=== PATIENT | male | born 1940 | race Caucasian/White ===

== ENCOUNTER 2017-02-27 14:19 | Day surgery (SDC) | payer MEDICARE, OTHER, SELFPAY ==
[2017-02-27 15:40] VITALS: BP 140/80; PULSE 69; RESP 16; O2SAT 100; BMI 26.2
--- NOTE | 2017-02-27 16:09 | HMH.PMPROC ---
- Procedure Date: 02/27/17 Time: 16:09 Anesthesiologist:: Jony Kinney MD Complications:: None Pre-procedure Diagnosis:: Degenerative disc disease of lumbar spine with lumbar radiculopathy symptoms and postlaminectomy syndrome Post-procedure Diagnosis:: Same Indications for Procedure:: This patient is a pleasant 76-year-old white male who we are treating for low back pain with lumbar radiculopathy symptoms and postlaminectomy syndrome. He is doing well with his intrathecal pain pump. We will make some changes to his intrathecal infusion today. We will increase his bupivacaine to 10 mg/mL in addition to his Dilaudid 10 mg/mL. He does have a normal gait. Motor strength of lower extremities is 5/5. There is no gross sensory deficit. Procedure Details:: Informed consent was obtained and the risks and benefits of the procedure was explained to the patient. The patient was taken to the procedure room. The pump was interrogated. The area over the pump was prepped using ChloraPrep. The pump was accessed with a 22-gauge needle. Approximately 6 mL's of the intrathecal solution was withdrawn and discarded. The pump was then refilled with 20 mL's of intrathecal Dilaudid 10 mg per ml plus bupivacaine 10 mg/mL. The pump was interrogated and the infusion was increased to 1.5 mg per day. The patient tolerated the procedure well with no complication. Plan and Disposition:: We will follow-up with him in 3 months at his next pump refill. If he has any problems or questions he is to call us in the pain clinic.
[2017-02-27 16:10] VITALS: BP 134/79; PULSE 68; RESP 20; O2SAT 97
[2017-02-27 16:12] VITALS: BP 119/85; RESP 20; O2SAT 97
[2017-02-27 16:28] VITALS: BP 142/73; PULSE 66; RESP 16; O2SAT 99
== END 2017-02-27 16:29 | disposition home or self-care (01) ==
LOC: SC.PAINP 14:22
PROVIDERS: Family Provider Family Medicine; PCP Family Medicine; Visit Provider Nurse Anesthetist, Certified Registered
DX: M51.16 Intervertebral disc disorders with radiculopathy, lumbar region (principal); M96.1 Postlaminectomy syndrome, not elsewhere classified
CPT/HCPCS: 62370

== ENCOUNTER → 2017-03-29 10:21 | Outpatient (CLI) | payer MEDICARE, OTHER, SELFPAY ==
--- NOTE | 2017-03-29 10:27 | NM_ITS ---
NM hepatobiliary w pharm HISTORY: ITS.REASON: CALCULUS OF GB ORDERING PHYSICIAN: Scooter Simons MD PATIENT AGE: 76 years COMPARISON: Gallbladder ultrasound of 05/14/2016 DOSE: 8.36 mCi technetium Choletec. Fatty meal was given with ensure or with no complaints of pain with the fatty meal FINDINGS: Homogeneous activity is present within the hepatic parenchyma. Activity is present in the gallbladder by 30 minutes. Activity is present in the small bowel by 10 minutes. The gallbladder ejection fraction is calculated to be 59% which is normal The patient did not report pain or other symptoms during the fatty meal. IMPRESSION: Unremarkable hepatobiliary scan and gallbladder ejection fraction. No evidence of common or cystic duct obstruction with normal gallbladder ejection fraction
[2017-03-29 13:11] LABS: Basophils % 0.3 % (0.1-2.0); Eosinophils # 0.2 K/mm3 (0.0-0.4); Eosinophils % 3.2 % (0.1-12.0); Hematocrit 39.2 % (42.0-52.0); Hemoglobin 12.9 g/dL (14.1-18.0); Lymphocytes # 1.7 K/mm3 (0.7-4.5); Lymphocytes % 25.5 K/mm3 (10-50); Mean Corpuscular HGB Conc 32.8 g/dL (31.8-35.4); Mean Corpuscular Hemoglobin 29.2 pg (27.0-31.2); Mean Corpuscular Volume 88.9 fl (80-94); Mean Platelet Volume 8.8 fl (7.4-10.4); Monocytes # 0.4 K/mm3 (0.1-1.0); Monocytes % 5.8 % (1.7-9.3); Neutrophils # 4.3 K/mm3 (1.8-7.8); Neutrophils % 65.2 % (37.0-80.0); Platelet Count 256 K/mm3 (142-424); Red Blood Count 4.41 M/mm3 (4.60-6.20); Red Cell Distribution Width 12.8 % (11.5-17.5); White Blood Count 6.6 K/mm3 (4.8-10.8)
[2017-03-29 14:33] LABS: Alanine Aminotransferase 26 U/L (12-78); Albumin Level 4.3 gm/dL (3.4-5.0); Albumin/Globulin Ratio 1.5 (1.1-1.8); Alkaline Phosphatase 102 U/L (46-116); Aspartate Amino Transferase 10 U/L (15-37); Bilirubin,Total 0.5 mg/dL (0.2-1.0); Blood Urea Nitrogen 26 mg/dL (7-18); Calcium 9.1 mg/dL (8.5-10.1); Carbon Dioxide 32 mmol/L (21.0-32.0); Chloride 106 mmol/L (98-107); Creatinine,Serum 0.88 mg/dL (0.70-1.30); Estimated Glomerular Filt Rate 85 ml/min (>60); GFR (African American) 102 ML/MIN (>60); Globulin 2.9 gm/dl (1.3-3.2); Glucose 106 mg/dL (74-106); Sodium 144 mmol/L (136-145); Total Protein,Serum 7.2 gm/dL (6.4-8.2)
[2017-03-29 15:04] LABS: C-Reactive Protein < 0.2 mg/L (0.0-0.9)
[2017-03-29 18:45] LABS: Erythrocyte Sedimentation Rate 25 mm/hr (0-20)
== END ==
PROVIDERS: Family Provider Family Medicine; PCP Family Medicine; Visit Provider Orthopaedic Surgery
DX: K80.20 Calculus of gallbladder without cholecystitis without obstruction (principal)
CPT/HCPCS: 36415; 78227; 80053; 85025; 85651; 86140; A9537

== ENCOUNTER → 2017-04-02 11:28 | Outpatient (CLI) | payer MEDICARE, OTHER, SELFPAY ==
--- NOTE | 2017-04-02 11:33 | NM_ITS ---
NM bone 3 phase CLINICAL INDICATION: Loosening of prosthesis ITS.REASON: R/O LOOSENING OF RTA,IDA KNEE PAIN ORDERING PHYSICIAN: Kelechi Vazquez PATIENT AGE: 76 years COMPARISON: Outside radiographs 03/27/2017 DOSE: FINDINGS: 3 phase imaging is performed. Patient has bilateral total knee prosthesis. Blood flow images show symmetric activity in the knees Blood flow images and delayed images show photopenic region within the distal femur and proximal tibia from the bilateral prosthesis. There is some increased activity about the prosthesis on both sides slightly greater around the tibial component of the right prosthesis more prominent on the anterior and right medial images. While this may be related to reactive process, one cannot exclude loosening of the prosthesis. The radiographs however do not demonstrate any significant zone of lucency in this area. IMPRESSION: Status post bilateral knee replacement. There is expected increased delayed activity about the prosthesis on both sides. This is slightly greater at the tibial component on the right could reflect early loosening versus bony reactive process. Please correlate with clinical findings.
== END ==
PROVIDERS: Family Provider Family Medicine; PCP Family Medicine; Visit Provider Orthopaedic Surgery
DX: M25.562 Pain in left knee (principal); M25.561 Pain in right knee
CPT/HCPCS: 78315; A9503

== ENCOUNTER → 2017-05-20 11:33 | Outpatient (CLI) | payer MEDICARE, SELFPAY ==
[2017-05-20 11:44] LABS: Basophils % 0.4 % (0.1-2.0); Eosinophils # 0.3 K/mm3 (0.0-0.4); Eosinophils % 4.9 % (0.1-12.0); Hematocrit 37.3 % (42.0-52.0); Hemoglobin 12.2 g/dL (14.1-18.0); Lymphocytes # 1.7 K/mm3 (0.7-4.5); Lymphocytes % 29.3 K/mm3 (10-50); Mean Corpuscular HGB Conc 32.7 g/dL (31.8-35.4); Mean Corpuscular Hemoglobin 29.1 pg (27.0-31.2); Mean Corpuscular Volume 89.1 fl (80-94); Mean Platelet Volume 8.4 fl (7.4-10.4); Monocytes # 2.4 K/mm3 (0.1-1.0); Monocytes % 41.2 % (1.7-9.3); Neutrophils # 1.4 K/mm3 (1.8-7.8); Neutrophils % 24.3 % (37.0-80.0); Platelet Count 240 K/mm3 (142-424); Red Blood Count 4.19 M/mm3 (4.60-6.20); Red Cell Distribution Width 12.4 % (11.5-17.5); White Blood Count 5.9 K/mm3 (4.8-10.8)
[2017-05-20 11:47] LABS: MANUAL DIFFERENTIAL MANUAL DIFFERENTIAL (MANUAL DIFF)
[2017-05-20 12:15] LABS: Anion Gap 12.4 mEq/L (5-15); Blood Urea Nitrogen 30 mg/dL (7-18); Carbon Dioxide 30 mmol/L (21.0-32.0); Chloride 105 mmol/L (98-107); Creatinine,Serum 0.89 mg/dL (0.70-1.30); Estimated Glomerular Filt Rate 84 ml/min (>60); GFR (African American) 101 ML/MIN (>60); Glucose 104 mg/dL (74-106); Potassium 4.4 mmoL/L (3.5-5.1); Sodium 143 mmol/L (136-145)
[2017-05-20 13:03] LABS: Lymphocytes % 29 % (10-50); Monocytes % 6 % (2-9); Neutrophils % 65 % (42-76); Platelet Estimate Normal; RBC Morphology Normal; Total Cells Counted 100
== END ==
PROVIDERS: Visit Provider Surgery
DX: Z01.818 Encounter for other preprocedural examination (principal); K40.90 Unilateral inguinal hernia, without obstruction or gangrene, not specified as recurrent
CPT/HCPCS: 36415; 80048; 85007; 85025

== ENCOUNTER → 2017-07-03 13:55 | Outpatient (POV) | payer MEDICARE, SELFPAY | PROVIDERS: Family Provider Family Medicine; PCP Family Medicine | DX: Z00.00 Encounter for general adult medical examination without abnormal findings (principal) ==

== ENCOUNTER → 2017-08-05 12:00 | Outpatient (POV) | payer MEDICARE, SELFPAY ==
[2017-08-05 12:17] VITALS: BP 141/75; PULSE 63; RESP 18; TEMP 36.7; O2SAT 98; BMI 21.4
--- NOTE | 2017-08-05 12:58 | HMH.PMPROC ---
- Procedure Date: 08/05/17 Time: 12:25 Anesthesiologist:: Lorena Coon APRN Complications:: None Pre-procedure Diagnosis:: End of disc disease of lumbar spine with lumbar radiculopathy and postlaminectomy syndrome Post-procedure Diagnosis:: Same Indications for Procedure:: Patient is a pleasant 76-year-old white male who we are treating for low back pain and lumbar radiculopathy symptoms with postlaminectomy syndrome. Patient was on a intrathecal Dilaudid bupivacaine infusion that was going at 2.3 mg a day continuous. He was switched at his last refill to a periodic flow. Patient states that he was having some dizziness. Patient does have a history of vertigo. Patient states he is getting better pain relief. Rates his pain a 2 out of 10 today. On Saturday he was decreased to flow of 2.2 mg a day. Today we will decrease him somewhat. Patient states she is doing better. Patient is walking today with a cane instead of being in a wheelchair. Patient states his PCP would like us to turn his intrathecal pain pump down. ROS General: no recent weight change, no fever, no sleep disturbances Respiratory: no cough, no shortness of air, no recurring pulmonary infections Cardiovascular/Peripheral Vascular: No chest pain, No palpitations, no edema, no shortness of breath. Gastrointestinal: no new onset incontinence, normal bowel movements reported Genitourinary: no new onset incontinence Musculoskeletal: Back pain Psychiatric: normal mood/ affect Neurological: Denies any new weakness in bilateral lower extremities, dizziness (improved) Physical Exam General: Alert and oriented x3, no acute distress, pleasant and cooperative, [on room air] Lungs: Resps E/U, Symmetrical chest expansion, Eyes: PERRL Musculoskeletal: Flexion and extension of lumbar spine somewhat guarded secondary to pain, deep tendon reflexes normal, strength in upper and lower extremities [5/5], [abnormal gait noted] Neurological: speech clear, body recall instructor equal, no gross sensory deficits Procedure Details:: Informed consent was obtained and the risk and benefits of the procedure were explained to the patient. The patient was taken to the procedure room where noninvasive monitoring was placed including noninvasive blood pressure cuff and pulse oximeter. Patient's pump was interrogated. The infusion rate was changed to a basal rate of 0.02 mg/h and a every 2 hour dose of 0.13 mg over 10 minutes. Patient's total daily dose being 2 mg a day. The patient tolerated the procedure well. Plan and Disposition:: We will follow-up with this patient on Saturday and we will reassess his symptoms at that time. Even his history of vertigo and the decrease in his intrathecal infusion I am unsure if the cause of his dizziness is from the intrathecal pain pump. Patient's been instructed to call us if he has any issues prior to his next appointment. This note was dictated using voice recognition software and may contain errors or omissions
== END ==
PROVIDERS: Family Provider Family Medicine; PCP Family Medicine; Visit Provider Clinical Nurse Specialist Family Health
DX: M54.16 Radiculopathy, lumbar region (principal)
CPT/HCPCS: 99212

== ENCOUNTER → 2017-08-12 09:24 | Outpatient (POV) | payer MEDICARE, OTHER, SELFPAY ==
[2017-08-12 09:33] VITALS: BP 140/75; PULSE 87; RESP 18; O2SAT 98; BMI 26.6
--- NOTE | 2017-08-12 09:41 | P.PCN_ITS ---
- Procedure Date: 08/12/17 Time: 09:38 Anesthesiologist:: Lorena Coon APRN Complications:: None Pre-procedure Diagnosis:: Degenerative disc disease of lumbar spine with lumbar radiculopathy and postlaminectomy syndrome Post-procedure Diagnosis:: Same Indications for Procedure:: Patient is a pleasant 76-year-old white male who we are treating for low back pain secondary to lumbar postlaminectomy syndrome and radiculopathy symptoms. Patient on intrathecal Dilaudid/bupivacaine infusion going at 2 mg a day periodically. Patient states he has done much better pain busby in regards to this. Of note patient is not utilizing a cane or wheelchair coming into the office today. Patient rates his pain a 2 out of 10. Patient states he feels like he could be decreased slightly more due to some residual dizziness however overall he is doing much better. We will decrease him again today and we will follow-up with him at his next pain pump refill. Other than dizziness the patient denies any side effects. ROS General: no recent weight change, no fever, no sleep disturbances Respiratory: no cough, no shortness of air, no recurring pulmonary infections Cardiovascular/Peripheral Vascular: No chest pain, No palpitations, no edema, no shortness of breath. Gastrointestinal: no incontinence, normal bowel movements reported Genitourinary: no incontinence Musculoskeletal: Back pain Psychiatric: normal mood/ affect Neurological: [denies weakness in extremities], [denies balance issues] Procedure Details:: Informed consent was obtained and the risk and benefits of the procedure were explained to the patient. The patient was taken to the procedure room where noninvasive monitoring was placed including noninvasive blood pressure cuff and pulse oximeter. Patient's pump was interrogated. The infusion rate was decreased to 0.12 mg over 10 minutes every 2 hours and a basal rate of 0.02 mg/ h for a total daily dose of 1.88 milligrams a day.. The patient tolerated the procedure well. Plan and Disposition:: I will follow-up with this patient at his next intrathecal pain pump refill. Patient has been instructed to call the office if he has any issues prior to his next appointment. This note was dictated using voice recognition software and may contain errors or omissions
== END ==
PROVIDERS: Family Provider Family Medicine; PCP Family Medicine; Visit Provider Clinical Nurse Specialist Family Health
DX: M54.16 Radiculopathy, lumbar region (principal); Z45.1 Encounter for adjustment and management of infusion pump
CPT/HCPCS: 62367; 99212

== ENCOUNTER → 2017-09-18 15:25 | Outpatient (POV) | payer MEDICARE, SELFPAY | PROVIDERS: Family Provider Family Medicine; PCP Family Medicine | DX: Z00.00 Encounter for general adult medical examination without abnormal findings (principal) ==

== ENCOUNTER → 2017-11-11 12:08 | Outpatient (POV) | payer MEDICARE, OTHER, SELFPAY ==
[2017-11-11 12:18] VITALS: BP 125/74; PULSE 67; RESP 18; O2SAT 98; BMI 27.1
--- NOTE | 2017-11-11 13:08 | P.PCN_ITS ---
- Procedure Date: 11/11/17 Time: 12:44 Anesthesiologist:: Lorena Coon APRN Complications:: None Pre-procedure Diagnosis:: Degenerative disc disease of lumbar spine with lumbar radiculopathy and postlaminectomy syndrome along with bilateral osteoarthritis of the knees Post-procedure Diagnosis:: Same Indications for Procedure:: Patient is a 77-year-old white male who presents today for intrathecal pain pump reprogramming. Patient states that he is having quite a lot of back pain along with bilateral knee pain. Patient is not interested in updating his MRI at this time. He rates his pain a 2 out of 10 today. Patient is also on [place] 5 twice daily as needed for knee pain. He denies any side effects to this. He states he does get sleepy from the intrathecal medication at times. Patient wants to discuss the vrtiflex procedure. I am unsure if he is a candidate we will have the MRI reviewed. Patient is currently on a Dilaudid/bupivacaine 1.8 mg a day Physical Exam General: Alert and oriented x3, no acute distress, pleasant and cooperative, [on room air] Lungs: Resps E/U, Symmetrical chest expansion, Eyes: PERRL Musculoskeletal: Flexion and extension of lumbar spine somewhat guarded secondary to pain, deep tendon reflexes normal, strength in upper and lower extremities [5/5], [abnormal gait noted] Neurological: speech clear, workforce investment act career manager equal, no gross sensory deficits Procedure Details:: Informed consent was obtained and the risk and benefits of the procedure were explained to the patient. The patient was taken to the procedure room where noninvasive monitoring was placed including noninvasive blood pressure cuff and pulse oximeter. Patient's pump was interrogated. The infusion rate was increased to 2.2 mg/day of Dilaudid and bupivacaine. The patient tolerated the procedure well. Plan and Disposition:: We will follow-up with the patient is next intrathecal pain pump refill and reprogram. Patient's been instructed to call the office if he has any issues prior to his next appointment. This note was dictated using voice recognition software and may contain errors or omissions
== END ==
PROVIDERS: Family Provider Family Medicine; PCP Family Medicine; Visit Provider Clinical Nurse Specialist Family Health
DX: M51.16 Intervertebral disc disorders with radiculopathy, lumbar region (principal); M96.1 Postlaminectomy syndrome, not elsewhere classified; M17.0 Bilateral primary osteoarthritis of knee
CPT/HCPCS: 62368

== ENCOUNTER → 2017-12-25 14:40 | Outpatient (POV) | payer MEDICARE, SELFPAY | DX: Z00.00 Encounter for general adult medical examination without abnormal findings (principal) ==

== ENCOUNTER → 2017-12-26 11:00 | Outpatient (CLI) | payer MEDICARE, SELFPAY ==
[2017-12-26 13:25] LABS: Prostate Specific Ag, Diagnost 1.18 ng/mL (0.0-4.0)
== END ==
PROVIDERS: Visit Provider Urology
DX: N40.0 Benign prostatic hyperplasia without lower urinary tract symptoms (principal); N39.9 Disorder of urinary system, unspecified
CPT/HCPCS: 36415; 84153

== ENCOUNTER → 2018-01-04 09:53 | Outpatient (CLI) | payer MEDICARE, OTHER, SELFPAY ==
[2018-01-04 10:19] LABS: Basophils % 0.6 % (0.1-2.0); Eosinophils # 0.2 K/mm3 (0.0-0.4); Eosinophils % 3.9 % (0.1-12.0); Hematocrit 37.6 % (42.0-52.0); Hemoglobin 12.3 g/dL (14.1-18.0); Lymphocytes # 1.9 K/mm3 (0.7-4.5); Lymphocytes % 33.7 % (10-50); Mean Corpuscular HGB Conc 32.6 g/dL (31.8-35.4); Mean Corpuscular Volume 88.8 fl (80-94); Mean Platelet Volume 7.8 fl (7.4-10.4); Monocytes # 0.3 K/mm3 (0.1-1.0); Monocytes % 5.5 % (1.7-9.3); Neutrophils # 3.2 K/mm3 (1.8-7.8); Neutrophils % 56.3 % (37.0-80.0); Platelet Count 278 K/mm3 (142-424); Red Blood Count 4.24 M/mm3 (4.60-6.20); Red Cell Distribution Width 13.2 % (11.5-17.5); White Blood Count 5.6 K/mm3 (4.8-10.8)
[2018-01-04 11:58] LABS: Alanine Aminotransferase 21 U/L (12-78); Albumin Level 3.9 gm/dL (3.4-5.0); Albumin/Globulin Ratio 1.3 (1.1-1.8); Alkaline Phosphatase 100 U/L (46-116); Anion Gap 12.2 mEq/L (5-15); Aspartate Amino Transferase 7 U/L (15-37); Bilirubin,Total 0.5 mg/dL (0.2-1.0); Blood Urea Nitrogen 24 mg/dL (7-18); Calcium 8.9 mg/dL (8.5-10.1); Carbon Dioxide 29 mmol/L (21.0-32.0); Chloride 107 mmol/L (98-107); Creatinine,Serum 0.87 mg/dL (0.70-1.30); Estimated Glomerular Filt Rate 86 ml/min (>60); GFR (African American) 104 ML/MIN (>60); Globulin 3.1 gm/dl (1.3-3.2); Glucose 99 mg/dL (74-106); Potassium 4.2 mmoL/L (3.5-5.1); Sodium 144 mmol/L (136-145)
== END ==
PROVIDERS: Visit Provider Family Medicine
DX: Z01.818 Encounter for other preprocedural examination (principal)
CPT/HCPCS: 36415; 80053; 85025; 93005

== ENCOUNTER 2018-03-25 14:30 | Outpatient (RCR) | payer MEDICARE, OTHER, SELFPAY | END 2018-03-25 14:35 | disposition home or self-care (01) | LOC: PT 14:30 | PROVIDERS: Visit Provider Orthopaedic Surgery | DX: Z96.651 Presence of right artificial knee joint (principal) | CPT/HCPCS: 97010; 97014; 97016; 97033; 97110; 97112; 97163; G0283 ==

== ENCOUNTER → 2018-04-23 10:26 | Outpatient (CLI) | payer MEDICARE, OTHER, SELFPAY ==
[2018-04-23 11:34] LABS: Basophils % 0.5 % (0.1-2.0); Eosinophils # 0.2 K/mm3 (0.0-0.4); Eosinophils % 3.8 % (0.1-12.0); Hematocrit 39.4 % (42.0-52.0); Lymphocytes # 1.5 K/mm3 (0.7-4.5); Lymphocytes % 33.9 % (10-50); Mean Corpuscular Hemoglobin 29.2 pg (27.0-31.2); Mean Corpuscular Volume 88.5 fl (80-94); Monocytes # 0.3 K/mm3 (0.1-1.0); Monocytes % 6.4 % (1.7-9.3); Neutrophils # 2.5 K/mm3 (1.8-7.8); Neutrophils % 55.5 % (37.0-80.0); Platelet Count 267 K/mm3 (142-424); Red Blood Count 4.45 M/mm3 (4.60-6.20); White Blood Count 4.5 K/mm3 (4.8-10.8)
[2018-04-23 12:31] LABS: Alanine Aminotransferase 26 U/L (12-78); Albumin/Globulin Ratio 1.3 (1.1-1.8); Alkaline Phosphatase 119 U/L (46-116); Anion Gap 12.4 mEq/L (5-15); Aspartate Amino Transferase 13 U/L (15-37); Bilirubin,Total 0.6 mg/dL (0.2-1.0); Blood Urea Nitrogen 28 mg/dL (7-18); Calcium 9.5 mg/dL (8.5-10.1); Carbon Dioxide 29 mmol/L (21.0-32.0); Chloride 106 mmol/L (98-107); Chol/HDL Ratio 5.6 (1-3.5); Cholesterol 203 mg/dL (140-200); Creatinine,Serum 0.92 mg/dL (0.70-1.30); Estimated Glomerular Filt Rate 80 ml/min (>60); GFR (African American) 97 ML/MIN (>60); Globulin 3.2 gm/dl (1.3-3.2); Glucose 90 mg/dL (74-106); HDL Cholesterol 36 mg/dL (27-67); LDL Cholesterol 141 mg/dL (0-130); Potassium 4.4 mmoL/L (3.5-5.1); Sodium 143 mmol/L (136-145); Thyroid Stimulating Hormone 1.16 uIU/ml (0.358-3.740); Total Protein,Serum 7.2 gm/dL (6.4-8.2); Triglycerides 128 mg/dL (30-200); VLDL Cholesterol 26 mg/dL (0-40)
[2018-04-23 13:07] LABS: Erythrocyte Sedimentation Rate 13 mm/hr (0-20)
[2018-04-23 15:27] LABS: Hemoglobin A1C 5.3 % (0.0-7.0)
== END ==
PROVIDERS: Visit Provider Family Medicine
DX: R73.9 Hyperglycemia, unspecified (principal); E78.5 Hyperlipidemia, unspecified; Z12.5 Encounter for screening for malignant neoplasm of prostate
CPT/HCPCS: 36415; 80053; 80061; 83036; 84443; 85025; 85651

== ENCOUNTER → 2018-07-21 12:39 | Outpatient (CLI) | payer MEDICARE, OTHER, SELFPAY ==
[2018-07-21 14:14] LABS: Basophils % 0.5 % (0.1-2.0); Eosinophils # 0.2 K/mm3 (0.0-0.4); Eosinophils % 3.1 % (0.1-12.0); Hemoglobin 12.8 g/dL (14.1-18.0); Lymphocytes % 28.2 % (10-50); Mean Corpuscular HGB Conc 33.7 g/dL (31.8-35.4); Mean Corpuscular Hemoglobin 28.8 pg (27.0-31.2); Mean Corpuscular Volume 85.3 fl (80-94); Monocytes # 0.5 K/mm3 (0.1-1.0); Monocytes % 6.6 % (1.7-9.3); Neutrophils # 4.4 K/mm3 (1.8-7.8); Neutrophils % 61.5 % (37.0-80.0); Platelet Count 291 K/mm3 (142-424); Red Blood Count 4.46 M/mm3 (4.60-6.20); Red Cell Distribution Width 12.8 % (11.5-17.5); White Blood Count 7.1 K/mm3 (4.8-10.8)
[2018-07-21 17:31] LABS: Alanine Aminotransferase 36 U/L (12-78); Albumin/Globulin Ratio 1.3 (1.1-1.8); Alkaline Phosphatase 103 U/L (46-116); Anion Gap 17.2 mEq/L (5-15); Aspartate Amino Transferase 17 U/L (15-37); Bilirubin,Total 0.5 mg/dL (0.2-1.0); Blood Urea Nitrogen 22 mg/dL (7-18); Calcium 9.3 mg/dL (8.5-10.1); Carbon Dioxide 25 mmol/L (21.0-32.0); Chloride 105 mmol/L (98-107); Creatinine,Serum 0.86 mg/dL (0.70-1.30); Estimated Glomerular Filt Rate 87 ml/min (>60); GFR (African American) 105 ML/MIN (>60); Globulin 3.1 gm/dl (1.3-3.2); Glucose 93 mg/dL (74-106); Potassium 4.2 mmoL/L (3.5-5.1); Sodium 143 mmol/L (136-145); Total Protein,Serum 7.1 gm/dL (6.4-8.2)
[2018-07-24 08:56] LABS: Folate >20.0 ng/mL (>3.0); Rapid Plasma Reagin Ab Titer Non Reactive (NonRea<1:1); Vitamin B12 1256 pg/mL (232-1245)
== END ==
PROVIDERS: Visit Provider Specialist
DX: F11.90 Opioid use, unspecified, uncomplicated (principal); G47.19 Other hypersomnia; G47.30 Sleep apnea, unspecified; H53.40 Unspecified visual field defects; R41.3 Other amnesia; R41.89 Other symptoms and signs involving cognitive functions and awareness; R53.83 Other fatigue; Z85.820 Personal history of malignant melanoma of skin; G93.40 Encephalopathy, unspecified
CPT/HCPCS: 36415; 80053; 82607; 82746; 85025; 86592

== ENCOUNTER → 2018-07-23 11:07 | Outpatient (CLI) | payer MEDICARE, OTHER, SELFPAY ==
--- NOTE | 2018-07-23 11:24 | CT_ITS ---
CT lumbar spine wo con INDICATION: ITS.REASON: LOW BACK PAIN ORDERING PHYSICIAN: Kelechi Vazquez MD PATIENT AGE: 77 years COMPARISON: 10/11/2014 TECHNIQUE: Axial images obtained with sagittal and coronal reformats. All CT scans at the facility use one or more dose reduction, viz: automated exposure control, ma/kV adjustment per patient size (including targeted exams where dose is matched to indication, i.e. head), or iterative reconstruction technique. FINDINGS: T10-T11: Unremarkable. There is an epidural catheter present with the tip in the left posterior aspect of the thecal sac at this level. T11-T12: Unremarkable. T12-L1: Unremarkable. There is mild wedging involving the anterior aspect of L1 with loss of height anteriorly of approximately 40%. This is not significant changed. There is a new small sclerotic focus involving the right lateral aspect of the L1 vertebral body which has developed in the interval. L1-L2: Unremarkable. L2-L3: Mild bulging disc along with mild facet and ligamentum hypertrophy with mild bilateral foraminal narrowing slightly greater on the right. Mild bilateral lateral recess narrowing. L3-L4: There is moderate facet hypertrophic change with prior posterior laminectomy at L4 and prominent bony hypertrophy of the posterior elements greater at the L4-L5 level. L4-L5: Postsurgical changes with prior laminectomy at L4 and prominent bony hypertrophy at L4-L5 with posterior fusion. Mild bilateral foraminal and lateral recess narrowing. L5-S1: There is spondylolisthesis on the left. There is 5 mm anterolisthesis of L5 on S1 with bulging disc at that level and bilateral foraminal narrowing. These findings are not significantly changed. There is an epidural catheter present which enters at the L3-L4 posterior space. The catheter first traverses anteriorly on the left at L3 and then traverses posteriorly with the tip of the catheter lying at the T11 T10 area on the left. IMPRESSION: 1. Multilevel lumbar spondylosis with degenerative changes. Please see above for detailed description at each level. 2. No change in the postsurgical change at L4-L5 with extensive bony hypertrophy and posterior bony fusion. 3. No change in the mild anterolisthesis of L5 on S1 of 5 mm with pars defect on the left at that level. 4. New epidural catheter present as described above. IMPRESSION:
== END ==
PROVIDERS: PCP Family Medicine; Visit Provider Orthopaedic Surgery
DX: M54.5 Low back pain (principal)
CPT/HCPCS: 72131

== ENCOUNTER → 2018-07-25 09:48 | Outpatient (CLI) | payer MEDICARE, OTHER, SELFPAY | PROVIDERS: PCP Family Medicine; Visit Provider Specialist | DX: G93.40 Encephalopathy, unspecified (principal); R41.3 Other amnesia ==

== ENCOUNTER → 2018-08-01 13:44 | Outpatient (CLI) | payer MEDICARE, OTHER, SELFPAY ==
--- NOTE | 2018-08-01 13:46 | MR_ITS ---
MR head/brain wo/w con HISTORY: ITS.REASON: encephalopathy. memory loss ORDERING PHYSICIAN: Ira Flowers MD PATIENT AGE: 77 years Comparison: None TECHNIQUE: Standard multiplanar multiecho sequences are performed without contrast. FINDINGS: There are no areas of restricted diffusion. There is no mass, recent hemorrhage or extra-axial fluid collection. Ventricles, sulci, cortical areas and brain stem structures appear normal. There were no areas of abnormal enhancement. There are stable small foci of increased FLAIR signal within the frontal and parietal subcortical white matter areas. Posterior fossa including internal auditory canals are normal. Visualized vessels are patent and area of the foramen magnum is normal. IMPRESSION: No change and no acute process. White matter findings are stable likely from chronic microvascular ischemic change.
== END ==
PROVIDERS: PCP Family Medicine; Visit Provider Specialist
DX: G93.40 Encephalopathy, unspecified (principal); R41.3 Other amnesia; R41.89 Other symptoms and signs involving cognitive functions and awareness; Z85.820 Personal history of malignant melanoma of skin
CPT/HCPCS: 70553; A9576

== ENCOUNTER → 2018-08-07 20:26 | Outpatient (CLI) | payer MEDICARE, OTHER, SELFPAY | PROVIDERS: PCP Family Medicine; Visit Provider Specialist | DX: G47.30 Sleep apnea, unspecified (principal); R40.0 Somnolence; R41.82 Altered mental status, unspecified | CPT/HCPCS: 95810 ==

== ENCOUNTER → 2018-08-29 10:07 | Outpatient (POV) | payer MEDICARE, OTHER, SELFPAY ==
[2018-08-29 10:40] VITALS: BP 137/65; PULSE 60; RESP 20; O2SAT 95; BMI 26.9
--- NOTE | 2018-08-29 11:06 | HMH.PMPROC ---
- Procedure Date: 08/29/18 Time: 11:06 Anesthesiologist:: Jony Kinney MD Complications:: None Pre-procedure Diagnosis:: Degenerative disc disease of lumbar spine with lumbar radicular symptoms and postlaminectomy syndrome of lumbar spine Post-procedure Diagnosis:: Same Indications for Procedure:: This patient is a pleasant 77-year-old white male who is well-known to us. He currently has an intrathecal Dilaudid/bupivacaine pain pump in place. He does have increasing low back pain and leg pain. Pain pump was doing well. He is on flex dosing at 2.8 mg/day with 0.16 mg boluses every 2 hours. His pain is slowly increase especially in his low back and down his right leg. He is scheduled to see a spine surgeon at [facility]. He has had facet joint injections in the past which have helped tremendously. I believe he would benefit from repeat bilateral facet joint injections of L3-L4, L4-5 and L5-S1. We will seek approval for these bilateral facet joint injections. Today we will also increase his intrathecal infusion to see if this will help with his symptoms. Procedure Details:: Pain pump reprogramming and increase Informed consent was obtained and the risk and benefits of the procedure was explained to the patient. The patient was taken to the procedure room. Intrathecal Dilaudid/bupivacaine pain pump was adjusted. Flex doses were increased to 0.2 mg every 2 hours. Daily dose increased to 3.34 mg/day. Patient tolerated the procedure well with no complications. Plan and Disposition:: We will follow-up with him in 2 weeks. Will reevaluate his symptoms at that time. Patient would like an increase in his bupivacaine. At his next refill we may increase his bupivacaine concentration to 20 mg/mL. We will also seek approval and plan on bilateral facet joint injections of L3-L4, L4-5 and L5-S1.
== END ==
PROVIDERS: PCP Family Medicine; Visit Provider Anesthesiology
DX: M51.16 Intervertebral disc disorders with radiculopathy, lumbar region (principal); M96.1 Postlaminectomy syndrome, not elsewhere classified
CPT/HCPCS: 62368

== ENCOUNTER → 2018-09-16 14:52 | Outpatient (CLI) | payer MEDICARE, OTHER, SELFPAY ==
[2018-09-16 17:05] LABS: Amphetamine/Metha Screen,Urine Negative ng/mL (<1000); Barbiturates Screen,Urine Negative ng/mL (<200); Benzodiazepines Screen,Urine Negative ng/mL (<200); Cannabinoid Screen,Urine Negative ng/mL (<50); Cocaine Screen,Urine Negative ng/mL (<300); Methadone Screen,Urine Negative ng/mL (<300); Opiate Screen,Urine Positive ng/mL (<300); Phencyclidine Screen,Urine Negative ng/mL (<25)
[2018-09-21 19:15] LABS: Codeine Negative (Cutoff=100); Hydrocodone Negative (Cutoff=100); Hydromorphone Positive (.); Morphine Negative (Cutoff=100)
[2018-09-22 10:34] LABS: Opiates Positive (.)
== END ==
PROVIDERS: Visit Provider Anesthesiology
DX: Z79.899 Other long term (current) drug therapy (principal)
CPT/HCPCS: 80305; 80361; 80365; G0480

== ENCOUNTER → 2018-10-21 09:59 | Outpatient (POV) | payer MEDICARE, OTHER, SELFPAY ==
[2018-10-21 10:32] VITALS: BP 141/85; PULSE 74; RESP 18; O2SAT 98; BMI 25.8
--- NOTE | 2018-10-21 12:12 | HMH.PAINSOAP ---
[facility] Pain Management SOAP Note Subjective:: he is a pleasant 78-year-old white male who presents today for follow-up after medial branch blocks of L3-L4 L4-L5 L5-S1. Patient states he had good relief but it only lasted a few days I discussed with him potentially burning the nerves and radiofrequency ablation and he is uninterested in this. Patient wants to discuss mild procedure. Patient does have a recent CT scan showing ligamentum flavum hypertrophy however he has had surgery in the past. After review of the CT scan with Dr. Kinney it was determined the only level we could do a mild procedure at was L2-L3 I discussed this with the patient. He did take information home and discuss it with his family. He does have an intrathecal pain pump but most of his pain is when he is walking and standing. He finds that he cannot stand without bending forward. ROS General: no recent weight change, no fever, no sleep disturbances Respiratory: no cough, no shortness of air, no recurring pulmonary infections Cardiovascular/Peripheral Vascular: No chest pain, No palpitations, no edema, no shortness of breath. Gastrointestinal: no incontinence, normal bowel movements reported Genitourinary: no incontinence Musculoskeletal: Back pain, leg pain Psychiatric: normal mood/ affect Neurological: Weakness bilateral lower extremities when walking, [denies balance issues] Objective:: Physical Exam General: Alert and oriented x3, no acute distress, pleasant and cooperative, [on room air] Lungs: Resps E/U, Symmetrical chest expansion, Eyes: PERRL Musculoskeletal: Flexion and extension of lumbar spine somewhat guarded secondary to pain, deep tendon reflexes normal, strength in upper and lower extremities [5/5], [abnormal gait noted] Neurological: speech clear, senior environmental consultant equal, no gross sensory deficits Assessment:: Postlaminectomy syndrome lumbar spine, lumbar spondylosis, spinal stenosis with neurogenic claudication, ligamentum flavum hypertrophy Plan:: We will get the patient approved for mild if that is what he would like to move forward with. We will follow-up with him after that reassess his symptoms at that time is been instructed to call the office once he makes his decision. Dr. Kinney has reviewed this note and agrees with this plan of care. This note was dictated using voice recognition software and may contain errors or omissions Pain Management Hx Components *Have you ever received a pneumonia vaccine?: Yes *Have you received a flu vaccine this season?: Yes - *Social History *Occupational Status:: other *Travel in the last 8 weeks: None
== END ==
PROVIDERS: PCP Family Medicine; Visit Provider Clinical Nurse Specialist Family Health
DX: M96.1 Postlaminectomy syndrome, not elsewhere classified (principal); M47.896 Other spondylosis, lumbar region; M48.062 Spinal stenosis, lumbar region with neurogenic claudication; M46.06 Spinal enthesopathy, lumbar region
CPT/HCPCS: 99212

== ENCOUNTER → 2018-12-23 11:29 | Outpatient (POV) | payer MEDICARE, OTHER, SELFPAY ==
[2018-12-23 12:37] VITALS: BP 133/61; PULSE 69; RESP 18; O2SAT 98; BMI 25.8
--- NOTE | 2018-12-23 12:46 | HMH.PAINSOAP ---
[facility] Pain Management SOAP Note Subjective:: Patient is a pleasant 78-year-old white male who presents today for follow-up. Patient has an intrathecal pain pump however he is having a lot of spinal stenosis type pain. 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 He is not a candidate for a mild in other areas due to his previous surgeries. Dr. Kinney and I did discuss this he may be potentially a candidate for mild at the L2-L3 level and potentially the L1-L2 level. We will set the patient up for an epidurogram to help determine if the patient will be a good candidate or not. Patient has failed injective therapy, physical therapy, intrathecal pain pump increases. Patient also wants to discuss his knee pain. Patient I briefly talked about potential genicular nerve blocks in the future. He rates his pain a 4 out of 10. Patient is unable to stand for more than 5 minutes and unable to walk more than 5 minutes. ROS General: no recent weight change, no fever, no sleep disturbances Respiratory: no cough, no shortness of air, no recurring pulmonary infections Cardiovascular/Peripheral Vascular: No chest pain, No palpitations, no edema, no shortness of breath. Gastrointestinal: no new onset incontinence, normal bowel movements reported Genitourinary: no new onset incontinence Musculoskeletal: Back pain, leg pain Psychiatric: normal mood/ affect Neurological: [denies new onset weakness in extremities], [denies new onset balance issues] Objective:: Physical Exam General: Alert and oriented x3, no acute distress, pleasant and cooperative, [on room air] Lungs: Resps E/U, Symmetrical chest expansion, Eyes: PERRL Musculoskeletal: Flexion and extension of lumbar spine somewhat guarded secondary to pain, deep tendon reflexes normal, strength in upper and lower extremities [5/5], [abnormal gait noted] Neurological: speech clear, licensed occupational therapy assistant equal, no gross sensory deficits Assessment:: Post laminectomy syndrome lumbar spine, bilateral knee pain secondary to replacement, ligament of flavum hypertrophy, spinal stenosis with neurogenic claudication Plan:: We will set the patient up for an epidurogram to help determine if he would be a candidate for a mild procedure at the higher lumbar levels. I will follow-up with the patient after reassess his symptoms at that time he is been instructed to call the office if he has any issues prior to his next appointment. He is not on any anticoagulation therapy. Dr. Kinney has reviewed this note and agrees with this plan of care. This note was dictated using voice recognition software and may contain errors or omissions [facility] History I have reviewed the patient's past medical history: Yes Medical History: Reports:: Deep Vein Thrombosis, Hypertension Denies:: Cancer, Diabetes Mellitus Type 1, Diabetes Mellitus Type 2, Internal Pacemaker, Lung Disease, MRSA, Seizures *Have you ever received a pneumonia vaccine?: Yes *Have you received a flu vaccine this season?: Yes Other Medical History: Reports: Other. Denies: Blood Transfusion Reaction Laterality Cases: Right: Arthroscopy Shoulder, Bilateral: Arthroscopy Knee Other Surgeries: Yes: Hernia Repair, Other. No: Pacemaker Amputation: No Fractures: No - *Social History Smoking Status: Never smoker Alcohol Intake: never Alcohol Intake Frequency:: other Substance Use Type: denies use *Occupational Status:: other Housing: house Household Members: spouse *Travel in the last 8 weeks: None Family Hx:: Stroke
--- NOTE | 2018-12-23 12:49 | P.CONS_ITS ---
[facility] Pain Management SOAP Note Subjective:: Patient is a pleasant 78-year-old white male who presents today for follow-up. Patient has an intrathecal pain pump however he is having a lot of spinal stenosis type pain. 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 He is not a candidate for a mild in other areas due to his previous surgeries. Dr. Kinney and I did discuss this he may be potentially a candidate for mild at the L2-L3 level and potentially the L1-L2 level. We will set the patient up for an epidurogram to help determine if the patient will be a good candidate or not. Patient has failed injective therapy, physical therapy, intrathecal pain pump increases. Patient also wants to discuss his knee pain. Patient I briefly talked about potential genicular nerve blocks in the future. He rates his pain a 4 out of 10. Patient is unable to stand for more than 5 minutes and unable to walk more than 5 minutes. ROS General: no recent weight change, no fever, no sleep disturbances Respiratory: no cough, no shortness of air, no recurring pulmonary infections Cardiovascular/Peripheral Vascular: No chest pain, No palpitations, no edema, no shortness of breath. Gastrointestinal: no new onset incontinence, normal bowel movements reported Genitourinary: no new onset incontinence Musculoskeletal: Back pain, leg pain Psychiatric: normal mood/ affect Neurological: [denies new onset weakness in extremities], [denies new onset balance issues] Objective:: Physical Exam General: Alert and oriented x3, no acute distress, pleasant and cooperative, [on room air] Lungs: Resps E/U, Symmetrical chest expansion, Eyes: PERRL Musculoskeletal: Flexion and extension of lumbar spine somewhat guarded secondary to pain, deep tendon reflexes normal, strength in upper and lower extremities [5/5], [abnormal gait noted] Neurological: speech clear, jordan worker equal, no gross sensory deficits Assessment:: Post laminectomy syndrome lumbar spine, bilateral knee pain secondary to replacement, ligament of flavum hypertrophy, spinal stenosis with neurogenic claudication Plan:: We will set the patient up for an epidurogram to help determine if he would be a candidate for a mild procedure at the higher lumbar levels. I will follow-up with the patient after reassess his symptoms at that time he is been instructed to call the office if he has any issues prior to his next appointment. He is not on any anticoagulation therapy. Dr. Kinney has reviewed this note and agrees with this plan of care. This note was dictated using voice recognition software and may contain errors or omissions [facility] History I have reviewed the patient's past medical history: Yes Medical History: Reports:: Deep Vein Thrombosis, Hypertension Denies:: Cancer, Diabetes Mellitus Type 1, Diabetes Mellitus Type 2, Internal Pacemaker, Lung Disease, MRSA, Seizures *Have you ever received a pneumonia vaccine?: Yes *Have you received a flu vaccine this season?: Yes Other Medical History: Reports: Other. Denies: Blood Transfusion Reaction Laterality Cases: Right: Arthroscopy Shoulder, Bilateral: Arthroscopy Knee Other Surgeries: Yes: Hernia Repair, Other. No: Pacemaker Amputation: No Fractures: No - *Social History Smoking Status: Never smoker Alcohol Intake: never Alcohol Intake Frequency:: other Substance Use Type: denies use *Occupational Status:: other Housing: house Household Members: spouse *Travel in the last 8 weeks: None Family Hx:: Stroke
== END ==
PROVIDERS: PCP Family Medicine; Visit Provider Clinical Nurse Specialist Family Health
DX: Z96.653 Presence of artificial knee joint, bilateral (principal); M25.562 Pain in left knee; M25.561 Pain in right knee; M48.062 Spinal stenosis, lumbar region with neurogenic claudication; M46.06 Spinal enthesopathy, lumbar region; M96.1 Postlaminectomy syndrome, not elsewhere classified
CPT/HCPCS: 99212

== ENCOUNTER → 2019-01-09 14:05 | Outpatient (CLI) | payer MEDICARE, OTHER, SELFPAY ==
--- NOTE | 2019-01-09 14:26 | CA_ITS ---
APPROVED REPORT Architectural Renderer: FREDO Laterality: Bilateral Study Quality: Adequate Indications: NEAR SYNCOPE HTN Doppler Spectral Velocity Analysis dICA (R) 78.30/25.70 cm/s dICA (L) 80.90/23.80 cm/s Breezy (R) 79.00/21.80 cm/s Breezy (L) 109.80/37.90 cm/s pICA (R) 88.60/23.80 cm/s pICA (L) 89.30/17.30 cm/s dCCA (R) 82.80/19.30 cm/s dCCA (L) 100.20/20.50 cm/s pCCA (R) 76.50/18.20 cm/s pCCA (L) 101.50/16.70 cm/s Vert (R) 53.90/10.90 cm/s Vert (L) 45.60/14.10 cm/s ICA/CCA 1.07 ICA/CCA 1.10 Conclusion Duplex evaluation demonstrates stenosis of the right proximal internal carotid artery <20% with PSV <140 cm/sec, EDV <100 cm/sec, and IC/CC Ratio <4.0.Duplex evaluation demonstrates stenosis of the left proximal internal carotid artery in the range of 20-49% with PSV <140 cm/sec, EDV <100 cm/sec, and IC/CC Ratio <4.0.Antegrade flow seen bilateral vertebral arteries. Electronically signed by : Margarito Tipton MD 01/14/2019 18:42:23
== END ==
PROVIDERS: PCP Family Medicine; Visit Provider Family Medicine
DX: R55 Syncope and collapse (principal)
CPT/HCPCS: 93880

== ENCOUNTER → 2019-03-02 10:57 | Outpatient (POV) | payer MEDICARE, OTHER, SELFPAY ==
[2019-03-02 11:13] VITALS: BP 133/66; PULSE 87; RESP 18; O2SAT 99; BMI 26.2
--- NOTE | 2019-03-02 11:44 | HMH.PAINSOAP ---
[facility] Pain Management SOAP Note Subjective:: Patient is a pleasant 78-year-old white male who presents today for follow-up after SI joint injection. Patient states he did very well with this. He is also following up from his mild procedure. He has noticed that he seems stronger and that his pain in his knees has been completely alleviated. Patient still having difficulty standing and walking for long periods of time. Patient rates his pain a 4 out of 10 and is continuing a home stretching program. We will follow-up with him in some time and reassess his symptoms. ROS General: no recent weight change, no fever, no sleep disturbances Respiratory: no cough, no shortness of air, no recurring pulmonary infections Cardiovascular/Peripheral Vascular: No chest pain, No palpitations, no edema, no shortness of breath. Gastrointestinal: no new onset incontinence, normal bowel movements reported Genitourinary: no new onset incontinence Musculoskeletal: Back pain, leg pain Psychiatric: normal mood/ affect Neurological: [denies new onset weakness in extremities], [denies new onset balance issues] Objective:: Physical Exam General: Alert and oriented x3, no acute distress, pleasant and cooperative, [on room air] Lungs: Resps E/U, Symmetrical chest expansion, Eyes: PERRL Musculoskeletal: Flexion and extension of lumbar spine somewhat guarded secondary to pain, deep tendon reflexes normal, strength in upper and lower extremities [5/5], [abnormal gait noted] Neurological: speech clear, sales exec equal, no gross sensory deficits Assessment:: Postlaminectomy syndrome lumbar spine, spinal stenosis with neurogenic claudication Plan:: We will see the patient back at his next intrathecal pain pump refill and reprogram we will follow-up with him at that time he is been instructed to call the office if he has any issues prior to his next appointment. Dr. Kinney has reviewed this note and agrees with this plan of care. This note was dictated using voice recognition software and may contain errors or omissions [facility] History I have reviewed the patient's past medical history: Yes Medical History: Reports:: Deep Vein Thrombosis, Hypertension Denies:: Cancer, Diabetes Mellitus Type 1, Diabetes Mellitus Type 2, Internal Pacemaker, Lung Disease, MRSA, Seizures *Have you ever received a pneumonia vaccine?: Yes *Have you received a flu vaccine this season?: Yes Other Medical History: Reports: Other. Denies: Blood Transfusion Reaction Laterality Cases: Right: Arthroscopy Shoulder, Bilateral: Arthroscopy Knee Other Surgeries: Yes: Hernia Repair, Other. No: Pacemaker Amputation: Yes (knees) Fractures: No - *Social History Smoking Status: Never smoker Alcohol Intake: never Alcohol Intake Frequency:: other Substance Use Type: denies use *Occupational Status:: other Housing: house Household Members: spouse *Travel in the last 8 weeks: None Family Hx:: Stroke
== END ==
PROVIDERS: PCP Family Medicine; Visit Provider Clinical Nurse Specialist Family Health
DX: M96.1 Postlaminectomy syndrome, not elsewhere classified (principal); M48.062 Spinal stenosis, lumbar region with neurogenic claudication; I10 Essential (primary) hypertension; I82.409 Acute embolism and thrombosis of unspecified deep veins of unspecified lower extremity; Z87.39 Personal history of other diseases of the musculoskeletal system and connective tissue
CPT/HCPCS: 99212

== ENCOUNTER → 2019-03-31 11:03 | Outpatient (POV) | payer MEDICARE, OTHER, SELFPAY ==
[2019-03-31 11:13] VITALS: BP 152/68; PULSE 65; RESP 18; O2SAT 98; BMI 25.8
--- NOTE | 2019-03-31 11:46 | HMH.PMPROC ---
- Procedure Date: 03/31/19 Time: 11:46 Anesthesiologist:: Lorena Coon APRN Complications:: None Pre-procedure Diagnosis:: Degenerative disc disease lumbar spine lumbar radiculopathy and postlaminectomy syndrome Post-procedure Diagnosis:: Same Indications for Procedure:: Patient is a pleasant 78-year-old white male who presents today for intrathecal pain pump adjustment. Patient states that his pain is quite significant rating it a 9 out of 10. Patient states he does not know if he is overdone it or if there is something wrong with the pump. Patient has worsening pain in his back and bilateral legs. Patient states that even prior to this exacerbation he was having an increased pain down his right leg and is now having spasms throughout his whole body. This is the same as when he had a fracture in his lower spine. Patient is concerned in regards to this. Patient again states he does not feel that the pain pump is working at this time I do believe he may benefit from a catheter dye study. Physical Exam General: Alert and oriented x3, no acute distress, pleasant and cooperative, [on room air] Lungs: Resps E/U, Symmetrical chest expansion, Eyes: PERRL Musculoskeletal: Flexion and extension of lumbar spine somewhat guarded secondary to pain, deep tendon reflexes normal, strength in upper and lower extremities [5/5], [abnormal gait noted] Neurological: speech clear, manufacture specialist equal, no gross sensory deficits Procedure Details:: Informed consent was obtained and the risk and benefits of the procedure were explained to the patient. The patient was taken to the procedure room where noninvasive monitoring was placed including noninvasive blood pressure cuff and pulse oximeter. Patient's pump was interrogated and reprogrammed. The infusion rate was was given a one-time bolus of 1 mg of Dilaudid. The patient tolerated the procedure well. Pain pump adjustment Plan and Disposition:: Patient got no relief with a milligram bolus. I will set him up for catheter dye study tomorrow. I discussed with him that we will do a catheter dye study and potentially change his medications or move forward with getting it updated imaging to see if his condition is worsening. Patient has tried morphine along with Dilaudid he may potentially benefit from fentanyl. Patient is also wanting to discuss oral narcotics. He did take pills at one point for his knee pain. He is quite an active man. I did state that he can discuss this with Dr. lorenzo hydeorrow. Dr. Kinney has reviewed this note and agrees with this plan of care. This note was dictated using voice recognition software and may contain errors or omissions
== END ==
PROVIDERS: PCP Family Medicine; Visit Provider Clinical Nurse Specialist Family Health
DX: M51.16 Intervertebral disc disorders with radiculopathy, lumbar region (principal); M96.1 Postlaminectomy syndrome, not elsewhere classified
CPT/HCPCS: 62368

== ENCOUNTER → 2019-04-09 13:50 | Outpatient (CLI) | payer MEDICARE, OTHER, SELFPAY | PROVIDERS: PCP Family Medicine; Visit Provider Clinical Nurse Specialist Family Health | DX: Z53.8 Procedure and treatment not carried out for other reasons (principal) ==

== ENCOUNTER → 2019-06-15 09:00 | Outpatient (POV) | payer MEDICARE, OTHER, SELFPAY ==
[2019-06-15 09:13] VITALS: BP 150/98; PULSE 86; RESP 85; TEMP 36.8; O2SAT 99; BMI 25.8
--- NOTE | 2019-06-15 09:47 | HMH.PAINSOAP ---
[facility] Pain Management SOAP Note Subjective:: Patient is a pleasant 78-year-old white male who presents today for increased pain in his left lower lumbar area. Patient has a shingles rash noted. Patient has burning in this area. Patient and I discussed treatments including acyclovir and epidural injections. Patient has a rash that follows the the L1-L2 dermatomal levels. He rates his pain over 7/10 ROS General: no recent weight change, no fever, no sleep disturbances Respiratory: no cough, no shortness of air, no recurring pulmonary infections Cardiovascular/Peripheral Vascular: No chest pain, No palpitations, no edema, no shortness of breath. Gastrointestinal: no new onset incontinence, normal bowel movements reported Genitourinary: no new onset incontinence Musculoskeletal: Low back pain Psychiatric: normal mood/ affect, [denies depression], [denies anxiety] Neurological: [denies new onset weakness in extremities], [denies new onset balance issues] Objective:: Physical Exam General: Alert and oriented x3, no acute distress, pleasant and cooperative, [on room air] Lungs: Resps E/U, Symmetrical chest expansion, Eyes: PERRL Musculoskeletal: Flexion and extension of lumbar spine somewhat guarded secondary to pain, deep tendon reflexes normal, strength in upper and lower extremities [5/5], [abnormal gait noted] Skin: Rash noted at the L1-L2 left-sided dermatomal level Neurological: speech clear, male impersonator equal, no gross sensory deficits Assessment:: Herpes zoster, degenerative disc disease lumbar spine with postlaminectomy syndrome Plan:: We will plan on acyclovir 800 mg 1 p.o. 5 times a day if patient is not feeling better by tomorrow we will plan on a epidural injection at the L1-L2 dermatomal levels on Saturday. Patient has been instructed to call our office tomorrow afternoon. Dr. Kinney has reviewed this note and agrees with this plan of care. This note was dictated using voice recognition software and may contain errors or omissions [facility] History I have reviewed the patient's past medical history: Yes Medical History: Reports:: Deep Vein Thrombosis, Hyperlipidemia, Hypertension Denies:: Cancer, Diabetes Mellitus Type 1, Diabetes Mellitus Type 2, Internal Pacemaker, Lung Disease, MRSA, Seizures *Have you ever received a pneumonia vaccine?: Yes *Have you received a flu vaccine this season?: Yes Other Medical History: Reports: Other. Denies: Blood Transfusion Reaction Laterality Cases: Right: Arthroscopy Shoulder, Bilateral: Arthroscopy Knee Other Surgeries: Yes: Hernia Repair, Other (pain pump implant). No: Pacemaker Amputation: Yes (knees) Fractures: No - *Social History Smoking Status: Never smoker Alcohol Intake: never Alcohol Intake Frequency:: other Substance Use Type: denies use *Occupational Status:: other Housing: house Household Members: spouse *Travel in the last 8 weeks: None Family Hx:: Stroke
== END ==
PROVIDERS: PCP Family Medicine; Visit Provider Clinical Nurse Specialist Family Health
DX: B02.9 Zoster without complications (principal); M51.36 Other intervertebral disc degeneration, lumbar region; M96.1 Postlaminectomy syndrome, not elsewhere classified
CPT/HCPCS: 99212

== ENCOUNTER → 2019-06-22 09:02 | Outpatient (POV) | payer MEDICARE, OTHER, SELFPAY ==
[2019-06-22 09:13] VITALS: BP 142/75; PULSE 83; RESP 18; O2SAT 98; BMI 25.8
--- NOTE | 2019-06-22 09:28 | HMH.PAINSOAP ---
[facility] Pain Management SOAP Note Subjective:: Patient is a pleasant 78-year-old white male who presents today for follow-up. Patient has a shingles rash. We will set him up for an epidural steroid injection. This is urgent due to the severity of his shingles case. Patient has pain along the L4 L5 dermatomal level, he also has some spread of the shingles rash at the L1-L2 level. Patient is not on any anticoagulation therapy. Patient is also awaiting an MRI of his thoracic and lumbar spine. We will make sure he has an order today. Patient does have a [employer] intrathecal pain pump. At this time his back pain is not significant. We will move forward with a shingles injection as soon as possible. He is on acyclovir. ROS General: no recent weight change, no fever, no sleep disturbances Respiratory: no cough, no shortness of air, no recurring pulmonary infections Cardiovascular/Peripheral Vascular: No chest pain, No palpitations, no edema, no shortness of breath. Gastrointestinal: no new onset incontinence, normal bowel movements reported Genitourinary: no new onset incontinence Musculoskeletal: Shingles pain, back pain Skin: Rash noted right side of the lumbar spine Psychiatric: normal mood/ affect, [denies depression], [denies anxiety] Neurological: [denies new onset weakness in extremities], [denies new onset balance issues] Objective:: Physical Exam General: Alert and oriented x3, no acute distress, pleasant and cooperative, [on room air] Lungs: Resps E/U, Symmetrical chest expansion, Eyes: PERRL Musculoskeletal: Flexion and extension of lumbar spine somewhat guarded secondary to pain, deep tendon reflexes normal, strength in upper and lower extremities [5/5], [abnormal gait noted] Neurological: speech clear, music researcher equal, no gross sensory deficits Assessment:: Postlaminectomy syndrome lumbar spine, acute herpes zoster Plan:: We will set the patient up for an epidural steroid injection to help with his shingles rash. Patient is not on any anticoagulation therapy. We will also provide him for an order to take to [facility] for his MRIs. Follow-up with him after this reassess his symptoms at that time he has been instructed to call the office if he has any issues prior to his next appointment. COVID encounter we specifically discussed risk factors for Covid-19 including age, heart or lung disease, diabetes, immunosuppression and travel. We also discussed that NSAIDs may worsen Covid-19 infection symptoms and that they should not be used to treat Covid-19 symptoms. Patient was also informed that corticosteroids in any form oral or injectable will decrease immune response and may increase risk of Covid-[address] Kinney has reviewed this patient's chart and this note and agrees with plan of care. Patient has been instructed to call the office if they have any issues prior to the next appointment. [facility] History I have reviewed the patient's past medical history: Yes Medical History: Reports:: Deep Vein Thrombosis, Hyperlipidemia, Hypertension Denies:: Cancer, Diabetes Mellitus Type 1, Diabetes Mellitus Type 2, Internal Pacemaker, Lung Disease, MRSA, Seizures *Have you ever received a pneumonia vaccine?: Yes *Have you received a flu vaccine this season?: Yes Other Medical History: Reports: Other. Denies: Blood Transfusion Reaction Laterality Cases: Right: Arthroscopy Shoulder, Bilateral: Arthroscopy Knee Other Surgeries: Yes: Hernia Repair, Other (pain pump implant). No: Pacemaker Amputation: Yes (knees) Fractures: No - *Social History Smoking Status: Never smoker Alcohol Intake: never Alcohol Intake Frequency:: other Substance Use Type: denies use *Occupational Status:: other Housing: house Household Members: spouse *Travel in the last 8 weeks: None Family Hx:: Stroke
== END ==
PROVIDERS: PCP Family Medicine; Visit Provider Clinical Nurse Specialist Family Health
DX: M96.1 Postlaminectomy syndrome, not elsewhere classified (principal); B02.9 Zoster without complications
CPT/HCPCS: 99212

== ENCOUNTER 2019-06-24 09:36 | Day surgery (SDC) | payer MEDICARE, OTHER, SELFPAY ==
[2019-06-24 09:55] VITALS: BP 142/65; PULSE 53; RESP 18; O2SAT 95
[2019-06-24 10:00] VITALS: BP 136/59; PULSE 60; RESP 18; O2SAT 95; BMI 25.8
[2019-06-24 10:43] VITALS: BP 134/71; PULSE 59; RESP 98
[2019-06-24 10:44] VITALS: BP 135/80; PULSE 61; RESP 20; O2SAT 96
--- NOTE | 2019-06-24 11:08 | HMH.PMPROC ---
- Procedure Date: 06/24/19 Time: 11:08 Anesthesiologist:: Jony Kinney MD Complications:: None Pre-procedure Diagnosis:: Acute herpes zoster in the L1-L2 dermatomal level in the low back and left leg Post-procedure Diagnosis:: Same Indications for Procedure:: Patient is a pleasant 78-year-old white male who we have been treating for low back pain and lumbar radicular symptoms with postlaminectomy syndrome with an intrathecal pain pump. He is doing well with his pain pump. He is now developed acute herpes zoster in the 1 L2 dermatomal level in the low back and left leg. We will do a lumbar epidural sympathetic block today to see if this helps with his pain symptoms and helps with drying the rash. He is currently on acyclovir and gabapentin. Procedure Details:: Lumbar epidural sympathetic block Informed consent was obtained and the risk and benefits of the procedure was explained to the patient. The patient was taken to the procedure room. The patient was placed prone on the procedure table. The patient was prepped and draped in sterile fashion. C-arm fluoroscopy was used to view the lumbar spine. Skin and subcutaneous tissues were anesthetized using lidocaine. I placed an 18-gauge epidural needle and advanced into the L1-L2 interspace using fluoroscopic guidance and [id number] to air. After confirmation of needle placement in the epidural space with dye I injected 8 mL of lidocaine 1.5% with Depo-Medrol 80 mg. Patient tolerated the procedure well with no complications. Plan and Disposition:: We will follow-up with him next week. We will reevaluate his symptoms and plan on repeat lumbar epidural sympathetic block if needed. He is to continue his acyclovir and gabapentin.
== END 2019-06-24 09:55 | disposition home or self-care (01) ==
LOC: SC.PAINP 09:38
PROVIDERS: PCP Family Medicine; Visit Provider Anesthesiology
DX: B02.29 Other postherpetic nervous system involvement (principal); M51.36 Other intervertebral disc degeneration, lumbar region; M96.1 Postlaminectomy syndrome, not elsewhere classified; I10 Essential (primary) hypertension; Z87.39 Personal history of other diseases of the musculoskeletal system and connective tissue; Z86.2 Personal history of diseases of the blood and blood-forming organs and certain disorders involving the immune mechanism
CPT/HCPCS: 64520; 77003; J1040; Q9966

== ENCOUNTER → 2019-07-01 09:03 | Day surgery (SDC) | payer MEDICARE, OTHER, SELFPAY ==
[2019-07-01 09:20] VITALS: BP 131/60; PULSE 59; RESP 20; TEMP 36.4; O2SAT 96; BMI 25.8
[2019-07-01 09:40] VITALS: BP 125/85; PULSE 74; RESP 18
[2019-07-01 09:42] VITALS: BP 135/87; PULSE 76; RESP 18; O2SAT 99
--- NOTE | 2019-07-01 10:12 | HMH.PMPROC ---
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 He is currently going at 4.4 mg/day. He is doing very well with his pump. He has developed a herpes zoster rash in the L1-L2 dermatomal level in the low back and left leg. He has had one lumbar sympathetic block. This is helped tremendously. His rash is starting to dry. Pain has decreased significantly. He is completed his round of acyclovir. He continues on gabapentin. We will do a repeat lumbar epidural sympathetic block today. We will also refill his pain pump today. Procedure Details:: Lumbar epidural sympathetic block Informed consent was obtained and the risk and benefits of the procedure was explained to the patient. The patient was taken to the procedure room. The patient was placed prone on the procedure table. The patient was prepped and draped in sterile fashion. C-arm fluoroscopy was used to view the lumbar spine. Skin and subcutaneous tissues were anesthetized using lidocaine. I placed an 18-gauge epidural needle and advanced into the L1-L2 interspace using fluoroscopic guidance and [id number] to air. After confirmation of needle placement in the epidural space with dye I injected 8 mL of lidocaine 1.5% with Depo-Medrol 80 mg. Patient tolerated the procedure well with no complications. Pain pump refill informed consent was obtained and the risks and benefits of the procedure was explained to the patient. The patient was taken to the procedure room. The pump was interrogated. The area over the pump was prepped using ChloraPrep. The pump was accessed with a 22-gauge needle. Approximately 5 mL's of the intrathecal solution was withdrawn and discarded. The pump was then refilled with 20 mL's of intrathecal Dilaudid 15 mg/mL plus bupivacaine 20 mg per ml. The pump was interrogated and the infusion was continued at 4.4 mg/day. The patient tolerated the procedure well with no complication. Plan and Disposition:: We will follow-up with this patient in 1 week. Will reevaluate symptoms at that time. We will plan on repeat lumbar epidural sympathetic block if needed.
== END ==
PROVIDERS: PCP Family Medicine; Visit Provider Anesthesiology
DX: B02.8 Zoster with other complications (principal); B02.29 Other postherpetic nervous system involvement; M54.5 Low back pain; M79.605 Pain in left leg; N40.0 Benign prostatic hyperplasia without lower urinary tract symptoms; I10 Essential (primary) hypertension; M87.39 Other secondary osteonecrosis, multiple sites; Z97.8 Presence of other specified devices; Z86.2 Personal history of diseases of the blood and blood-forming organs and certain disorders involving the immune mechanism
CPT/HCPCS: 64520; J1040; Q9966

== ENCOUNTER 2019-07-10 11:16 | Day surgery (SDC) | payer MEDICARE, OTHER, SELFPAY ==
[2019-07-10 11:54] VITALS: BP 139/66; PULSE 69; RESP 18; O2SAT 96; BMI 25.8
[2019-07-10 12:17] VITALS: BP 132/88; PULSE 85; RESP 18; O2SAT 99
[2019-07-10 12:33] VITALS: BP 151/75; PULSE 62; RESP 20; O2SAT 96
--- NOTE | 2019-07-10 12:47 | HMH.PMPROC ---
- Procedure Date: 07/10/19 Time: 12:47 Anesthesiologist:: Jony Kinney MD Complications:: None Pre-procedure Diagnosis:: Degenerative disc disease of lumbar spine with lumbar radiculopathy symptoms and acute herpes zoster and postherpetic neuralgia in the L1-L2 dermatome 11 the low back and left leg Post-procedure Diagnosis:: Same Indications for Procedure:: This patient is a pleasant 78-year-old white male who we have been treating for low back pain with lumbar radiculopathy symptoms and postlaminectomy syndrome with an intrathecal pain pump with Dilaudid and bupivacaine. He is currently going at 4.4 mg/day. He is doing very well with his pump. He has developed a herpes zoster rash in the L1-L2 dermatomal level in the low back and left leg. He has had 2 lumbar epidural sympathetic blocks. These of helped tremendously. Rash is dried up very nicely. We will do a repeat lumbar epidural sympathetic block today. Procedure Details:: Lumbar epidural sympathetic block Informed consent was obtained and the risk and benefits of the procedure was explained to the patient. The patient was taken to the procedure room. The patient was placed prone on the procedure table. The patient was prepped and draped in sterile fashion. C-arm fluoroscopy was used to view the lumbar spine. Skin and subcutaneous tissues were anesthetized using lidocaine. I placed an 18-gauge epidural needle and advanced into the L1-L2 interspace using fluoroscopic guidance and [id number] to air. After confirmation of needle placement in the epidural space with dye I injected 2 mL of lidocaine 1.5% with Depo-Medrol 80 mg. Patient tolerated the procedure well with no complications. Plan and Disposition:: We will follow-up with him in 2 weeks. Will reevaluate symptoms at that time. I
== END 2019-07-10 12:34 | disposition home or self-care (01) ==
LOC: SC.PAINP 11:17
PROVIDERS: PCP Family Medicine; Visit Provider Anesthesiology
DX: M51.16 Intervertebral disc disorders with radiculopathy, lumbar region (principal); B02.9 Zoster without complications; B02.29 Other postherpetic nervous system involvement; I10 Essential (primary) hypertension; D64.9 Anemia, unspecified; Z87.39 Personal history of other diseases of the musculoskeletal system and connective tissue; Z86.718 Personal history of other venous thrombosis and embolism; Z79.899 Other long term (current) drug therapy; E78.5 Hyperlipidemia, unspecified
CPT/HCPCS: 64520; Q9966

== ENCOUNTER → 2019-07-27 11:20 | Outpatient (POV) | payer MEDICARE, OTHER, SELFPAY ==
[2019-07-27 11:35] VITALS: BP 140/81; PULSE 85; RESP 18; O2SAT 99; BMI 25.8
--- NOTE | 2019-07-27 12:44 | P.CONS_ITS ---
[facility] Pain Management SOAP Note Subjective:: Patient is a pleasant 78-year-old white male who presents for follow-up after an L1-L2 epidural steroid injection for postherpetic neuralgia. Patient is doing much better his shingles have cleared. He rates his pain today a 6 out of 10 mostly because he is overdone it this weekend. 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 He has an intrathecal Dilaudid and bupivacaine pump going at 4.4 mg/day. ROS General: no recent weight change, no fever, no sleep disturbances Respiratory: no cough, no shortness of air, no recurring pulmonary infections Cardiovascular/Peripheral Vascular: No chest pain, No palpitations, no edema, no shortness of breath. Gastrointestinal: no new onset incontinence, normal bowel movements reported Genitourinary: no new onset incontinence Musculoskeletal: Back pain, leg pain Psychiatric: normal mood/ affect Neurological: [denies new onset weakness in extremities], [denies new onset balance issues] Objective:: Physical Exam General: Alert and oriented x3, no acute distress, pleasant and cooperative, [on room air] Lungs: Resps E/U, Symmetrical chest expansion, Eyes: PERRL Musculoskeletal: Flexion and extension of lumbar spine somewhat guarded secondary to pain, deep tendon reflexes normal, strength in upper and lower extremities [5/5], [abnormal gait noted] Neurological: speech clear, commercial property manager equal, no gross sensory deficits Assessment:: Degenerative disc disease lumbar spine lumbar radiculopathy and postlaminectomy syndrome lumbar spine Plan:: We will see the patient back at his next intrathecal pain pump refill and reprogram he has been instructed to call the office if he has any issues prior to his next appointment. Dr. Kinney has reviewed this note and agrees with this plan of care. This note was dictated using voice recognition software and may contain errors or omissions [facility] History I have reviewed the patient's past medical history: Yes Medical History: Reports:: Deep Vein Thrombosis, Hyperlipidemia, Hypertension Denies:: Cancer, Diabetes Mellitus Type 1, Diabetes Mellitus Type 2, Internal Pacemaker, Lung Disease, MRSA, Seizures *Have you ever received a pneumonia vaccine?: Yes *Have you received a flu vaccine this season?: Yes Other Medical History: Reports: Anemia, Other. Denies: Blood Transfusion Reaction Laterality Cases: Right: Arthroscopy Shoulder, Bilateral: Arthroscopy Knee Other Surgeries: Yes: Hernia Repair, Other (pain pump implant). No: Pacemaker Amputation: Yes (knees) Fractures: No - *Social History Smoking Status: Never smoker Alcohol Intake: never Alcohol Intake Frequency:: other Substance Use Type: denies use *Occupational Status:: other Housing: house Household Members: spouse *Travel in the last 8 weeks: None Family Hx:: Stroke
== END ==
PROVIDERS: PCP Family Medicine; Visit Provider Clinical Nurse Specialist Family Health
DX: M51.16 Intervertebral disc disorders with radiculopathy, lumbar region (principal); M96.1 Postlaminectomy syndrome, not elsewhere classified
CPT/HCPCS: 99212

== ENCOUNTER 2019-08-31 14:39 | Day surgery (SDC) | payer MEDICARE, OTHER, SELFPAY ==
[2019-08-31 14:54] VITALS: BP 136/56; PULSE 68; RESP 18; TEMP 36.1; O2SAT 97; BMI 25.8
[2019-08-31 15:28] VITALS: BP 150/58; PULSE 57; RESP 18; O2SAT 97
[2019-08-31 15:37] VITALS: BP 148/62; PULSE 62; RESP 18; O2SAT 97
[2019-08-31 15:45] VITALS: BP 141/62; PULSE 58; RESP 18; O2SAT 98
--- NOTE | 2019-08-31 16:01 | P.PCN_ITS ---
- Procedure Date: 08/31/19 Time: 16:01 Anesthesiologist:: Adriana Barger APRN Complications:: None Pre-procedure Diagnosis:: Degenerative disc disease lumbar spine with lumbar radiculopathy symptoms Post-procedure Diagnosis:: Same Indications for Procedure:: Patient is a pleasant 78-year-old white male who presents today for intrathecal pain pump refill and reprogram. He has been treated for low back pain with lumbar radiculopathy symptoms. Overall he is doing well with his intrathecal therapy. He is currently managed with Dilaudid at 10.2 mg/day and bupivacaine at 2.04 mg/day. He denies any side effects to his medications. His [place] and urine drug screens have been appropriate. His pain a 2 out of 10. Physical exam General: Alert and oriented x3, no acute distress, pleasant and cooperative, [on room air] Lungs: Respirations even and unlabored, symmetrical chest expansion Eyes: PERRL Musculoskeletal: Flexion and extension of lumbar spine somewhat guarded sec ondary to pain, deep tendon reflexes normal, strength in upper and lower extremities [5/5], [abnormal gait noted] Neurological: Speech clear, light armored reconnaissance officer equal, no gross sensory deficit Procedure Details:: Informed consent was obtained and the risk and benefits of the procedure were explained to the patient. The patient was taken to the procedure room where noninvasive monitoring was placed including noninvasive blood pressure cuff and pulse oximeter. Patient's pump was interrogated. The area over the pump was cleansed with chlorhexidine as a cleansing solution. In sterile fashion the pump was accessed with a 22-gauge needle. Approximately 2 mL Mls of the pump solution was removed and discarded appropriately. The pump was then refilled with 20 mL's of Dilaudid 25 mg per male and bupivacaine at 5 mg/mL. The needle was withdrawn and a bandage was placed over the puncture site. The infusion rate was reprogrammed at Dilaudid 10.2 mg/day and bupivacaine 2.04 mg/day. The patient tolerated well with no complication. Plan and Disposition:: We will see the patient back at his next intrathecal pain pump refill and reprogram. He has been instructed to contact the clinic if he has any concerns before his next appointment. The patient and I specifically discussed risk factors for COVID19. These risks include, but are not limited to age greater than 60, heart or lung disease, diabetes, immunosuppression, and travel. We also discussed NSAIDs may worsen COVID19 infection or symptoms. Patient should not use NSAIDs to treat COVID19 signs or symptoms. Patient was also informed that any type of corticosteroid of any form (oral or injection) will decrease the patient's immune system response and may increase the likelihood of COVID19 infection and symptoms[address] Dr. Kinney has reviewed this note and agrees with this plan of care. This note was dictated using voice recognition software and make contain errors or omissions.
== END 2019-08-31 15:45 | disposition home or self-care (01) ==
LOC: SC.PAINP 14:40
PROVIDERS: PCP Family Medicine; Visit Provider Clinical Nurse Specialist Family Health
DX: M51.16 Intervertebral disc disorders with radiculopathy, lumbar region (principal); Z79.899 Other long term (current) drug therapy
CPT/HCPCS: 62370

== ENCOUNTER → 2019-09-29 13:37 | Outpatient (POV) | payer MEDICARE, OTHER, SELFPAY | PROVIDERS: Visit Provider Dermatology | DX: Z00.00 Encounter for general adult medical examination without abnormal findings (principal) ==

== ENCOUNTER 2019-10-26 15:13 | Day surgery (SDC) | payer MEDICARE, OTHER, SELFPAY ==
[2019-10-26 15:54] VITALS: BP 133/50; PULSE 66; RESP 16; TEMP 36.6; O2SAT 95; BMI 25.8
[2019-10-26 16:22] VITALS: BP 145/69; PULSE 68; RESP 18; O2SAT 95
[2019-10-26 16:23] VITALS: BP 145/69; PULSE 60; RESP 18; O2SAT 94
--- NOTE | 2019-10-26 16:28 | P.PCN_ITS ---
- Procedure Date: 10/26/19 Time: 16:29 Anesthesiologist:: Lorena Coon APRN Complications:: None Pre-procedure Diagnosis:: Degenerative disc disease lumbar spine lumbar radiculopathy symptoms postlaminectomy syndrome Post-procedure Diagnosis:: Same Indications for Procedure:: Patient is a pleasant 79-year-old white male who presents today for intrathecal pain pump refill and reprogram. Patient has an intrathecal pain pump going at a flex dose. Patient would like an increase today. He also takes [place] 7.5 as needed for his knee pain. [facility] #[id number] reviewed and appropriate. Urine drug screens have been appropriate. He denies side effects with medication. Physical Exam General: Alert and oriented x3, no acute distress, pleasant and cooperative, [on room air] Lungs: Resps E/U, Symmetrical chest expansion, Eyes: PERRL Musculoskeletal: Flexion and extension of lumbar spine somewhat guarded secondary to pain, deep tendon reflexes normal, strength in upper and lower extremities [5/5], [abnormal gait noted] Neurological: speech clear, oracle applications developer equal, no gross sensory deficits Procedure Details:: Informed consent was obtained and the risk and benefits of the procedure were explained to the patient. The patient was taken to the procedure room where noninvasive monitoring was placed including noninvasive blood pressure cuff and pulse oximeter. Patient's pump was interrogated. The area over the pump was cleansed with chlorhexidine as a cleansing solution. In sterile fashion the pump was accessed with a 22-gauge needle. Approximately 3 mL's were removed of the pump solution and discarded appropriately. The pump was then refilled with 20 mL's of Dilaudid 15 mg/mL and bupivacaine 20 mg/mL. The needle was withdrawn and a bandage was placed over the puncture site. The infusion rate was reprogrammed to on a flex dose with a total daily dose of 5 mg a day of Dilaudid. The patient tolerated the procedure well. Plan and Disposition:: I will follow-up with the patient his next physical pain pump refill and reprogram he has been instructed to call the office if he has any issues prior to his next appointment. Dr. Kinney has reviewed this note and agrees with this plan of care. This note was dictated using voice recognition software and may contain errors or omissions we will give him 1 prescription of [place] 7.5 mg 1 p.o. twice daily as needed.
[2019-10-26 16:38] VITALS: BP 140/65; PULSE 59; RESP 18; O2SAT 95
== END 2019-10-26 16:40 | disposition home or self-care (01) ==
LOC: SC.PAINP 15:15
PROVIDERS: PCP Family Medicine; Visit Provider Clinical Nurse Specialist Family Health
DX: M51.16 Intervertebral disc disorders with radiculopathy, lumbar region (principal); M96.1 Postlaminectomy syndrome, not elsewhere classified; Z86.79 Personal history of other diseases of the circulatory system; F32.9 Major depressive disorder, single episode, unspecified; Z87.39 Personal history of other diseases of the musculoskeletal system and connective tissue; Z96.659 Presence of unspecified artificial knee joint; Z88.1 Allergy status to other antibiotic agents; Z88.8 Allergy status to other drugs, medicaments and biological substances; Z79.899 Other long term (current) drug therapy
CPT/HCPCS: 62370

== ENCOUNTER 2019-12-07 14:32 | Day surgery (SDC) | payer MEDICARE, OTHER, SELFPAY ==
[2019-12-07 14:59] VITALS: BP 155/63; PULSE 61; RESP 18; TEMP 36.4; O2SAT 97; BMI 25.8
[2019-12-07 16:03] VITALS: BP 138/88; PULSE 85; RESP 18; O2SAT 97
[2019-12-07 16:05] VITALS: BP 158/74; PULSE 65; RESP 18; O2SAT 98
--- NOTE | 2019-12-07 16:08 | HMH.PMPROC ---
- Procedure Date: 12/07/19 Time: 16:08 Anesthesiologist:: Lorena Coon APRN Complications:: None Pre-procedure Diagnosis:: Degenerative disc disease lumbar spine lumbar radiculopathy symptoms and postlaminectomy syndrome Post-procedure Diagnosis:: Same Indications for Procedure:: Patient is a pleasant 79-year-old white male who presents today for intrathecal pain pump refill and reprogram. Patient currently on intrathecal infusion of 5 mg a day of Dilaudid on a flex dose pattern. Patient also takes [place] 7.5 mg as needed for his knee pain. Patient [facility] #[id number] reviewed and appropriate. Drug screens have been appropriate. 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 He rates his pain today 5 out of 10. He denies side effects to medication. Physical Exam General: Alert and oriented x3, no acute distress, pleasant and cooperative, [on room air] Lungs: Resps E/U, Symmetrical chest expansion, Eyes: PERRL Musculoskeletal: Flexion and extension of lumbar spine somewhat guarded secondary to pain, deep tendon reflexes normal, strength in upper and lower extremities [5/5], [abnormal gait noted] Neurological: speech clear, senior stack engineer equal, no gross sensory deficits Procedure Details:: Informed consent was obtained and the risk and benefits of the procedure were explained to the patient. The patient was taken to the procedure room where noninvasive monitoring was placed including noninvasive blood pressure cuff and pulse oximeter. Patient's pump was interrogated. The area over the pump was cleansed with chlorhexidine as a cleansing solution. In sterile fashion the pump was accessed with a 22-gauge needle. Approximately 4 mL's were removed of the pump solution and discarded appropriately. The pump was then refilled with 20 mL's of Dilaudid 15 mg/mL and bupivacaine 20 mg/mL. The needle was withdrawn and a bandage was placed over the puncture site. The infusion rate was reprogrammed to continue on his flex dose with a total daily dose of 5 mg of Dilaudid. The patient tolerated the procedure well. Plan and Disposition:: I will see the patient back at his next intrathecal pain pump refill and reprogram he has been instructed to call the office if he has any issues prior to his next appointment. Dr. Kinney has reviewed this note and agrees with this plan of care. This note was dictated using voice recognition software and may contain errors or omissions
[2019-12-07 16:17] VITALS: BP 155/57; PULSE 60; RESP 20; O2SAT 97
== END 2019-12-07 16:18 | disposition home or self-care (01) ==
LOC: SC.PAINP 14:32
PROVIDERS: PCP Family Medicine; Visit Provider Clinical Nurse Specialist Family Health
DX: M51.16 Intervertebral disc disorders with radiculopathy, lumbar region (principal); M96.1 Postlaminectomy syndrome, not elsewhere classified; Z45.1 Encounter for adjustment and management of infusion pump; I10 Essential (primary) hypertension; N40.0 Benign prostatic hyperplasia without lower urinary tract symptoms; Z87.39 Personal history of other diseases of the musculoskeletal system and connective tissue; Z86.718 Personal history of other venous thrombosis and embolism; Z88.1 Allergy status to other antibiotic agents; Z88.8 Allergy status to other drugs, medicaments and biological substances; Z79.899 Other long term (current) drug therapy
CPT/HCPCS: 62370

== ENCOUNTER → 2019-12-23 07:49 | Outpatient (CLI) | payer MEDICARE, OTHER, SELFPAY ==
[2019-12-23 08:35] LABS: Basophils % 0.5 % (0.1-2.0); Eosinophils # 0.3 K/mm3 (0.0-0.4); Eosinophils % 4.1 % (0.1-12.0); Hematocrit 37.7 % (42.0-52.0); Lymphocytes # 2.1 K/mm3 (0.7-4.5); Lymphocytes % 34.8 % (10-50); Mean Corpuscular HGB Conc 31.9 g/dL (31.8-35.4); Mean Corpuscular Hemoglobin 28.9 pg (27.0-31.2); Mean Corpuscular Volume 90.6 fl (80-94); Mean Platelet Volume 8.2 fl (7.4-10.4); Monocytes # 0.3 K/mm3 (0.1-1.0); Monocytes % 5.6 % (1.7-9.3); Neutrophils # 3.3 K/mm3 (1.8-7.8); Neutrophils % 54.9 % (37.0-80.0); Platelet Count 225 K/mm3 (142-424); Red Blood Count 4.16 M/mm3 (4.60-6.20); Red Cell Distribution Width 12.8 % (11.5-17.5)
[2019-12-23 10:44] LABS: Alanine Aminotransferase 14 U/L (12-78); Albumin/Globulin Ratio 1.5 (1.1-1.8); Alkaline Phosphatase 92 U/L (38-126); Anion Gap 10.3 mEq/L (5-15); Aspartate Amino Transferase 20 U/L (17-59); Bilirubin,Total 0.7 mg/dl (0.2-1.3); Blood Urea Nitrogen 30 mg/dl (9-20); Calcium 9.5 mg/dl (8.4-10.2); Carbon Dioxide 30 mmol/L (22.0-30.0); Chloride 106 mmol/L (98-107); Chol/HDL Ratio 4.9 (1-3.5); Cholesterol 199 mg/dl (140-200); Estimated Glomerular Filt Rate 82 ml/min (>60); GFR (African American) 99 ML/MIN (>60); Globulin 2.6 g/dL (1.3-3.2); Glucose 97 mg/dl (74-100); HDL Cholesterol 41 mg/dl (40-60); Potassium 4.3 mmoL/L (3.5-5.1); Sodium 142 mmol/L (136-145); Total Protein,Serum 6.6 g/dl (6.3-8.2); Triglycerides 136 mg/dl (30-150); VLDL Cholesterol 27 mg/dL (0-40)
[2019-12-23 10:55] LABS: Direct LDL Cholesterol 146.51 mg/dL (100-129)
[2019-12-23 11:15] LABS: Prostate Specific Ag Screen 0.9 ng/ml (0.0-4.0)
== END ==
PROVIDERS: Visit Provider Family Medicine
DX: I10 Essential (primary) hypertension (principal); Z12.5 Encounter for screening for malignant neoplasm of prostate
CPT/HCPCS: 36415; 80053; 80061; 84443; 85025; G0103

== ENCOUNTER 2020-01-14 14:30 | Outpatient (RCR) | payer MEDICARE, OTHER, SELFPAY | END 2020-01-14 14:35 | disposition home or self-care (01) | LOC: PT 14:30 | PROVIDERS: PCP Family Medicine; Visit Provider Orthopaedic Surgery | DX: M79.661 Pain in right lower leg (principal) | CPT/HCPCS: 97014; 97033; 97035; 97110; 97140; 97163; G0283 ==

== ENCOUNTER 2020-01-25 14:11 | Day surgery (SDC) | payer MEDICARE, OTHER, SELFPAY ==
[2020-01-25 14:38] VITALS: BP 143/55; PULSE 63; RESP 18; TEMP 36.9; O2SAT 98; BMI 26.6
[2020-01-25 15:23] VITALS: BP 143/61; PULSE 60; RESP 18; O2SAT 98
[2020-01-25 15:31] VITALS: BP 144/69; PULSE 63; RESP 18; O2SAT 98
--- NOTE | 2020-01-25 15:38 | P.PCN_ITS ---
- Procedure Date: 01/25/20 Time: 15:38 Anesthesiologist:: Lorena Coon APRN Complications:: None Pre-procedure Diagnosis:: Degenerative disc disease lumbar spine lumbar radiculopathy postlaminectomy syndrome lumbar spine Post-procedure Diagnosis:: Same Indications for Procedure:: Patient is a pleasant 79-year-old white male who presents today for intrathecal pain pump refill and reprogram. He is currently on intrathecal infusion of 5 mg of Dilaudid a day. Patient is also taking [place] 7.5 as needed for knee pain. [place] reviewed and appropriate. Drug screens have been appropriate. He does not need any changes today. Procedure Details:: Informed consent was obtained and the risk and benefits of the procedure were explained to the patient. The patient was taken to the procedure room where noninvasive monitoring was placed including noninvasive blood pressure cuff and pulse oximeter. Patient's pump was interrogated. The area over the pump was cleansed with chlorhexidine as a cleansing solution. In sterile fashion the pump was accessed with a 22-gauge needle. Approximately 3.5 mL's were removed of the pump solution and discarded appropriately. The pump was then refilled with 20 mL's of Dilaudid 15 mg/mL. The needle was withdrawn and a bandage was placed over the puncture site. The infusion rate was reprogrammed to continue at 5 mg/day. The patient tolerated the procedure well. Plan and Disposition:: We will follow up with the patient at his next intrathecal pain pump refill and reprogram he has been instructed to call the office if he has any issues prior to his next appointment. Dr. Kinney has reviewed this note and agrees with this plan of care. This note was dictated using voice recognition software and may contain errors or omissions
[2020-01-25 15:45] VITALS: BP 156/68; PULSE 58; RESP 20; O2SAT 98
== END 2020-01-25 15:46 | disposition home or self-care (01) ==
LOC: SC.PAINP 14:12
PROVIDERS: PCP Family Medicine; Visit Provider Clinical Nurse Specialist Family Health
DX: M51.16 Intervertebral disc disorders with radiculopathy, lumbar region (principal); M96.1 Postlaminectomy syndrome, not elsewhere classified; Z88.1 Allergy status to other antibiotic agents; I10 Essential (primary) hypertension; F41.9 Anxiety disorder, unspecified; F32.9 Major depressive disorder, single episode, unspecified; Z87.39 Personal history of other diseases of the musculoskeletal system and connective tissue
CPT/HCPCS: 95991

== ENCOUNTER 2020-02-03 12:24 | Emergency (ER) | payer MEDICARE, OTHER, SELFPAY ==
[2020-02-03 12:30] VITALS: BP 165/70; PULSE 65; RESP 16; TEMP 36.8; O2SAT 95; BMI 26.6
--- NOTE | 2020-02-03 12:39 | XR_ITS ---
PROCEDURE: XR KNEE RT 3V CLINICAL INDICATION: FALL Posttraumatic pain COMPARISON: CR KNEE3L KNEE-3 VIEWS-LT from 06/06/2015 CR X-RAY EXAM OF KNEE 1 OR 2 VIEWS from 03/27/2017 CR XR TIBIA FIBULA RT 2V from 02/03/2020 FINDINGS: Status post total knee replacement with good alignment and no evidence of orthopedic complication. No fracture or dislocation. Generalized vascular calcification noted. The mid distal aspect of the tibia and fibula have an unremarkable appearance. There is generalized vascular calcification. IMPRESSION: Status post total knee replacement with good alignment Dictated by: Margarito Tipton MD 02/03/2020 14:34 Margarito Tipton MD in [place] 02/03/2020 14:34
--- NOTE | 2020-02-03 12:39 | XR_ITS ---
PROCEDURE: XR HIP RT 2-3V W/PELVIS CLINICAL INDICATION: FALL Pain COMPARISON: CT SPLUMBWO CT lumbar spine wo con from 07/23/2018 CR XR FEMUR RT 2V from 02/03/2020 FINDINGS: Pain delivery device is present superior to the iliac crest. There are mild osteoarthritic changes the hips. No fracture or dislocation. No lytic or blastic change. Postsurgical changes lumbar spine There appears to be a small catheter overlying the lumbosacral junction on the left and may be related to the pain pump device. There has been a total knee replacement with good alignment of the prosthesis. The mid distal aspect of the femur are otherwise unremarkable. IMPRESSION: 1. No acute fracture. 2. Status post total knee replacement with good alignment. 3. Mild osteoarthritic change of the hips Dictated by: Margarito Tipton MD 02/03/2020 14:32 Margarito Tipton MD in [place] 02/03/2020 14:32
--- NOTE | 2020-02-03 14:04 | HMH.EDUTC ---
[facility] Disposition Clinical Impression: Right leg pain Right knee pain Qualifiers: Chronicity: acute Qualified Code(s): M25.561 - Pain in right knee Disposition: Home, Self-Care Condition on Discharge: Good Instructions: DI for Knee Pain, DI for Leg Pain Additional Instructions: Rest the extremity, Elevate the extremity as tolerated while you are resting. Follow up with your internet security specialist. Sometimes there can be fractures that don't show up well on the first set of x-rays. So, you should follow up if you continue to have symptoms. Follow up with your regular doctor. GO TO THE ER FOR ANY WORSENING SYMPTOMS Referrals: Scooter Simons MD [Primary Care Provider] - Time of Disposition: 14:09 Medical Decision Making - Medical Records Medical records reviewed: No: I reviewed the patient's medical records. - [place] Inquiry Pt receiving controlled substance: No Vital Signs: 02/03/20 12:30 02/03/20 14:38 Temperature 98.3 F 98.3 F Temperature Source Oral Pulse Rate 65 Pulse Rate [Right] 65 Respiratory Rate 16 16 Blood Pressure 165/70 H Blood Pressure [Right Arm] 165/70 H Blood Pressure Mean [Right Arm] 101 Blood Pressure Source [Right Arm] Automatic Cuff Blood Pressure Position [Right Arm] Sitting 02 Sat by Pulse Oximetry 95 Oxygen Delivery Method Room Air [facility] HPI - General Stated complaint: AO [id number] right leg pain, home fall Time Seen by Provider: 02/03/20 12:30 Mode of Arrival: Ambulatory Source of Information: Patient Limitations: No Limitations Description of Symptoms (Recalled from Triage Doc. by RN): pt fell on saturday and injured his right knee HEENT Symptoms (Recalled from RN notes): No Resp Symptoms (Recalled from RN notes): No Skin Symptoms (Recalled from RN notes): No MS Symptoms (Recalled from RN notes): Yes (right knee pain) Functional Status (Recalled from RN notes): na - History of Present Illness Provider Complaint: He states that 3 days ago he fell at home. Since then he has had right leg pain. The pain goes from his hip down to his calf. It is worse when he walks or bears weight on the leg. He has a history of right knee replacement 3 years ago. He is afraid that he might have messed up his hardware in his knee. - Related Data Home Medications Medication Instructions Recorded Confirmed Baclofen [Lioresal 10mg tablet] 10 mg PO DIRECTED 05/17/17 01/25/20 Indomethacin [Indocin 25mg capsule] 25 mg PO DAILY 05/17/17 01/25/20 Tamsulosin HCl [Flomax 0.4mg 0.4 mg PO HS 05/17/17 01/25/20 capsule] polyethylene glycoL 3350 [Clearlax] 119 gm PO DAILY 05/17/17 01/25/20 Ferrous Sulfate [Iron] 325 mg PO DAILY 09/19/18 01/25/20 losartan 100 mg tablet 50 mg PO DAILY tab 02/23/19 01/25/20 Hydrocodone/Acetaminophen [[place] 1 tab PO BID 12/07/19 01/25/20 7.5-325 Tablet] Previous Rx's Medication Instructions Recorded Hydrocodone/Acetaminophen [[place] 1 tab PO BID PRN #60 tab 05/18/19 7.5-325 Tablet] Allergies Allergy/AdvReac Type Severity Reaction Status Date / Time amoxicillin Allergy Unknown Verified 01/25/20 14:49 lisinopril Allergy Unknown Verified 01/25/20 14:49 - Worker's Comp Is this a Worker's Comp case?: No [facility] History - Hepatitis A Screen Drug use history?: No High risk sexual behaviors?: No History of sexually transmitted infection?: No Currently employed?: No Childcare worker?: No Do you have indoor plumbing?: Yes Do you have electricity?: Yes Attestation statement:: This patient has been screened for Hepatitis A risk factors. I have reviewed the patient's past medical history: Yes Medical History: Reports:: Deep Vein Thrombosis, Hyperlipidemia, Hypertension Denies:: Cancer, Diabetes Mellitus Type 1, Diabetes Mellitus Type 2, Internal Pacemaker, Lung Disease, MRSA, Seizures Other Medical History: Reports: Anemia, Other. Denies: Blood Transfusion Reaction Comment: chronic pain Laterality Cases: R
[2020-02-03 14:38] VITALS: BP 165/70; PULSE 65; RESP 16; TEMP 36.8; O2SAT 95
== END 2020-02-03 14:42 | disposition home or self-care (01) ==
PROVIDERS: Emergency Provider Nurse Practitioner Family; PCP Family Medicine
DX: M79.604 Pain in right leg (principal); M25.561 Pain in right knee; W01.0XXA Fall on same level from slipping, tripping and stumbling without subsequent striking against object, initial encounter; Y92.019 Unspecified place in single-family (private) house as the place of occurrence of the external cause; Z96.651 Presence of right artificial knee joint; I10 Essential (primary) hypertension; E78.5 Hyperlipidemia, unspecified; Z79.899 Other long term (current) drug therapy; Z88.8 Allergy status to other drugs, medicaments and biological substances
CPT/HCPCS: G0463; 73502; 73552; 73562; 73590; 99201

== ENCOUNTER 2020-03-07 11:33 | Day surgery (SDC) | payer MEDICARE, OTHER, SELFPAY ==
[2020-03-07 12:02] VITALS: BP 139/66; PULSE 70; RESP 18; TEMP 36.6; O2SAT 98; BMI 26.6
[2020-03-07 12:12] VITALS: BP 157/91; PULSE 65; RESP 20; O2SAT 95
[2020-03-07 12:14] VITALS: BP 159/90; PULSE 70; RESP 20; O2SAT 97
--- NOTE | 2020-03-07 12:22 | HMH.PMPROC ---
- Procedure Date: 03/07/20 Time: 12:22 Anesthesiologist:: Lorena Coon APRN Complications:: None Pre-procedure Diagnosis:: Degenerative disc disease lumbar spine lumbar postlaminectomy syndrome back pain lumbar radiculopathy Post-procedure Diagnosis:: Same Indications for Procedure:: Pleasant 79-year-old white male who presents today for intrathecal pain pump refill and reprogram. Patient overall doing well denies any side effects to his medication. [facility] #[id number] reviewed and appropriate. Patient does not need any changes in his current dose. He is on a intrathecal infusion of 5 mg/day. Procedure Details:: Informed consent was obtained and the risk and benefits of the procedure were explained to the patient. The patient was taken to the procedure room where noninvasive monitoring was placed including noninvasive blood pressure cuff and pulse oximeter. Patient's pump was interrogated. The area over the pump was cleansed with chlorhexidine as a cleansing solution. In sterile fashion the pump was accessed with a 22-gauge needle. Approximately 6 mL's were removed of the pump solution and discarded appropriately. The pump was then refilled with 20 mL's of Dilaudid 15 mg/mL. The needle was withdrawn and a bandage was placed over the puncture site. The infusion rate was reprogrammed to continue at 5 mg/day. The patient tolerated the procedure well. Plan and Disposition:: I will follow up with the patient in the next intrathecal pain pump refill and reprogram. He has been instructed to call the office if he has any issues prior to his next appointment. Dr. Kinney has reviewed this note and agrees with this plan of care. This note was dictated using voice recognition software and may contain errors or omissions
[2020-03-07 12:24] VITALS: BP 140/72; PULSE 70; RESP 18; TEMP 36.6; O2SAT 98
== END 2020-03-07 12:25 | disposition home or self-care (01) ==
LOC: SC.PAINP 11:34
PROVIDERS: PCP Family Medicine; Visit Provider Clinical Nurse Specialist Family Health
DX: M51.16 Intervertebral disc disorders with radiculopathy, lumbar region (principal); M96.1 Postlaminectomy syndrome, not elsewhere classified; Z88.1 Allergy status to other antibiotic agents; Z88.8 Allergy status to other drugs, medicaments and biological substances; Z79.899 Other long term (current) drug therapy
CPT/HCPCS: 95991

== ENCOUNTER 2020-04-25 13:10 | Day surgery (SDC) | payer MEDICARE, OTHER, SELFPAY ==
[2020-04-25 13:23] VITALS: BP 119/60; PULSE 74; RESP 18; TEMP 36.9; O2SAT 98; BMI 27.3
[2020-04-25 13:43] VITALS: BP 130/63; PULSE 73; RESP 18
[2020-04-25 13:44] VITALS: BP 135/65; PULSE 69; RESP 18; O2SAT 99
--- NOTE | 2020-04-25 13:53 | P.PCN_ITS ---
- Procedure Date: 04/25/20 Time: 13:53 Anesthesiologist:: Lorena Coon APRN Complications:: None Pre-procedure Diagnosis:: Degenerative disc disease lumbar spine lumbar radiculopathy and postlaminectomy syndrome Post-procedure Diagnosis:: Same Indications for Procedure:: Patient is a pleasant 79-year-old white male who presents today for intrathecal pain pump refill and reprogram overall doing well denies side effects to his medication. He does state that he is having more lumbar back pain and spinal stenosis pain. He has had multiple surgeries he is not a candidate for a mi nimally invasive lumbar decompression. Patient does get some relief up to 80% with his epidural steroid injections. We will set him up for an L4-L5 lumbar epidural steroid injection. Given the efficacy in this past I do believe it would benefit him. Patient is also having some thoracic pain. Patient states that he used to get thoracic injections from Dr. Perez prior to coming to our office. Patient states that those lasted for several years. He rates his pain today a 7 on 10 Procedure Details:: Informed consent was obtained and the risk and benefits of the procedure were explained to the patient. The patient was taken to the procedure room where noninvasive monitoring was placed including noninvasive blood pressure cuff and pulse oximeter. Patient's pump was interrogated. The area over the pump was cleansed with chlorhexidine as a cleansing solution. In sterile fashion the pump was accessed with a 22-gauge needle. Approximately 3.5 mL's were removed of the pump solution and discarded appropriately. The pump was then refilled with 20 mL's of Dilaudid 15 mg/mL and bupivacaine 20 mg/mL. The needle was withdrawn and a bandage was placed over the puncture site. The infusion rate was reprogrammed to 5.25 mg/day. The patient tolerated the procedure well. Plan and Disposition:: Patient is not on any anticoagulation therapy. We will set him up for L4-L5 lumbar epidural steroid injection given his symptomology and the efficacy of this in the past I do believe it would benefit him. Patient states that he is to see Dr. Perez who used to him a thoracic facet block/thoracic nerve block at his T11 area. Patient states that he has been having pain he had a fractured rib when he was younger. These blocks worked for many years however his pain has begun to return. When he comes in for his L4-L5 lumbar epidural steroid injection we will have Dr. Elliott evaluate this area as well to see what other injections may benefit him. Patient will continue on with his intrathecal therapy and has been instructed to call the office if he has any issues. Patient does take [place] 7.5 mg 1 p.o. twice daily as needed. Patient does not need refills at this time. Patient takes this for other pains not his back pain. [facility] #[id number] reviewed and appropriate. Dr. Kinney has reviewed this note and agrees with this plan of care. This note was dictated using voice recognition software and may contain errors or omissions
[2020-04-25 14:00] VITALS: BP 126/69; PULSE 65; RESP 20; O2SAT 98
== END 2020-04-25 14:01 | disposition home or self-care (01) ==
LOC: SC.PAINP 13:11
PROVIDERS: PCP Family Medicine; Visit Provider Clinical Nurse Specialist Family Health
DX: M51.16 Intervertebral disc disorders with radiculopathy, lumbar region (principal); M96.1 Postlaminectomy syndrome, not elsewhere classified; Z88.1 Allergy status to other antibiotic agents; Z88.8 Allergy status to other drugs, medicaments and biological substances; I10 Essential (primary) hypertension; N40.0 Benign prostatic hyperplasia without lower urinary tract symptoms; Z87.39 Personal history of other diseases of the musculoskeletal system and connective tissue; Z79.899 Other long term (current) drug therapy; Z45.1 Encounter for adjustment and management of infusion pump
CPT/HCPCS: 62370

== ENCOUNTER 2020-04-29 09:40 | Day surgery (SDC) | payer MEDICARE, OTHER, SELFPAY ==
[2020-04-29 10:15] VITALS: BP 131/62; PULSE 61; RESP 18; TEMP 36.6; O2SAT 98; BMI 27.3
[2020-04-29 11:10] VITALS: BP 128/89; BP 132/79; PULSE 68; PULSE 79; RESP 18; O2SAT 98
--- NOTE | 2020-04-29 11:26 | HMH.PMPROC ---
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 He does have an intrathecal pain pump in place. This is helping however he still has increasing back pain and radicular symptoms which worsen with increased activity. We will do a lumbar epidural steroid injection today to help him with his pain symptoms. Procedure Details:: Lumbar epidural steroid injection under fluoroscopy Informed consent was obtained and the risk and benefits of the procedure was explained to the patient. The patient was taken to the procedure room. The patient was placed prone on the procedure table. The patient was prepped and draped in sterile fashion. C-arm fluoroscopy was used to view the lumbar spine. Skin and subcutaneous tissues were anesthetized using lidocaine. I placed an 18-gauge epidural needle and advanced into the L4-L5 interspace using fluoroscopic guidance and [id number] to air. After confirmation of needle placement in the epidural space with dye I injected 2 mL of lidocaine 1.5% with Depo-Medrol 80 mg. Patient tolerated the procedure well with no complications. Plan and Disposition:: We will follow-up with him in 2 weeks. Will reevaluate symptoms at that time. I talked to the patient extensively about spinal cord stimulation as an option to give him more permanent pain relief and allow him to be more functional to help with his symptoms with his increased activity level. We will seek approval and plan on a [employer] spinal cord stimulator trial.
[2020-04-29 11:33] VITALS: BP 146/68; PULSE 59; RESP 20; O2SAT 98
== END 2020-04-29 11:34 | disposition home or self-care (01) ==
LOC: SC.PAINP 09:41
PROVIDERS: PCP Family Medicine; Visit Provider Anesthesiology
DX: M96.1 Postlaminectomy syndrome, not elsewhere classified (principal); M51.16 Intervertebral disc disorders with radiculopathy, lumbar region; Z88.1 Allergy status to other antibiotic agents; Z88.8 Allergy status to other drugs, medicaments and biological substances; I10 Essential (primary) hypertension; N40.0 Benign prostatic hyperplasia without lower urinary tract symptoms; Z79.899 Other long term (current) drug therapy
CPT/HCPCS: 62323; J1040; Q9966

== ENCOUNTER → 2020-05-03 10:16 | Outpatient (CLI) | payer MEDICARE, OTHER, SELFPAY ==
[2020-05-03 11:01] LABS: Basophils % 0.5 % (0.1-2.0); Eosinophils # 0.3 K/mm3 (0.0-0.4); Hematocrit 43.1 % (42.0-52.0); Hemoglobin 13.9 g/dL (14.1-18.0); Lymphocytes # 2.2 K/mm3 (0.7-4.5); Lymphocytes % 27.7 % (10-50); Mean Corpuscular HGB Conc 32.2 g/dL (31.8-35.4); Mean Corpuscular Hemoglobin 28.7 pg (27.0-31.2); Mean Corpuscular Volume 89.3 fl (80-94); Mean Platelet Volume 8.4 fl (7.4-10.4); Monocytes # 0.5 K/mm3 (0.1-1.0); Monocytes % 5.9 % (1.7-9.3); Neutrophils % 61.9 % (37.0-80.0); Platelet Count 292 K/mm3 (142-424); Red Blood Count 4.83 M/mm3 (4.60-6.20); Red Cell Distribution Width 13.4 % (11.5-17.5); White Blood Count 8.1 K/mm3 (4.8-10.8)
[2020-05-03 11:36] LABS: Anion Gap 14.6 mEq/L (5-15); Blood Urea Nitrogen 31 mg/dl (9-20); Calcium 10.1 mg/dl (8.4-10.2); Carbon Dioxide 28 mmol/L (22.0-30.0); Chloride 105 mmol/L (98-107); Coronavirus 19 IgG Antibody Positive (Negative); Coronavirus 19 IgM Antibody Negative (Negative); Estimated Glomerular Filt Rate 72 ml/min (>60); GFR (African American) 88 ML/MIN (>60); Glucose 104 mg/dl (74-100); Potassium 4.6 mmoL/L (3.5-5.1); Sodium 143 mmol/L (136-145)
== END ==
PROVIDERS: Visit Provider Anesthesiology
DX: Z01.818 Encounter for other preprocedural examination (principal); Z20.822 Contact with and (suspected) exposure to COVID-19; M51.36 Other intervertebral disc degeneration, lumbar region
CPT/HCPCS: 36415; 80048; 85025; 86328

== ENCOUNTER 2020-05-04 08:37 | Day surgery (SDC) | payer MEDICARE, OTHER, SELFPAY ==
[2020-05-02 15:38] VITALS: BMI 26.6
[2020-05-04] VITALS (9 sets, daily range): BP systolic 126–162; BP diastolic 62–75; PULSE 58–75; RESP 14–18; TEMP 6.1–43; O2SAT 95–98
--- NOTE | 2020-05-04 09:57 | P.PN_ITS ---
[facility] Anesthesia Checklist - Patient Identification Patient Identification: Arm Band - Structural Data Admitted From: Home Planned Operative Procedure/s: Spinal Cord Stimulator Trial Lead Placement under Fluoroscopy Consent for Planned Operative Procedure(s) Verified: Yes Verified Documents: Surgical Consent, History and Physical - NPO Status Verified Time NPO: 00:00 - Additional verifications Anesthesia Reactions: No Hx Blood Transfusions: No Blood Transfusion Reaction: No - Airway Assessment C-Spine Mobility Assessed: Yes (mp2) TMJ Mobility Assessed: Yes Dentition: Good Dentition - Neurological Assessment Level of Consciousness: Awake, Alert - Anesthesia Plan Anesthesia Risk discussed: Yes Anesthesia Plan: Verified ASA Class: II Anesthesia Type: MAC [facility] History I have reviewed the patient's past medical history: Yes Medical History: Reports:: Deep Vein Thrombosis, Hyperlipidemia, Hypertension Denies:: Cancer, Diabetes Mellitus Type 1, Diabetes Mellitus Type 2, Internal Pacemaker, Lung Disease, MRSA, Seizures *Have you ever received a pneumonia vaccine?: No *Have you received a flu vaccine this season?: No Other Medical History: Reports: Anemia, Other. Denies: Blood Transfusion Reaction Anesthesia experience/problems:: nac Laterality Cases: Right: Arthroscopy Shoulder, Bilateral: Arthroscopy Knee, Total Knee Replacement Other Surgeries: Yes: Colonoscopy, Hernia Repair, Other (pain pump implant). N o: Pacemaker Amputation: Yes (knees) Fractures: No - *Social History Last grade of school completed: Some college Smoking Status: Never smoker Alcohol Intake: never Alcohol Intake Frequency:: other Substance Use Type: denies use *Occupational Status:: retired Housing: house Household Members: spouse *Travel in the last 8 weeks: None Family Hx:: Stroke
--- NOTE | 2020-05-04 11:07 | SUR.PREOP ---
1107-assisted pt to BR and back to stretcher. Pt stated comfortable
--- NOTE | 2020-05-04 13:53 | P.PN_ITS ---
[facility] Anesthesia Record Part I Intake, IV Amount: 1,000 Estimated blood loss (mL): 0 Urine output (mL): 0 Blood Pressure: 126/62 SaO2: 95 Pulse Rate: 75 Respiratory Rate: 14 Temperature: 97.1 F Patient is:: Awake Stable to PACU at:: 13:50
--- NOTE | 2020-05-04 14:01 | HMH.PMPROC ---
- Procedure Date: 05/04/20 Time: 14:01 Anesthesiologist:: Jony Kinney MD Complications:: None Pre-procedure Diagnosis:: Postlaminectomy syndrome lumbar spine with lumbar spinal stenosis and lumbar radiculopathy symptoms Post-procedure Diagnosis:: Same Indications for Procedure:: This patient is a pleasant 79-year-old white male who we are treating for low back pain with lumbar radiculopathy symptoms and postlaminectomy syndrome lumbar spine. He has failed all previous conservative therapy including intrathecal therapy, injections, oral medications and physical therapy. He only gets temporary relief from injections. We will do a spinal cord stimulator trial today to see if this will give him adequate relief of his pain symptoms. His worst pain is while standing and walking. He does have a appropriate psychological evaluation. Procedure Details:: Spinal cord stimulator trial Informed consent was obtained and the risk and benefits of the procedure were explained to the patient. Patient was taken to the procedure room. The back was prepped using ChloraPrep. The skin and subtenons tissues were anesthetized using lidocaine. A 17-gauge epidural needle was placed and advanced into the L2-L3 interspace. After confirmation needle placement in the epidural space stimulating lead was inserted and advanced very easily to the T7-T8-T9 vertebral body. Lead placement was checked in AP and lateral views. A second needle was inserted and advanced again into the L2-L3 interspace. Again after confirmation of needle placement in the epidural space a second stimulating lead was inserted and advanced again very easily to the T7-T8-T9 vertebral body. Lead placement was again checked in AP and lateral views. One lead was midline and one lead was in the left of midline. The stylets and needles were removed. The leads were secured in place. There is stable condition. The patient tolerated the procedure well with no complications. Patient was programmed by the [employer] insurance account representative with stimulation in all areas of pain. He was placed on a paresthesia free fast program. Patient was discharged home neurologically intact with good relief of pain symptoms. Plan and Disposition:: Plan and disposition: We will follow-up with this patient in 1 week for lead pull. We will continue make adjustments throughout this week and follow-up with him. If he has any problems or questions he is to call us back in the pain clinic.
--- NOTE | 2020-05-04 14:20 | SUR.PHASEII ---
At bedside programming spinal stimulator at this time.
== END 2020-05-04 15:20 | disposition home or self-care (01) ==
LOC: OR 08:39
PROVIDERS: PCP Family Medicine; Visit Provider Anesthesiology
PROC: (CPT 63650; principal; 2020-05-04 10:15)
DX: M96.1 Postlaminectomy syndrome, not elsewhere classified (principal); M51.16 Intervertebral disc disorders with radiculopathy, lumbar region; I73.9 Peripheral vascular disease, unspecified; E78.5 Hyperlipidemia, unspecified; I10 Essential (primary) hypertension; Z87.39 Personal history of other diseases of the musculoskeletal system and connective tissue; Z96.659 Presence of unspecified artificial knee joint; Z88.1 Allergy status to other antibiotic agents; Z88.8 Allergy status to other drugs, medicaments and biological substances; Z79.899 Other long term (current) drug therapy
CPT/HCPCS: 63650 ×2; 96374; C1778; J3370

== ENCOUNTER → 2020-05-12 10:46 | Outpatient (POV) | payer MEDICARE, OTHER, SELFPAY ==
--- NOTE | 2020-05-12 11:39 | P.PCN_ITS ---
- Procedure Date: 05/12/20 Time: 11:39 Anesthesiologist:: Lorena Coon APRN Complications:: None Pre-procedure Diagnosis:: Postlaminectomy syndrome lumbar spine lumbar spinal stenosis and lumbar radiculopathy symptoms Post-procedure Diagnosis:: Same Indications for Procedure:: Patient is a pleasant 79-year-old white male who presents today for neurostimulator lead removal. Patient rates his pain a 4 out of 10. Patient states he was able to walk better with no heaviness in his legs. Patient states however for his pain he did not find that it was extremely helpful. Patient and I discussed taking it out and waiting a week prior to making any decisions as far as either going forward or not continuing with this plan of care. Patient is agreeable. Patient states he was able to work in his basement but could not work for over 2 h. Procedure Details:: After informed consent was obtained the risk and benefits of the procedure were explained to the patient. Patient's vital signs were monitored with noninvasive blood pressure cuff and pulse oximeter. Patient's tape was removed on her back. The area in which her epidural leads entered was examined to ensure no redness or draining. Patient leads were then removed in sterile fashion. Patient then had Band-Aids placed over the puncture sites. Patient tolerated the procedure well. Plan and Disposition:: We will see the patient back in 1 week reassess his symptoms at that time he has been instructed to call the office if he has any issues prior to his next a ppointment. Dr. Kinney has reviewed this note and agrees with this plan of care. This note was dictated using voice recognition software and may contain errors or omissions
[2020-05-12 12:31] VITALS: BP 133/74; PULSE 74; RESP 18; O2SAT 98; BMI 27.3
== END ==
PROVIDERS: PCP Family Medicine; Visit Provider Clinical Nurse Specialist Family Health
DX: M96.1 Postlaminectomy syndrome, not elsewhere classified (principal); M54.16 Radiculopathy, lumbar region; M48.061 Spinal stenosis, lumbar region without neurogenic claudication
CPT/HCPCS: 99212; G0463

== ENCOUNTER → 2020-05-19 11:34 | Outpatient (POV) | payer MEDICARE, OTHER, SELFPAY ==
[2020-05-19 12:05] VITALS: BP 135/88; PULSE 85; RESP 18; O2SAT 98; BMI 27.3
--- NOTE | 2020-05-19 12:05 | P.CONS_ITS ---
[facility] Pain Management SOAP Note Subjective:: Patient is a pleasant 79-year-old white male who presents today for follow-up after neurostimulator lead removal. Patient does not feel like he benefited much from the stimulator trial. He states he is actually doing better since he had the leads removed. Patient stated that epidural injections were more beneficial to him. Rates his pain in his legs a 5 out of 10 and his pain in his back a 2 out of 10. At this time he does not need an epidural injection he states he will call our office if he wants to move forward with this. Patient does have a intrathecal pain pump. ROS General: no recent weight change, no fever, no sleep disturbances Respiratory: no cough, no shortness of air, no recurring pulmonary infections Cardiovascular/Peripheral Vascular: No chest pain, No palpitations, no edema, no shortness of breath. Gastrointestinal: no new onset incontinence, normal bowel movements reported Genitourinary: no new onset incontinence Musculoskeletal: Back pain, leg pain Psychiatric: normal mood/ affect Neurological: [denies new onset weakness in extremities], [denies new onset balance issues] Objective:: Physical Exam General: Alert and oriented x3, no acute distress, pleasant and cooperative, [on room air] Lungs: Resps E/U, Symmetrical chest expansion, Eyes: PERRL Musculoskeletal: Flexion and extension of lumbar spine somewhat guarded secondary to pain, deep tendon reflexes normal, strength in upper and lower extremities [5/5], [abnormal gait noted] Neurological: speech clear, medicine man equal, no gross sensory deficits Assessment:: Postlaminectomy syndrome lumbar spine lumbar spinal stenosis lumbar radic ulopathy, back pain Plan:: We will see the patient back at his next intrathecal pain pump refill and reprogram he has been instructed to call the office if he has any issues prior to his next appointment. Dr. Kinney has reviewed this note and agrees with this plan of care. This note was dictated using voice recognition software and may contain errors or omissions [facility] History I have reviewed the patient's past medical history: Yes Medical History: Reports:: Deep Vein Thrombosis, Hyperlipidemia, Hypertension Denies:: Cancer, Diabetes Mellitus Type 1, Diabetes Mellitus Type 2, Internal Pacemaker, Lung Disease, MRSA, Seizures *Have you ever received a pneumonia vaccine?: Yes *Have you received a flu vaccine this season?: Yes Other Medical History: Reports: Anemia, Other. Denies: Blood Transfusion Reaction Laterality Cases: Right: Arthroscopy Shoulder, Bilateral: Arthroscopy Knee Other Surgeries: Yes: Colonoscopy, Hernia Repair, Other (pain pump implant). No: Pacemaker Amputation: Yes (knees) Fractures: No - *Social History Smoking Status: Never smoker Alcohol Intake: never Alcohol Intake Frequency:: other Substance Use Type: denies use *Occupational Status:: retired Housing: house Household Members: spouse *Travel in the last 8 weeks: None Family Hx:: Stroke
== END ==
PROVIDERS: PCP Family Medicine; Visit Provider Clinical Nurse Specialist Family Health
DX: M96.1 Postlaminectomy syndrome, not elsewhere classified (principal); M48.061 Spinal stenosis, lumbar region without neurogenic claudication; M54.16 Radiculopathy, lumbar region
CPT/HCPCS: 99212; G0463

== ENCOUNTER 2020-06-13 14:44 | Day surgery (SDC) | payer MEDICARE, OTHER, SELFPAY ==
[2020-06-13 14:49] VITALS: BP 139/67; PULSE 60; RESP 20; TEMP 36.6; O2SAT 98; BMI 27.4
[2020-06-13 14:55] VITALS: BP 130/74; PULSE 69; RESP 18; O2SAT 98
[2020-06-13 15:00] VITALS: BP 131/74; PULSE 68; PULSE 70; RESP 18; O2SAT 98
--- NOTE | 2020-06-13 15:05 | HMH.PMPROC ---
- Procedure Date: 06/13/20 Time: 15:05 Anesthesiologist:: Lorena Coon APRN Complications:: None Pre-procedure Diagnosis:: Degenerative disc disease lumbar spine lumbar radiculopathy, postlaminectomy syndrome, back pain Post-procedure Diagnosis:: Same Indications for Procedure:: Patient is a very pleasant 79-year-old white male who presents today for follow-up. Patient currently has an intrathecal pain pump. He rates his pain today 5 out of 10. Patient had a neurostimulator trial however he failed this stating that epidural injections were more beneficial for him. Patient does not need any changes in his intrathecal infusion. [facility] #[id number] reviewed and appropriate. Procedure Details:: Informed consent was obtained and the risk and benefits of the procedure were explained to the patient. The patient was taken to the procedure room where noninvasive monitoring was placed including noninvasive blood pressure cuff and pulse oximeter. Patient's pump was interrogated. The area over the pump was cleansed with chlorhexidine as a cleansing solution. In sterile fashion the pump was accessed with a 22-gauge needle. Approximately 2.5 mL's were removed of the pump solution and discarded appropriately. The pump was then refilled with 20 mL's of Dilaudid 15 mg/mL and bupivacaine 20 mg/mL. The needle was withdrawn and a bandage was placed over the puncture site. The infusion rate was reprogrammed to continue at 5.258 mg/day. The patient tolerated the procedure well. Plan and Disposition:: We will see the patient back at his next intrathecal pain pump refill and reprogram he has been instructed to call the office if he has any issues prior to his next appointment. Dr. Kinney has reviewed this note and agrees with this plan of care. This note was dictated using voice recognition software and may contain errors or omissions
[2020-06-13 15:11] VITALS: BP 129/67; PULSE 18; PULSE 62; O2SAT 98
== END 2020-06-13 15:11 | disposition home or self-care (01) ==
LOC: SC.PAINP 14:46
PROVIDERS: PCP Family Medicine; Visit Provider Clinical Nurse Specialist Family Health
DX: M51.16 Intervertebral disc disorders with radiculopathy, lumbar region (principal); M96.1 Postlaminectomy syndrome, not elsewhere classified; Z45.1 Encounter for adjustment and management of infusion pump; E78.5 Hyperlipidemia, unspecified; I10 Essential (primary) hypertension; D64.9 Anemia, unspecified; I82.409 Acute embolism and thrombosis of unspecified deep veins of unspecified lower extremity; Z88.1 Allergy status to other antibiotic agents; Z88.8 Allergy status to other drugs, medicaments and biological substances
CPT/HCPCS: 95991

== ENCOUNTER 2020-07-25 14:45 | Day surgery (SDC) | payer MEDICARE, OTHER, SELFPAY ==
[2020-07-25 14:47] VITALS: BP 128/81; PULSE 67; TEMP 36.9; O2SAT 97; BMI 25.7
[2020-07-25 15:06] VITALS: BP 134/65; PULSE 68; RESP 18; O2SAT 91
[2020-07-25 15:08] VITALS: BP 133/59; PULSE 72; RESP 18; O2SAT 95
[2020-07-25 15:20] VITALS: BP 109/67; PULSE 65; RESP 18; O2SAT 97
--- NOTE | 2020-07-29 07:12 | P.PCN_ITS ---
- Procedure Date: 07/25/20 Time: 12:30 Anesthesiologist:: Adriana Barger APRN Complications:: None Pre-procedure Diagnosis:: Degenerative disc disease lumbar spine with lumbar radiculopathy symptoms, postlaminectomy syndrome lumbar spine Post-procedure Diagnosis:: Same Indications for Procedure:: Patient is a 79-year-old white male who presents today for intrathecal pain pump refill and reprogram. He has been treated for degenerative disc disease lumbar spine with lumbar radiculopathy symptoms. Patient rates his pain a 5 out of 10 today. He is doing well with his intrathecal therapy of Dilaudid and bupivacaine therapy. He denies any side effects to the medication. We will refill him today. [facility] #[id number] has been reviewed and is appropriate. Drug screen is appropriate. Physical exam General: Alert and oriented x3, no acute distress, pleasant and cooperative, [on room air] Lungs: Respirations even and unlabored, symmetrical chest expansion Eyes: PERRL Musculoskeletal: Flexion and extension of lumbar spine somewhat guarded secondary to pain, deep tendon reflexes normal, strength in upper and lower extremities [5/5], [abnormal gait noted] Neurological: Speech clear, territory business manager equal, no gross sensory deficit Procedure Details:: Informed consent was obtained and the risk and benefits of the procedure were explained to the patient. The patient was taken to the procedure room where noninvasive monitoring was placed including noninvasive blood pressure cuff and pulse oximeter. Patient's pump was interrogated. The area over the pump was cleansed with chlorhexidine as a cleansing solution. In sterile fashion the pump was accessed with a 22-gauge needle. Approximately 5 mls of the pump solution was removed and discarded appropriately. The pump was then refilled with 20 mL's of Dilaudid 15 mg/mL and bupivacaine 20 mg/mL. The needle was withdrawn and a bandage was placed over the puncture site. The infusion rate was reprogrammed at 6.2 mg/day. The patient tolerated well with no complication. Plan and Disposition:: We will see the patient back at his next intrathecal refill. If he has any questions he can contact the clinic. Patient has been instructed to contact the clinic with any concerns before the next appointment. Dr. Kinney has reviewed this note and agrees with this plan of care. This note was dictated using voice recognition software and make contain errors or omissions.
== END 2020-07-25 15:21 | disposition home or self-care (01) ==
LOC: SC.PAINP 14:46
PROVIDERS: PCP Family Medicine; Visit Provider Clinical Nurse Specialist Family Health
DX: M51.16 Intervertebral disc disorders with radiculopathy, lumbar region (principal); M96.1 Postlaminectomy syndrome, not elsewhere classified; Z45.1 Encounter for adjustment and management of infusion pump
CPT/HCPCS: 62370

== ENCOUNTER 2020-09-05 13:41 | Day surgery (SDC) | payer MEDICARE, OTHER, SELFPAY ==
[2020-09-05 13:46] VITALS: BP 116/52; PULSE 57; RESP 18; TEMP 36.6; O2SAT 98; BMI 25.1
[2020-09-05 14:22] VITALS: BP 113/60; PULSE 53; RESP 18; O2SAT 94
[2020-09-05 14:29] VITALS: BP 136/78; PULSE 64; RESP 18; O2SAT 96
[2020-09-05 15:02] VITALS: BP 123/47; PULSE 51; RESP 20; O2SAT 98
--- NOTE | 2020-09-05 15:05 | HMH.PMPROC ---
- Procedure Date: 09/05/20 Time: 15:17 Anesthesiologist:: Adriana Barger APRN Complications:: None Pre-procedure Diagnosis:: Degenerative disc disease lumbar spine with lumbar radiculopathy symptoms, postlaminectomy syndromes lumbar spine Post-procedure Diagnosis:: Same Indications for Procedure:: Patient is a pleasant 79-year-old white male who presents today for intrathecal pain pump refill and reprogram. He has been treated for degenerative disc disease lumbar spine with lumbar radiculopathy symptoms. He is managed with intrathecal therapy of Dilaudid and bupivacaine and denies any side effects. He does report that he had a mishap this morning while exercising. He thinks he has a pinched nerve that occurred while using exercising equipment this morning. He is asking for an increase in his intrathecal therapy. His Abram and drug screens have been appropriate. We will increase him today. He is currently on a dose of Dilaudid at 5.5 to 8 mg/day/flex dosing at 0.34 mg and bupivacaine at 7.010 mg/day flex dosing at 0.454 mg. Physical exam General: Alert and oriented x3, no acute distress, pleasant and cooperative, [on room air] Lungs: Respirations even and unlabored, symmetrical chest expansion Eyes: PERRL Musculoskeletal: Flexion and extension of lumbar [spine] somewhat guarded secondary to pain, strength in upper and lower extremities [5/5], [antalgic gait noted] Neurological: Speech clear, [special education assistant equal], no gross sensory deficit Procedure Details:: Informed consent was obtained and the risk and benefits of the procedure were explained to the patient. The patient was taken to the procedure room where noninvasive monitoring was placed including noninvasive blood pressure cuff and pulse oximeter. Patient's pump was interrogated. The area over the pump was cleansed with chlorhexidine as a cleansing solution. In sterile fashion the pump was accessed with a 22-gauge needle. Approximately 6 mls of the pump solution was removed and discarded appropriately. The pump was then refilled with 20 mL's of Dilaudid 15 mg per male and bupivacaine at 20 mg per mill. The needle was withdrawn and a bandage was placed over the puncture site. The infusion rate was reprogrammed at Dilaudid 5.976 mg/day and bupivacaine at 7.969 mg per. The patient tolerated well with no complication. Plan and Disposition:: We will see the patient back at the next refill. If the patient has any questions, contact the clinic. Patient has been instructed to contact the clinic with any concerns before the next appointment. Dr. Kinney has reviewed this note and agrees with this plan of care. This note was dictated using voice recognition software and make contain errors or omissions.
== END 2020-09-05 15:03 | disposition home or self-care (01) ==
LOC: SC.PAINP 13:43
PROVIDERS: PCP Family Medicine; Visit Provider Clinical Nurse Specialist Family Health
DX: M51.16 Intervertebral disc disorders with radiculopathy, lumbar region (principal); M96.1 Postlaminectomy syndrome, not elsewhere classified; Z45.1 Encounter for adjustment and management of infusion pump
CPT/HCPCS: 62370

== ENCOUNTER → 2020-09-07 13:37 | Outpatient (POV) | payer MEDICARE, OTHER, SELFPAY | DX: Z00.00 Encounter for general adult medical examination without abnormal findings (principal) ==

== ENCOUNTER → 2020-09-14 14:22 | Outpatient (POV) | payer MEDICARE, OTHER, SELFPAY | DX: Z00.00 Encounter for general adult medical examination without abnormal findings (principal) ==

== ENCOUNTER → 2020-09-30 12:23 | Outpatient (CLI) | payer MEDICARE, OTHER, SELFPAY ==
--- NOTE | 2020-09-30 12:58 | XR_ITS ---
PROCEDURE: XR THORACIC SPINE 3V CLINICAL INDICATION: THORACIC PAIN COMPARISON: No exams were available for comparison FINDINGS: No fracture or dislocation. No lytic or blastic change. There is normal mineralization. Minimal upper thoracic scoliosis convex right. There is mild multilevel degenerative disc disease. No acute fracture or dislocation is evident. Other findings:None. IMPRESSION: Mild thoracic scoliosis with spondylosis. No acute finding Dictated by: Margarito Tipton MD 09/30/2020 14:44 Margarito Tipton MD in [place] 09/30/2020 14:44
[2020-09-30 13:06] LABS: Basophils % 0.4 % (0.1-2.0); Eosinophils % 0.1 % (0.1-12.0); Hematocrit 36.4 % (42.0-52.0); Lymphocytes # 1.9 K/mm3 (0.7-4.5); Lymphocytes % 27.9 % (10-50); Mean Corpuscular Volume 88.1 fl (80-94); Mean Platelet Volume 8.9 fl (7.4-10.4); Monocytes # 0.4 K/mm3 (0.1-1.0); Monocytes % 5.8 % (1.7-9.3); Neutrophils # 4.5 K/mm3 (1.8-7.8); Neutrophils % 65.8 % (37.0-80.0); Platelet Count 239 K/mm3 (142-424); Red Blood Count 4.13 M/mm3 (4.60-6.20); Red Cell Distribution Width 13.6 % (11.5-17.5); White Blood Count 6.8 K/mm3 (4.8-10.8)
[2020-09-30 14:01] LABS: Chloride 106 mmol/L (98-107); Potassium 4.7 mmoL/L (3.5-5.1); Sodium 141 mmol/L (136-145)
[2020-09-30 14:03] LABS: Alanine Aminotransferase 15 U/L (12-78); Aspartate Amino Transferase 20 U/L (17-59); Blood Urea Nitrogen 39 mg/dl (9-20); Estimated Glomerular Filt Rate 72 ml/min (>60); GFR (African American) 87 ML/MIN (>60)
[2020-09-30 14:04] LABS: Albumin/Globulin Ratio 1.7 (1.1-1.8); Alkaline Phosphatase 93 U/L (38-126); Anion Gap 13.7 mEq/L (5-15); Bilirubin,Total 0.3 mg/dl (0.2-1.3); Calcium 9.2 mg/dl (8.4-10.2); Carbon Dioxide 26 mmol/L (22.0-30.0); Globulin 2.4 g/dL (1.3-3.2); Glucose 97 mg/dl (74-100); Total Protein,Serum 6.4 g/dl (6.3-8.2)
[2020-09-30 14:33] LABS: Thyroid Stimulating Hormone 1.03 uIU/mL (0.465-4.68)
[2020-09-30 20:09] LABS: Erythrocyte Sedimentation Rate 11 mm/hr (0-20)
== END ==
PROVIDERS: PCP Family Medicine; Visit Provider Family Medicine
DX: I10 Essential (primary) hypertension (principal); M54.9 Dorsalgia, unspecified; N40.3 Nodular prostate with lower urinary tract symptoms; L29.9 Pruritus, unspecified
CPT/HCPCS: 36415; 72072; 80053; 84443; 85025; 85651

== ENCOUNTER 2020-10-14 13:10 | Day surgery (SDC) | payer MEDICARE, OTHER, SELFPAY ==
[2020-10-14 13:30] VITALS: BP 119/59; PULSE 62; RESP 18; TEMP 36.8; O2SAT 94; BMI 24.7
[2020-10-14 13:34] VITALS: BP 154/52; PULSE 86; RESP 18; O2SAT 98
[2020-10-14 13:52] VITALS: BP 131/55; PULSE 66; RESP 18; O2SAT 98
[2020-10-14 14:15] VITALS: BP 129/48; PULSE 58; RESP 18; O2SAT 95
--- NOTE | 2020-10-14 14:27 | P.PCN_ITS ---
- Procedure Date: 10/14/20 Time: 14:27 Anesthesiologist:: Jony Kinney MD Complications:: None Pre-procedure Diagnosis:: Degenerative disc disease of lumbar spine with lumbar radiculopathy symptoms and postlaminectomy syndrome lumbar spine Post-procedure Diagnosis:: Same Indications for Procedure:: Patient is a pleasant 80-year-old white male who we are treating for low back pain with lumbar radiculopathy symptoms. He currently has an intrathecal Dilaudid/bupivacaine pain pump in place. He is doing well with his pump. He did hurt himself while exercising a few weeks ago. We will do a lumbar epidural steroid injection to see if this helps with his exacerbation of pain symptoms and we will also refill his pump and continue him at 6 mg/day. Abram and drug screen are all appropriate. Procedure Details:: Pain pump refill Informed consent was obtained and the risks and benefits of the procedure was explained to the patient. The patient was taken to the procedure room. The pump was interrogated. The area over the pump was prepped using ChloraPrep. The pump was accessed with a 22-gauge needle. Approximately 4 mL's of the intrathecal solution was withdrawn and discarded. The pump was then refilled with 20 mL's of intrathecal Dilaudid 15 mg/mL plus bupivacaine 20 mg per ml. The pump was interrogated and the infusion was continued at 6 mg/day. The patient tolerated the procedure well with no complication. Lumbar epidural steroid injection informed consent was obtained and the risk and benefits of the procedure was explained to the patient. The patient was taken to the procedure room. The patient was placed prone on the procedure table. The patient was prepped and draped in sterile fashion. C-arm fluoroscopy was used to view the lumbar spine. Skin and subcutaneous tissues were anesthetized using lidocaine. I placed an 18-gauge epidural needle and advanced into the L4-L5 interspace using fluoroscopic guidance and [id number] to air. After confirmation of needle placement in the epidural space with dye I injected 2 mL of lidocaine 1.5% with Depo-Medrol 80 mg. Patient tolerated the procedure well with no com plications. Plan and Disposition:: We will follow-up with him at his next pump refill. If he has any problems or questions his call us back in the pain clinic.
== END 2020-10-14 14:15 | disposition home or self-care (01) ==
LOC: SC.PAINP 13:11
PROVIDERS: PCP Family Medicine; Visit Provider Anesthesiology
DX: M51.16 Intervertebral disc disorders with radiculopathy, lumbar region (principal); M96.1 Postlaminectomy syndrome, not elsewhere classified; Z45.1 Encounter for adjustment and management of infusion pump
CPT/HCPCS: 62323; 95991; J1040; Q9966

== ENCOUNTER → 2020-11-08 12:54 | Outpatient (POV) | payer MEDICARE, OTHER, SELFPAY ==
[2020-11-08 13:07] VITALS: BP 119/60; PULSE 63; RESP 18; O2SAT 95; BMI 25.1
--- NOTE | 2020-11-08 13:21 | P.PCN_ITS ---
- Procedure Date: 11/08/20 Time: 13:21 Anesthesiologist:: Adriana Barger APRN Complications:: None Pre-procedure Diagnosis:: Degenerative disc disease lumbar spine with lumbar radiculopathy symptoms Post-procedure Diagnosis:: Same Indications for Procedure:: Patient is a 80-year-old white male who presents today for follow-up. He is here today with complaints of worsening left low back pain with radiation into left posterior thigh and left leg. The pain does go into the left heel. He did undergo a lumbar epidural steroid injection on 10/14/2020. Patient reports he got no relief with this injection. The pain is worsening. He rates his pain a 5 out of 10. He did contact the clinic this a.m. and requested to be seen. He would like an increase in his dose. He is on flex dosing with a total dose of Dilaudid/bupivacaine at 5.976 mg/day. He is on flex dosing of 0.4 mg every 2 hours. He denies any side effects. We will increase him with his intrathecal therapy today to see if this gives him any relief. He would like to follow-up with Dr. Kinney to discuss a further plan of care. Given the patient's symptoms, he may be an SCS candidate. Injective therapy does not seem to be giving him much relief. He is having some numbness as well. He is on Dilaudid concentration of 15 mg per mill and bupivacaine 20 mg per mill. He is having some numbness intermittently. Physical exam General: Alert and oriented x3, no acute distress, pleasant and cooperative, [on room air] Lungs: Respirations even and unlabored, symmetrical chest expansion Eyes: PERRL Musculoskeletal: Flexion and extension of lumbar [spine] somewhat guarded secondary to pain, strength in upper and lower extremities [5/5], [antalgic gait noted] Neurological: Speech clear, [duralumin metalworker equal], no gross sensory deficit Procedure Details:: Informed consent was obtained and the risk and benefits of the procedure were explained to the patient. Patient was taken to the procedure room where noninvasive monitoring was placed including noninvasive blood pressure cuff and pulse oximeter. Patient's pump was interrogated and was reprogrammed to Dilaudid/bupivacaine at 0.48 mg every 2 hours, total dose at 6.93 mg/day. The patient tolerated the procedure well with no complications. Plan and Disposition:: We will change patient's concentration of medication at the next refill. We will increase his Dilaudid to 20 mg per mill and decrease bupivacaine to 15 mg per mill. The patient is not considered a neurosurgical candidate. He has deferred on spinal cord stimulation therapy. Injective therapy is not giving him any significant relief. The patient may need a change out of his device. His end-of-life of device is nearly 12 months. If he continues to have significant pain, however, we may need to change his Medtronic device to flow Fermin. We will follow-up with the patient this week to see how he is doing with the dosage change. Risks and benefits of the medication have been explained in detail to the patient. If side effects do present with the medication, she has been advised to stop the medication immediately and call the clinic. The patient has been advised to consult with his/her primary care provider and pharmacist regarding drug-drug interaction of medications currently prescribed. Patient has been instructed to contact the clinic with any concerns before the next appointment. Dr. Kinney has reviewed this note and agrees with this plan of care. This note was dictated using voice recognition software and make contain errors or omissions.
== END ==
PROVIDERS: PCP Family Medicine; Visit Provider Clinical Nurse Specialist Family Health
DX: M51.16 Intervertebral disc disorders with radiculopathy, lumbar region (principal); Z45.1 Encounter for adjustment and management of infusion pump
CPT/HCPCS: 62368

== ENCOUNTER 2020-11-28 13:50 | Day surgery (SDC) | payer MEDICARE, OTHER, SELFPAY ==
[2020-11-28 13:55] VITALS: BP 128/62; PULSE 59; RESP 20; TEMP 36.5; O2SAT 99; BMI 25.1
--- NOTE | 2020-11-28 13:55 | HMH.PMPROC ---
- Procedure Date: 11/28/20 Time: 13:55 Anesthesiologist:: Adriana Barger APRN Complications:: None Pre-procedure Diagnosis:: Degenerative disc disease lumbar spine with lumbar radiculopathy symptoms, volume discrepancy intrathecal pump Post-procedure Diagnosis:: Same Indications for Procedure:: Patient is a 80-year-old white male who presents today for intrathecal pain pump refill and reprogram. He is being treated for degenerative disc disease lumbar spine with lumbar radiculopathy symptoms. Patient's pain is continuing to worsen. Unfortunately, he is undergoing a spinal cord stimulator trial and has not gotten any significant relief past. He continues to have significant pain. He did follow-up with Dr. Beckett with neurosurgery who did not feel he was an appropriate neurosurgical candidate. He did undergo a lumbar epidural steroid injection on 10/14/2020 and only got a few days of relief. Patient's pain is continuing to worsen. He has difficulty standing and walking. He has had discrepancies with his intrathecal therapy on his telemetry in the past. He and I did discuss that changing out his intrathecal pump to a flow Fermin device may provide better pain relief. The device is not functioning as it previously was. He does rate his pain a 7 out of 10. Physical exam General: Alert and oriented x3, no acute distress, pleasant and cooperative Lungs: Respirations even and unlabored, symmetrical chest expansion Eyes: PERRL Musculoskeletal: Flexion and extension of lumbar [spine] somewhat guarded secondary to pain, [antalgic gait noted] Neurological: Speech clear, no gross sensory deficit Procedure Details:: Informed consent was obtained and the risk and benefits of the procedure were explained to the patient. The patient was taken to the procedure room where noninvasive monitoring was placed including noninvasive blood pressure cuff and pulse oximeter. Patient's pump was interrogated. The area over the pump was cleansed with chlorhexidine as a cleansing solution. In sterile fashion the pump was accessed with a 22-gauge needle. Approximately 2.5 mls of the pump solution was removed and discarded appropriately. The pump was then refilled with 20 mL's of Dilaudid 20 mg per mill and bupivacaine 15 mg per mill. The needle was withdrawn and a bandage was placed over the puncture site. The infusion rate was reprogrammed at []. The patient tolerated well with no complication. Plan and Disposition:: Patient is continued to have worsening pain. He did have a discrepancy of 2.5 mL volume in his intrathecal pump. Per telemetry the patient was supposed to have 0.8 ml. We did discuss possible change of his intrathecal pump to flow Donaldson. This is something he wishes to consider in the winter months. We will see the patient back in the clinic at the next intrathecal refill. Patient has been instructed to contact the clinic with any concerns before the next appointment. Dr. Kinney has reviewed this note and agrees with this plan of care. This note was dictated using voice recognition software and make contain errors or omissions.
[2020-11-28 14:04] VITALS: BP 135/75; BP 137/63; PULSE 61; PULSE 62; RESP 18; O2SAT 96
[2020-11-28 14:52] VITALS: BP 142/51; PULSE 62; RESP 20; O2SAT 97
== END 2020-11-28 14:53 | disposition home or self-care (01) ==
LOC: SC.PAINP 13:52
PROVIDERS: PCP Family Medicine; Visit Provider Clinical Nurse Specialist Family Health
DX: M51.16 Intervertebral disc disorders with radiculopathy, lumbar region (principal); Z45.1 Encounter for adjustment and management of infusion pump
CPT/HCPCS: 95991

== ENCOUNTER → 2021-01-02 13:22 | Outpatient (CLI) | payer MEDICARE, OTHER, SELFPAY ==
[2021-01-02 14:10] LABS: Basophils % 0.4 % (0.1-2.0); Eosinophils % 0.2 % (0.1-12.0); Hematocrit 39.3 % (42.0-52.0); Hemoglobin 12.8 g/dL (14.1-18.0); Lymphocytes # 1.6 K/mm3 (0.7-4.5); Lymphocytes % 26.4 % (10-50); Mean Corpuscular HGB Conc 32.6 g/dL (31.8-35.4); Mean Corpuscular Hemoglobin 29.7 pg (27.0-31.2); Mean Corpuscular Volume 91.2 fl (80-94); Mean Platelet Volume 9.4 fl (7.4-10.4); Monocytes # 0.3 K/mm3 (0.1-1.0); Monocytes % 5.2 % (1.7-9.3); Neutrophils # 4.2 K/mm3 (1.8-7.8); Neutrophils % 67.7 % (37.0-80.0); Platelet Count 263 K/mm3 (142-424); Red Blood Count 4.31 M/mm3 (4.60-6.20); Red Cell Distribution Width 13.2 % (11.5-17.5); White Blood Count 6.2 K/mm3 (4.8-10.8)
[2021-01-02 16:39] LABS: Chloride 103 mmol/L (98-107); Potassium 4.7 mmoL/L (3.5-5.1); Sodium 140 mmol/L (136-145)
[2021-01-02 16:42] LABS: Anion Gap 10.7 mEq/L (5-15); Blood Urea Nitrogen 40 mg/dl (9-20); Calcium 9.3 mg/dl (8.4-10.2); Carbon Dioxide 31 mmol/L (22.0-30.0); Estimated Glomerular Filt Rate 82 ml/min (>60); GFR (African American) 99 ML/MIN (>60); Glucose 109 mg/dl (74-100)
[2021-01-02 18:38] LABS: Amphetamine/Metha Screen,Urine Negative ng/ml (<1000); Barbiturates Screen,Urine Negative ng/ml (<200)
[2021-01-02 18:39] LABS: Benzodiazepines Screen,Urine Negative ng/ml (<200)
[2021-01-02 18:40] LABS: Cannabinoid Screen,Urine Negative ng/ml (<50); Cocaine Screen,Urine Negative ng/ml (<300)
[2021-01-02 18:41] LABS: Methadone Screen,Urine Negative ng/ml (<300)
[2021-01-02 18:42] LABS: Opiate Screen,Urine Positive ng/ml (<300); Phencyclidine Screen,Urine Negative ng/ml (<25)
== END ==
PROVIDERS: Visit Provider Anesthesiology
DX: Z01.812 Encounter for preprocedural laboratory examination (principal); Z11.52 Encounter for screening for COVID-19; M51.36 Other intervertebral disc degeneration, lumbar region
CPT/HCPCS: 36415; 80048; 80305; 85025; C9803; U0003; U0005

== ENCOUNTER → 2021-01-04 10:54 | Day surgery (SDC) | payer MEDICARE, OTHER, SELFPAY ==
[2020-12-27 13:17] VITALS: BMI 25.1
[2021-01-04 11:15] VITALS: BP 155/68; PULSE 61; RESP 18; TEMP 36.6; O2SAT 95
--- NOTE | 2021-01-04 12:09 | HMH.ANESCL ---
[facility] [place] Anesthesia Checklist - Patient Identification Patient Identification: Arm Band, Verbal (Name & ) - Structural Data Admitted From: Home Planned Operative Procedure/s: Intrathecal Pain Pump Placement Consent for Planned Operative Procedure(s) Verified: Yes Verified Documents: Surgical Consent, Pathology Report - Chart Verification Results Verified: CBC, BMP - Additional verifications Anesthesia Reactions: No Hx Blood Transfusions: Yes Blood Transfusion Reaction: No - Cardiovascular Assessment Heart Sounds: S1 & S2 - Airway Assessment C-Spine Mobility Assessed: Yes TMJ Mobility Assessed: Yes Dentition: Partials - Neurological Assessment Level of Consciousness: Awake, Alert, Appropriate - Anesthesia Plan Anesthesia Risk discussed: Yes ASA Class: II Anesthesia Type: MAC [facility] [place] History I have reviewed the patient's past medical history: Yes Medical History: Reports:: Cancer (melanoma), Deep Vein Thrombosis, Heart Murmur, Hyperlipidemia, Hypertension Denies:: Diabetes Mellitus Type 1, Diabetes Mellitus Type 2, Internal Pacemaker, Lung Disease, MRSA, Seizures *Have you ever received a pneumonia vaccine?: No *Have you received a flu vaccine this season?: No Other Medical History: Reports: Anemia, Arthritis, Other. Denies: Blood Transfusion Reaction Anesthesia experience/problems:: none Laterality Cases: Right: Arthroscopy Shoulder, Bilateral: Arthroscopy Knee Other Surgeries: Yes: Colonoscopy, Hernia Repair, Other (pain pump implant). No: Pacemaker Amputation: No Fractures: Yes (knees) - *Social History Last grade of school completed: Some college Smoking Status: Never smoker Alcohol Intake: never Alcohol Intake Frequency:: other Substance Use Type: denies use *Occupational Status:: retired Housing: house Household Members: spouse *Travel in the last 8 weeks: None Family Hx:: Cancer, Coronary Artery Disease, Hyperlipidemia, Hypertension
--- NOTE | 2021-01-04 14:15 | SUR.OPER ---
Pain pump explanted: medtronic with SN: [id number]
--- NOTE | 2021-01-04 14:25 | P.OP_ITS ---
Date of procedure: 01/04/21 Pre-op Diagnosis:: End of life, pain pump generator Post-op Diagnosis:: Same Procedure performed:: Removal and replacement of pain pump generator Surgeon:: Artemio Lakhani MD [employer]:: Lai Nelson, Lachelle Houston, Harsh Roy, Benja Cristobal, Scooter Duenas, Rashard Brar, Other Anesthesia: MAC Estimated blood loss (mL): 5 Operative findings:: Not applicable Operative note:: Once adequate IV sedation was obtained via anesthesia and local anesthesia utilizing 1% Xylocaine with epinephrine patient was placed prone on the operating table and his back and flank regions were prepped and draped in sterile fashion. A incision was made over the pain pump generator and carried out the skin and subcutaneous tissues. Generator was removed without difficulty. Catheter disconnected from the generator and it was ligated with a 0 silk tie. At this point a paraspinal incision was made by Dr. Kinney there which an intrathecal cath was passed into the intrathecal space to the area desired by Dr. Kinney. Catheter then fixed the paraspinal fascia with fixation devices and 2- 0 Prolene suture. Utilizing a tunneling device the catheter was passed from the paraspinal incision to the pocket incision. Both pocket incisions were irrigated with antibiotic solution. Subcutaneous tissues closed with 2-0 Vicryl and skin closed with stitches of 4-0 nylon. Wound VAC dressings and a binder applied to the wound. The patient taught procedure well and was discharged home will follow up in date to be determined in 1 week. Antibiotic x1 week per protocol. The patient tolerated the procedure well. Condition: stable Disposition: PACU Complications:: None
[2021-01-04 14:36] VITALS: BP 128/71; PULSE 58; RESP 18; TEMP 36.1; O2SAT 95
[2021-01-04 14:51] VITALS: BP 132/70; PULSE 49; RESP 18; TEMP 36.1; O2SAT 96
[2021-01-04 15:06] VITALS: BP 153/73; PULSE 56; RESP 18; TEMP 36.1; O2SAT 97
--- NOTE | 2021-01-04 15:20 | P.OP_ITS ---
Date of procedure: 01/04/21 Pre-op Diagnosis:: Degenerative disc disease of lumbar spine with lumbar radiculopathy symptoms and postlaminectomy syndrome lumbar spine with malfunctioning intrathecal pain pump Post-op Diagnosis:: Same Procedure performed:: Replacement of intrathecal catheter and pain pump system Surgeon:: Jony Kinney MD EMERGENCY SERVICE RESTORER:: Lachelle Houston Anesthesia: MAC Estimated blood loss (mL): 5 Clinical Note:: Patient is a pleasant 80-year-old white male who we are treating for low back pain with lumbar radiculopathy symptoms and postlaminectomy syndrome lumbar spine. He has had several volume discrepancies on his last few refills. Since his pain pump is currently malfunctioning with possible catheter kink we have decided to replace his intrathecal pain pump system catheter and generator. Operative findings:: None Operative note:: Informed consent was obtained the risk and benefits of the procedure were explained to the patient. Patient was taken to the procedure room. He was prepped and draped in sterile fashion. The pain pump generator was removed by Dr. Aleja tyson. The catheter was tied off in the pocket. I made an incision adjacent to the L4-5 and L5-S1 interspace. I dissected down to the lumbar paraspinous fascia. A 14-gauge spinal needle was inserted and advanced into the L4-L5 interspace until clear CSF was obtained. After this intrathecal catheter was inserted and advanced very easily to the T12 vertebral body. The stylette of the catheter and the needle were withdrawn. We were able to freely withdraw clear CSF through the catheter. The catheter was secured to the fascia with 2 anchoring devices and 2-0 Prolene. I then prepared the pump with 20 mL of intrathecal Dilaudid 20 mg/mL and bupivacaine 15 mg per ml. I tunneled the catheter from the back to the generator pocket. I attached the catheter to the generator. We were able to fully withdraw clear CSF through the side-port. Both incisions were irrigated with bacitracin solution. Both incisions were then closed with 2-0 Vicryl followed by 4-0 nylon. A wound VAC was placed over both incisions. The patient was placed in an abdominal binder taken recovery in stable condition. The pump was programmed and started back at 4.5 mg/day. Patient tolerated the procedure well with no complications. Patient was discharged home neurologically intact with good relief of pain symptoms. Patient was given postop antibiotics. Plan and disposition: We will follow-up with this patient in 1 week for wound check and reprogramming if needed. We will follow-up in 2 weeks for suture removal and further reprogramming if needed. If he has any problems or questions he is to call us back in the pain clinic. Condition: stable Disposition: PACU Complications:: None
[2021-01-04 15:34] VITALS: BP 139/84; PULSE 54; RESP 18; TEMP 36.1; O2SAT 99
== END ==
PROVIDERS: PCP Family Medicine; Visit Provider Anesthesiology
DX: T85.615A Breakdown (mechanical) of other nervous system device, implant or graft, initial encounter (principal); M51.16 Intervertebral disc disorders with radiculopathy, lumbar region; M96.1 Postlaminectomy syndrome, not elsewhere classified; E78.5 Hyperlipidemia, unspecified; I10 Essential (primary) hypertension; R01.1 Cardiac murmur, unspecified; Z85.820 Personal history of malignant melanoma of skin; Z86.718 Personal history of other venous thrombosis and embolism; D64.9 Anemia, unspecified; M19.90 Unspecified osteoarthritis, unspecified site; Z88.1 Allergy status to other antibiotic agents; Z88.8 Allergy status to other drugs, medicaments and biological substances
CPT/HCPCS: 62350; 62362; 96374; C1755; C1772; J2405

== ENCOUNTER → 2021-01-12 13:45 | Outpatient (POV) | payer MEDICARE, OTHER, SELFPAY ==
[2021-01-12 14:05] VITALS: BP 139/68; PULSE 67; RESP 18; O2SAT 96; BMI 25.1
--- NOTE | 2021-01-12 14:08 | HMH.PMPROC ---
- Procedure Date: 01/12/21 Time: 14:08 Anesthesiologist:: Adriana Barger APRN Complications:: None Pre-procedure Diagnosis:: Degenerative disc disease lumbar spine with lumbar radiculopathy symptoms Post-procedure Diagnosis:: Same Indications for Procedure:: Patient is a 80-year-old white male who presents today for follow-up after change of devices from Medtronic to a flow Fermin intrathecal pump. Patient was having volume discrepancies with previous pump and having worsening pain. As result we did change his device from Medtronic to flow Fermin. He does report to be having right low back pain. The pain does radiate into his right side. This is new onset for him, rating his pain an 8 out of 10. He is currently on Dilaudid/bupivacaine at 4.5 mg/day. He was previously on a flex dose with his Medtronic pump. He says this does work better for him. He would like to go to periodic flow and is not interested in using a PTC device. The patient is negative for sacroiliitis today with a negative Felix's test. He is also negative Mony's test. He says the pain is deep in nature and wraps around his right thigh to the anterior aspect. He says this is an acute pain for him. It is unlike his chronic low back pain. He does say the pump is helping his chronic low back pain at this time. We will give the patient a bolus while he is in the clinic to see if this helps with his acute low back right low back pain. Physical exam General: Alert and oriented x3, no acute distress, pleasant and cooperative Lungs: Respirations even and unlabored, symmetrical chest expansion Eyes: PERRL Musculoskeletal: Flexion and extension of lumbar [spine] somewhat guarded secondary to pain, [antalgic gait noted] Neurological: Speech clear, no gross sensory deficit Procedure Details:: Informed consent was obtained and the risk and benefits of the procedure were explained to the patient. Patient was taken to the procedure room where noninvasive monitoring was placed including noninvasive blood pressure cuff and pulse oximeter. Patient's pump was interrogated and was reprogrammed to []. The patient tolerated the procedure well with no complications. Plan and Disposition:: Patient was discussed with Dr. Kinney. Patient symptoms and complaints were discussed with the physician and he would like to proceed with a right SI joint injection with the patient tomorrow to see if this relieves his acute pain. We will also order x-rays lumbar spine and pelvis today. We will follow up with the patient after his right SI joint injection for further evaluation and plan for suture removal in 2 weeks. He has been advised to continue wearing his abdominal binder until further instructions. Possible side effects of corticosteroids have been discussed with the patient. Risks and benefits of the procedure have been explained to the patient. Patient would like to proceed with the procedure. Patient has been instructed to contact the clinic with any concerns before the next appointment. Dr. Kinney has reviewed this note and agrees with this plan of care. This note was dictated using voice recognition software and make contain errors or omissions. We will see the patient back in the clinic at the next intrathecal refill. Patient has been instructed to contact the clinic with any concerns before the next appointment. Dr. Kinney has reviewed this note and agrees with this plan of care. This note was dictated using voice recognition software and make contain errors or omissions.
== END ==
PROVIDERS: Visit Provider Clinical Nurse Specialist Family Health
DX: M51.16 Intervertebral disc disorders with radiculopathy, lumbar region (principal); Z45.1 Encounter for adjustment and management of infusion pump
CPT/HCPCS: 62368; 62370; 72110; 72170

== ENCOUNTER → 2021-01-12 14:42 | Outpatient (CLI) | payer MEDICARE, OTHER, SELFPAY ==
--- NOTE | 2021-01-12 14:46 | XR_ITS ---
PROCEDURE: XR PELVIS 1-2V CLINICAL INDICATION: LOW BACK PAIN COMPARISON: CT ABDPELW CT ABD PELVIS W/ CONTRAST from 04/30/2016 TECHNIQUE: XR Pelvis AP View FINDINGS: Osteoarthritic changes of the hips. No fracture or dislocation. No lytic or blastic change. Pain pump generator in the left lower quadrant with 2 leads projecting over the lumbar spine. IMPRESSION: Mild osteoarthritic changes of the hips Dictated by: Margarito Tipton MD 01/12/2021 16:45 Margarito Tipton MD in [place] 01/12/2021 16:45
--- NOTE | 2021-01-12 14:46 | XR_ITS ---
PROCEDURE: XR LUMBAR SPINE MIN 4V CLINICAL INDICATION: LOW BACK PAIN COMPARISON: CR [id number] LUMBAR SPINE 5 VIEWS from 02/12/[address] ABD PELVIS W/ CONTRAST from 04/30/2016 FINDINGS: There is normal alignment. There is mild chronic wedging of L2. There is partial lumbarization of the S1 vertebral body. There is mild degenerative disc disease in the lower thoracic spine. The lumbar vertebral disc spaces are well preserved. Postsurgical changes are present with fusion posteriorly at L5 and S1. No acute fracture or dislocation. No lytic changes evident. There is a pain pump present with 2 leads. The leads terminate at the T11 and T12 level. Bony hypertrophy present at L5 and S1. IMPRESSION: Postsurgical changes at L5 and S1. Chronic wedge compression changes of L2. No acute finding. Dictated by: Margarito Tipton MD 01/12/2021 17:13 Margarito Tipton MD in [place] 01/12/2021 17:13
== END ==
PROVIDERS: PCP Family Medicine; Visit Provider Clinical Nurse Specialist Family Health
DX: M54.50 Low back pain, unspecified (principal)
CPT/HCPCS: 72110; 72170

== ENCOUNTER 2021-01-13 08:38 | Day surgery (SDC) | payer MEDICARE, OTHER, SELFPAY ==
[2021-01-13 08:43] VITALS: BP 132/64; PULSE 71; RESP 18; TEMP 36.2; O2SAT 99; BMI 25.4
[2021-01-13 09:13] VITALS: BP 148/61; PULSE 68; RESP 18; O2SAT 97
--- NOTE | 2021-01-13 09:17 | P.PCN_ITS ---
- Procedure Date: 01/13/21 Time: 09:17 Anesthesiologist:: Jony Kinney MD Complications:: None Pre-procedure Diagnosis:: Sacroiliitis Post-procedure Diagnosis:: Same Indications for Procedure:: This patient is a pleasant 80-year-old white male who we are treating for right- sided hip pain. He is tender over the right SI joint. Is positive Felix's test on the right side. Is positive Ashley test on the right side. He has positive SI joint compression test on the right side. He recently had his intrathecal pain pump changed out. He is doing well with his pain pump. During the mata rgical procedure positioning most of aggravated his SI joint. We will plan on a right SI joint injection under fluoroscopy today. Procedure Details:: Right SI joint injection under fluoroscopy Informed consent was obtained and the risks and benefits of the procedure was going to the patient. Patient was taken to the procedure room. Patient was placed prone on the procedure table. The right hip was prepped using ChloraPrep. The skin and subcutaneous tissues were anesthetized using lidocaine. I placed a 22-gauge spinal needle into the inferior aspect of the right SI joint. Needle placement was confirmed with dye. After this we injected 5 mL bupivacaine 0.25% and Depo-Medrol 40 mg into the right SI joint. The patient tolerated the procedure well with no complication. Plan and Disposition:: We will follow-up with him in 2 weeks. Will reevaluate symptoms at that time.
[2021-01-13 09:37] VITALS: BP 140/53; PULSE 70; RESP 20; O2SAT 98
== END 2021-01-13 09:38 | disposition home or self-care (01) ==
LOC: SC.PAINP 08:39
PROVIDERS: PCP Family Medicine; Visit Provider Anesthesiology
DX: M46.1 Sacroiliitis, not elsewhere classified (principal); E78.5 Hyperlipidemia, unspecified; I10 Essential (primary) hypertension; D64.9 Anemia, unspecified; Z86.718 Personal history of other venous thrombosis and embolism; G20 Parkinson's disease; Z79.899 Other long term (current) drug therapy; Z88.1 Allergy status to other antibiotic agents; Z88.8 Allergy status to other drugs, medicaments and biological substances
CPT/HCPCS: 27096; G0260; J1040; Q9966

== ENCOUNTER → 2021-01-26 09:19 | Outpatient (POV) | payer MEDICARE, OTHER, SELFPAY ==
[2021-01-26 09:37] VITALS: BP 125/62; PULSE 68; RESP 18; O2SAT 99; BMI 25.1
--- NOTE | 2021-01-26 11:31 | P.PCN_ITS ---
- Procedure Date: 01/26/21 Time: 11:31 Anesthesiologist:: Adriana Barger APRN Complications:: None Pre-procedure Diagnosis:: Degenerative disc disease lumbar spine with lumbar radiculopathy symptoms, sacroiliitis bilateral Post-procedure Diagnosis:: Same Indications for Procedure:: Patient is a 80-year-old white male who presents today for intrathecal pain pump adjustment. He recently underwent a right SI joint injection and got significant relief, at about 70 to 80%. He is having pain now to bilateral SI joints once again with radiation into bilateral buttock and hips. The pain is made worse with standing and walking. Pain does improve with sitting. He would like an increase in his intrathecal therapy today. He is currently on periodic flow with Dilaudid and bupivacaine at 0.37 mg every 2 hours. He denies any side effects. Abram #[id number] has been reviewed and is appropriate. Morphine equivalent is 0. Physical exam General: Alert and oriented x3, no acute distress, pleasant and cooperative Lungs: Respirations even and unlabored, symmetrical chest expansion Eyes: PERRL Musculoskeletal: Flexion and extension of lumbar [spine] somewhat guarded secondary to pain, [antalgic gait noted], positive Felix's test, positive distraction test, positive compression test, positive Mony's test Neurological: Speech clear, no gross sensory deficit Procedure Details:: Informed consent was obtained and the risk and benefits of the procedure were explained to the patient. Patient was taken to the procedure room where noninvasive monitoring was placed including noninvasive blood pressure cuff and pulse oximeter. Patient's pump was interrogated and was reprogrammed to Dilaudid/bupivacaine at 0.41 mg every 2 hours, daily dose of 4.92 mg/day. The patient tolerated the procedure well with no complications. Plan and Disposition:: Patient does have tenderness to bilateral SI joints with positive Mony's test, compression test, distraction test, Felix's test. We will schedule him for bilateral SI joint injections. He will continue with home stretching and anti- inflammatories. Possible side effects of corticosteroids have been discussed with the patient. Risks and benefits of the procedure have been explained to the patient. Patient would like to proceed with the procedure. Patient has been instructed to contact the clinic with any concerns before the next appointment. Dr. Kinney has reviewed this note and agrees with this plan of care. This note was dictated using voice recognition software and make contain errors or omissions.
== END ==
PROVIDERS: Visit Provider Clinical Nurse Specialist Family Health
DX: M46.1 Sacroiliitis, not elsewhere classified (principal); M51.16 Intervertebral disc disorders with radiculopathy, lumbar region
CPT/HCPCS: 62368; 99212; G0463

== ENCOUNTER 2021-01-27 13:50 | Day surgery (SDC) | payer MEDICARE, OTHER, SELFPAY ==
[2021-01-27 13:57] VITALS: BP 144/61; PULSE 57; RESP 18; TEMP 36.4; O2SAT 98; BMI 25.1
--- NOTE | 2021-01-27 14:20 | HMH.PMPROC ---
- Procedure Date: 01/27/21 Time: 14:20 Anesthesiologist:: Cherise Covarrubias MD Complications:: None Pre-procedure Diagnosis:: Bilateral sacroiliitis, bilateral hip pain, chronic low back pain Post-procedure Diagnosis:: Same Indications for Procedure:: Patient is a very pleasant 80-year-old white male who presents to clinic bilateral hip pain and low back pain related to the above diagnosis. He is trialed and failed conservative treatment including oral pain medications and home stretching program for greater than 6 weeks. He has previously undergone a right-sided SI joint injection in the past and notes about 70 to 80% pain relief that is ongoing. The plan for today is for the patient to undergo left SI joint injections under fluoroscopy. Procedure Details:: B/left SI joint injection under fluoroscopy Informed consent was obtained and the risks and benefits of the procedure was explained to the patient. The patient was taken to the procedure room and placed prone on the procedure table. The patient was prepped using ChloraPrep. The skin and subcutaneous tissues overlying the left SI joint were anesthetized using lidocaine. I placed a 22-gauge needle first in the left SI joint. Needle placement was confirmed with dye. After this we injected 5 mL bupivacaine 0.25% and Depo-Medrol 40 mg into the left SI joint. Patient tolerated the procedure well with no complication. Plan and Disposition:: Follow-up with this patient in 2 weeks. Will reevaluate pain symptoms at that time.
[2021-01-27 14:24] VITALS: BP 140/60; PULSE 82; RESP 18; O2SAT 97
[2021-01-27 14:26] VITALS: PULSE 84; RESP 18; O2SAT 97
[2021-01-27 14:33] VITALS: BP 166/64; PULSE 58; RESP 20; O2SAT 97
== END 2021-01-27 14:34 | disposition home or self-care (01) ==
LOC: SC.PAINP 13:51
PROVIDERS: PCP Family Medicine; Visit Provider Anesthesiology Pain Medicine
DX: M46.1 Sacroiliitis, not elsewhere classified (principal); M54.50 Low back pain, unspecified; G89.29 Other chronic pain; E78.5 Hyperlipidemia, unspecified; I10 Essential (primary) hypertension; I82.409 Acute embolism and thrombosis of unspecified deep veins of unspecified lower extremity; D64.9 Anemia, unspecified; Z88.1 Allergy status to other antibiotic agents; Z88.8 Allergy status to other drugs, medicaments and biological substances; Z79.899 Other long term (current) drug therapy
CPT/HCPCS: 27096; G0260; J1040; Q9966

== ENCOUNTER → 2021-02-13 11:34 | Outpatient (POV) | payer MEDICARE, OTHER, SELFPAY ==
[2021-02-13 11:52] VITALS: BP 123/79; PULSE 74; RESP 18; O2SAT 97; BMI 25.1
--- NOTE | 2021-02-13 12:58 | HMH.PMPROC ---
- Procedure Date: 02/13/21 Time: 12:30 Anesthesiologist:: Adriana Barger APRN Complications:: None Pre-procedure Diagnosis:: Degenerative disc disease lumbar spine with lumbar radiculopathy symptoms, spinal stenosis with neurogenic claudication symptoms Post-procedure Diagnosis:: Same Indications for Procedure:: Patient is following up after bilateral SI joint injections. He got significant relief to his right low back pain, rating his pain a 3 out of 10 at this time. He does continue to have left low back pain with radiation into bilateral lower extremities, however. He has had a mild procedure and has undergone a spinal cord stimulator trial in the past. He did not get relief during the SCS trial. He got approximately 6 months of relief following the mild procedure. Unfortunately he is now having pain in lower extremities with severe heaviness and weakness. He says that the weakness is causing him to feel as though he is going to fall. He does have frequent unprovoked moments of feeling weakness in lower extremities. He says he still has chronic pain in the left low back area. He has had a mild procedure which she says gave him significant relief. He is inquiring about proceeding with repeat mild 2 different areas. He does have an intrathecal pain pump. He is currently on continuous flow. His pump has been changed from [employer] to flow [place]. He is also having neck pain between shoulders. This is new onset for the patient. We have discussed changing dosing to periodic flow to see if this does help with his neck pain. He would like to try periodic flow with his pump. Physical exam General: Alert and oriented x3, no acute distress, pleasant and cooperative Lungs: Respirations even and unlabored, symmetrical chest expansion Eyes: PERRL Musculoskeletal: Flexion and extension of cervical and lumbar [spine] somewhat guarded secondary to pain, [antalgic gait noted] Neurological: Speech clear, no gross sensory deficit Procedure Details:: Informed consent was obtained and the risk and benefits of the procedure were explained to the patient. Patient was taken to the procedure room where noninvasive monitoring was placed including noninvasive blood pressure cuff and pulse oximeter. Patient's pump was interrogated and was reprogrammed to Dilaudid at 4.9 mg/day bupivacaine at 3.6 mg/day, periodic flow at 0.41 mg every 2 hours.. The patient tolerated the procedure well with no complications. Plan and Disposition:: We will schedule the patient for a lumbar epidural steroid injection at L4-L5 with an epidurogram. He has asked to be evaluated for possible Vertiflex versus mild. Patient has had a mild procedure in the past, however. Due to frequent falls, we did discuss motorized wheelchair that is compatible and able to be transported via vehicle. We will order the patient a motorized wheelchair. We did change the patient to periodic flow to see if this helps with his neck pain as well. We will follow-up with patient after his epidurogram for further evaluation. Of note, the patient has tried a SCS trial in the past and got minimal relief. He does not feel the pump is giving him much relief of his left low back and left leg pain. He is also having worsening weakness in lower extremities. Patient is not diabetic and is not on any anticoagulation therapy. Possible side effects of corticosteroids have been discussed with the patient. Risks and benefits of the procedure have been explained to the patient. Patient would like to proceed with the procedure. Patient has been instructed to contact the clinic with any concerns before the next appointment. Dr. Kinney has reviewed this note and agrees with this plan of care. This note was dictated using voice recognition software and make contain errors or omissions.
== END ==
PROVIDERS: Visit Provider Clinical Nurse Specialist Family Health
DX: M51.16 Intervertebral disc disorders with radiculopathy, lumbar region (principal); M48.062 Spinal stenosis, lumbar region with neurogenic claudication; Z45.1 Encounter for adjustment and management of infusion pump
CPT/HCPCS: 62368; 99212; G0463

== ENCOUNTER 2021-02-21 09:15 | Emergency (ER) | payer MEDICARE, OTHER, SELFPAY ==
[2021-02-21 10:24] VITALS: BP 148/86; PULSE 68; RESP 19; TEMP 37.7; O2SAT 98; BMI 25.1
[2021-02-21 10:31] LABS: UTC Influenza A Antigen Negative (Negative)
--- NOTE | 2021-02-21 10:31 | HMH.EDUTC ---
[facility] [place] Disposition Clinical Impression: Sinusitis Qualifiers: Sinusitis location: unspecified location Chronicity: unspecified Qualified Code(s): J32.9 - Chronic sinusitis, unspecified Disposition: Home, Self-Care Condition on Discharge: Good Instructions: DI for Viral Syndrome, Ondansetron, DI for COVID-19 (Suspected or Confirmed ), Preventing the Spread of Coronavirus Discharge Instructions Additional Instructions: *Monitor Temp, Over the counter Motrin or Tylenol as directed/as needed Tylenol every 4 hours and Motrin every 6 hours (as long as your family doctor has told you that you can take it) for fever or pain. and straight to ER if unable to lower temp less than 101.0 after medication given *Warm salt water gargles may help to soothe the throat *Throat Lozenges *Warm fluids like tea with honey may help to soothe the throat *Sleep elevated *Humidifier/Vaporizer *Flonase 2 sprays in each nostril daily but be aware that it may take 2-3 days before you notice improvement Your throat swab was sent for culture. Those results are typically sent to your primary care. Be sure to follow up in 2-3 days with your family doctor/primary care physician if no improvement so they can review those result and treat if necessary. If you don?t have a primary care doctor, I recommend you get one but in the mean time, you will have to return to a walk in clinic Follow up IMMEDIATELY for new or worsening symptoms or no Noticeable improvement over the next 48-72 hours. 911 for difficulty breathing or swallowing You were tested for today for COVID19 your test result should be back in the next 24-48 hours, you check your results on the [facility] my health portal if you have trouble logging on or seeing your results you may call You was given a handout with instructions for Self Quarantine and Self isolation for while you wait on test results and what to do if they are positive If you are positive the Health Dept will be contacting you also Make sure to take your Vitamins Vit. C Vit D and Zinc if you can take them Prescriptions: predniSONE [Deltasone 10mg tablet] 10 mg PO BID 5 Days #10 tab Transmission Status: Pending to [id number] Azithromycin [Z-Dominic 250mg Tab] 250 mg PO DIRECTED #6 tab Transmission Status: Pending to [id number] Ondansetron [Zofran 4mg ODT] 4 mg PO TIDP PRN #9 tab PRN Reason: Nausea Transmission Status: Received by [facility] Referrals: Scooter Simons MD [Primary Care Provider] - As needed Time of Disposition: 18:38 Medical Decision Making - Abram Inquiry Pt receiving controlled substance: No Abram was queried for this patient: No Vital Signs: 02/21/21 10:24 02/21/21 10:50 Temperature 99.9 F H 99.9 F H Temperature Source Oral Pulse Rate 68 Pulse Rate [Right Radial] 68 Respiratory Rate 19 19 Blood Pressure 148/86 H Blood Pressure [Right Arm] 148/86 H Blood Pressure Mean [Right Arm] 106 Blood Pressure Source [Right Arm] Automatic Cuff Blood Pressure Position [Right Arm] Sitting 02 Sat by Pulse Oximetry 98 Oxygen Delivery Method Room Air - Lab Data Lab results reviewed: Yes: I reviewed the patient's lab results. Lab Results 02/21/21 10:24: Influenza Type A Ag Negative, Influenza Type B Ag Negative 02/21/21 10:32: Strep Scn Rapid Clinic Negative Orders (Tests/Meds): ORDERS Category Date Time Status Strep Screen Confirmation Stat Micro 02/21/21 10:32 Received Medical Decision Narrative: Patient states that he has take azithromycin and prednisone in the past without complications or reactions [facility] HPI - General Stated complaint: covid symptoms Time Seen by Provider: 02/21/21 10:31 Mode of Arrival: Ambulatory Source of Information: Patient Limitations: No Limitations Description of Symptoms (Recalled from Triage Doc. by RN): C/O chills, bodyaches, nausea, loss of taste and smell, fever x2 days HEENT Symptoms (Recalled from RN
[2021-02-21 10:32] LABS: UTC Influenza B Antigen Negative (Negative)
[2021-02-21 10:46] LABS: UTC Strep Screen (Rapid) Negative (Negative)
[2021-02-21 10:50] VITALS: BP 148/86; PULSE 68; RESP 19; TEMP 37.7; O2SAT 98
== END 2021-02-21 10:52 | disposition home or self-care (01) ==
PROVIDERS: Emergency Provider Nurse Practitioner; PCP Family Medicine
DX: J32.9 Chronic sinusitis, unspecified (principal); I10 Essential (primary) hypertension; E78.5 Hyperlipidemia, unspecified
CPT/HCPCS: G0463; 87804; 87880; 99203; C9803; U0003; U0005

== ENCOUNTER → 2021-03-08 13:23 | Outpatient (CLI) | payer MEDICARE, OTHER, SELFPAY ==
[2021-03-08 14:05] LABS: Adenovirus,PCR Not Detected (NotDetected); Bordetella Pertussis Not Detected (NotDetected); Chlamydophila Pneumoniae, PCR Not Detected (NotDetected); Coronavirus 19, PCR Not Detected (NotDetected); Coronavirus 229E Not Detected (NotDetected); Coronavirus NL63 Not Detected (NotDetected); Coronavirus OC43 Not Detected (NotDetected); Coronovirus HKU1,PCR Not Detected (NotDetected); Human Metapneumovirus Not Detected (NotDetected); Influenza A, PCR Not Detected (NotDetected); Influenza AH1, 2009 Not Detected (NotDetected); Influenza AH1, PCR Not Detected (NotDetected); Influenza AH3,PCR Not Detected (NotDetected); Influenza B, PCR Not Detected (NotDetected); Mycoplasma Pneumoniae, PCR Not Detected (NotDetected); Parainfluenza 1, PCR Not Detected (NotDetected); Parainfluenza 2, PCR Not Detected (NotDetected); Parainfluenza 3, PCR Not Detected (NotDetected); Parainfluenza 4, PCR Not Detected (NotDetected); Respiratory Syncytial Virus Not Detected (NotDetected); Rhinovirus/Enterovirus Not Detected (NotDetected)
[2021-03-08 16:47] LABS: Basophils % 0.4 % (0.1-2.0); Eosinophils # 0.1 K/mm3 (0.0-0.4); Eosinophils % 0.6 % (0.1-12.0); Hematocrit 40.9 % (42.0-52.0); Hemoglobin 13.2 g/dL (14.1-18.0); Lymphocytes # 2.1 K/mm3 (0.7-4.5); Lymphocytes % 24.3 % (10-50); Mean Corpuscular HGB Conc 32.3 g/dL (31.8-35.4); Mean Corpuscular Volume 92.9 fl (80-94); Mean Platelet Volume 8.5 fl (7.4-10.4); Monocytes # 0.6 K/mm3 (0.1-1.0); Neutrophils # 5.9 K/mm3 (1.8-7.8); Neutrophils % 67.6 % (37.0-80.0); Platelet Count 371 K/mm3 (142-424); Red Blood Count 4.41 M/mm3 (4.60-6.20); Red Cell Distribution Width 13.8 % (11.5-17.5); White Blood Count 8.7 K/mm3 (4.8-10.8)
== END ==
PROVIDERS: PCP Family Medicine; Visit Provider Nurse Practitioner Family
DX: Z20.822 Contact with and (suspected) exposure to COVID-19 (principal)
CPT/HCPCS: 36415; 85025; 87581; 87632; 87798; C9803; U0003; U0005

== ENCOUNTER 2021-03-13 13:21 | Day surgery (SDC) | payer MEDICARE, OTHER, SELFPAY ==
[2021-03-13 13:30] VITALS: BP 180/99; PULSE 76; RESP 20; TEMP 36.1; O2SAT 98
[2021-03-13 13:35] VITALS: BP 183/87; PULSE 77; RESP 20; O2SAT 96
[2021-03-13 13:40] VITALS: BP 174/85; PULSE 77; RESP 20; O2SAT 95
--- NOTE | 2021-03-13 13:49 | HMH.PMPROC ---
- Procedure Date: 03/13/21 Time: 13:49 Anesthesiologist:: Adriana Barger APRN Complications:: None Pre-procedure Diagnosis:: Degenerative disc disease lumbar spine with lumbar radiculopathy symptoms, spinal stenosis with neurogenic claudication symptoms Post-procedure Diagnosis:: Same Indications for Procedure:: Patient is a pleasant 80-year-old white male who presents today for intrathecal pain pump refill and reprogram. The patient is having knee pain. He is recovering from Covid and says that he has had significant knee pain since having Covid. He says the pain has always been there but has gotten worse over the last couple weeks. He is currently with intrathecal therapy Dilaudid at 4.92 mg/day and bupivacaine at 3.69 mg/day, periodic flow at 0.41 mg every 2 hours. She would like an increase today. He denies any side effects. [facility] #[id number] has been reviewed and is appropriate. Morphine equivalent is 0. Drug screen is appropriate. Physical exam General: Alert and oriented x3, no acute distress, pleasant and cooperative Lungs: Respirations even and unlabored, symmetrical chest expansion Eyes: PERRL Musculoskeletal: Flexion and extension of lumbar [spine] somewhat guarded secondary to pain, [antalgic gait noted] Neurological: Speech clear, no gross sensory deficit Procedure Details:: Informed consent was obtained and the risk and benefits of the procedure were explained to the patient. The patient was taken to the procedure room where noninvasive monitoring was placed including noninvasive blood pressure cuff and pulse oximeter. Patient's pump was interrogated. The area over the pump was cleansed with chlorhexidine as a cleansing solution. In sterile fashion the pump was accessed with a 22-gauge needle. Approximately 4.5 mls of the pump solution was removed and discarded appropriately. The pump was then refilled with 20 mL's of Dilaudid 20 mg/mL and bupivacaine 15 mg/mL. The needle was withdrawn and a bandage was placed over the puncture site. The infusion rate was reprogrammed at Dilaudid 5.88 mg/day, bupivacaine 4.41 mg/day, periodic flow 0.49 mg every 2 hours.. The patient tolerated well with no complication. Plan and Disposition:: We will order the patient compounding cream to apply topically to his knees for his worsening knee pain. We will plan to see the patient back at his next intrathecal refill and reprogram. We will see the patient back in the clinic at the next intrathecal refill. Patient has been instructed to contact the clinic with any concerns before the next appointment. Dr. Kinney has reviewed this note and agrees with this plan of care. This note was dictated using voice recognition software and make contain errors or omissions.
[2021-03-13 13:50] VITALS: BP 174/85; PULSE 77; RESP 20; O2SAT 95
--- NOTE | 2021-04-04 12:09 | PC.NURSE ---
called in RX for Baclofen 10mg PO TID PRN spasms with 1 refill to [facility] per MD order.
== END 2021-03-13 13:50 | disposition home or self-care (01) ==
LOC: SC.PAINP 13:22
PROVIDERS: PCP Family Medicine; Visit Provider Clinical Nurse Specialist Family Health
DX: M51.16 Intervertebral disc disorders with radiculopathy, lumbar region (principal); M48.062 Spinal stenosis, lumbar region with neurogenic claudication; Z45.1 Encounter for adjustment and management of infusion pump
CPT/HCPCS: 62370

== ENCOUNTER 2021-05-01 13:41 | Day surgery (SDC) | payer MEDICARE, OTHER, SELFPAY ==
[2021-05-01 13:44] VITALS: BP 146/79; BP 160/72; BP 161/74; PULSE 61; PULSE 66; PULSE 67; RESP 18; RESP 20; TEMP 36.6; O2SAT 94; O2SAT 95; O2SAT 97; BMI 25.1
--- NOTE | 2021-05-01 14:01 | P.PCN_ITS ---
- Procedure Date: 05/01/21 Time: 14:01 Anesthesiologist:: RC Fernandes Complications:: None Pre-procedure Diagnosis:: Degenerative disc disease of the lumbar spine with lumbar radiculopathy symptoms, spinal stenosis with neurogenic claudication symptoms Post-procedure Diagnosis:: Same Indications for Procedure:: Patient is a pleasant 80-year-old male who presents today for intrathecal pain pump [refill] [and reprogram]. The patient is being treated for degenerative disc disease of the lumbar spine with lumbar radiculopathy symptoms, spinal stenosis with neurogenic location. Patient is currently being managed with Dilaudid 20 mg/mL at a rate of 5.88 mg/day and bupivacaine 15 mg/mL at a rate of 4.4 mg/day. Patient denies any side effects from these medications. Patient sa ys that he has been having worsening left leg pain that it is making it hard for him to stand up for long periods of time. Patient states that when he is sitting down, he does not have any pain. Patient rates pain a 3 out of 10. Drug screen is appropriate. Abram [id number] with an active morphine equivalent of 0 has been reviewed and is appropriate. Physical exam General: Alert and oriented x3, no acute distress, pleasant and cooperative, [on room air] Lungs: Respirations even and unlabored, symmetrical chest expansion Eyes: PERRL Musculoskeletal: Flexion and extension of lumbar [spine] somewhat guarded secondary to pain, [antalgic gait noted] Neurological: Speech clear, no gross sensory deficit Procedure Details:: Informed consent was obtained and the risk and benefits of the procedure were explained to the patient. The patient was taken to the procedure room where noninvasive monitoring was placed including noninvasive blood pressure cuff and pulse oximeter. Patient's pump was interrogated. The area over the pump was cleansed with chlorhexidine as a cleansing solution. Fluoroscopy was used to access the pump. In sterile fashion the pump was accessed with a 22-gauge needle. Approximately 6 mls of the pump solution was removed and discarded appropriately. The pump was then refilled with 20 mL's of Dilaudid 20 mg/mL and bupivacaine 15 mg/mL. The needle was withdrawn and a bandage was placed over the puncture site. The infusion rate was reprogrammed and increased to Dilaudid 6.4 mg/day and bupivacaine 4.8 mg/day.. The patient tolerated well with no complication. Plan and Disposition:: Patient has been having worsening left leg pain that is making it hard for him to stand up for long periods of time. I recommended to the patient that he might benefit from getting a lumbar epidural steroid injection. Patient wants to hold off in doing this injection at this time. He says that his pain is ma nageable at the moment because he is not doing a whole lot. We will see the patient back in the clinic at the next intrathecal refill. Patient has been instructed to contact the clinic with any concerns before the next appointment. Dr. Kinney has reviewed this note and agrees with this plan of care. This note was dictated using voice recognition software and make contain errors or omissions.
[2021-05-01 14:15] VITALS: BP 143/69; PULSE 62; RESP 20; O2SAT 94
== END 2021-05-01 14:16 | disposition home or self-care (01) ==
LOC: SC.PAINP 13:42
PROVIDERS: PCP Family Medicine; Visit Provider Student in an Organized Health Care Education/Training Program
DX: M51.16 Intervertebral disc disorders with radiculopathy, lumbar region (principal); M48.062 Spinal stenosis, lumbar region with neurogenic claudication; Z45.1 Encounter for adjustment and management of infusion pump; I10 Essential (primary) hypertension; G20 Parkinson's disease; M96.1 Postlaminectomy syndrome, not elsewhere classified; M19.90 Unspecified osteoarthritis, unspecified site; Z88.1 Allergy status to other antibiotic agents; Z88.8 Allergy status to other drugs, medicaments and biological substances
CPT/HCPCS: 62370

== ENCOUNTER 2021-05-09 10:00 | Outpatient (RCR) | payer MEDICARE, OTHER, SELFPAY ==
--- NOTE | 2021-03-16 10:50 | HMH.PTOPEV ---
PT Outpatient Evaluation Rehab PT Outpatient Evaluation Start: 03/16/21 10:02 Freq: Status: Active Protocol: Document 03/16/21 10:37 TACHO (Rec: 03/16/21 10:50 TACHO [id number]) Electronically Signed By Atul Briones, PT 03/16/21 10:37 Outpatient Therapy Subjective History Subjective History Patient is a 80 year old male presenting to outpatient PT with reports of chronic LBP, B hip and B knee pain. Patient has undergone mulitple lumbar spine surgical procedures with most recent occurring 2020 including placement of pain pump. Patient reports that he has recently had an episode of COVID and has had some significant functional decline including decondtional of B hip/knee mm. Patient has had B TKA with resultant mod/severe ROM limitations noted. Patient also reports intermittent radicular symptoms to R lateral thigh and LLE to the heel. Chief Complaint Pain,Stiff,Paresthesia, Weakness Symptom Type Ache,Throb,Sharp,Numbness Symptoms Relieved By Rest/Positioning,Heat,Ice, Prescription Meds,Activity Symptoms Aggravated By Sitting,Standing,Bending/ Stooping,Physical Activity, Walking,Lifting Prior Functional Limitations Lifting,Housework,Standing, Sitting,Recreation Activity, Walking,Bending/Stooping Current Functional Limitations Lifting,Housework,Standing, Sitting,Recreation Activity, Walking,Stairs,Balance,Bending /Stooping Symptom Description Constant but Variable Level of pain today (0-10) 3 Pain scale - at its best (0-10) 3 Pain scale - at its worst (0-10) 10 Lumbopelvic Eval Posture Thoracic Spine Posture Standing Position Increased Kyphosis Lumbar Spine Posture Standing Position Decreased Lordosis Assistive device Assistive Devices None / NA Gait Observation General Gait Pattern Observation Wide Based Gait Palapation tenderness bilateral lumbar spinal tenderness Yes: L 1/2 L5/S1 2/4 buttock tenderness Yes: 2/4 Accessory Movement L2 bilateral L3
== END 2021-05-09 10:05 | disposition home or self-care (01) ==
LOC: PT 10:00
PROVIDERS: PCP Family Medicine; Visit Provider Clinical Nurse Specialist Family Health
DX: M54.50 Low back pain, unspecified (principal); M25.562 Pain in left knee; M25.561 Pain in right knee; M79.605 Pain in left leg; M79.604 Pain in right leg
CPT/HCPCS: 97110; 97163

== ENCOUNTER 2021-06-12 14:27 | Day surgery (SDC) | payer MEDICARE, OTHER, SELFPAY ==
[2021-06-12 14:51] VITALS: BP 147/70; BP 149/76; BP 153/82; PULSE 59; PULSE 64; PULSE 66; RESP 18; RESP 20; O2SAT 92; O2SAT 93; O2SAT 97; BMI 25.1
--- NOTE | 2021-06-12 15:00 | HMH.PMPROC ---
- Procedure Date: 06/12/21 Time: 15:00 Anesthesiologist:: Celio Sweeney CRNA Complications:: None Pre-procedure Diagnosis:: Degenerative disc disease lumbar spine. Post-procedure Diagnosis:: Same Indications for Procedure:: Very pleasant 80-year-old white male we been treating for quite some time for chronic low back pain as well as bilateral hip and leg radicular symptoms at times. Patient is being treated with intrathecal pain pump containing Dilaudid 20 mg/mL at a rate of 5.88 mg/day and bupivacaine 15 mg/mL at a rate of 4.4 mg/day. Patient denies any side effects from these medications. He denies any lower extremity weakness or numbness. Procedure Details:: Details of the procedure were explained to the patient. The patient was taken the procedure room placed in the sitting position on the fluoroscopy table. The area over the pump was cleansed using chlorhexidine as a cleansing solution. The pump was accessed with a ease using a 22-gauge needle. 6 mL of fluid was removed and discarded appropriately. The pump was then filled with 20 cc of fluid. This would be Dilaudid 20 mg/mL and bupivacaine 15 mg/mL. Patient tolerated procedure without difficulty. There were no complications. Plan and Disposition:: She was discharged home without incident.
[2021-06-12 17:50] LABS: Benzodiazepines Screen,Urine Negative ng/ml (<200)
[2021-06-12 17:51] LABS: Amphetamine/Metha Screen,Urine Negative ng/ml (<1000); Barbiturates Screen,Urine Negative ng/ml (<200)
[2021-06-12 17:52] LABS: Cannabinoid Screen,Urine Negative ng/ml (<50); Cocaine Screen,Urine Negative ng/ml (<300)
[2021-06-12 17:53] LABS: Methadone Screen,Urine Negative ng/ml (<300)
[2021-06-12 17:54] LABS: Opiate Screen,Urine Positive ng/ml (<300); Phencyclidine Screen,Urine Negative ng/ml (<25)
--- NOTE | 2021-06-20 08:27 | PC.NURSE ---
06/19/21-called in Rx for Vistaril 50mg PO 1 PO 1 hour prior to MRI dispt #2 tabs per MD order.
[2021-06-28 15:13] LABS: Codeine Negative (Cutoff=100); Hydrocodone Negative (Cutoff=100); Hydromorphone Positive (.); Morphine Negative (Cutoff=100); Opiates Positive (.)
== END 2021-06-12 15:03 | disposition home or self-care (01) ==
LOC: SC.PAINP 14:28
PROVIDERS: PCP Family Medicine; Visit Provider Nurse Anesthetist, Certified Registered
DX: M51.36 Other intervertebral disc degeneration, lumbar region (principal); Z45.1 Encounter for adjustment and management of infusion pump; I73.9 Peripheral vascular disease, unspecified; I10 Essential (primary) hypertension; M96.1 Postlaminectomy syndrome, not elsewhere classified; M19.90 Unspecified osteoarthritis, unspecified site; K21.9 Gastro-esophageal reflux disease without esophagitis; G20 Parkinson's disease; Z88.1 Allergy status to other antibiotic agents; Z79.899 Other long term (current) drug therapy
CPT/HCPCS: 80305; 80361; 80365; 95991; G0480

== ENCOUNTER 2021-06-15 16:00 | Outpatient (RCR) | payer MEDICARE, OTHER, SELFPAY ==
--- NOTE | 2021-05-11 15:01 | HMH.PTOPEV ---
PT Outpatient Evaluation Rehab PT Outpatient Evaluation Start: 05/11/21 14:10 Freq: Status: Active Protocol: Document 05/11/21 14:10 MORENA (Rec: 05/11/21 15:00 MORENA [id number]) Electronically Signed By Raji Fernando, PT 05/11/21 14:10 Outpatient Therapy Subjective History Subjective History Pt reports insidious onset right sided mid/low back pain beginning ~ 6 months ago. Pt reports pain exacerbates with overhead reaching/lifting activity. Pt reports h/o chronic LBP, pain pump for ' years', and imaging revealing scoliosis, stenosis, and DDD in the lumbar region. Chief Complaint Pain,Spasms,Stiff Symptom Type Ache,Sharp,Dull Symptoms Relieved By Rest/Positioning,Heat Symptoms Aggravated By Standing,Physical Activity, Walking,Lifting Prior Functional Limitations Reaching,Lifting,Housework, Standing,Recreation Activity Current Functional Limitations Reaching,Lifting,Housework, Standing,Walking Symptom Description Constant but Variable Level of pain today (0-10) 3 Pain scale - at its best (0-10) 2 Pain scale - at its worst (0-10) 5 Lumbopelvic Eval Posture Thoracic Spine Posture Standing Position Flattened Lumbar Spine Posture Standing Position Flattened Assistive device Assistive Devices None / NA Gait Observation General Gait Pattern Observation No Deviations/Normal Palapation tenderness right thoracic spinal tenderness Yes: 3/4 lumbar spinal tenderness Yes: 3/4 Lumbar/Sacral Palpation Findings Tenderness,Trigger Point, Muscle Guarding Lumbar/Sacral Palpation Overall Comment 3/4 Accessory Movement T-spine Vertebrae Accessory Movements Right P/A [place] that Elicit Symptoms T10 right T11 right T12 right L-spine Vertebrae Accessory Movements Central P/A [place] that Elicit Symptoms L2 right L3 right Range of Motion Lumbar Spine Active Flexion Range of 0-78 Motion (degrees) Lumbar Spine Active Extension Range of 0-5 Motion (degrees) Left Lumbar Spine Lateral Flexion Active 0-20 Range of Motion (degrees) Right Lumbar Spine Lateral Flexion 0-15 Active Range of Motion (degrees) Lumbar Spine ROM Limitations Soft Tissue Tightness,Pain Manual Muscle Test Bilateral Knee Extension Strength Grade 5 Normal
--- NOTE | 2021-06-13 16:14 | HMH.RHREAS ---
Rehab Reassessment Rehab OP Re-assessment Start: 06/08/21 13:56 Freq: Status: Active Protocol: Document 06/13/21 16:01 MORENA (Rec: 06/13/21 16:13 MORENA [id number]) Electronically Signed By Raji Fernando, PT 06/13/21 16:01 Rehab Re-assessment Subjective Subjective Pt reports 4-5/10 LBP and right sided mid pain this pm on VAS, and reports no significant changes in function since I eval Objective Objective Notes AROM: LUMBAR SPINE FLX 0-70, EXT 0-5, B SB 0-15 MMT: B LE WFL TTP: RIGHT THORACIC PARA 2-3/4 , RIGHT LUMBAR PARA 2/4 Assessment Progress Assessment Slower Than Expected Assessment Notes SLIGHT IMPROVEMENT IN TTP Patient goals met STG'S 8 LTG'S 8 Goals Not Met STG'S 05/19, LTG'S 07/19 Plan Plan Pt to cont. w/skilled P.T. to make further improvements in AROM, STRENGTH (CORE STAB), AND TTP to allow for optimal function Frequency of Therapy 1-2x/wk Duration of therapy 2-4wks Time and Billing Re-Eval Time 11 Re-Eval Billing Units 0 PHYSICIAN CERTIFICATION: I certify the specified therapy services for Davin Dodson are required, authorized, and reviewed every 30 days.
== END 2021-06-15 16:05 | disposition home or self-care (01) ==
LOC: PT 16:00
PROVIDERS: PCP Family Medicine; Visit Provider Family Medicine
DX: M54.6 Pain in thoracic spine (principal)
CPT/HCPCS: 97010; 97014; 97035; 97110; 97163; 97164; G0283

== ENCOUNTER → 2021-06-20 07:59 | Outpatient (CLI) | payer MEDICARE, OTHER, SELFPAY ==
--- NOTE | 2021-06-20 08:03 | MR_ITS ---
FINAL REPORT CLINICAL HISTORY: NECK AND BACK PAIN. mid back pain worse on rt side. symptoms xyears but getting worse. no injury or trauma. FINDINGS: Multiplanar MR imaging of the thoracic spine was performed without contrast. On the sagittal T2-weighted images, disc degeneration is seen throughout. There is mild chronic wedging of the superior endplate of T9. The vertebral alignment is normal. The thoracic spinal cord has an unremarkable appearance without evidence of mass, edema or syrinx. There is no evidence of significant canal stenosis or cord compression. On the axial images, disc bulges and osteophytes are seen at multiple levels. No focal soft disc protrusion is identified. There is no evidence of significant canal stenosis or cord compression. No paraspinous soft tissue abnormality is identified. IMPRESSION: Multilevel degenerative disc disease and spondylosis. No focal soft disc protrusion or significant central canal stenosis. Reviewed, Interpreted and Dictated by Julio Morales III, MD Transcribed by Edu Romero Authenticated by Julio Morales III, MD on 06/20/2021 12:02:18 PM [facility]
--- NOTE | 2021-06-20 08:03 | MR_ITS ---
FINAL REPORT CLINICAL HISTORY: NECK AND BACK PAIN. rt sided neck pain. headache. symptoms [id number]. no injury or trauma. FINDINGS: Multiplanar MR imaging of the cervical spine was performed without contrast. On the sagittal T2-weighted images, disc degeneration is seen throughout. There is no evidence of fracture. The vertebral alignment is normal. The cervical spinal cord has an unremarkable appearance without evidence of mass, edema or syrinx. No significant canal stenosis is identified. The cervicomedullary junction is normal. C2-3: There is no significant canal stenosis or neural foraminal narrowing. C3-4: There are uncovertebral osteophytes. There is mild right and moderate left neural foraminal narrowing. C4-5: There is an annular bulge with mild right neural foraminal narrowing. C5-6: There is an annular bulge with mild right neural foraminal narrowing. C6-7: There is a disc osteophyte complex with mild bilateral neural foraminal narrowing. C7-T1: An annular bulge is present. There is no significant canal stenosis or neural foraminal narrowing. IMPRESSION: Multilevel degenerative disc disease with areas of neural foraminal narrowing as described. Reviewed, Interpreted and Dictated by Julio Morales III, MD Transcribed by Edu Romero Authenticated by Julio Morales III, MD on 06/20/2021 12:02:20 PM [facility]
== END ==
PROVIDERS: PCP Family Medicine; Visit Provider Nurse Anesthetist, Certified Registered
DX: M54.2 Cervicalgia (principal); M54.6 Pain in thoracic spine
CPT/HCPCS: 72141; 72146; 76376

== ENCOUNTER → 2021-06-23 07:58 | Outpatient (CLI) | payer MEDICARE, OTHER, SELFPAY ==
--- NOTE | 2021-06-23 08:03 | MR_ITS ---
FINAL REPORT CLINICAL HISTORY: LOW BACK PAIN, CHRONIC. NKI. PT HAS PAIN PUMP. FINDINGS: Multiplanar MR imaging of the lumbar spine was performed without contrast. Artifact from the pain pump obscures some detail. On the sagittal T2-weighted images, disc degeneration is seen at multiple levels. The vertebral alignment is normal. There is a mild chronic L1 compression fracture. No bony mass is identified. The conus has an unremarkable appearance. No significant canal stenosis is identified. L1-2: There is no significant canal stenosis or neural foraminal narrowing. L2-3: An annular bulge is present. There is mild bilateral neural foraminal narrowing. L3-4: An annular bulge is present. There is mild right neural foraminal narrowing. The left neural foramen is obscured. L4-5: There is an annular bulge, facet arthropathy and vertebral osteophytes. There is mild bilateral neural foraminal narrowing. L5-S1: There is an annular bulge and facet arthropathy. There is no significant canal stenosis or neural foraminal narrowing. There is presumed postoperative change from posterior fusion of L5-S1. IMPRESSION: Artifact from pain pump obscures some detail. Multilevel degenerative disc disease with areas of neural foraminal narrowing. Presumed postoperative change from posterior fusion of L5-S1. Reviewed, Interpreted and Dictated by Julio Morales III, MD Transcribed by Edu Romero Authenticated by Julio Moraels III, MD on 06/23/2021 11:08:[address] [facility]
== END ==
PROVIDERS: PCP Family Medicine; Visit Provider Nurse Anesthetist, Certified Registered
DX: M54.50 Low back pain, unspecified (principal)
CPT/HCPCS: 72148; 76376

== ENCOUNTER → 2021-07-06 08:58 | Outpatient (POV) | payer MEDICARE, OTHER, SELFPAY ==
[2021-07-06 09:27] VITALS: BP 135/68; PULSE 70; RESP 18; TEMP 36.1; O2SAT 97; BMI 25.8
--- NOTE | 2021-07-06 09:55 | HMH.PAINSOAP ---
[facility] Pain Management SOAP Note Subjective:: Patient is a pleasant 80-year-old male who presents today for follow-up. Patient is currently being treated for degenerative disc disease of lumbar spine with lumbar radiculopathy symptoms, postlaminectomy syndrome. Patient is currently being managed with an intrathecal Dilaudid 20 mg/mL at a rate of 6.4 mg/day and bupivacaine 15 mg/mL at a rate of 4.8 mg/day. Denies any issues with these medications. Today, patient presents for MRI follow-up of his cervical, thoracic, and lumbar. Patient wanted these imagings ordered because he has been having chronic and worsening back pain. He does see physical therapy. In his cervical MRI is unremarkable other than multilevel degenerative disc changes. Thoracic MRI is similar to his cervical. He does have some mild chronic wedging at T9. In his lumbar MRI, shows a chronic compression fracture at L1, degenerative disc changes, facet arthropathy, multilevel annular disc bulging and fusion at L5-S1. Patient states that he continues to have mid back pain that radiates anteriorly to the right intermittently. He does believe that this is from the wedging of T9. He has a follow-up with [facility] orthopedics in regards to this. He rates his pain today as 7 out of 10. Patient is also prescribed [place] 7.5 mg twice a day for his bilateral knee pain. Abram [id number] and active morphine equivalent of 15. Review of Systems: General: No recent weight changes, no fever, no sleep disturbances Respiratory: No cough, no shortness of air, no recurring pulmonary infections Cardiovascular/peripheral vascular: No chest pain, no palpitations, no edema, no shortness of breath Gastrointestinal: No new onset incontinence, normal bowel movements reported Genitourinary: No new onset incontinence Musculoskeletal: Mid back pain, low back pain, knee pain Psychiatric: [Normal mood/affect] Neurological: [Denies weakness in extremities], [denies balance issues] Objective:: Physical Exam: General: Alert and oriented x3, no acute distress, pleasant and cooperative Lungs: Respirations even and unlabored, symmetrical chest expansion Eyes: PERRL Musculoskeletal: Flexion and extension of lumbar [spine] somewhat guarded secondary to pain, [antalgic gait noted] Neurological: Speech clear, no gross sensory deficit Assessment:: Degenerative disc changes of the lumbar spine with lumbar radiculopathy symptoms Mid back pain Plan:: Patient has no acute complaints today. We will follow this patient during his intrathecal pain pump refill. He will follow-up with [facility] orthopedics in regards to his mid back pain. Patient has been instructed to contact the clinic with any concerns before the next appointment. Dr. Kinney has reviewed this note and agrees with this plan of care. This note was dictated using voice recognition software and make contain errors or omissions. [facility] History Medical History: Reports:: Deep Vein Thrombosis, Heart Murmur, Hyperlipidemia, Hypertension Denies:: Cancer, Diabetes Mellitus Type 1, Diabetes Mellitus Type 2, Internal Pacemaker, Lung Disease, MRSA, Seizures *Have you ever received a pneumonia vaccine?: Yes *Have you received a flu vaccine this season?: No Other Medical History: Reports: Anemia, Arthritis, Other. Denies: Blood Transfusion Reaction Laterality Cases: Right: Arthroscopy Shoulder, Bilateral: Arthroscopy Knee Other Surgeries: Yes: Colonoscopy, Hernia Repair, Other (pain pump implant and replacement). No: Pacemaker Amputation: No Fractures: No - *Social History Smoking Status: Never smoker Alcohol Intake: never Alcohol Intake Frequency:: other Substance Use Type: denies use *Occupational Status:: retired Housing: house Household Members: spouse *Travel in the last 8 weeks: None Family Hx:: Cancer, Coronary Artery Disease, Hyperlipidemia, Hypertension
== END ==
PROVIDERS: Visit Provider Student in an Organized Health Care Education/Training Program
DX: M51.16 Intervertebral disc disorders with radiculopathy, lumbar region (principal); M54.6 Pain in thoracic spine
CPT/HCPCS: 99212; G0463

== ENCOUNTER 2021-08-07 14:33 | Day surgery (SDC) | payer MEDICARE, OTHER, SELFPAY ==
[2021-08-07 14:55] VITALS: BP 133/79; PULSE 72; RESP 20; TEMP 36.8; O2SAT 99; BMI 25.5
[2021-08-07 14:57] VITALS: BP 133/82; PULSE 72; RESP 20; O2SAT 91
[2021-08-07 15:05] VITALS: BP 161/72; PULSE 73; RESP 20; O2SAT 99
--- NOTE | 2021-08-07 15:05 | P.PCN_ITS ---
- Procedure Date: 08/07/21 Time: 15:05 Anesthesiologist:: RC Fernandes Complications:: None Pre-procedure Diagnosis:: Degenerative disc disease of lumbar spine with lumbar radiculopathy symptoms, postlaminectomy syndrome Post-procedure Diagnosis:: Same Indications for Procedure:: Patient is a pleasant 30-year-old male who presents today for intrathecal pain pump refill and reprogram. The patient is being treated for degenerative disc disease of lumbar spine with lumbar radiculopathy symptoms, postlaminectomy syndrome. Patient is currently being managed with Dilaudid 20 mg/mL at 6.14 mg/day and bupivacaine 15 mg/ml. Patient denies any side effects from this medication. Patient rates pain a 3 out of 10. Drug screen is appropriate. Abram [id number] has been reviewed and is appropriate. Patient has been using lidocaine patches that is helping his mid back pain. Patient is also taking [place] 7.5 mg twice daily for pain. Patient states he is having some relief with this medication. Physical exam General: Alert and oriented x3, no acute distress, pleasant and cooperative Lungs: Respirations even and unlabored, symmetrical chest expansion Eyes: PERRL Musculoskeletal: Flexion and extension of lumbar [spine] somewhat guarded secondary to pain, [antalgic gait noted] Neurological: Speech clear, no gross sensory deficit Procedure Details:: Informed consent was obtained and the risk and benefits of the procedure were explained to the patient. The patient was taken to the procedure room where noninvasive monitoring was placed including noninvasive blood pressure cuff and pulse oximeter. Patient's pump was interrogated. The area over the pump was cleansed with chlorhexidine as a cleansing solution. . In sterile fashion the pump was accessed with a 22-gauge needle. Approximately 0 mls of the pump solution was removed and discarded appropriately. The pump was then refilled with 20 mL's of Dilaudid 20 mg/mL. The needle was withdrawn and a bandage was placed over the puncture site. The infusion rate was reprogrammed and decreased to Dilaudid 1.5 mg/day. The patient tolerated well with no complication. Plan and Disposition:: We will see the patient back in the clinic in 1 week. Patient had ran out of medication and been without medication in his pump for over 1 week. Patient has been instructed to contact the clinic with any concerns before the next appointment. Dr. Kinney has reviewed this note and agrees with this plan of care. This note was dictated using voice recognition software and make contain errors or omissions.
== END 2021-08-07 15:06 | disposition home or self-care (01) ==
LOC: SC.PAINP 14:33
PROVIDERS: PCP Family Medicine; Visit Provider Student in an Organized Health Care Education/Training Program
DX: M51.16 Intervertebral disc disorders with radiculopathy, lumbar region (principal); M96.1 Postlaminectomy syndrome, not elsewhere classified
CPT/HCPCS: 62370

== ENCOUNTER 2021-08-08 12:04 | Emergency (ER) | payer MEDICARE, OTHER, SELFPAY ==
[2021-08-08 12:18] VITALS: BP 149/77; PULSE 82; RESP 17; TEMP 36.9; O2SAT 97; BMI 25.5
--- NOTE | 2021-08-08 12:24 | HMH.EDUTC ---
[facility] Disposition Clinical Impression: Sinusitis Qualifiers: Sinusitis location: unspecified location Chronicity: acute Recurrence: non-recurrent Qualified Code(s): J01.90 - Acute sinusitis, unspecified Disposition: Home, Self-Care Condition on Discharge: Good Instructions: Sinusitis, DI for Sinusitis Additional Instructions: Drink plenty of fluids. Take tylenol or ibuprofen for pain or fever. Take the medications as directed. Follow up with your regular doctor. GO TO THE ER FOR ANY WORSENING SYMPTOMS Prescriptions: Benzonatate [Benzonatate 100mg cap] 100 mg PO TIDP PRN #30 cap PRN Reason: Cough Transmission Status: Pending to [facility] predniSONE [Deltasone 10mg tablet] 10 mg PO DAILY 9 Days #21 tab Transmission Status: Pending to [facility] guaiFENesin [Mucinex 600mg tablet] 1 - 2 tab PO BIDP PRN #30 tab PRN Reason: Congestion Transmission Status: Pending to [facility] Cefdinir [Omnicef 300mg Capsule] 300 mg PO BID #20 cap Transmission Status: Pending to [facility] Referrals: Scooter Simons MD [Primary Care Provider] - Time of Disposition: 12:38 Medical Decision Making - Medical Records Medical records reviewed: No: I reviewed the patient's medical records. - Abram Inquiry Pt receiving controlled substance: No Vital Signs: 08/08/21 12:18 08/08/21 12:39 Temperature 98.4 F 98.4 F Temperature Source Oral Pulse Rate 82 Pulse Rate [Left] 82 Respiratory Rate 17 17 Blood Pressure 149/77 H Blood Pressure [Right Arm] 149/77 H Blood Pressure Mean [Right Arm] 101 02 Sat by Pulse Oximetry 97 Orders (Tests/Meds): ORDERS Category Date Time Status Full Resp Panel w/COVID ([facility]) Routine Lab 08/08/21 12:[address] [facility] HPI - General Stated complaint: sinus pressure, FERNANDEZ, chills Time Seen by Provider: 08/08/21 12:25 Description of Symptoms (Recalled from Triage Doc. by RN): patient comes in today with complaints of sinus problems. patient states that he has had a headache, facial pressure, symptoms have been going on for 5-6 days HEENT Symptoms (Recalled from RN notes): Yes Resp Symptoms (Recalled from RN notes): No Skin Symptoms (Recalled from RN notes): No MS Symptoms (Recalled from RN notes): No Functional Status (Recalled from RN notes): wnl - History of Present Illness Provider Complaint: He c/o sinus pressure, sinus congestion, right ear pain, and a nagging headache for the past 6 days. He denies fever, but he has had some chills. He has a scratchy sore throat. He denies significant chest congestion and cough. - Related Data Home Medications Medication Instructions Recorded Confirmed Baclofen [Lioresal 10mg tablet] 10 mg PO DIRECTED 05/17/17 08/07/21 Indomethacin [Indocin 25mg capsule] 25 mg PO DAILY 05/17/17 08/07/21 Tamsulosin HCl [Flomax 0.4mg 0.4 mg PO HS 05/17/17 08/07/21 capsule] polyethylene glycoL 3350 [Clearlax] 119 gm PO DAILY 05/17/17 08/07/21 Ferrous Sulfate [Iron] 0.5 tab PO DAILY 09/19/18 08/07/21 losartan 100 mg tablet 50 mg PO DAILY tab 02/23/19 08/07/21 Bupivacaine HCl/Pf [Bupivacaine 3.69 mg IT CONT 02/08/21 08/07/21 0.5% 10mL Vial] Hydromorphone HCl/Pf [Dilaudid 4.92 mg IT CONT 02/08/21 08/07/21 1mg/ml inj] Lidocaine [Lidocaine 5% patch] 1 patch TP DAILY 08/07/21 08/07/21 Previous Rx's Medication Instructions Recorded Ondansetron [Zofran 4mg ODT] 4 mg PO TIDP PRN #9 tab 02/21/21 Hydrocodone/Acetaminophen 1 tab PO BIDP PRN #60 tab 06/26/21 [Hydrocodone-Acetamin 7.5-325] Benzonatate [Benzonatate 100mg 100 mg PO TIDP PRN #30 cap 08/08/21 cap] Cefdinir [Omnicef 300mg Capsule] 300 mg PO BID #20 cap 08/08/21 guaiFENesin [Mucinex 600mg tablet] 1 - 2 tab PO BIDP PRN #30 tab 08/08/21 predniSONE [Deltasone 10mg tablet] 10 mg PO DAILY 9 Days #21 tab 08/08/21 Allergies Allergy/AdvReac Type Severity Reaction Status Date / Time
[2021-08-08 12:39] VITALS: BP 149/77; PULSE 82; RESP 17; TEMP 36.9
[2021-08-08 12:48] LABS: Adenovirus,PCR Not Detected (NotDetected); Bordetella Pertussis Not Detected (NotDetected); Chlamydophila Pneumoniae, PCR Not Detected (NotDetected); Coronavirus 19, PCR Not Detected (NotDetected); Coronavirus 229E Not Detected (NotDetected); Coronavirus NL63 Not Detected (NotDetected); Coronavirus OC43 Not Detected (NotDetected); Coronovirus HKU1,PCR Not Detected (NotDetected); Human Metapneumovirus Not Detected (NotDetected); Influenza A, PCR Not Detected (NotDetected); Influenza AH1, 2009 Not Detected (NotDetected); Influenza AH1, PCR Not Detected (NotDetected); Influenza AH3,PCR Not Detected (NotDetected); Influenza B, PCR Not Detected (NotDetected); Mycoplasma Pneumoniae, PCR Not Detected (NotDetected); Parainfluenza 1, PCR Not Detected (NotDetected); Parainfluenza 2, PCR Not Detected (NotDetected); Parainfluenza 3, PCR Not Detected (NotDetected); Parainfluenza 4, PCR Not Detected (NotDetected); Respiratory Syncytial Virus Not Detected (NotDetected); Rhinovirus/Enterovirus Not Detected (NotDetected)
== END 2021-08-08 12:43 | disposition home or self-care (01) ==
PROVIDERS: Emergency Provider Nurse Practitioner Family; PCP Family Medicine
DX: J01.90 Acute sinusitis, unspecified (principal)
CPT/HCPCS: 87581; 87632; 87798; 99212; C9803; G0463; U0003; U0005

== ENCOUNTER → 2021-08-21 14:29 | Outpatient (POV) | payer MEDICARE, OTHER, SELFPAY ==
[2021-08-21 14:51] VITALS: BP 148/82; PULSE 66; RESP 20; TEMP 36.5; O2SAT 97; BMI 24.5
--- NOTE | 2021-08-24 08:20 | HMH.PAINSOAP ---
[facility] Pain Management SOAP Note Subjective:: Patient is a pleasant 80-year-old male who presents today for intrathecal pain pump follow-up. Patient is being treated for degenerative disc disease of lumbar spine with lumbar radiculopathy symptoms, postlaminectomy syndrome. Today he rates his pain a 5 out of 10. He states his back is doing okay today however the pain is in his right knee. He describes the pain as an ache, occasional sharp pains. He states the pain interferes with his sleeping. He does state that it helps when he walks on it. He is states this pain has been going on for about 2 weeks. He denies any trauma or new injury. He has tried injective therapy, physical therapy bracing and topical creams in the past. He is currently being treated with Dilaudid 20 mg/mL at 6.14 mg/day and bupivacaine 15 mg/mL. He denies any side effects from this medication. He states he does get SI injections from another physician. He is scheduled for a bilateral SI injections next week. Patient also has a bone scan for his leg on Saturday. His Abram is [id number]. It has been reviewed and is appropriate. Review of Systems: General: No recent weight changes, no fever, no sleep disturbances Respiratory: No cough, no shortness of air, no recurring pulmonary infections Cardiovascular/peripheral vascular: No chest pain, no palpitations, no edema, no shortness of breath Gastrointestinal: No new onset incontinence, normal bowel movements reported Genitourinary: No new onset incontinence Musculoskeletal: Low back pain, right knee pain Psychiatric: [Normal mood/affect] Neurological: [Denies weakness in extremities], [denies balance issues] Objective:: Physical Exam: General: Alert and oriented x3, no acute distress, pleasant and cooperative Lungs: Respirations even and unlabored, symmetrical chest expansion Eyes: PERRL Musculoskeletal: Flexion and extension of right knee, and lumbar [spine] somewhat guarded secondary to pain, [antalgic gait noted] Neurological: Speech clear, no gross sensory deficit Assessment:: Degenerative disc disease of lumbar spine with lumbar radiculopathy symptoms, postlaminectomy syndrome, right knee pain Plan:: Patient has a intrathecal pain pump with the Dilaudid and bupivacaine. Patient is not having any problems with his pump at this time. He states he is not having back pain at today's visit. I have discussed with the patient regarding his right knee pain. He has positive point tenderness upon exam. We did discuss about doing a genicular nerve block for this. Risk and benefits were reviewed. Patient would like to schedule these injections however he has bilateral SI injections scheduled next week so at this time he would like to hold off. Patient will return to clinic in 1 month for follow-up. Patient has been instructed to contact the clinic with any concerns before the next appointment. Dr. Kinney has reviewed this note and agrees with this plan of care. This note was dictated using voice recognition software and make contain errors or omissions. [facility] History I have reviewed the patient's past medical history: Yes Medical History: Reports:: Deep Vein Thrombosis, Heart Murmur, Hyperlipidemia, Hypertension Denies:: Cancer, Diabetes Mellitus Type 1, Diabetes Mellitus Type 2, Internal Pacemaker, Lung Disease, MRSA, Seizures *Have you ever received a pneumonia vaccine?: Yes *Have you received a flu vaccine this season?: No Other Medical History: Reports: Anemia, Arthritis, Other. Denies: Blood Transfusion Reaction Laterality Cases: Right: Arthroscopy Shoulder, Bilateral: Arthroscopy Knee Other Surgeries: Yes: Colonoscopy, Hernia Repair, Other (pain pump implant and replacement). No: Pacemaker Amputation: No Fractures: No - *Social History Smoking Status: Never smoker Alcohol Intake: never Alcohol Intake Frequency:: other Substance Use Type: denies use *Occupational Status:: other Housing: house Household Members: spou
== END ==
PROVIDERS: Visit Provider Student in an Organized Health Care Education/Training Program
DX: M51.16 Intervertebral disc disorders with radiculopathy, lumbar region (principal); M96.1 Postlaminectomy syndrome, not elsewhere classified; M25.561 Pain in right knee
CPT/HCPCS: 99212; G0463

== ENCOUNTER → 2021-08-25 08:59 | Outpatient (CLI) | payer MEDICARE, OTHER, SELFPAY ==
--- NOTE | 2021-08-25 09:03 | NM_ITS ---
FINAL REPORT CLINICAL HISTORY: .H/O IDA KNEE SURGERY AND IDA PAIKNEE PAIN PT C/O RT KNEE PAIN AND STATES HE HAS HAD 2 SURGERIES FOR SCAR TISSUE 9:10AM 25.6MCI TC MDP INJ INTO RT ANT FINDINGS: BONE SCAN 3 PHASE NM The patient was injected with 25.6 mCi of technetium 99 M MDP. Limited images of the bilateral knees were obtained in 3 phases. Comparison is made to plain radiographs of the right knee from the same day. Blood flow and blood pool images are symmetric. On delayed images there is photopenic defect bilaterally. There is no definite abnormality to suggest osteomyelitis. IMPRESSION: No definite abnormality to suggest osteomyelitis. Reviewed, Interpreted and Dictated by Yony Chatman MD Transcribed by Edu Romero Authenticated and [facility]
--- NOTE | 2021-08-25 13:18 | XR_ITS ---
FINAL REPORT CLINICAL HISTORY: .S/P BONE SCAN RT KNEE PAIN WITH H/O SURGERY COMPARISON: February 03, 2020 FINDINGS: RIGHT KNEE 3 views of the right knee were obtained. There is long stem prosthesis in anatomical alignment. There is no acute fracture. There is no evidence of loosening. No complication is identified. Soft tissues are unremarkable. IMPRESSION: Long-stem right knee prosthesis with no complication identified. Reviewed, Interpreted and Dictated by Yony Chatman MD Transcribed by Radha Dalton Authenticated and [facility]
== END ==
PROVIDERS: PCP Family Medicine; Visit Provider Orthopaedic Surgery
DX: M25.562 Pain in left knee (principal); M25.561 Pain in right knee
CPT/HCPCS: 73562; 78315; A9503

== ENCOUNTER → 2021-09-07 13:21 | Outpatient (POV) | payer MEDICARE, OTHER, SELFPAY ==
--- NOTE | 2021-09-07 13:22 | P.CONS_ITS ---
[facility] Pain Management SOAP Note Subjective:: Patient is a pleasant 80-year-old male who presents today as a telehealth visit for follow-up. Patient is currently being treated for degenerative disc disease of lumbar spine with lumbar radiculopathy symptoms, right knee pain, postlaminectomy syndrome, right TKA x2. Patient is currently being managed with an intrathecal pain pump with Dilaudid 20 mg/mL at a rate of 6.14 mg/day and bupivacaine 15 mg/mL. He says that the intrathecal pain pump is helping well for his low back pain. However, he has been having worsening right knee pain especially in the lateral aspect of his knee. In the past, we have been prescribing this patient [place] 7.5 mg twice a day. He states that this typically helps his knee pain. Usually, it also last for about 6 months. We last refilled this medication on June 26, 2021. He states that in the last 2 months, his right knee has been bothering him more. He is needing refills on his medication today. For his right knee, he says that he's had 2 right TKA. He has a follow-up with orthopedics on September 13 for further evaluation. On top of the norco, he is also using the compounding cream, ice, and indomethacin 25mg. He says that the ice is helping the most. Rates pain today as 8/10. Abram [id number], MEQ 0. Patient is also scheduled for his bilateral SI injections Review of Systems: General: No recent weight changes, no fever, no sleep disturbances Respiratory: No cough, no shortness of air, no recurring pulmonary infections Cardiovascular/peripheral vascular: No chest pain, no palpitations, no edema, no shortness of breath Gastrointestinal: No new onset incontinence, normal bowel movements reported Genitourinary: No new onset incontinence Musculoskeletal: Low back pain, bilateral hip pain, right knee pain Psychiatric: [Normal mood/affect] Neurological: [Denies weakness in extremities], [denies balance issues] Objective:: General: Alert and oriented x3, pleasant and cooperative Lungs: Patient is able to say complete sentences without dyspnea Neurological: Speech clear Assessment:: Degenerative disc disease of lumbar spine with and radiculopathy symptoms, postlaminectomy syndrome, right knee pain Plan:: We will schedule the patient for a right genicular nerve block. We will continue the patient's [place] 7.5 mg twice a day #60 tabs. Patient has been instructed to contact the clinic with any concerns before the next appointment. Dr. Kinney has reviewed this note and agrees with this plan of care. This note was dictated using voice recognition software and make contain errors or omissions. [facility] History Medical History: Reports:: Deep Vein Thrombosis, Heart Murmur, Hyperlipidemia, Hypertension Denies:: Cancer, Diabetes Mellitus Type 1, Diabetes Mellitus Type 2, Internal Pacemaker, Lung Disease, MRSA, Seizures *Have you ever received a pneumonia vaccine?: Yes *Have you received a flu vaccine this season?: No Other Medical History: Reports: Anemia, Arthritis, Other. Denies: Blood Transfusion Reaction Laterality Cases: Right: Arthroscopy Shoulder, Bilateral: Arthroscopy Knee Other Surgeries: Yes: Colonoscopy, Hernia Repair, Other (pain pump implant and replacement). No: Pacemaker Amputation: No Fractures: No - *Social History Smoking Status: Never smoker Alcohol Intake: never Alcohol Intake Frequency:: other Substance Use Type: denies use *Occupational Status:: other Housing: house Household Members: spouse *Travel in the last 8 weeks: [facility] the [facility] Family Hx:: Cancer, Coronary Artery Disease, Hyperlipidemia, Hypertension
== END ==
PROVIDERS: Visit Provider Student in an Organized Health Care Education/Training Program
DX: M51.16 Intervertebral disc disorders with radiculopathy, lumbar region (principal); M96.1 Postlaminectomy syndrome, not elsewhere classified; M25.561 Pain in right knee
CPT/HCPCS: 99212; G0463

== ENCOUNTER 2021-09-22 09:09 | Day surgery (SDC) | payer MEDICARE, OTHER, SELFPAY ==
[2021-09-22 09:40] VITALS: BP 141/69; PULSE 65; TEMP 36.7; O2SAT 95; BMI 25.1
[2021-09-22 09:59] VITALS: BP 163/74; PULSE 53; RESP 20; O2SAT 97
--- NOTE | 2021-09-22 10:15 | HMH.PMPROC ---
- Procedure Date: 09/22/21 Time: 10:15 Anesthesiologist:: Celio Sweeney CRNA Complications:: None Pre-procedure Diagnosis:: Chronic pain right knee. Total right knee replacement x2. Post-procedure Diagnosis:: Same Indications for Procedure:: Patient is a pleasant 72-year-old male that comes our clinic today with chronic right knee pain for right genicular nerve block. Patient has had the right knee replaced x2. He continues to have chronic right knee pain. He rates the pain 7/10. Patient states ambulation increases the pain significantly. Flexion and/or extension increases the pain. Procedure Details:: Right knee genicular block Informed consent was obtained and the risk and benefits of the procedure was explained to the patient. The patient was taken to the procedure room. The left knee was prepped using ChloraPrep. I placed 22-gauge needles into the area of the right superior medial genicular nerve, right superior lateral genicular nerve and right inferior medial genicular nerve. Needle placement was confirmed in AP and lateral views with dye. We then injected bupivacaine 0.25% 3 mL's and Depo-Medrol 25 mg into each area of the right superior medial genicular nerve, right superior lateral genicular nerve and right inferior medial genicular nerve. Patient tolerated the procedure well with no complications. Plan and Disposition:: We will follow-up with her in 2 weeks. Will reevaluate symptoms at that time. Plan and Disposition:: Patient was discharged without incident.
== END 2021-09-22 10:00 | disposition home or self-care (01) ==
LOC: SC.PAINP 09:10
PROVIDERS: PCP Family Medicine; Visit Provider Nurse Anesthetist, Certified Registered
DX: M17.11 Unilateral primary osteoarthritis, right knee (principal); Z96.651 Presence of right artificial knee joint; G89.29 Other chronic pain
CPT/HCPCS: 64454; J1040

== ENCOUNTER → 2021-10-09 11:48 | Outpatient (POV) | payer MEDICARE, OTHER, SELFPAY ==
[2021-10-09 12:08] VITALS: BP 161/80; PULSE 71; RESP 19; TEMP 36.6; O2SAT 95; BMI 25.1
--- NOTE | 2021-10-09 12:19 | EXP.PAIN.PRO ---
Procedure Date: 10/09/21 Time: 12:19 Anesthesiologist:: Cassidy Altman APRN Complications:: None Pre-procedure Diagnosis:: Degenerative disc disease of lumbar spine with lumbar radiculopathy symptoms, right knee pain, postlaminectomy, right TKA x2 Post-procedure Diagnosis:: Same Indications for Procedure:: Patient is a pleasant 81-year-old male that presents today for follow-up from a right knee genicular nerve nerve block on 09/22/2021. We are currently treating the patient for degenerative disc disease of lumbar spine with lumbar radiculopathy symptoms, right knee pain, postlaminectomy, right TKA x2. Patient states he had significant improvement of his right knee pain lasting 1 day with this injection. He states he had 50 to 60% improvement in his pain symptoms. Today he rates his pain a 4 out of 10. Stating it is all primarily along his right knee. He describes this as a aching, throbbing sensation that is worse with increased activity. Patient states it does affect his sleeping. Patient is currently managed with an intrathecal pain pump with Dilaudid 20 mg/mL with a daily dose of 1.5 mg/day. Patient denies any side effects from this medication. He states it does help manage his pain however he is still not having adequate pain relief. He is requesting adjustment at today's visit. He previously had been at a higher dose earlier this summer however his pump ran dry and the patient was dropped to a starting dose. Patient is also prescribed [place] 7.5 mg twice a day. Patient states this does help with his knee pain. Patient is scheduled to see B[facility] tomorrow for follow-up and evaluation. Patient does also use compounding cream along with ice and indomethacin 25 mg. He states these medications help provide some relief of his symptoms. His Abram is [id number]. Its been reviewed and appropriate. Physical Exam: General: Alert and oriented x3, no acute distress, pleasant and cooperative Lungs: Respirations even and unlabored, symmetrical chest expansion Eyes: PERRL Musculoskeletal: Flexion and extension of lumbar [spine] somewhat guarded secondary to pain, [antalgic gait noted] point tenderness along lateral aspect of right knee Neurological: Speech clear, no gross sensory deficit Procedure Details:: Informed consent was obtained and the risk and benefits of the procedure were explained to the patient. Patient was taken to the procedure room where noninvasive monitoring was placed including noninvasive blood pressure cuff and pulse oximeter. Patient's pump was interrogated and was reprogrammed to Dilaudid 20 mg/mL with a daily dose of 1.87 mg/day. The patient tolerated the procedure well with no complications. Plan and Disposition:: Patient continues to have significant low back pain that radiates into his right leg and right knee. We will adjust his pump today with a 25% increase. Patient's new dose is now Dilaudid 20 mg/mL with a daily dose of 1.87 mg/day. I have also discussed with the patient regarding having a second right genicular nerve block. Risk and benefits were discussed with the patient. Patient would like to proceed forward with this injection. We will schedule this injection a couple weeks out and allow for time for the patient to see his orthopedic surgeon at [facility].patient will contact our office if this injection needs to be canceled or altered. Patient has been instructed to contact the clinic with any concerns before the next appointment. Dr. Kinney has reviewed this note and agrees with this plan of care. This note was dictated using voice recognition software and make contain errors or omissions. -- It Is medically necessary for this patient to continue to have their intrathecal pump refilled at regular intervals. This patient had an intrathecal pain pump implanted after meeting criteria of chronic intractable pain for greater than 3 months and failing conservative treatments. Patient has committed and been compliant to the tr
== END | disposition home or self-care (01) ==
PROVIDERS: PCP Family Medicine; Visit Provider Nurse Practitioner Family
DX: M51.16 Intervertebral disc disorders with radiculopathy, lumbar region (principal); M25.561 Pain in right knee; M96.1 Postlaminectomy syndrome, not elsewhere classified; Z96.651 Presence of right artificial knee joint
CPT/HCPCS: 62368; 99213; G0463

== ENCOUNTER 2021-10-31 09:56 | Day surgery (SDC) | payer MEDICARE, OTHER, SELFPAY ==
[2021-10-31 10:08] VITALS: BP 166/86; PULSE 75; RESP 18; TEMP 37.2; O2SAT 97; BMI 24.7
[2021-10-31 10:30] VITALS: BP 158/72; PULSE 68; RESP 18; O2SAT 96
[2021-10-31 10:32] VITALS: BP 158/72; PULSE 72; RESP 18; O2SAT 97
[2021-10-31 10:44] VITALS: BP 171/87; PULSE 66; RESP 18; O2SAT 96
--- NOTE | 2021-10-31 10:53 | P.PCN_ITS ---
Procedure Date: 10/31/21 Time: 10:53 Anesthesiologist:: Celio Sweeney CRNA Complications:: None Pre-procedure Diagnosis:: Osteoarthritis right knee. Post-procedure Diagnosis:: Same Indications for Procedure:: Patient is a pleasant 81-year-old male who comes our injection clinic today for a repeat right genicular nerve block. Patient's initial genicular nerve block of the right knee resulted in 75% improvement terms of his right knee pain while ambulating. However, after the local anesthetic wore off he reports pain came back in its entirety. I informed the patient this is a diagnostic block with a chance of some extended relief. However the local anesthetic is what gives us the diagnosis. He understands. Also, I talked with the patient regarding his low back. Patient has axial back pain. He states standing for any length of time is difficult. Sitting for any length of time is difficult. He has had multiple lumbar epidural steroid injections with significant improvement in the bilateral hip and leg radicular symptoms. However, minimal improvement in his low back. Patient's lumbar MRI does show multilevel facet arthropathy L3-4, L4- 5 and L5-S1. I discussed with the patient in detail regarding lumbar facet blocks. We will discuss this further with him at his follow-up visit. Procedure Details:: Pre-procedure Diagnosis:: Right knee pain with degenerative osteoarthritis Post-procedure Diagnosis: Same Indications for Procedure: Right knee genicular block Informed consent was obtained and the risk and benefits of the procedure was explained to the patient. The patient was taken to the procedure room. The left knee was prepped using ChloraPrep. I placed 22-gauge needles into the area of the right superior medial genicular nerve, right superior lateral genicular nerve and right inferior medial genicular nerve. Needle placement was confirmed in AP and lateral views with dye. We then injected bupivacaine 0.25% 3 mL's and Depo-Medrol 25 mg into each area of the right superior medial genicular nerve, right superior lateral genicular nerve and right inferior medial genicular nerve. Patient tolerated the procedure well with no complications. Plan and Disposition:: We will follow-up with her in 2 weeks. Will reevaluate symptoms at that time. Plan and Disposition:: Patient was discharged without incident.
== END 2021-10-31 10:44 | disposition home or self-care (01) ==
LOC: SC.PAINP 09:57
PROVIDERS: PCP Family Medicine; Visit Provider Nurse Anesthetist, Certified Registered
DX: M17.11 Unilateral primary osteoarthritis, right knee (principal)
CPT/HCPCS: 64454; J1040

== ENCOUNTER → 2021-11-23 09:47 | Outpatient (POV) | payer MEDICARE, OTHER, SELFPAY ==
[2021-11-23 10:26] VITALS: BP 148/80; PULSE 73; RESP 18; TEMP 37.2; O2SAT 100; BMI 25.1
--- NOTE | 2021-11-23 11:54 | EXP.PAIN.SOA ---
[facility] Pain Management SOAP Note Subjective:: Patient is a pleasant 81-year-old male who presents today for follow-up after a right genicular nerve block on 10/31/2021. Patient is current being treated for degenerative disc disease lumbar spine with lumbar radiculopathy symptoms, osteoarthritis of the right knee. After his injection, patient had significant relief of 90 to 100% and rates his pain today 0 out of 10. He continues to have relief after this injection. Denies any issues after this injection. Patient is also being managed with intrathecal pain pump Dilaudid 20 mg/mL at a rate of 1.87 mg/day and bupivacaine 15 mg/mL at a rate of 1.4025 mg. We recently did change this patient from a Medtronic pump to a Flowonix because of EOL. He was in much higher dose dilaudid. Today, he states that his low back pain is controlled and is not needing any adjustment. Abram [id number]. Review of Systems: General: No recent weight changes, no fever, no sleep disturbances Respiratory: No cough, no shortness of air, no recurring pulmonary infections Cardiovascular/peripheral vascular: No chest pain, no palpitations, no edema, no shortness of breath Gastrointestinal: No new onset incontinence, normal bowel movements reported Genitourinary: No new onset incontinence Musculoskeletal: Low back pain Psychiatric: [Normal mood/affect] Neurological: [Denies weakness in extremities], [denies balance issues] Objective:: Physical Exam: General: Alert and oriented x3, no acute distress, pleasant and cooperative Lungs: Respirations even and unlabored, symmetrical chest expansion Eyes: PERRL Musculoskeletal: Flexion and extension of lumbar [spine] somewhat guarded secondary to pain, [antalgic gait noted] Neurological: Speech clear, no gross sensory deficit Assessment:: Osteoarthritis of the right knee, degenerative disc disease of lumbar spine with lumbar radiculopathy symptoms, lumbar spondylosis, lumbar facet arthropathy Plan:: Patient continues to do well with his genicular nerve block. If the patient wishes to get a repeat injection, he can call our clinic to schedule his repeat right genicular nerve block. Again, patient continues to do well with his intrathecal pain pump. We will schedule this patient for the next week or 2 for pain pump refill. Patient has been instructed to contact the clinic with any concerns before the next appointment. Dr. Bux has reviewed this note and agrees with this plan of care. This note was dictated using voice recognition software and make contain errors or omissions. [facility] Medical History (Updated 10/31/21 @ 10:20 by Camilla Quevedo RN) History of back pain Osteoarthritis Surgical History (Updated 10/31/21 @ 10:18 by Camilla Quevedo RN) History of hernia repair History of spinal fusion History of total left knee replacement History of total right knee replacement Family History (Updated 10/31/21 @ 10:18 by Camilla Quevedo RN) Other No significant family history Social History Smoking Status: Never smoker second hand exposure: No alcohol intake: never counseling provided: none substance use type: denies use current occupational status: retired Travel in the last 8 weeks: None household members: spouse housing: house current occupational exposures/hazards: No caffeine: Yes
== END ==
PROVIDERS: Visit Provider Nurse Practitioner Family
DX: M51.16 Intervertebral disc disorders with radiculopathy, lumbar region (principal); M47.896 Other spondylosis, lumbar region; M17.11 Unilateral primary osteoarthritis, right knee; Z79.899 Other long term (current) drug therapy
CPT/HCPCS: 99212; G0463

== ENCOUNTER 2021-12-12 13:00 | Day surgery (SDC) | payer MEDICARE, OTHER, SELFPAY ==
[2021-12-12 13:09] VITALS: BP 161/95; PULSE 64; RESP 18; TEMP 36.8; O2SAT 98; BMI 25.1
[2021-12-12 13:14] VITALS: BP 170/84; PULSE 63; RESP 18; O2SAT 97
[2021-12-12 13:15] VITALS: BP 183/81; PULSE 66; RESP 18; O2SAT 97
--- NOTE | 2021-12-12 13:23 | P.PCN_ITS ---
Procedure Date: 12/12/21 Time: 13:20 Anesthesiologist:: Celio Sweeney CRNA Complications:: None Pre-procedure Diagnosis:: Degenerative disc disease lumbar spine multilevels. Lumbar radiculopathy. Lumbar postlaminectomy syndrome. Post-procedure Diagnosis:: Same. Indications for Procedure:: Is a pleasant 81-year-old male who comes our clinic today for intrathecal pain pump refill. He is currently being managed with Dilaudid 20 mg/mL at 1.87 mg/day. Bupivacaine 15 mg/mL at 1.4025 mg/day. Patient is complaining today of some low posterior hip and back pain. He is requesting an increase in his pump rate. I think this is reasonable. We will increase him by 20% today. Procedure Details:: Details of the procedure were explained the patient. The patient was taken to the procedure room placed in sitting position. The area over the pump was cleansed using chlorhexidine as a cleansing solution. The pump was then accessed with ease using a 22-gauge needle. 8.5 mL of solution was removed and discarded appropriately. 8.8 mL of solution was expected. At this time the pump was then filled with 20 cc of Dilaudid 20 mg/mL and bupivacaine 15 mg/mL. The pump rate was increased by 20%. The Dilaudid rate is now 2.24 mg/day and th e bupivacaine rate is 1.683 mg/day. Plan and Disposition:: Patient tolerated procedure without difficulty. There are no complications
[2021-12-12 13:27] VITALS: BP 158/71; PULSE 61; RESP 18; O2SAT 95
== END 2021-12-12 13:27 | disposition home or self-care (01) ==
PROVIDERS: PCP Family Medicine; Visit Provider Nurse Anesthetist, Certified Registered
DX: M51.16 Intervertebral disc disorders with radiculopathy, lumbar region (principal); M96.1 Postlaminectomy syndrome, not elsewhere classified
CPT/HCPCS: 62370

== ENCOUNTER → 2022-01-19 13:21 | Outpatient (CLI) | payer MEDICARE, OTHER, SELFPAY ==
[2022-01-19 13:34] VITALS: BP 159/84; PULSE 65; RESP 18; TEMP 36.6; O2SAT 97; BMI 25.8
--- NOTE | 2022-01-19 15:54 | EXP.PAIN.PRO ---
Procedure Date: 01/19/22 Time: 15:54 Anesthesiologist:: Jony Kinney MD Complications:: None Pre-procedure Diagnosis:: Postlaminectomy syndrome lumbar spine with lumbar radiculopathy symptoms and degenerative disc disease of lumbar spine Post-procedure Diagnosis:: Same Indications for Procedure:: This patient is a pleasant 81-year-old white male who we are treating for low back pain with lumbar radiculopathy symptoms. He does have an intrathecal Dilaudid/bupivacaine pain pump in place. He is having some increasing pain. Currently is going at 2.24 mg/day. He has increasing pain especially with activity mainly in his back and down his legs. We will increase his dose today. Abram and drug screen are all appropriate. He does have an antalgic gait. Motor strength of the lower extremities is 5/5. There is no gross sensory deficit. Procedure Details:: Pain pump adjustment Informed consent was obtained and the risk and benefits of the procedure was explained to the patient. The pump irrigated. Intrathecal Dilaudid/bupivacaine infusion was increased to 3 mg/day. This is a 34% increase. Patient tolerated the procedure well with no complications. We will follow-up with him back in the pain clinic in 2 weeks. We will make further adjustments as needed. Plan and Disposition:: We will follow-up with him in 2 weeks. Will reevaluate symptoms at that time. We will make further adjustments as needed.
== END | disposition home or self-care (01) ==
PROVIDERS: PCP Family Medicine; Visit Provider Anesthesiology
DX: M51.16 Intervertebral disc disorders with radiculopathy, lumbar region (principal); M96.1 Postlaminectomy syndrome, not elsewhere classified
CPT/HCPCS: 62368; 99213; G0463

== ENCOUNTER → 2022-02-01 13:01 | Outpatient (POV) | payer MEDICARE, OTHER, SELFPAY ==
[2022-02-01 13:43] VITALS: BP 148/93; PULSE 82; RESP 18; O2SAT 97; BMI 25.8
--- NOTE | 2022-02-01 15:48 | EXP.PAIN.PRO ---
Procedure Date: 02/01/22 Time: 15:48 Anesthesiologist:: RC Fernandes Complications:: None Pre-procedure Diagnosis:: Degenerative disc disease of lumbar spine with lumbar radiculopathy symptoms Post-procedure Diagnosis:: Same Indications for Procedure:: Patient is a pleasant 81-year-old male who presents today for intrathecal pain pump adjustment. Patient is coming treated for degenerative disease of lumbar spine with lumbar radiculopathy symptoms. Patient recently had a recent pump change. We had dropped the patient from Dilaudid 5.6 mg/day to a much lower dose. He is currently on intrathecal Dilaudid 3 mg/day. We have been slowly getting the patient back to his original therapeutic dose which was Dilaudid 5.6 mg/day. He rates his pain today as 5 out of 10. We will increase his intrathecal pain pump by 30% today. Patient is also prescribed [place] 7.5 mg twice a day as needed for breakthrough pain. He also uses the compounding cream which is providing significant relief as well. He is needing refills on these medications. Physical Exam: General: Alert and oriented x3, no acute distress, pleasant and cooperative Lungs: Respirations even and unlabored, symmetrical chest expansion Eyes: PERRL Musculoskeletal: Flexion and extension of lumbar [spine] somewhat guarded secondary to pain, [antalgic gait noted] Neurological: Speech clear, no gross sensory deficit Procedure Details:: Informed consent was obtained and the risk and benefits of the procedure were explained to the patient. Patient was taken to the procedure room where noninvasive monitoring was placed including noninvasive blood pressure cuff and pulse oximeter. Patient's pump was interrogated and was increased to Dilaudid 3.9 mg/day. The patient tolerated the procedure well with no complications. Plan and Disposition:: Follow-up in 2 weeks Patient has been instructed to contact the clinic with any concerns before the next appointment. Dr. Kinney has reviewed this note and agrees with this plan of care. This note was dictated using voice recognition software and make contain errors or omissions. -- It is medically necessary for this patient to continue to have their intrathecal pump refilled at regular intervals. This patient had an intrathecal pain pump implanted after meeting criteria of chronic intractable pain for greater than 3 months and failing conservative treatments. Patient has committed and been compliant to the treatment plan and all planned follow up care. Since implantation of the intrathecal pain pump, the patient has had decreased pain and been more functional. Oral medications have been reduced including intake of oral opioids. Patient continues to do well with intrathecal therapy with decrease in pain symptoms and increase in functional status. Stopping intrathecal medications can lead to life threatening withdrawal, seizures, cardiac arrest, severe pain, and possible . Pumps that are not refilled at regular intervals can be damages and cause and need for replacement. We continually titrate dose and concentration to optimize pain relief and function. We are limited in concentration for certain drugs to safely deliver medications through the pump and stay within the recommendations from the Polyanalges[employer] Consensus Committee Guidelines. Depending on dose and concentration these pumps may need to be refilled sooner than 3 months as we titrate.
== END | disposition home or self-care (01) ==
PROVIDERS: PCP Family Medicine; Visit Provider Student in an Organized Health Care Education/Training Program
DX: M51.16 Intervertebral disc disorders with radiculopathy, lumbar region (principal)
CPT/HCPCS: 62368; 99213; G0463

== ENCOUNTER → 2022-02-19 14:40 | Outpatient (POV) | payer MEDICARE, OTHER, SELFPAY ==
--- NOTE | 2022-02-19 15:15 | EXP.PAIN.PRO ---
Procedure Date: 02/19/22 Time: 15:15 Anesthesiologist:: Cassidy Altman APRN Complications:: None Pre-procedure Diagnosis:: Degenerative disc disease of lumbar spine with lumbar radiculopathy symptoms, neck pain Post-procedure Diagnosis:: Same Indications for Procedure:: Patient is a pleasant 81-year-old male who presents today for intrathecal pain pump reprogramming adjustment. The patient is being treated for degenerative disc disease of lumbar spine with lumbar radiculopathy symptoms. Patient is currently being managed with Dilaudid 20 mg/mL with a daily dose of 3.9 mg/day and bupivacaine 15 mg/mL with a daily dose of 2.925 mg/day. Patient denies any side effects from this medication. Patient states he does occasionally have some constipation however this is not new and he does take MiraLAX on a daily basis to help relieve his symptoms. Patient rates pain a 3 out of 10. Patient states he is experiencing more bothersome neck pain. Patient states he did have 3 very busy days where he was more active and feels like he may have aggravated his neck pain. Drug screen is appropriate. Abram [id number] has been reviewed and is appropriate. Physical exam General: Alert and oriented x3, no acute distress, pleasant and cooperative Lungs: Respirations even and unlabored, symmetrical chest expansion Eyes: PERRL Musculoskeletal: Flexion and extension of cervical, lumbar [spine] somewhat guarded secondary to pain, [antalgic gait noted] Neurological: Speech clear, no gross sensory deficit ORT score updated with minimal risk of 0 Procedure Details:: Informed consent was obtained and the risk and benefits of the procedure were explained to the patient. Patient was taken to the procedure room where noninvasive monitoring was placed including noninvasive blood pressure cuff and pulse oximeter. Patient's pump was interrogated and was reprogrammed to Dilaudid 20 mg/mL with a daily dose of 5.07 mg/day and bupivacaine 15 mg/mL with a daily dose of 3.8025 mg/day. The patient tolerated the procedure well with no complications. Plan and Disposition:: I have discussed with the patient that he may benefit from a cervical epidural steroid injection at C6-C7. Risk and benefits were discussed with the patient however at this time he would like to wait. I have counseled the patient that he can call our office and schedule this injection if he decides later to proceed forward. We will see the patient back in the clinic at the next intrathecal refill. Patient has been instructed to contact the clinic with any concerns before the next appointment. Dr. Kinney has reviewed this note and agrees with this plan of care. This note was dictated using voice recognition software and make contain errors or omissions. -- It Is medically necessary for this patient to continue to have their intrathecal pump refilled at regular intervals. This patient had an intrathecal pain pump implanted after meeting criteria of chronic intractable pain for greater than 3 months and failing conservative treatments. Patient has committed and been compliant to the treatment plan and all planned follow up care. Since implantation of the intrathecal pain pump, the patient has had decreased pain and been more functional. Oral medications have been reduced including intake of oral opioids. Patient continues to do well with intrathecal therapy with decrease in pain symptoms and increase in functional status. Stopping intrathecal medications can lead to life threatening withdrawal, seizures, cardiac arrest, severe pain, and possible . Pumps that are not refilled at regular intervals can be damages and cause and need for replacement. We continually titrate dose and concentration to optimize pain relief and function. We are limited in concentration for certain drugs to safely deliver medications through the pump and stay within the recommendations from the Polyanalgesic Consensus Committee Guidelines. Gracy
[2022-02-19 15:43] VITALS: BP 156/66; PULSE 67; RESP 18; O2SAT 97; BMI 25.8
== END | disposition home or self-care (01) ==
PROVIDERS: Visit Provider Nurse Practitioner Family
DX: M51.16 Intervertebral disc disorders with radiculopathy, lumbar region (principal)
CPT/HCPCS: 62368; 99213; G0463

== ENCOUNTER 2022-03-06 10:24 | Day surgery (SDC) | payer MEDICARE, OTHER, SELFPAY ==
[2022-03-06 10:36] VITALS: BP 120/71; PULSE 66; RESP 18; TEMP 36.3; O2SAT 95; BMI 25.8
[2022-03-06 10:43] VITALS: BP 123/75; PULSE 67; RESP 18; O2SAT 97
[2022-03-06 10:44] VITALS: BP 123/75; PULSE 67; RESP 18; O2SAT 97
[2022-03-06 11:01] VITALS: BP 142/74; PULSE 64; RESP 18; O2SAT 94
--- NOTE | 2022-03-06 11:11 | EXP.PAIN.PRO ---
Procedure Date: 03/06/22 Time: 11:11 Anesthesiologist:: Celio Sweeney CRNA Complications:: None Pre-procedure Diagnosis:: Degenerative disc disease lumbar spine. Lumbar radiculopathy. Lumbar postlaminectomy syndrome Post-procedure Diagnosis:: Same. Indications for Procedure:: Patient is a very pleasant 81-year-old male that comes our clinic today for intrathecal pain pump refill. He is currently being managed with Dilaudid 20 mg/mL at 5.07 mg/day. Also bupivacaine 15 mg/mL at 3.8025 mg/day. Patient's rate was bumped up at his last refill. He is requesting another increase today. He is having continuous low back as well as hip and leg radicular symptoms bilaterally. Patient states if he does a small task in the house he has to sit for 2 or 3 hours. We will increase his rate by 20% today. His new rate will be Dilaudid 20 mg/mL at 6.0840 mg/day. Bupivacaine 15 mg/mL at 4.5630mg/day. Procedure Details:: Details of the procedure explained to the patient. The patient taken the procedure room placed in sitting position. The area over the pump was cleansed using chlorhexidine as a cleansing solution. The pump was accessed with ease using a 22-gauge inch and half needle. 6.9 mL of solution was withdrawn and discarded appropriately. The pump was then filled with 20 cc of Dilaudid 20 mg/mL and bupivacaine 15 mg/mL. We will increase the rate as above. Plan and Disposition:: Patient was discharged without incident. He will return to the clinic in 2 weeks for follow-up visit and increase if needed.
== END 2022-03-06 11:01 | disposition home or self-care (01) ==
PROVIDERS: PCP Family Medicine; Visit Provider Nurse Anesthetist, Certified Registered
DX: M51.16 Intervertebral disc disorders with radiculopathy, lumbar region (principal); M96.1 Postlaminectomy syndrome, not elsewhere classified; Z45.1 Encounter for adjustment and management of infusion pump
CPT/HCPCS: 62370

== ENCOUNTER → 2022-03-19 11:14 | Outpatient (POV) | payer MEDICARE, OTHER, SELFPAY ==
--- NOTE | 2022-03-19 11:23 | EXP.PAIN.PRO ---
Procedure Date: 03/19/22 Time: 11:23 Anesthesiologist:: Cassidy Altman APRN Complications:: None Pre-procedure Diagnosis:: Degenerative disc disease of lumbar spine with lumbar radiculopathy symptoms, postlaminectomy syndrome Post-procedure Diagnosis:: Same Indications for Procedure:: Patient is a pleasant 81-year-old male who presents today for intrathecal pain pump reprogramming adjustment. The patient is being treated for degenerative disc disease of lumbar spine with lumbar radiculopathy symptoms. Patient is currently being managed with Dilaudid 20 mg/mL with a daily dose of 6.084 mg/day and bupivacaine 15 mg/mL with a daily dose of 4.563 mg/day. Patient denies any side effects from this medication. Patient was increased at his last refill date on March 06, 2022. Patient states he did have a few days of improvement following this increase however then he felt like he went back to his baseline. Patient does state that he has continued pain up around his neck and into his right shoulder blade. Patient denies any new trauma or injury. Patient denies any change to location or type of pain he experiences. Patient states this has been going on for quite some time and he is just continue to put it off. Patient does use lidocaine patches for additional relief. Patient does use a cane for ambulation. Patient has been on multiple muscle relaxers in the past however he states over time each one became less effective. Patient has tried Flexeril and baclofen however he states he is on a different medication that he just recently started from his primary care doctor. Patient is unsure the name of this medication but states it is doing well. Patient states that when he has had worsening pain symptoms he will go and lay down and take half a pain pill for additional improvement. Patient is also prescribed compounding cream that he states provides some additional improvement. Patient rates pain a 5 out of 10. Drug screen is appropriate. Abram [id number] has been reviewed and is appropriate. Physical exam General: Alert and oriented x3, no acute distress, pleasant and cooperative Lungs: Respirations even and unlabored, symmetrical chest expansion Eyes: PERRL Musculoskeletal: Flexion and extension of lumbar [spine] somewhat guarded secondary to pain, [antalgic gait noted] point tenderness along right cervical paraspinous and right thoracic paraspinous Neurological: Speech clear, no gross sensory deficit Procedure Details:: Informed consent was obtained and the risk and benefits of the procedure were explained to the patient. Patient was taken to the procedure room where noninvasive monitoring was placed including noninvasive blood pressure cuff and pulse oximeter. Patient's pump was interrogated and was reprogrammed to periodic flow with Dilaudid 20 mg/mL with a daily dose of 6.72 mg/day and bupivacaine 15 mg/mL with a daily dose of 5.04 mg/day. The patient tolerated the procedure well with no complications. Plan and Disposition:: Patient is experiencing significant pain in his neck and right shoulder with limited range of motion. I have discussed with the patient that he may benefit from trigger point injections at this location. Risk and benefits were discussed with the patient. He would like to proceed forward with this plan of care. We will schedule the patient for diagnostic trigger point injections at right cervical paraspinous and right thoracic paraspinous. patient has been instructed to contact the clinic with any concerns before the next appointment. Dr. Kinney has reviewed this note and agrees with this plan of care. This note was dictated using voice recognition software and make contain errors or omissions. -- It Is medically necessary for this patient to continue to have their intrathecal pump refilled at regular intervals. This patient had an intrathecal pain pump implanted after meeting criteria of chronic intractable pain for gr
[2022-03-19 12:27] VITALS: BP 147/68; PULSE 66; RESP 19; O2SAT 97; BMI 25.8
== END | disposition home or self-care (01) ==
PROVIDERS: PCP Family Medicine; Visit Provider Nurse Practitioner Family
DX: Z45.1 Encounter for adjustment and management of infusion pump (principal); M51.16 Intervertebral disc disorders with radiculopathy, lumbar region; M96.1 Postlaminectomy syndrome, not elsewhere classified
CPT/HCPCS: 62368; 99213; G0463

== ENCOUNTER 2022-03-27 11:14 | Day surgery (SDC) | payer MEDICARE, OTHER, SELFPAY ==
[2022-03-27 11:29] VITALS: BP 141/86; PULSE 54; RESP 18; TEMP 36.7; O2SAT 95; BMI 25.8
[2022-03-27 11:42] VITALS: BP 174/60; PULSE 63; RESP 18; O2SAT 97
--- NOTE | 2022-03-27 11:50 | EXP.PAIN.PRO ---
Procedure Date: 03/27/22 Time: 11:45 Anesthesiologist:: Celio Sweeney CRNA Complications:: None Pre-procedure Diagnosis:: Degenerative disc disease lumbar spine multilevels. Lumbar radiculopathy. Lumbar postlaminectomy syndrome. Myofascial pain right posterior cervical paraspinous. Right trapezius myofascial pain. Post-procedure Diagnosis:: Same. Indications for Procedure:: Patient is a pleasant 81-year-old male who comes our clinic today for trigger point injections of the right posterior paraspinous muscles as well as right trapezius muscle. Patient complains of right-sided posterior cervical pain and right trapezius muscle pain. Procedure Details:: Details of the procedure were explained to the patient. The patient taken the procedure room placed in the sitting position. The area over the right posterior cervical spine as well as right trapezius muscle was cleansed using chlorhexidine as a cleansing solution. In 2 separate areas in the distal right posterior cervical paraspinous muscle a 25-gauge needle was used and 2 cc of a solution containing 0.25% Marcaine +1% lidocaine and 40 mg of Depo-Medrol was injected at each area. The same injection was carried out over the right trapezius muscle and 3 separate areas. Patient tolerated procedure without difficulty. There are no complications. Plan and Disposition:: Patient was discharged without incident.
[2022-03-27 11:53] VITALS: BP 147/68; PULSE 58; RESP 18; O2SAT 95
== END 2022-03-27 11:53 | disposition home or self-care (01) ==
PROVIDERS: PCP Family Medicine; Visit Provider Nurse Anesthetist, Certified Registered
DX: M51.16 Intervertebral disc disorders with radiculopathy, lumbar region (principal); M96.1 Postlaminectomy syndrome, not elsewhere classified; M79.18 Myalgia, other site
CPT/HCPCS: 20552; J1040

== ENCOUNTER → 2022-04-06 08:26 | Outpatient (CLI) | payer MEDICARE, OTHER, SELFPAY ==
[2022-04-06 09:32] LABS: Alanine Aminotransferase 17 U/L (12-78); Albumin Level 4.7 g/dl (3.5-5.0); Albumin/Globulin Ratio 1.7 (1.1-1.8); Alkaline Phosphatase 78 U/L (38-126); Anion Gap 6.9 mEq/L (5-15); Aspartate Amino Transferase 21 U/L (17-59); Bilirubin,Total 1.1 mg/dl (0.2-1.3); Blood Urea Nitrogen 34 mg/dl (9-20); Calcium 9.4 mg/dl (8.4-10.2); Carbon Dioxide 29 mmol/L (22.0-30.0); Chloride 107 mmol/L (98-107); Chol/HDL Ratio 4.4 (1-3.5); Cholesterol 201 mg/dl (140-200); Estimated Glomerular Filt Rate 65 ml/min (>60); GFR (African American) 78 ML/MIN (>60); Globulin 2.8 g/dL (1.3-3.2); Glucose 108 mg/dl (74-100); HDL Cholesterol 46 mg/dl (40-60); Potassium 3.9 mmoL/L (3.5-5.1); Sodium 139 mmol/L (136-145); Total Protein,Serum 7.5 g/dl (6.3-8.2); Triglycerides 101 mg/dl (30-150); VLDL Cholesterol 20 mg/dL (0-40)
[2022-04-06 09:43] LABS: Direct LDL Cholesterol 133.33 mg/dL (100-129)
[2022-04-06 10:04] LABS: Prostate Specific Ag Screen 2.5 ng/ml (0.0-4.0)
== END ==
PROVIDERS: PCP Family Medicine; Visit Provider Family Medicine
DX: I10 Essential (primary) hypertension (principal); E78.5 Hyperlipidemia, unspecified; Z12.5 Encounter for screening for malignant neoplasm of prostate
CPT/HCPCS: 36415; 80053; 80061; G0103

== ENCOUNTER → 2022-04-10 10:01 | Outpatient (POV) | payer MEDICARE, OTHER, SELFPAY ==
[2022-04-10 10:53] VITALS: BP 144/62; PULSE 61; RESP 18; O2SAT 98; BMI 25.8
--- NOTE | 2022-04-10 11:06 | EXP.PAIN.PRO ---
Procedure Date: 04/10/22 Time: 11:21 Anesthesiologist:: Cassidy Altman APRN Complications:: None Pre-procedure Diagnosis:: Degenerative disc disease of lumbar spine multilevels with lumbar radiculopathy symptoms, postlaminectomy syndrome lumbar spine, myofascial pain posterior cervical paraspinous and trapezius muscles on the right side Post-procedure Diagnosis:: Same Indications for Procedure:: Patient is a pleasant 81-year-old male who presents today for intrathecal pain pump reprogramming adjustment. The patient is being treated for degenerative disc disease of lumbar spine multilevels with lumbar radiculopathy symptoms, postlaminectomy syndrome lumbar spine, myofascial pain of posterior cervical paraspinous and trapezius muscles on the right side. Patient is currently being managed with Dilaudid 20 mg/mL with a daily dose of 6.72 mg/day and bupivacaine 15 mg/mL with a daily dose of 5.04 mg/day. Patient denies any side effects from this medication. Patient rates pain a 3 out of 10. Patient denies any new trauma or injury. Patient denies any change location or type of pain he experiences. Patient did recently have trigger point injections of his right posterior cervical paraspinous and right trapezius muscles on 03/27/2022. Patient states that he did get approximately 50% improvement lasting 1 week. Patient does state that he is back to his baseline today and states he continues to have extreme tenderness with palpation around his shoulders and going down his mid back. Patient is interested in repeating his prior injections. Patient still continues to use his compounding cream for additional improvement however temporary. Patient is also prescribed tizanidine which he states does provide additional relief however it does make him drowsy. Patient states that he continues to have trouble being able to tolerate prolonged standing or walking due to his pain symptoms. He states he can only stay up for approximately 20 minutes without having to stop and take a break. Drug screen is appropriate. Abram [id number] has been reviewed and is appropriate. Physical exam General: Alert and oriented x3, no acute distress, pleasant and cooperative Lungs: Respirations even and unlabored, symmetrical chest expansion Eyes: PERRL Musculoskeletal: Flexion and extension of cervical [spine] somewhat guarded secondary to pain, [antalgic gait noted] extreme point tenderness at right posterior cervical paraspinous and right trapezius muscles Neurological: Speech clear, no gross sensory deficit Procedure Details:: Informed consent was obtained and the risk and benefits of the procedure were explained to the patient. Patient was taken to the procedure room where noninvasive monitoring was placed including noninvasive blood pressure cuff and pulse oximeter. Patient's pump was interrogated and was reprogrammed to Dilaudid 7.08 mg/day and bupivacaine 5.31 mg/day. The patient tolerated the procedure well with no complications. Plan and Disposition:: Patient continues to experience significant pain in his muscles around the right cervical paraspinous and right trapezius with limited range of motion. I have discussed repeating his trigger point injections to these locations and given risk and benefits and he would like to proceed forward with this plan of care. We will schedule him for TPI right cervical posterior paraspinous and right trapezius muscles. Patient has been instructed to contact the clinic with any concerns before the next appointment. Dr. Kinney has reviewed this note and agrees with this plan of care. This note was dictated using voice recognition software and make contain errors or omissions. -- It Is medically necessary for this patient to continue to have their intrathecal pump refilled at regular intervals. This patient had an intrathecal pain pump implanted after meeting criteria of chronic intractable pain for greater than 3 months and failing con
== END | disposition home or self-care (01) ==
PROVIDERS: PCP Family Medicine; Visit Provider Nurse Practitioner Family
DX: Z45.1 Encounter for adjustment and management of infusion pump (principal); M51.16 Intervertebral disc disorders with radiculopathy, lumbar region; M79.18 Myalgia, other site
CPT/HCPCS: 62368; 99213; G0463

== ENCOUNTER 2022-04-24 13:16 | Day surgery (SDC) | payer MEDICARE, OTHER, SELFPAY ==
[2022-04-24 13:35] VITALS: BP 130/75; PULSE 69; RESP 18; TEMP 36.2; O2SAT 97; BMI 25.8
--- NOTE | 2022-04-24 13:51 | EXP.PAIN.PRO ---
Procedure Date: 04/24/22 Time: 13:40 Anesthesiologist:: Celio Sweeney CRNA Complications:: None Pre-procedure Diagnosis:: Degenerative disc disease lumbar spine multilevels. Lumbar radiculopathy. Lumbar postlaminectomy syndrome. Myofascial pain posterior cervicals paraspinous as well as trapezius muscles bilaterally. Post-procedure Diagnosis:: Same Indications for Procedure:: This patient is a pleasant 81-year-old male that comes our clinic today for intrathecal pain pump interrogation and refill. We are currently managing him with Dilaudid 20 mg/mL daily dose of 7.08 mg/day and bupivacaine 15 mg/mL with a daily dose of 5.31 mg/day. Patient states this dose is doing well at this time. He does not complain of any side effects other than some constipation at times. Patient also having some myofascial pain over the distal posterior paraspinous muscles in the cervical spine as well as bilateral trapezius muscles. We will inject him with trigger point injections today. Procedure Details:: Details of the procedure explained to the patient. The patient taken the procedure room placed in the sitting position. The area over the pump was cleansed using chlorhexidine as a cleansing solution. The pump was interrogated. The pump was accessed with ease using a 22-gauge inch and half needle. 4 mL of solution was withdrawn and discarded appropriately. The pump was then filled incrementally with 20 cc containing Dilaudid 20 mg/mL and bupivacaine 15 mg/mL. The rate will continue as stated above. He is not requesting any changes today. Using a 610 cc solution of 0.25% Marcaine and 1% lidocaine and 40 mg Depo-Medrol and a 22-gauge needle 2 cc was injected into the low posterior bilateral cervical paraspinous muscles. This was after negative aspiration. The same procedure was carried out over the bilateral trapezius muscle. Patient tolerated procedure without difficulty. No complications Plan and Disposition:: Patient was discharged without incident.
[2022-04-24 13:53] VITALS: BP 146/69; PULSE 64; RESP 18; O2SAT 92
== END 2022-04-24 13:53 | disposition home or self-care (01) ==
PROVIDERS: PCP Family Medicine; Visit Provider Nurse Anesthetist, Certified Registered
DX: Z45.1 Encounter for adjustment and management of infusion pump (principal); M51.16 Intervertebral disc disorders with radiculopathy, lumbar region; M96.1 Postlaminectomy syndrome, not elsewhere classified; M79.18 Myalgia, other site
CPT/HCPCS: 95991

== ENCOUNTER 2022-05-24 16:00 | Outpatient (RCR) | payer MEDICARE, OTHER, SELFPAY ==
--- NOTE | 2022-04-10 10:04 | HMH.PTOPEV ---
PT Outpatient Evaluation Rehab PT Outpatient Evaluation Start: 04/10/22 09:08 Freq: Status: Active Protocol: Document 04/10/22 09:08 LUIS FERNANDO (Rec: 04/10/22 10:04 LUIS FERNANDO [id number]) E-signed By Cassidy Duong, PT Outpatient Therapy Subjective History Subjective History Pt is a 81 y/o male who reports chronic pain of the mid thoracic spine between the shoulder blades. Pt reports gradual onset of right-sided neck pain for months. Pt reports his head cracks and pops with extension and feels heavy. Pt also reports recent onset of headaches in the temporal region that switches sides. Pt denies numbness/ tingling but reports if he fires it up it will refer pain into the right shoulder to the elbow. Per records, pt had a cervical and thoracic spine MRI at [facility] on 06/20/21 showing multilevel DDD with areas of foraminal narrowing. Pt reports he had trigger point injections at pain management on 03/27 which helped initially but is starting to wear off. Pt reports he noticed he could turn his head more after the injections as well. Pt reports he is taking muscle relaxers at night time to assist with sleeping. Pt reports he has a pain pump in the low back. Pt reports pain is aggravated by turning his head to the right or looking up and movement of the right arm such as playing piano or reaching/lifting overhead. Medical History: hypertension Chief Complaint Pain,Stiff Symptom Type Ache,Dull Symptoms Relieved By Rest/Positioning,Heat, Prescription Meds Symptoms Aggravated By Physical Activity,Twisting Prior Functional Limitations None Current Functional Limitations Reaching,Lifting Symptom Description
--- NOTE | 2022-05-08 17:52 | HMH.RHREAS ---
Rehab Reassessment Rehab OP Re-assessment Start: 05/08/22 15:57 Freq: Status: Active Protocol: Document 05/08/22 15:58 LUIS FERNANDO (Rec: 05/08/22 17:01 [id number]) E-signed By Cassidy Duong PT Rehab Re-assessment Subjective Subjective Pt reports he feels 50% improved since starting PT. Pt reports pain at worst as 5/10 within the last week. Pt reports he is able to turn his head better now. Objective Objective Notes Cervical AROM: 45 flex, 40 ext , LF 30, L rot 55, R rot 60 Scapular MMT: 05/16 TTP: mild of the R UT/LS Assessment Progress Assessment Progressing as Expected Assessment Notes Pt has attended 6 PT visits consisting of aerobic exercise , cervical mobility/ flexibility, UE strengthening, postural reeducation, manual therapy and modalities with good tolerance. Pt demonstrated improved cervical AROM and scapular strength this date compared to initial evaluation. Pt would continue to benefit from skilled PT to further improve subjective report of pain, cervical AROM, muscular extensibility, scapular strength and functional activity tolerance to improve overall QOL. Patient goals met ST/5 Goals Not Met LTG Revised Goals n/a Plan Plan Continue initial POC Frequency of Therapy 2x.week Duration of therapy 2-4 more weeks Time and Billing Re-Eval Time 8 Re-Eval Billing Units 1 PHYSICIAN CERTIFICATION: I certify the specified therapy services for Davin Dodson are required, authorized, and reviewed every 30 days.
== END 2022-05-24 16:05 | disposition home or self-care (01) ==
LOC: PT 16:00
PROVIDERS: PCP Family Medicine; Visit Provider Family Medicine
DX: M54.2 Cervicalgia (principal)
CPT/HCPCS: 97010; 97110; 97140; 97163; 97164; 97530

== ENCOUNTER 2022-05-29 12:46 | Day surgery (SDC) | payer MEDICARE, OTHER, SELFPAY ==
[2022-05-29 12:50] VITALS: BP 131/76; PULSE 60; RESP 18; TEMP 36.8; O2SAT 96; BMI 25.8
[2022-05-29 13:10] VITALS: BP 163/68; PULSE 61; RESP 18; O2SAT 97
[2022-05-29 13:21] VITALS: BP 134/69; PULSE 60; RESP 18; O2SAT 96
--- NOTE | 2022-05-29 14:03 | EXP.PAIN.PRO ---
Procedure Date: 05/29/22 Time: 12:00 Anesthesiologist:: Celio Sweeney CRNA Complications:: None Pre-procedure Diagnosis:: Degenerative disc disease lumbar spine multilevels. Lumbar radiculopathy. Lumbar postlaminectomy syndrome. Post-procedure Diagnosis:: Same. Indications for Procedure:: Very pleasant 81-year-old male that comes our clinic today for pain pump refill and interrogation. We currently manage the patient with Dilaudid 20 mg/mL at 7.08 mg/day. Also, bupivacaine 15 mg/mL at 5.31 mg/day. Patient is doing well at his current settings. He does not request any increase or decrease today. He does not report any side effects from the current management. Procedure Details:: Details of the procedure explained to the patient. The patient was taken to procedure room placed in the sitting position. The area of the pump was cleansed using chlorhexidine as a cleansing solution. The pump was interrogated. The pump was accessed with ease using a 22-gauge inch and a half needle. 7 mL of solution was withdrawn and discarded appropriatly. The pump was then filled with 20 cc of solution containing Dilaudid 20 mg/mL and bupivacaine 15 mg/mL. No rate change today. Plan and Disposition:: Patient was discharged without incident.
== END 2022-05-29 13:21 | disposition home or self-care (01) ==
LOC: SC.PAINP 12:46
PROVIDERS: PCP Family Medicine; Visit Provider Nurse Anesthetist, Certified Registered
DX: Z45.1 Encounter for adjustment and management of infusion pump (principal); M51.16 Intervertebral disc disorders with radiculopathy, lumbar region; M96.1 Postlaminectomy syndrome, not elsewhere classified
CPT/HCPCS: 95991

== ENCOUNTER → 2022-06-25 10:51 | Outpatient (POV) | payer MEDICARE, OTHER, SELFPAY ==
--- NOTE | 2022-06-25 11:20 | EXP.PAIN.PRO ---
Procedure Date: 06/25/22 Time: 11:20 Anesthesiologist:: Cassidy Altman APRN Complications:: None Pre-procedure Diagnosis:: Degenerative disc disease of lumbar spine multilevels with lumbar radiculopathy symptoms, lumbar postlaminectomy syndrome, myofascial pain Post-procedure Diagnosis:: Same Indications for Procedure:: Patient is a pleasant 81-year-old male who presents today for follow-up. We are currently treating the patient for degenerative disc disease of lumbar spine multilevels with lumbar radiculopathy symptoms, lumbar postlaminectomy syndrome, myofascial pain of right thoracic paraspinous muscles. Today he rates his pain a 5 out of 10. Patient states over the last week he has had increasing pain at his right mid back. He describes this as a constant aching, throbbing sensation that is worse with increased activity. He does state that he previously had an injury at this site years ago where he fractured his T11 rib on the right side and that he will have this pain pop up from time to time. He states in the past he did have injections from a different provider that he believes were intercostal nerve blocks. He states that these did help from time to time but that it was hit or miss. His last injection he got years ago caused significant worsening pain and he never went back for any additional after that. Patient does state that he gets some relief with lifting his right arm over top of his head. Patient denies any new trauma or injury. He states that he has been a little bit more active over the last couple weeks including cutting Tylenol to help his [id number]. Patient is currently managed with tizanidine that he states does help provide some relief however it does make him significantly drowsy. Patient is also prescribed [place] 7.5 mg twice a day for his bilateral knee pain patient denies any side effects from this medication. This medication was just filled on Saturday. He is managed intrathecally with Dilaudid 20 mg/mL with a daily dose of 7.08 mg/day and bupivacaine 15 mg/mL with a daily dose of 5.31 mg/day. Patient denies any side effects from this medication. He is requesting an adjustment at today's visit. Patient has also been prescribed compounding cream that he states helps provide additional relief he is requesting a refill of this medication as well. His Abram is [phone]. Its been reviewed and appropriate. Physical Exam: General: Alert and oriented x3, no acute distress, pleasant and cooperative Lungs: Respirations even and unlabored, symmetrical chest expansion Eyes: PERRL Musculoskeletal: Flexion and extension of lumbar [spine] somewhat guarded secondary to pain, [antalgic gait noted] point tenderness noted at right thoracic paraspinous muscles Neurological: Speech clear, no gross sensory deficit Procedure Details:: Informed consent was obtained and the risk and benefits of the procedure were explained to the patient. Patient was taken to the procedure room where noninvasive monitoring was placed including noninvasive blood pressure cuff and pulse oximeter. Patient's pump was interrogated and was reprogrammed to Dilaudid 7.788 mg/day and bupivacaine 5.841 mg/day. The patient tolerated the procedure well with no complications. Plan and Disposition:: Patient is experiencing worsening pain in his right thoracic paraspinous muscles with point tenderness noted and limited range of motion. I have discussed with the patient that he may benefit from trigger point injections at this location. Risk and benefits were discussed with the patient and he would like to proceed forward with this plan of care. I will order the patient compounding cream during today's visit. Patient will be scheduled for trigger point injections of his right thoracic paraspinous muscles. Patient tolerated his intrathecal increase with no complications and was discharged neurologically intact. Patient has been instructed to contact the clinic
[2022-06-25 12:55] VITALS: BP 154/83; PULSE 69; RESP 18; O2SAT 96; BMI 25.8
== END | disposition home or self-care (01) ==
PROVIDERS: PCP Family Medicine; Visit Provider Nurse Practitioner Family
DX: M51.16 Intervertebral disc disorders with radiculopathy, lumbar region (principal); M96.1 Postlaminectomy syndrome, not elsewhere classified; M79.10 Myalgia, unspecified site
CPT/HCPCS: 62368; 99213; G0463

== ENCOUNTER 2022-07-03 12:09 | Day surgery (SDC) | payer MEDICARE, OTHER, SELFPAY ==
[2022-07-03 12:33] VITALS: BP 154/87; PULSE 64; RESP 18; TEMP 36.4; O2SAT 95; BMI 25.1
[2022-07-03 12:40] VITALS: BP 161/80; PULSE 64; RESP 20; O2SAT 94
--- NOTE | 2022-07-03 12:44 | P.PCN_ITS ---
Procedure Date: 07/03/22 Time: 12:30 Anesthesiologist:: Celio Sweeney CRNA Complications:: None Pre-procedure Diagnosis:: Degenerative disc disease lumbar spine multilevels. Lumbar radiculopathy. Lumbar postlaminectomy syndrome. Right thoracic paraspinous myofascial pain. Post-procedure Diagnosis:: Same. Indications for Procedure:: Very pleasant 81-year-old male that comes our clinic today for intrathecal pain pump interrogation and refill. The patient is currently being managed with Dilaudid 20 mg/mL at 7.788 mg/day. Also, bupivacaine 15 mg/mL at 5.8410 mg/day. Patient doing very well with his current settings. He is not requesting any changes. He does not report any side effects or complications from the intrathecal pain pump management. Patient complaining of right T10 myofascial pain paraspinous muscle. Requesting trigger point injection today. Procedure Details:: Details of the procedure were explained to the patient. The patient taken the procedure room placed in sitting position. The area of the pump was cleansed using chlorhexidine cleansing solution. The pump was interrogated. The pump was then accessed with ease using a 22-gauge inch and half needle. 7.5 mL of solution was withdrawn and discarded appropriately. The pump was then filled incrementally with 20 cc of solution containing Dilaudid 20 mg/mL and bupivacaine 15 mg/mL. Using a solution of 0.25% Marcaine +1% lidocaine and 40 mg of Depo-Medrol 2 separate areas of the right thoracic paraspinous muscle was injected using a 25- gauge needle after negative aspiration. 4 cc was injected into each area. Patient tolerated the procedure without difficulty. There are no complications. Plan and Disposition:: Patient was discharged without incident.
[2022-07-03 12:52] VITALS: BP 130/86; PULSE 60; RESP 18; O2SAT 95
== END 2022-07-03 12:52 | disposition home or self-care (01) ==
PROVIDERS: PCP Family Medicine; Visit Provider Nurse Anesthetist, Certified Registered
DX: Z45.1 Encounter for adjustment and management of infusion pump (principal); M51.16 Intervertebral disc disorders with radiculopathy, lumbar region; M96.1 Postlaminectomy syndrome, not elsewhere classified; M79.10 Myalgia, unspecified site
CPT/HCPCS: 20552; 95991; J1040

== ENCOUNTER 2022-08-07 10:52 | Day surgery (SDC) | payer MEDICARE, OTHER, SELFPAY ==
[2022-08-07 11:11] VITALS: BP 156/69; PULSE 58; RESP 18; O2SAT 95; BMI 24.2
[2022-08-07 11:23] VITALS: BP 142/66; PULSE 55; RESP 18; O2SAT 98
--- NOTE | 2022-08-07 11:33 | EXP.PAIN.PRO ---
Procedure Date: 08/07/22 Time: 11:15 Anesthesiologist:: Celio Sweeney CRNA Complications:: None Pre-procedure Diagnosis:: Degenerative disc lumbar spine multilevels. Lumbar radiculopathy. Lumbar postlaminectomy syndrome. Chronic thoracic spine pain. Thoracic spondylosis. Multilevel thoracic facet arthropathy. Post-procedure Diagnosis:: Same. Indications for Procedure:: Very pleasant 81-year-old male that comes our clinic today for intrathecal pain pump interrogation and refill. Also, assessment of T-spine pain. Patient currently being managed with intrathecal Dilaudid 20 mg/mL and bupivacaine 15 mg/mL. Patient doing well in regards to his intrathecal pain pump management with the exception of the T-spine pain. Patient reports T-spine pain in the area of T10/11 is sharp and stabbing. He rates the pain in this area 10/10. I reviewed his thoracic spine MRI from June 2021. It reports significant multilevel arthropathy and spondylosis bilaterally. I discussed in detail with the patient regarding thoracic medial branch blocks/facet blocks at this area. He wishes to proceed. We will schedule him and obtain insurance approval. Procedure Details:: Details of the procedure explained the patient. The patient taken to procedure room placed in the sitting position. The area over the pump was cleansed using chlorhexidine as a cleansing solution. The pump was interrogated. The pump was accessed easily with a 22-gauge inch and a half needle. 6.2 mL of solution was withdrawn and discarded appropriately. The pump was then filled with 20 cc incrementally containing bupivacaine 15 mg/mL and Dilaudid 20 mg/mL. The dose will continue the same Dilaudid 7.78 mg/day and bupivacaine 5.84 mg/day. Patient tolerated the procedure without difficulty. There are no complications. Plan and Disposition:: Patient was discharged without incident.
[2022-08-07 11:34] VITALS: BP 135/59; PULSE 54; RESP 18; O2SAT 92
== END 2022-08-07 11:34 | disposition home or self-care (01) ==
PROVIDERS: PCP Family Medicine; Visit Provider Nurse Anesthetist, Certified Registered
DX: M51.16 Intervertebral disc disorders with radiculopathy, lumbar region (principal); M96.1 Postlaminectomy syndrome, not elsewhere classified; G89.29 Other chronic pain; M47.814 Spondylosis without myelopathy or radiculopathy, thoracic region
CPT/HCPCS: 95991

== ENCOUNTER 2022-08-21 14:03 | Day surgery (SDC) | payer MEDICARE, OTHER, SELFPAY ==
[2022-08-21 14:25] VITALS: BP 125/65; PULSE 60; RESP 18; TEMP 36.7; O2SAT 98; BMI 25.8
[2022-08-21 14:40] VITALS: BP 133/63; PULSE 55; RESP 18; O2SAT 97
--- NOTE | 2022-08-21 14:43 | EXP.PAIN.PRO ---
Procedure Date: 08/21/22 Time: 14:35 Anesthesiologist:: Celio Sweeney CRNA Complications:: None Pre-procedure Diagnosis:: Degenerative disc lumbar spine multilevels. Lumbar radiculopathy. Lumbar postlaminectomy syndrome. Chronic thoracic spine pain. Thoracic spondylosis. Multilevel thoracic facet arthropathy. Post-procedure Diagnosis:: Same. Indications for Procedure:: Patient is a pleasant 81-year-old male that comes our clinic today for T10-11 T11-12 right vertebral facet block as well as T11 and T12 right rib facet block. Patient describes the right low thoracic back pain as constant, sharp, dull, stabbing at times. Patient describes the pain intensifies when standing for any length of time. Pain does ease to some degree when lying down. However, when returning to his feet pain returns in its entirety. He rates his pain 8/10. Procedure Details:: Details of the procedure explained to the patient. The patient taken the procedure room placed in the prone position on the fluoroscopy table. The area over the low thoracic spine was cleansed using chlorhexidine as a cleansing solution. Using a 3 and half inch 22-gauge needle and fluoroscopy guidance the right T10-11 and T11-12 vertebral facet joint was accessed with ease. 1 cc of 1% lidocaine +10 mg of Depo-Medrol was injected. At this time I accessed with ease using the same needle the right T11 and T12 rib facet. Needle position was confirmed using contrast dye. At this time I injected 1 cc of 1% lidocaine and 10 mg of Depo-Medrol at each level. Patient tolerated the procedure without difficulty. There are no complications. Plan and Disposition:: Patient was evaluated 10 minutes post procedure. Patient has been ambulating on the unit for 10 minutes. He reports no pain in the area of the low right thoracic spine. He was discharged without incident.
[2022-08-21 14:50] VITALS: BP 145/67; PULSE 58; RESP 18; O2SAT 98
== END 2022-08-21 14:50 | disposition home or self-care (01) ==
PROVIDERS: PCP Family Medicine; Visit Provider Nurse Anesthetist, Certified Registered
DX: M47.894 Other spondylosis, thoracic region (principal); M51.16 Intervertebral disc disorders with radiculopathy, lumbar region; M96.1 Postlaminectomy syndrome, not elsewhere classified; G89.29 Other chronic pain
CPT/HCPCS: 64490; 64491; J1040; Q9966

== ENCOUNTER → 2022-08-27 08:53 | Outpatient (CLI) | payer MEDICARE, OTHER, SELFPAY ==
--- NOTE | 2022-08-27 08:57 | US_ITS ---
FINAL REPORT TECHNIQUE: Limited sonographic imaging was obtained of the left wrist. CLINICAL HISTORY: WRIST PAIN FINDINGS: At the area of interest at the left wrist is a hypoechoic, 2.0 cm, lobulated lesion. There is no internal blood flow. Findings favored represent synovial or ganglion cyst. IMPRESSION: 2.0 cm lobulated lesion at the area of interest favored to represent synovial or ganglion cyst. Consider MRI for further evaluation. Reviewed, Interpreted and Dictated by Katy Bustillo MD Transcribed by Dee Richards Authenticated and [facility]
== END ==
PROVIDERS: PCP Nurse Practitioner Family; Visit Provider Nurse Practitioner Family
DX: M25.532 Pain in left wrist (principal); R22.32 Localized swelling, mass and lump, left upper limb
CPT/HCPCS: 76882

== ENCOUNTER → 2022-08-31 12:49 | Outpatient (POV) | payer MEDICARE, OTHER, SELFPAY ==
[2022-08-31 13:05] VITALS: BP 127/82; PULSE 61; TEMP 36.3; O2SAT 95; BMI 25.8
--- NOTE | 2022-08-31 16:29 | EXP.PAIN.SOA ---
[facility] Pain Management SOAP Note Subjective:: This patient is a pleasant 81-year-old white male who we have been treating for low back pain and mid back pain with lumbar radiculopathy symptoms. He does have an intrathecal Dilaudid/bupivacaine pain pump in place. He is currently at 7.7 mg/day. Recently he has been having some increasing pain especially while standing and walking. He cannot stand or walk for very long. He has increased pain in his back radiating into both hips and down both legs. He did undergo facet injections and a T11-T12 right rib block. This did help for significant period of time. I have talked to this patient about changing medications. I do believe he would benefit from changes to intrathecal fentanyl/bupivacaine. We will order intrathecal fentanyl/bupivacaine this will be concentration of 500 mg/mL of intrathecal fentanyl with bupivacaine 5 mg per ml. We will start him at 50 mcg/day. Objective:: Alert and oriented x3 no acute distress. Patient seen sitting in a wheelchair. He does have an antalgic gait. He has difficulty walking. Motor strength of lower extremities is 4 out of 5. There is no gross sensory deficit. Assessment:: Postlaminectomy syndrome lumbar spine with lumbar radiculopathy symptoms with increasing pain despite intrathecal Dilaudid/bupivacaine infusion Plan:: We will plan on refilling him with intrathecal fentanyl 500 mcg per ml plus bupivacaine 5 mg per ml. We will start him at 50 mcg/day. This will have to be a double catheter aspiration at the catheter aspiration port to get all Dilaudid out of his pump. [facility] Disclaimer: The information contained in this section may have been updated after the patient was seen, as this information can be updated by other users. Medical History History of back pain Osteoarthritis Surgical History History of hernia repair History of spinal fusion History of total left knee replacement History of total right knee replacement Family History No significant family history Social History Smoking Status: Never smoker second hand exposure: No alcohol intake: never counseling provided: none substance use type: denies use current occupational status: unemployed Travel in the last 8 weeks: None household members: spouse housing: house current occupational exposures/hazards: No caffeine: Yes
== END ==
PROVIDERS: PCP Family Medicine; Visit Provider Anesthesiology
DX: M96.1 Postlaminectomy syndrome, not elsewhere classified (principal); M54.16 Radiculopathy, lumbar region
CPT/HCPCS: 99212; G0463

== ENCOUNTER 2022-09-07 13:34 | Day surgery (SDC) | payer MEDICARE, OTHER, SELFPAY ==
[2022-09-07 13:43] VITALS: BP 125/58; PULSE 59; RESP 17; TEMP 36.2; O2SAT 97; BMI 25.8
[2022-09-07 14:16] VITALS: BP 137/67; PULSE 53; RESP 20; O2SAT 96
[2022-09-07 14:33] VITALS: BP 134/95; PULSE 55; RESP 17; O2SAT 97
--- NOTE | 2022-09-07 15:06 | EXP.PAIN.PRO ---
Procedure Date: 09/07/22 Time: 15:06 Anesthesiologist:: Jony Kinney MD Complications:: None Pre-procedure Diagnosis:: Postlaminectomy syndrome lumbar spine with lumbar radiculopathy symptoms Post-procedure Diagnosis:: Same Indications for Procedure:: This patient is a pleasant 81-year-old white male who we are treating for low back pain with lumbar radiculopathy symptoms and postlaminectomy syndrome lumbar spine. We are changing over his intrathecal medication from intrathecal Dilaudid/bupivacaine to intrathecal fentanyl/bupivacaine as he is not getting any relief from his Dilaudid infusion anymore. We will switch him over to intrathecal fentanyl 500 mcg/ml plus bupivacaine 5 mg per ml. We will start him at 50 mcg/day. Abram and drug screen are all appropriate. Patient does have an antalgic gait. Motor strength of lower extremities is 5/5. There is no gross sensory deficit. Procedure Details:: Informed consent was obtained and the risks and benefits of the procedure was explained to the patient. The patient was taken to the procedure room. The pump was interrogated. The area over the pump was prepped using ChloraPrep. The pump was accessed with a 22-gauge needle. Approximately 7 mL's of the intrathecal solution was withdrawn and discarded. The pump was then refilled with 20 mL's of intrathecal fentanyl 500 mcg per ml plus bupivacaine 5 mg per ml. The pump was interrogated and the infusion was started at 50 mcg/day, bridge bolus is 22 hours. The patient tolerated the procedure well with no complication. Plan and Disposition:: We will follow-up with this patient in 1 week to evaluate symptoms and make adjustments if needed. In the meantime we will give him Valium 5 mg twice a day and Zofran to help with the transition and withdrawal symptoms.
== END 2022-09-07 14:49 | disposition home or self-care (01) ==
LOC: SC.PAINP 13:35
PROVIDERS: PCP Family Medicine; Visit Provider Anesthesiology
DX: M96.1 Postlaminectomy syndrome, not elsewhere classified (principal); M54.16 Radiculopathy, lumbar region
CPT/HCPCS: 95991

== ENCOUNTER → 2022-09-12 10:50 | Outpatient (POV) | payer MEDICARE, OTHER, SELFPAY ==
--- NOTE | 2022-09-12 12:12 | EXP.PAIN.PRO ---
Procedure Date: 09/12/22 Time: 11:31 Anesthesiologist:: Cassidy Altman APRN Complications:: None Pre-procedure Diagnosis:: Degenerative disc disease of lumbar spine with lumbar radiculopathy symptoms, lumbar postlaminectomy syndrome Post-procedure Diagnosis:: Same Indications for Procedure:: Patient is a pleasant 81-year-old male who presents today for intrathecal pain pump reprogramming adjustment. Patient is currently being treated for degenerative disc disease of lumbar spine with lumbar radiculopathy symptoms, lumbar postlaminectomy syndrome. Patient is currently managed with fentanyl 500 mcg/mL with a daily dose of 50 mcg/day and bupivacaine 15 mg/mL with a daily dose of 1.5 mg/day patient denies any side effects from this medication. Patient was recently switched over from his Dilaudid pump meds on 09/07/2022. Patient has recently became under the weather over the last couple days and has been experiencing some fever, chills 1 day of diarrhea. He states he did do a telehealth visit with his primary care provider who sent in a 7-day dose of antibiotics and did think it was related to a sinus infection. Patient did state that he had some low-grade temp yesterday however is done better today. Patient does state that he thinks this is unrelated to the pump medication change. Patient rates pain a 5 out of 10. He is stating that he is having worsening pain in his low back and along his waist and he is requesting an intrathecal increase. Drug screen is appropriate. Abram has been reviewed and is appropriate. Physical exam General: Alert and oriented x3, no acute distress, pleasant and cooperative Lungs: Respirations even and unlabored, symmetrical chest expansion Eyes: PERRL Musculoskeletal: Flexion and extension of lumbar [spine] somewhat guarded secondary to pain, [antalgic gait noted] Neurological: Speech clear, no gross sensory deficit Procedure Details:: Informed consent was obtained and the risk and benefits of the procedure were explained to the patient. Patient was taken to the procedure room where noninvasive monitoring was placed including noninvasive blood pressure cuff and pulse oximeter. Patient's pump was interrogated and was reprogrammed to fentanyl 60 mcg/day and bupivacaine 0.6 mg/day. The patient tolerated the procedure well with no complications. Plan and Disposition:: I have counseled the patient to continue to monitor his symptoms and to contact us with any worsening fever, chills or diarrhea as well as any other possible side effects such as swelling, confusion, weakness. Patient did previously have a lumbar medial branch blocks that did provide 60% improvement however only lasting short-term. I have discussed with the patient that he may benefit from repeating this injection for his chronic low back pain. We will discuss this at his next follow-up appointment. Patient tolerated his intrathecal increase with no complications and was discharged neurologically intact. Patient will return to clinic in 1 week for reevaluation of symptoms and plan of care. Patient has been instructed to contact the clinic with any concerns before the next appointment. Dr. Kinney has reviewed this note and agrees with this plan of care. This note was dictated using voice recognition software and make contain errors or omissions. -- It Is medically necessary for this patient to continue to have their intrathecal pump refilled at regular intervals. This patient had an intrathecal pain pump implanted after meeting criteria of chronic intractable pain for greater than 3 months and failing conservative treatments. Patient has committed and been compliant to the treatment plan and all planned follow up care. Since implantation of the intrathecal pain pump, the patient has had decreased pain and been more functional. Oral medications have been reduced including intake of oral opioids. Patient continues to do well with intrathecal therapy with
[2022-09-12 13:04] VITALS: BP 130/83; PULSE 82; RESP 18; O2SAT 96; BMI 25.7
== END ==
PROVIDERS: Visit Provider Nurse Practitioner Family
DX: M51.16 Intervertebral disc disorders with radiculopathy, lumbar region (principal); M96.1 Postlaminectomy syndrome, not elsewhere classified
CPT/HCPCS: 62368; 99213; G0463

== ENCOUNTER → 2022-09-13 14:57 | Outpatient (POV) | payer MEDICARE, OTHER, SELFPAY ==
--- NOTE | 2022-09-13 15:21 | EXP.PAIN.PRO ---
Procedure Date: 09/13/22 Time: 15:21 Anesthesiologist:: Cassidy Altman APRN Complications:: None Pre-procedure Diagnosis:: Degenerative disc disease of lumbar spine with lumbar radiculopathy symptoms, lumbar postlaminectomy syndrome Post-procedure Diagnosis:: Same Indications for Procedure:: Patient is a pleasant 81-year-old male who presents today for follow-up. We are currently treating the patient for degenerative disc disease of lumbar spine with lumbar radiculopathy symptoms, lumbar postlaminectomy syndrome. Patient rates his pain today a 7 out of 10. Patient was just here to see us yesterday and had a 20% increase of his pump settings. He is currently managed with fentanyl 500 mcg/mL with a daily dose of 60 mcg/day and bupivacaine 0.6 mg/day. Patient states he has not had any side effects from this increase however he continues to have significant back and knee pain. Patient states he has not had any additional episodes of fever or diarrhea. He states he has had minimal chills but still believes this is related to a sinus infection he is going through. Patient is currently on a 7-day dose of antibiotics that just started yesterday. Patient is requesting an increase in his pump medication. Physical Exam: General: Alert and oriented x3, no acute distress, pleasant and cooperative Lungs: Respirations even and unlabored, symmetrical chest expansion Eyes: PERRL Musculoskeletal: Flexion and extension of lumbar [spine] somewhat guarded secondary to pain, [antalgic gait noted] Neurological: Speech clear, no gross sensory deficit Procedure Details:: Informed consent was obtained and the risk and benefits of the procedure were explained to the patient. Patient was taken to the procedure room where noninvasive monitoring was placed including noninvasive blood pressure cuff and pulse oximeter. Patient's pump was interrogated and was reprogrammed to fentanyl 65 mcg/day and bupivacaine 0.65 mg/day. The patient tolerated the procedure well with no complications. Plan and Disposition:: Patient tolerated his intrathecal increase with no complications. I have still discussed with the patient that he may benefit from lumbar injections or knee injections however at this time he would like to wait. Patient is already scheduled for a follow-up appointment next week for reevaluation of symptoms and plan of care. Patient has been instructed to contact the clinic with any concerns before the next appointment. Dr. Kinney has reviewed this note and agrees with this plan of care. This note was dictated using voice recognition software and make contain errors or omissions. -- It Is medically necessary for this patient to continue to have their intrathecal pump refilled at regular intervals. This patient had an intrathecal pain pump implanted after meeting criteria of chronic intractable pain for greater than 3 months and failing conservative treatments. Patient has committed and been compliant to the treatment plan and all planned follow up care. Since implantation of the intrathecal pain pump, the patient has had decreased pain and been more functional. Oral medications have been reduced including intake of oral opioids. Patient continues to do well with intrathecal therapy with decrease in pain symptoms and increase in functional status. Stopping intrathecal medications can lead to life threatening withdrawal, seizures, cardiac arrest, severe pain, and possible . Pumps that are not refilled at regular intervals can be damages and cause and need for replacement. We continually titrate dose and concentration to optimize pain relief and function. We are limited in concentration for certain drugs to safely deliver medications through the pump and stay within the recommendations from the Polyanalgesic Consensus Committee Guidelines. Depending on dose and concentration these pumps may need to be refilled sooner than 3 months as we titrate.
[2022-09-13 15:40] VITALS: BP 162/100; PULSE 68; RESP 20; O2SAT 97; BMI 25.7
== END | disposition home or self-care (01) ==
PROVIDERS: Visit Provider Nurse Practitioner Family
DX: M51.16 Intervertebral disc disorders with radiculopathy, lumbar region (principal); M96.1 Postlaminectomy syndrome, not elsewhere classified; Z97.8 Presence of other specified devices
CPT/HCPCS: 62368; 99213; G0463

== ENCOUNTER → 2022-09-19 10:40 | Outpatient (POV) | payer MEDICARE, OTHER, SELFPAY ==
[2022-09-19 10:57] VITALS: BP 187/90; PULSE 82; RESP 18; O2SAT 96; BMI 25.7
--- NOTE | 2022-09-19 11:16 | EXP.PAIN.PRO ---
Procedure Date: 09/19/22 Time: 11:16 Anesthesiologist:: Cassidy Altman APRN Complications:: None Pre-procedure Diagnosis:: Degenerative disc disease of lumbar spine with lumbar radiculopathy symptoms, lumbar postlaminectomy syndrome, low back pain, bilateral knee pain Post-procedure Diagnosis:: Same Indications for Procedure:: Patient is a pleasant 81-year-old male who presents today for follow-up. We are currently treating the patient for degenerative disc disease of lumbar spine with lumbar radiculopathy symptoms, lumbar postlaminectomy syndrome, low back pain, bilateral knee pain. Today he rates his pain an 8 out of 10. Patient denies any new trauma or injury. He states he continues to have significant low back and bilateral knee pain. He states the pain is so severe that he has trouble sleeping at night and only got about 2 hours yesterday. He does state that he did take his tizanidine and melatonin last night but still did not get much improvement. He states on average she only probably gets 4 hours of sleep on a daily basis. Patient does state his pain is an aching, throbbing sensation that is worse with increased standing or walking. He has had both his knees replaced and states that the pain is different from what his chronic knee pain had been. He is currently managed with fentanyl 500 mcg/mL with a daily dose of 65 mcg/day and bupivacaine 5 mg/mL with a daily dose of 0.65 mg/day. Patient denies any side effects from this medication. At our last visit he had been a little under the weather with a sinus infection and had had some chills, diarrhea and fever however he states this is completely resolved. Patient is also prescribed compounding cream which he states he has tried on his back and his knees with minimal relief. He also uses patches however these have not done anything either. Patient does use a cane for help with ambulation when he goes out and will occasionally use wheelchairs at home to help with ambulation. His Abram is [id number]. It has been reviewed and appropriate. Physical Exam: General: Alert and oriented x3, no acute distress, pleasant and cooperative Lungs: Respirations even and unlabored, symmetrical chest expansion Eyes: PERRL Musculoskeletal: Flexion and extension of lumbar [spine] somewhat guarded secondary to pain, [antalgic gait noted] Neurological: Speech clear, no gross sensory deficit Procedure Details:: Informed consent was obtained and the risk and benefits of the procedure were explained to the patient. Patient was taken to the procedure room where noninvasive monitoring was placed including noninvasive blood pressure cuff and pulse oximeter. Patient's pump was interrogated and was reprogrammed to fentanyl 75 mcg/day and bupivacaine 0.75 mg/day. The patient tolerated the procedure well with no complications. Plan and Disposition:: Patient continues to experience significant pain in his low back and legs with limited range of motion. I discussed with the patient that he may benefit from a lumbar epidural steroid injection. Risk and benefits were discussed with patient and he would like to proceed forward with this plan of care. Patient is not on any blood thinners. Patient did tolerate his intrathecal increase with no complications and was discharged neurologically intact. He will be scheduled for an LESI L4-L5. Patient has been instructed to contact the clinic with any concerns before the next appointment. Dr. Kinney has reviewed this note and agrees with this plan of care. This note was dictated using voice recognition software and make contain errors or omissions. -- It Is medically necessary for this patient to continue to have their intrathecal pump refilled at regular intervals. This patient had an intrathecal pain pump implanted after meeting criteria of chronic intractable pain for greater than 3 months and failing conservative treatments. Patient has committed and been compliant to the tr
== END ==
PROVIDERS: Visit Provider Nurse Practitioner Family
DX: M51.16 Intervertebral disc disorders with radiculopathy, lumbar region (principal); M96.1 Postlaminectomy syndrome, not elsewhere classified; M25.561 Pain in right knee; M25.562 Pain in left knee; Z97.8 Presence of other specified devices
CPT/HCPCS: 62368; 99213; G0463

== ENCOUNTER 2022-09-21 10:43 | Day surgery (SDC) | payer MEDICARE, OTHER, SELFPAY ==
[2022-09-21 10:56] VITALS: BP 141/68; PULSE 59; RESP 18; TEMP 36.6; O2SAT 96; BMI 25.1
[2022-09-21 11:13] VITALS: BP 144/61; PULSE 75; RESP 18; O2SAT 98
[2022-09-21 11:14] VITALS: BP 144/61; PULSE 70; RESP 18; O2SAT 98
[2022-09-21 11:20] VITALS: BP 153/83; PULSE 61; RESP 18; O2SAT 96
--- NOTE | 2022-09-21 11:20 | EXP.PAIN.PRO ---
Procedure Date: 09/21/22 Time: 11:00 Anesthesiologist:: Celio Sweeney CRNA Complications:: None Pre-procedure Diagnosis:: Degenerative disc lumbar spine multilevels. Lumbar radiculopathy. Lumbar spondylosis. Multilevel lumbar facet arthropathy. Lumbar postlaminectomy syndrome. Post-procedure Diagnosis:: Same. Indications for Procedure:: Patient is a very pleasant 81-year-old male that comes our clinic today for lumbar epidural steroid injection at L4-5 level. Secondary to scar tissue the injection was given at the L2-3 level. Also, patient having extreme low back pain as well as bilateral hip and leg radicular symptoms today. Patient recently underwent medication change in the intrathecal pain pump. Patient was on Dilaudid for years. He was changed to fentanyl. Patient has been increased in the last 2 days to 75 mcg/day. Patient also being managed with intrathecal Marcaine. I spoke with Dr. Kinney regarding the increased pain since changing the medication. He advises increase intrathecal pump rate to 150 mcg/day. Procedure Details:: Procedure: Lumbar epidural steroid injection under fluoroscopy Informed consent was obtained and the risks and benefits of the procedure were explained to the patient. The patient was taken to the procedure room and noninvasive monitors placed, including noninvasive blood pressure cuff and pulse oximeter. The back was viewed using C-arm Fluoroscopy and prepped using Chloraprep as a cleansing solution and the L2-3 interspace was palpated. Skin and subcutaneous tissues were anesthetized using lidocaine 1.5% and a 25-gauge needle. After this, an 18-gauge Touhy epidural needle was placed into the L2-3 interspace and advanced using fluoroscopic guidance and loss of resistance to air until the epidural space was encountered. After confirmation of needle placement in the epidural space, with dye, a solution containing normal saline, 3 mL and Depo-Medrol 80 mg were incrementally injected into the lumbar epidural space. The patient tolerated the procedure well with no complications. Patient's intrathecal pain pump was interrogated. His rate was increased to 150 mcg/day. His bupivacaine dose is now 1.5 mg/day. Plan and Disposition:: Patient was discharged without incident.
== END 2022-09-21 11:20 | disposition home or self-care (01) ==
PROVIDERS: PCP Family Medicine; Visit Provider Nurse Anesthetist, Certified Registered
DX: M51.16 Intervertebral disc disorders with radiculopathy, lumbar region (principal); M47.26 Other spondylosis with radiculopathy, lumbar region; M96.1 Postlaminectomy syndrome, not elsewhere classified
CPT/HCPCS: 62323; J1040

== ENCOUNTER → 2022-10-01 13:29 | Outpatient (POV) | payer MEDICARE, OTHER, SELFPAY ==
--- NOTE | 2022-10-01 14:13 | EXP.PAIN.PRO ---
Procedure Date: 10/01/22 Time: 14:13 Anesthesiologist:: Cassidy Altman APRN Complications:: None Pre-procedure Diagnosis:: Degenerative disc disease of lumbar spine with lumbar radiculopathy symptoms, lumbar spondylosis, lumbar facet arthropathy, lumbar postlaminectomy syndrome, chronic pain syndrome Post-procedure Diagnosis:: Same Indications for Procedure:: Patient is a pleasant 82-year-old male who presents today for intrathecal pain pump reprogramming adjustment. The patient is being treated for degenerative disc disease of lumbar spine with lumbar radiculopathy symptoms, lumbar facet arthropathy, lumbar spondylosis, chronic pain. Patient is currently being managed with intrathecal fentanyl 500 mcg/mL with a daily dose of 150 mcg/day and bupivacaine 5 mg/mL with a daily dose of 1.5 mg/day. Patient denies any side effects from this medication. Patient rates pain a 7 out of 10. Drug screen is appropriate. Abram [id number] has been reviewed and is appropriate. Physical exam General: Alert and oriented x3, no acute distress, pleasant and cooperative Lungs: Respirations even and unlabored, symmetrical chest expansion Eyes: PERRL Musculoskeletal: Flexion and extension of lumbar [spine] somewhat guarded secondary to pain, [antalgic gait noted] Neurological: Speech clear, no gross sensory deficit Procedure Details:: Informed consent was obtained and the risk and benefits of the procedure were explained to the patient. Patient was taken to the procedure room where noninvasive monitoring was placed including noninvasive blood pressure cuff and pulse oximeter. Patient's pump was interrogated and was reprogrammed to fentanyl 180 mcg/day and bupivacaine 1.8 mg/day. The patient tolerated the procedure well with no complications. Plan and Disposition:: Patient tolerated his intrathecal increase with no complications and was discharged neurologically intact. I have discussed with the patient that he may benefit from injective therapy for his continued pain in his low back with radiating symptoms to the right side of his ribs. Patient states he would like to think on this and get back to us at a further date. Patient will return to clinic in 2 weeks for reevaluation of symptoms and plan of care. Patient has been instructed to contact the clinic with any concerns before the next appointment. Dr. Kinney has reviewed this note and agrees with this plan of care. This note was dictated using voice recognition software and make contain errors or omissions. -- It Is medically necessary for this patient to continue to have their intrathecal pump refilled at regular intervals. This patient had an intrathecal pain pump implanted after meeting criteria of chronic intractable pain for greater than 3 months and failing conservative treatments. Patient has committed and been compliant to the treatment plan and all planned follow up care. Since implantation of the intrathecal pain pump, the patient has had decreased pain and been more functional. Oral medications have been reduced including intake of oral opioids. Patient continues to do well with intrathecal therapy with decrease in pain symptoms and increase in functional status. Stopping intrathecal medications can lead to life threatening withdrawal, seizures, cardiac arrest, severe pain, and possible . Pumps that are not refilled at regular intervals can be damages and cause and need for replacement. We continually titrate dose and concentration to optimize pain relief and function. We are limited in concentration for certain drugs to safely deliver medications through the pump and stay within the recommendations from the Polyanalges[employer] Consensus Committee Guidelines. Depending on dose and concentration these pumps may need to be refilled sooner than 3 months as we titrate.
[2022-10-01 15:14] VITALS: BP 123/84; PULSE 61; RESP 18; O2SAT 99; BMI 25.7
== END | disposition home or self-care (01) ==
PROVIDERS: PCP Family Medicine; Visit Provider Nurse Practitioner Family
DX: M51.16 Intervertebral disc disorders with radiculopathy, lumbar region (principal); M47.26 Other spondylosis with radiculopathy, lumbar region; M96.1 Postlaminectomy syndrome, not elsewhere classified; G89.4 Chronic pain syndrome
CPT/HCPCS: 62368; 99213; G0463

== ENCOUNTER → 2022-10-19 15:00 | Outpatient (POV) | payer MEDICARE, OTHER, SELFPAY ==
--- NOTE | 2022-10-19 15:25 | EXP.PAIN.SOA ---
[facility] Pain Management SOAP Note Subjective:: Mr. Christensen is a pleasant 82-year-old male that comes to our clinic today for follow-up visit after receiving intrathecal pain pump rate increased on 10/01/2022. He is currently being managed with intrathecal pain pump fentanyl 500 mcg/mL and bupivacaine 5 mg/mL. Patient's Abram #[id number]. Is been reviewed and appropriate. Patient is reporting he has moderately better in terms of his low back pain hip and leg radicular symptoms. However, he is having some pain between his shoulder blades as well as posterior cervical spine. Upon examination he has extreme point tenderness over the bilateral trapezius muscles. Both trapezius muscles seem to be in somewhat of a spasm. He is requesting an increase today in his intrathecal pain pump. I think this is reasonable. We will increase him 20%. His new rate will be 216.0 mcg/day. His bupivacaine will be 2.16 mg/day. Objective:: Patient is awake alert [place] x3. No acute distress. Flex tension lumbar spine somewhat guarded secondary to pain. Deep tendon reflexes upper lower extremities normal. Motor strength upper and lower extremities normal. There is no gross sensory deficit. Gait is normal Assessment:: Degenerative disc lumbar spine multilevels. Lumbar radiculopathy. Lumbar postlaminectomy syndrome lumbar spondylosis. Multilevel lumbar facet arthropathy Plan:: We will increase patient's intrathecal pain pump to fentanyl 500 mcg/mL at 216 mcg/day. Bupivacaine 5 mg/mL to 2.16 mg/day. Patient is due for intrathecal pain pump refill October 30. Will reexamine him at that time [facility] Disclaimer: The information contained in this section may have been updated after the patient was seen, as this information can be updated by other users. Medical History History of back pain Osteoarthritis Surgical History History of hernia repair History of spinal fusion History of total left knee replacement History of total right knee replacement Family History Other No significant family history Social History Smoking Status: Never smoker second hand exposure: No alcohol intake: never counseling provided: none substance use type: denies use current occupational status: retired Travel in the last 8 weeks: None household members: spouse housing: house current occupational exposures/hazards: No caffeine: Yes
[2022-10-19 15:42] VITALS: BP 156/87; PULSE 73; RESP 18; O2SAT 94; BMI 25.7
== END ==
PROVIDERS: PCP Family Medicine; Visit Provider Nurse Anesthetist, Certified Registered
DX: M51.16 Intervertebral disc disorders with radiculopathy, lumbar region (principal); M47.26 Other spondylosis with radiculopathy, lumbar region; M96.1 Postlaminectomy syndrome, not elsewhere classified; Z97.8 Presence of other specified devices
CPT/HCPCS: 62368; 99212; 99213; G0463

== ENCOUNTER 2022-10-30 11:15 | Day surgery (SDC) | payer MEDICARE, OTHER, SELFPAY ==
[2022-10-30 11:33] VITALS: BP 145/79; PULSE 60; RESP 18; TEMP 36.5; O2SAT 98; BMI 24.5
--- NOTE | 2022-10-30 11:47 | EXP.PAIN.PRO ---
Procedure Date: 10/30/22 Time: 11:40 Anesthesiologist:: Celio Sweeney CRNA Complications:: None Pre-procedure Diagnosis:: Myofascial pain bilateral rhomboids. Bilateral trapezius muscles. Post-procedure Diagnosis:: Same. Indications for Procedure:: Patient is a very pleasant 82-year-old male comes our clinic today for trigger point injections in the bilateral trapezius muscles as well as bilateral rhomboids. Patient complains of muscle spasm with pain moving into the occipital area of the scalp. Patient rates his pain 7/10. We manage the patient chronically with intrathecal pain pump. Patient currently being managed with fentanyl 500 mcg/mL and bupivacaine 5 mg/mL. Procedure Details:: BilateralDetails of the procedure explained to the patient. The patient taken to procedure room placed in sitting position. The area over the patient's muscles as well as bilateral rhomboids was cleansed using chlorhexidine as a cleansing solution. Using a 25-gauge inch and half needle the left trapezius muscle was injected after negative aspiration with 3 cc of 0.25% Marcaine and 1% lidocaine and 10 mg of Depo-Medrol. The same procedure was carried out over the right trapezius muscle. The bilateral rhomboids were injected in a similar fashion to the trapezius muscles. Patient tolerated procedure without difficulty. No complications. Plan and Disposition:: Patient was discharged without incident.
[2022-10-30 11:48] VITALS: BP 163/76; PULSE 65; RESP 16; O2SAT 98
== END 2022-10-30 11:48 | disposition home or self-care (01) ==
PROVIDERS: PCP Family Medicine; Visit Provider Nurse Anesthetist, Certified Registered
DX: M79.18 Myalgia, other site (principal); Z97.8 Presence of other specified devices
CPT/HCPCS: 20553; J1040

== ENCOUNTER 2022-11-02 12:36 | Day surgery (SDC) | payer MEDICARE, OTHER, SELFPAY ==
[2022-11-02 12:46] VITALS: BP 139/72; PULSE 70; RESP 18; TEMP 36.8; O2SAT 97; BMI 24.3
[2022-11-02 13:35] VITALS: BP 189/83; PULSE 66; RESP 18; O2SAT 97
[2022-11-02 13:36] VITALS: BP 189/83; PULSE 72; RESP 18; O2SAT 98
[2022-11-02 13:43] VITALS: BP 159/71; PULSE 53; RESP 16; O2SAT 97
--- NOTE | 2022-11-02 14:18 | EXP.PAIN.PRO ---
Procedure Date: 11/02/22 Time: 14:18 Anesthesiologist:: Jony Kinney MD Complications:: None Pre-procedure Diagnosis:: Degenerative disc disease of lumbar spine with lumbar radiculopathy symptoms and severe spinal stenosis. Post-procedure Diagnosis:: Same Indications for Procedure:: The patient is a pleasant 82-year-old white male who we are treating for low back pain with lumbar radiculopathy symptoms. He has increasing pain in his low back radiating down both legs with lumbar spinal stenosis. He does have an intrathecal fentanyl/bupivacaine pain pump. He does note some relief of his symptoms however whenever he does get up to do anything he does have increasing pain. We will refill his pump and increase his infusion today. He does have an antalgic gait. Motor strength of lower extremities is 5/5. There is no gross sensory deficit. Abram and drug screen are all appropriate. Procedure Details:: Informed consent was obtained and the risks and benefits of the procedure was explained to the patient. The patient was taken to the procedure room. The pump was interrogated. The area over the pump was prepped using ChloraPrep. The pump was accessed with a 22-gauge needle. Approximately 2 mL's of the intrathecal solution was withdrawn and discarded. The pump was then refilled with 20 mL's of intrathecal fentanyl 500 mcg/mL plus bupivacaine 5 mg per ml. The pump was interrogated and the infusion was increased to 300 mcg/day. The patient tolerated the procedure well with no complication. Plan and Disposition:: We will refer him to [facility] for surgical evaluation as it has been several years since he was evaluated for surgery. We are exhausting all options at controlling his pain especially while he is active. He does have severe spinal stenosis as well. We will follow-up with him at his next pump refill. At that time we will increase his fentanyl concentration to 750 mcg per ml and keep bupivacaine at 5 mg per ml.
== END 2022-11-02 13:43 | disposition home or self-care (01) ==
LOC: SC.PAINP 12:37
PROVIDERS: PCP Family Medicine; Visit Provider Nurse Anesthetist, Certified Registered
DX: M51.16 Intervertebral disc disorders with radiculopathy, lumbar region (principal); M48.061 Spinal stenosis, lumbar region without neurogenic claudication; Z97.8 Presence of other specified devices
CPT/HCPCS: 62370

== ENCOUNTER 2022-11-23 12:01 | Day surgery (SDC) | payer MEDICARE, OTHER, SELFPAY ==
[2022-11-23 12:00] VITALS: BP 172/80; PULSE 62; RESP 20; O2SAT 96; BMI 24.0
[2022-11-23 12:36] VITALS: BP 176/90; PULSE 78; RESP 20; O2SAT 94
--- NOTE | 2022-11-23 12:39 | EXP.PAIN.PRO ---
Procedure Date: 11/23/22 Time: 12:30 Anesthesiologist:: Celio Sweeney CRNA Complications:: None Pre-procedure Diagnosis:: Degenerative disc lumbar spine multilevels. Lumbar radiculopathy. Lumbar spinal stenosis. Lumbar postlaminectomy syndrome. Post-procedure Diagnosis:: Same. Indications for Procedure:: Patient is a very pleasant 82-year-old male that comes our clinic today for intrathecal pain pump interrogation refill. Patient is currently being managed with intrathecal fentanyl 500 mcg/mL plus bupivacaine 5 mg/mL. His current rate is 300 mcg/day. Patient requesting an increase. Having some low back pain with activity. He has been working on the car recently and spending time leaning over the fender. We will increase his pump rate today by 5%. His new rate for fentanyl will be 350 mcg/day. Bupivacaine will be 3.1500 mg/day. Procedure Details:: Details of the procedure explained to the patient. The patient taken the procedure room placed in the seated position. The area with pumps cleansed using chlorhexidine as a cleansing solution. The pump was interrogated. The pump was accessed with ease using a 22-gauge inch and half needle. 7 mL of solution was drawn discarded appropriately. The pump was then filled with 20 cc of a solution containing fentanyl 500 mcg/mL and bupivacaine 5 mg/mL. Pump rate will be increased as noted above today by 5%. His fentanyl rate is 315.0 mcg/day. Bupivacaine rate is 3.1500 mg/day. Patient tolerated procedure without difficulty. No complications. Plan and Disposition:: Patient was discharged out incident.
[2022-11-23 12:50] VITALS: BP 152/80; PULSE 62; RESP 20; O2SAT 96
== END 2022-11-23 12:50 | disposition home or self-care (01) ==
PROVIDERS: PCP Family Medicine; Visit Provider Nurse Anesthetist, Certified Registered
DX: M51.16 Intervertebral disc disorders with radiculopathy, lumbar region (principal); M48.061 Spinal stenosis, lumbar region without neurogenic claudication; M96.1 Postlaminectomy syndrome, not elsewhere classified; Z97.8 Presence of other specified devices
CPT/HCPCS: 95991

== ENCOUNTER → 2022-12-07 15:22 | Outpatient (CLI) | payer MEDICARE, OTHER, SELFPAY ==
--- NOTE | 2022-12-07 15:28 | XR_ITS ---
FINAL REPORT CLINICAL HISTORY: CHRONIC BACK PAIN FINDINGS: SPINE THORACOLUMBAR STANDING (SCOLIOSIS) There is 12 degrees dextroscoliosis centered on T6. There is 5 degrees leftward curvature centered on L1. IMPRESSION: Scoliosis as above. Reviewed, Interpreted and Dictated by Julio Morales III, MD Transcribed by Aretha Lee Authenticated and [facility]
--- NOTE | 2022-12-07 15:28 | XR_ITS ---
FINAL REPORT CLINICAL HISTORY: .ddd, low back pain FINDINGS: SPINE LUMBOSACRAL INCL BENDING VIEWS Five views demonstrate no acute fracture. There are mild and moderate degenerative changes. There is a mild L1 chronic compression fracture. Intrathecal catheter is identified. There is no evidence of movement with flexion and extension maneuvers. IMPRESSION: Degenerative and chronic appearing findings. Reviewed, Interpreted and Dictated by Julio Morales III, MD Transcribed by Aretha Lee Authenticated and [facility]
== END ==
PROVIDERS: PCP Family Medicine; Visit Provider Clinical Nurse Specialist Family Health
DX: M51.36 Other intervertebral disc degeneration, lumbar region (principal); M54.50 Low back pain, unspecified
CPT/HCPCS: 72081; 72114

== ENCOUNTER 2022-12-18 11:30 | Day surgery (SDC) | payer MEDICARE, OTHER, SELFPAY ==
[2022-12-18 11:43] VITALS: BP 123/73; PULSE 73; RESP 18; TEMP 36.7; O2SAT 95; BMI 24.3
[2022-12-18 11:49] VITALS: BP 157/86; PULSE 73; O2SAT 96
[2022-12-18 11:52] VITALS: BP 157/86; PULSE 69; O2SAT 96
[2022-12-18 12:05] VITALS: BP 148/76; PULSE 70; RESP 18; O2SAT 95
--- NOTE | 2022-12-18 12:10 | EXP.PAIN.PRO ---
Procedure Date: 12/18/22 Time: 11:45 Anesthesiologist:: Celio Sweeney CRNA Complications:: None Pre-procedure Diagnosis:: Degenerative disc lumbar spine multilevels. Lumbar radiculopathy. Lumbar postlaminectomy syndrome. Post-procedure Diagnosis:: Same. Indications for Procedure:: Patient is a very pleasant 82-year-old male that comes our clinic today for intrathecal pain pump interrogation refill. Patient currently being managed with fentanyl 500 mcg/mL at 315 mcg/day. Also, bupivacaine 5 mg/mL at 3.15 mg/day. We will be changing the fentanyl to 1000 mcg/mL. Bupivacaine will remain the same. Patient does not report any side effects or complications regarding intrathecal pain pump management today. Procedure Details:: Details of the procedure explained to the patient. The patient taken to procedure room placed in sitting position. The area of the pump was cleaned using chlorhexidine as a cleansing solution. The pump was interrogated. The pump was accessed with ease using a 22-gauge inch and half needle. 3.5 mL of solution was withdrawn discarded appropriate. The pump was then filled with 20 cc of a solution containing fentanyl 1000 mcg/mL and bupivacaine 5 mg/mL. Daily rate of fentanyl will remain at 3.15 mcg/day. Daily rate of bupivacaine will change to 1.5750 mg/day. Patient tolerated procedure without difficulty. There are no complications. Plan and Disposition:: Patient was discharged without incident.
[2023-01-01 15:40] LABS: Acetone <0.010 g/dL (0.000-0.010); Butalbital <1 ug/mL (1-10); Chlordiazepoxide <0.1 ug/mL (0.1-0.9); Diazepam <0.1 ug/mL (0.1-0.9); Ethanol <0.010 g/dL (0.000-0.010); Isopropanol <0.010 g/dL (0.000-0.010); Pentobarbital <1 ug/mL (1-5)
== END 2022-12-18 12:05 | disposition home or self-care (01) ==
PROVIDERS: Anesthesiology; PCP Family Medicine; Visit Provider Nurse Anesthetist, Certified Registered
DX: M51.16 Intervertebral disc disorders with radiculopathy, lumbar region (principal); M96.1 Postlaminectomy syndrome, not elsewhere classified; Z97.8 Presence of other specified devices
CPT/HCPCS: 80306; 80307; 95991

== ENCOUNTER 2023-01-29 12:36 | Day surgery (SDC) | payer MEDICARE, OTHER, SELFPAY ==
[2023-01-29 12:57] VITALS: BP 138/80; PULSE 85; O2SAT 96; BMI 25.1
--- NOTE | 2023-01-29 13:01 | EXP.PAIN.PRO ---
Procedure Date: 01/29/23 Time: 13:00 Anesthesiologist:: Celio Sweeney CRNA Complications:: None Pre-procedure Diagnosis:: Degenerative disc lumbar spine multilevels. Lumbar radiculopathy. Lumbar postlaminectomy syndrome Post-procedure Diagnosis:: Same. Indications for Procedure:: Patient is a very pleasant 82-year-old male comes our clinic today for intrathecal pain pump interrogation and refill. He is currently being managed with fentanyl 1000 mcg/mL at 315 mcg/day. Also, bupivacaine 5 mg/mL 1.5750 mg/day. Patient doing very well with his current settings. He does not report any side effects or complications. Procedure Details:: TerryDetails of the procedure explained to the patient. The patient taken procedure room placed in sitting position. The area of the pump was cleaned using chlorhexidine as a cleansing solution.. The pump was accessed with ease using 22-gauge inch and half needle. 6 cc of medication was removed and discarded appropriately. The pump was then filled with 20 cc of a solution containing 1000 mcg/mL and bupivacaine 5 mg/mL. Patient tolerated procedure without difficulty. There are no complications. Plan and Disposition:: Patient was discharged without incident.
[2023-01-29 13:03] VITALS: BP 150/85; PULSE 82; RESP 18; O2SAT 93
[2023-01-29 13:04] VITALS: BP 150/85; PULSE 83; RESP 18; O2SAT 95
[2023-01-29 13:15] VITALS: BP 143/92; PULSE 81; O2SAT 97
== END 2023-01-29 13:13 | disposition home or self-care (01) ==
PROVIDERS: PCP Family Medicine; Visit Provider Nurse Anesthetist, Certified Registered
DX: M51.16 Intervertebral disc disorders with radiculopathy, lumbar region (principal); M96.1 Postlaminectomy syndrome, not elsewhere classified; Z97.8 Presence of other specified devices; Z45.1 Encounter for adjustment and management of infusion pump
CPT/HCPCS: 95991

== ENCOUNTER 2023-03-12 13:34 | Day surgery (SDC) | payer MEDICARE, OTHER, SELFPAY ==
[2023-03-12 13:56] VITALS: BP 140/69; PULSE 70; RESP 18; TEMP 36.9; O2SAT 96; BMI 25.1
--- NOTE | 2023-03-12 14:14 | P.PCN_ITS ---
Procedure Date: 03/12/23 Time: 14:00 Anesthesiologist:: Celio Sweeney CRNA Complications:: None Pre-procedure Diagnosis:: Degenerative disc lumbar spine multilevels. Lumbar radiculopathy. Lumbar postlaminectomy syndrome. Post-procedure Diagnosis:: Same. Indications for Procedure:: Patient is a very pleasant 82-year-old male that comes our clinic today for intrathecal pain pump interrogation refill. Is currently being managed with fentanyl 1000 mcg/mL at 3 and 50 mcg/day. Also bupivacaine 5 mg/mL at 1.575 mg/day. Patient is requesting increase due to low back pain as well as bilateral hip and leg radicular symptoms at times. Patient rates his pain 7/10. Procedure Details:: Details of the procedure explained to the patient. The patient taken procedure room placed in sitting position. The area of the pump is cleansed using ch lorhexidine's cleansing solution. The pump was interrogated. The pump was accessed with ease using a 22-gauge inch and half needle. 5.5 mL of solution was withdrawn discarded appropriate. The pump was then filled with 20 cc of solution containing fentanyl 1000 mcg/mL and bupivacaine 5 mg/mL. The rate will be increased by 5% today. The new rate will be fentanyl 330.7 mg/day. Bupivacaine 1.6535 mg/day. Patient tolerated procedure without difficulty. There are no complications. Plan and Disposition:: Patient was discharged without incident.
[2023-03-12 14:15] VITALS: BP 125/74; PULSE 68; RESP 18; O2SAT 96
[2023-03-12 14:30] VITALS: BP 173/71; PULSE 72; RESP 18; O2SAT 97
[2023-03-12 14:32] VITALS: BP 173/71; PULSE 72; RESP 18; O2SAT 97
== END 2023-03-12 14:15 | disposition home or self-care (01) ==
PROVIDERS: PCP Family Medicine; Visit Provider Nurse Anesthetist, Certified Registered
DX: M51.16 Intervertebral disc disorders with radiculopathy, lumbar region (principal); M96.1 Postlaminectomy syndrome, not elsewhere classified; Z97.8 Presence of other specified devices; Z45.1 Encounter for adjustment and management of infusion pump
CPT/HCPCS: 95991

== ENCOUNTER 2023-04-10 16:00 | Outpatient (RCR) | payer MEDICARE, OTHER, SELFPAY | END 2023-04-10 17:15 | disposition home or self-care (01) | LOC: PT 16:00 | PROVIDERS: PCP Family Medicine; Visit Provider Family Medicine Sports Medicine | DX: M50.30 Other cervical disc degeneration, unspecified cervical region (principal); M51.34 Other intervertebral disc degeneration, thoracic region; M51.36 Other intervertebral disc degeneration, lumbar region | CPT/HCPCS: 97110; 97140; 97163; 97164; 97530 ==

== ENCOUNTER 2023-04-23 12:57 | Day surgery (SDC) | payer MEDICARE, OTHER, SELFPAY ==
[2023-04-23 13:11] VITALS: BP 145/80; PULSE 71; RESP 18; TEMP 36.4; O2SAT 97; BMI 25.1
[2023-04-23 13:15] VITALS: BP 163/81; PULSE 76; RESP 18; O2SAT 97
[2023-04-23 13:16] VITALS: BP 163/81; PULSE 76; RESP 18; O2SAT 97
--- NOTE | 2023-04-23 13:17 | EXP.PAIN.PRO ---
Procedure Date: 04/23/23 Time: 13:20 Anesthesiologist:: Celio Sweeney CRNA Complications:: None Pre-procedure Diagnosis:: Degenerative disc lumbar spine multilevels. Lumbar radiculopathy. Lumbar postlaminectomy syndrome Post-procedure Diagnosis:: Same. Indications for Procedure:: Very pleasant 82-year-old male comes our clinic today for intrathecal pain pump interrogation refill. Patient currently being managed with fentanyl 1000 mcg/mL with a rate of 330.7 mcg/day. Also, bupivacaine 5 mg/mL at a rate of 1.6535 mg/day. Patient doing very well at this current settings. He is not requesting any changes. He does not report any side effects or complications. Procedure Details:: Details of the procedure explained to the patient. The patient taken procedure and placed in sitting position. The area of the pump was cleansed using chlorhexidine as a cleansing solution. The pump was interrogated. The pump was accessed with ease using a 22-gauge inch and half needle. 5 mL of solution was withdrawn discarded appropriate. The pump was then filled with 20 cc of solution containing fentanyl 1000 mcg/mL and bupivacaine 5 mg/mL. Patient tolerated procedure without difficulty. There are no complications. Plan and Disposition:: Patient was discharged without incident.
[2023-04-23 13:30] VITALS: BP 138/69; PULSE 68; RESP 18; O2SAT 98
== END 2023-04-23 13:35 | disposition home or self-care (01) ==
PROVIDERS: PCP Family Medicine; Visit Provider Nurse Anesthetist, Certified Registered
DX: M51.16 Intervertebral disc disorders with radiculopathy, lumbar region (principal); M96.1 Postlaminectomy syndrome, not elsewhere classified; Z97.8 Presence of other specified devices; Z45.1 Encounter for adjustment and management of infusion pump
CPT/HCPCS: 95991

== ENCOUNTER 2023-06-03 09:37 | Outpatient (CLI) | payer MEDICARE, OTHER, SELFPAY ==
[2023-06-03 10:16] LABS: Alanine Aminotransferase 17 U/L (12-78); Albumin Level 4.4 g/dl (3.5-5.0); Albumin/Globulin Ratio 1.8 (1.1-1.8); Alkaline Phosphatase 74 U/L (38-126); Anion Gap 8.9 mEq/L (5-15); Aspartate Amino Transferase 22 U/L (17-59); Bilirubin,Total 0.9 mg/dl (0.2-1.3); Blood Urea Nitrogen 29 mg/dl (9-20); Calcium 9.7 mg/dl (8.4-10.2); Carbon Dioxide 29 mmol/L (22.0-30.0); Chloride 108 mmol/L (98-107); Chol/HDL Ratio 6.4 (1-3.5); Cholesterol 249 mg/dl (140-200); Estimated Glomerular Filt Rate 72 ml/min (>60); GFR (African American) 87 ML/MIN (>60); Globulin 2.5 g/dL (1.3-3.2); Glucose 111 mg/dl (74-100); HDL Cholesterol 39 mg/dl (40-60); Potassium 3.9 mmoL/L (3.5-5.1); Sodium 142 mmol/L (136-145); Total Protein,Serum 6.9 g/dl (6.3-8.2); Triglycerides 135 mg/dl (30-150); VLDL Cholesterol 27 mg/dL (0-40)
[2023-06-03 10:47] LABS: Prostate Specific Ag Screen 3.5 ng/ml (0.0-4.0); Thyroid Stimulating Hormone 0.92 uIU/mL (0.465-4.68)
== END 2023-06-03 23:59 | disposition home or self-care (01) ==
LOC: LAB 09:39
PROVIDERS: PCP Family Medicine; Visit Provider Family Medicine
DX: I10 Essential (primary) hypertension (principal); Z12.5 Encounter for screening for malignant neoplasm of prostate; R41.3 Other amnesia; N40.3 Nodular prostate with lower urinary tract symptoms
CPT/HCPCS: 36415; 80053; 80061; 84443; G0103

== ENCOUNTER 2023-06-04 13:32 | Day surgery (SDC) | payer MEDICARE, OTHER, SELFPAY ==
[2023-06-04 13:43] VITALS: BP 136/70; PULSE 68; RESP 18; TEMP 36.4; O2SAT 96; BMI 25.1
[2023-06-04 13:57] VITALS: BP 114/22; PULSE 66; RESP 18; O2SAT 97
[2023-06-04 13:58] VITALS: BP 114/72; PULSE 66; RESP 18; O2SAT 97
--- NOTE | 2023-06-04 14:02 | EXP.PAIN.PRO ---
Procedure Date: 06/04/23 Time: 13:50 Anesthesiologist:: Celio Sweeney CRNA Complications:: None Pre-procedure Diagnosis:: Degenerative disc lumbar spine multilevels. Lumbar radiculopathy. Lumbar postlaminectomy syndrome. Post-procedure Diagnosis:: Same. Indications for Procedure:: Patient is a very pleasant 82-year-old male who comes our clinic today for intrathecal pain pump interrogation and refill. Patient currently being managed with fentanyl 1000 mcg/mL at a rate of 330.7 micrograms per day. Also, bupivacaine 5 mg/mL at a rate of 1.6535 mg/day. Patient doing very well with his current settings. Not requesting any changes. Does not report any side effects or complications Procedure Details:: Details of the procedure explained to the patient. The patient taken the procedure room placed in the sitting position. The area over the pump was cleansed using chlorhexidine as a cleansing solution. The pump was interrogated. The pump was accessed with ease using a 22-gauge inch and a half needle. 5.4 mL of solution was withdrawn and discarded appropriately. The pump was then filled with 20 cc of solution containing fentanyl 1000 mcg/mL and bupivacaine 5 mg/mL. Patient tolerated the procedure without difficulty. There are no complications. No changes in rates. Plan and Disposition:: Patient was discharged without incident.
[2023-06-04 14:06] VITALS: BP 136/66; PULSE 63; RESP 18; O2SAT 96
== END 2023-06-04 14:06 | disposition home or self-care (01) ==
PROVIDERS: Anesthesiology; PCP Family Medicine; Visit Provider Nurse Anesthetist, Certified Registered
DX: M51.16 Intervertebral disc disorders with radiculopathy, lumbar region (principal); M96.1 Postlaminectomy syndrome, not elsewhere classified; Z97.8 Presence of other specified devices; Z45.1 Encounter for adjustment and management of infusion pump
CPT/HCPCS: 36415; 95991

== ENCOUNTER 2023-06-26 14:47 | Outpatient (POV) | payer MEDICARE, OTHER, SELFPAY ==
[2023-06-26 14:57] VITALS: BP 128/87; PULSE 84; RESP 18; O2SAT 97; BMI 25.1
--- NOTE | 2023-06-26 15:28 | P.PCN_ITS ---
Procedure Date: 06/26/23 Time: 15:28 Anesthesiologist:: Cassidy Altman APRN Complications:: None Pre-procedure Diagnosis:: Degenerative disc disease of cervical and lumbar spine with cervical and lumbar radiculopathy symptoms, lumbar postlaminectomy syndrome, cervical facet arthropathy Post-procedure Diagnosis:: Same Indications for Procedure:: Patient is a pleasant 82-year-old male who presents today for intrathecal adjustment and reprogram as well as follow-up for worsening neck pain. Today he rates his pain a 7 out of 10. Patient denies any new trauma or injury. He does state that he still having chronic low and mid back pain however his neck symptoms are becoming more and more of a problem. Patient states that he does make knives as a hobby and the constant looking down really seems to aggravate his overall neck pain. He states that it is a chronic aching, throbbing sens ation that does interfere with his ability perform activities of daily living such as cooking and cleaning. Patient states that it is very aggravated by twisting or looking downward. Patient is currently managed with fentanyl 1000 mcg/mL with a daily dose of 330.7 mcg/day and bupivacaine 5 mg/mL with a daily rate of 1.6535 mg/day. He denies any side effects. He is requesting an increase today. Patient does also state in the past he has been given Flexeril 5 mg that did significantly help his overall pain. He is asking whether or not if we can prescribe this medication. His Abram has been reviewed and is appropriate. Physical Exam: General: Alert and oriented x3, no acute distress, pleasant and cooperative Lungs: Respirations even and unlabored, symmetrical chest expansion Eyes: PERRL Musculoskeletal: Flexion and extension of cervical [spine] somewhat guarded secondary to pain, [antalgic gait noted] positive Kemps test Neurological: Speech clear, no gross sensory deficit Procedure Details:: Informed consent was obtained and the risk and benefits of the procedure were explained to the patient. Patient was taken to the procedure room where noninvasive monitoring was placed including noninvasive blood pressure cuff and pulse oximeter. Patient's pump was interrogated and was reprogrammed to fentanyl 350 mcg/day and bupivacaine 1.75 mg/day. The patient tolerated the procedure well with no complications. Plan and Disposition:: Patient tolerated his intrathecal increase with no complications. Due to the patient's worsening neck pain with limited range of motion of his cervical spine and a positive Spurling's test. I have counseled the patient that he may benefit from a cervical medial branch block. Risk and benefits were discussed with the patient and he would like to proceed forward with this plan of care. Patient is not on any blood thinners. I will send in also Flexeril 5 mg twice daily and provide a 1 month supply of this medication. Patient was discharged neurologically intact following his intrathecal increase. Patient will be scheduled for a cervical medial branch block bilaterally C5-C6 and C6-C7 under fluoroscopy. I have discussed with patient that if he does get significant relief we will plan on doing a repeat block and a RFA at a later date. We will see the patient back in the clinic at the next intrathecal refill. Patient has been instructed to contact the clinic with any concerns before the next appointment. Dr. Kinney has reviewed this note and agrees with this plan of care. This note was dictated using voice recognition software and make contain errors or omissions. -- It Is medically necessary for this patient to continue to have their intrathecal pump refilled at regular intervals. This patient had an intrathecal pain pump implanted after meeting criteria of chronic intractable pain for greater than 3 months and failing conservative treatments. Patient has committed and been compliant to the treatment plan and all planned follow up care. Since implantation of the intrathecal pain pump, the patient has had decreased pain and been more functional. Oral medications have been reduced including intake of oral opioids. Patient continues to do well with intrathecal therapy with decrease in pain symptoms and increase in functional status. Stopping intrathecal medications can lead to life threatening withdrawal, seizures, cardiac arrest, severe pain, and possible . Pumps that are not refilled at regular intervals can be damages and cause and need for replacement. We continually titrate dose and concentration to optimize pain relief and function. We are limited in concentration for certain drugs to safely deliver medications through the pump and stay within the recommendations from the Polyanalgesic Consensus Committee Guidelines. Depending on dose and concentration these pumps may need to be refilled sooner than 3 months as we titrate.
== END 2023-06-26 23:59 | disposition home or self-care (01) ==
PROVIDERS: PCP Family Medicine; Visit Provider Nurse Practitioner Family
DX: M50.10 Cervical disc disorder with radiculopathy, unspecified cervical region (principal); M51.16 Intervertebral disc disorders with radiculopathy, lumbar region; M96.1 Postlaminectomy syndrome, not elsewhere classified; M47.22 Other spondylosis with radiculopathy, cervical region; Z97.8 Presence of other specified devices; Z45.1 Encounter for adjustment and management of infusion pump
CPT/HCPCS: 62368; 99212; G0463

== ENCOUNTER 2023-07-16 13:50 | Day surgery (SDC) | payer MEDICARE, OTHER, SELFPAY ==
[2023-07-16 14:12] VITALS: BP 112/67; PULSE 67; RESP 18; TEMP 36.5; O2SAT 97; BMI 25.1
[2023-07-16 14:13] VITALS: BP 122/78; PULSE 67; RESP 18; O2SAT 96
[2023-07-16 14:15] VITALS: BP 122/78; PULSE 67; RESP 18; O2SAT 96
[2023-07-16 14:24] VITALS: BP 130/68; PULSE 62; RESP 16; O2SAT 97
--- NOTE | 2023-07-16 14:26 | EXP.PAIN.PRO ---
Procedure Date: 07/16/23 Time: 14:00 Anesthesiologist:: Celio Sweeney CRNA Complications:: None Pre-procedure Diagnosis:: Degenerative disc lumbar spine multilevels. Lumbar radiculopathy. Lumbar spondylosis. Multilevel lumbar facet arthropathy. Lumbar post laminectomy syndrome. Post-procedure Diagnosis:: Same. Indications for Procedure:: Patient is a pleasant 82-year-old male comes our clinic today for intrathecal pain pump interrogation and refill. He is currently being managed with intrathecal fentanyl 1000 mcg/mL at 350 mcg/day and bupivacaine 5 mg/mL at 1.75 mg/day. He is doing very well with his current settings. He is not requesting changes. He does not report any side effects or complications. Procedure Details:: Details of the procedure explained to the patient. Patient taken the procedure room placed in the sitting position. The area of the pump was cleansed using chlorhexidine as a cleansing solution. The pump was interrogated. The pump was accessed with ease using a 22-gauge inch and half needle. 5 mL of solution was withdrawn discarded appropriately. The pump was then filled with 20 cc of solution containing fentanyl 1000 mcg/mL and bupivacaine 5 mg/mL. Patient tolerated procedure without difficulty. No complications. Plan and Disposition:: Patient was discharged without incident.
== END 2023-07-16 14:24 | disposition home or self-care (01) ==
PROVIDERS: PCP Family Medicine; Visit Provider Nurse Anesthetist, Certified Registered
DX: M51.16 Intervertebral disc disorders with radiculopathy, lumbar region (principal); M47.26 Other spondylosis with radiculopathy, lumbar region; M96.1 Postlaminectomy syndrome, not elsewhere classified; Z97.8 Presence of other specified devices; Z45.1 Encounter for adjustment and management of infusion pump
CPT/HCPCS: 95991

== ENCOUNTER 2023-08-06 12:41 | Day surgery (SDC) | payer MEDICARE, OTHER, SELFPAY ==
[2023-08-06 13:02] VITALS: BP 154/64; PULSE 67; RESP 18; O2SAT 97
[2023-08-06 13:13] VITALS: BP 133/69; PULSE 64; RESP 18; TEMP 36.8; O2SAT 97; BMI 24.3
[2023-08-06] MEDS: BUPIVACAINE 0.25% 10ML INJ 25 MG IJ (13:21)
[2023-08-06] MEDS: methylPREDNISolone ACETATE 80MG/ML VIAL 80 MG (13:21)
[2023-08-06] MEDS: LIDOCAINE 1% 5ML PF VIAL 5 ML (13:22)
--- NOTE | 2023-08-06 13:25 | P.PCN_ITS ---
Procedure Date: 08/06/23 Time: 13:10 Anesthesiologist:: Celio Sweeney CRNA Complications:: None Pre-procedure Diagnosis:: Disc cervical spine multilevels. Cervical radiculopathy. Cervical postlaminectomy syndrome. Cervical facet arthropathy. Cervical spondylosis. Post-procedure Diagnosis:: Same Indications for Procedure:: Patient is a pleasant 82-year-old male comes our clinic today for C5-6, C6-7 bilateral cervical medial branch blocks/facet injections. Patient reports difficulty with cervical left or right rotation as well as flexion extension. Pain intensifies with these movements. He rates his pain 7/10. Procedure Details:: Informed consent was obtained and the risk and benefits of the procedure was explained to the patient. Patient was taken to the procedure room where noninvasive monitors were placed, including noninvasive blood pressure cuff as well as pulse oximeter. The area over the posterior cervical spine was cleansed using chlorhexidine as a cleansing solution. I anesthetized the skin and subcutaneous tissues with 1% Lidocaine. I placed 25 -gauge spinal needles into the facet joint/ medial branches of C5-6, C6-7 bilaterally. Needle placement was confirmed with fluoroscopy. After confirmation of needle placement, each site was injected with 1 mL of 1% lidocaine and 0.25 % Marcaine and 10 mg of Depo- Medrol. A total of 20 mg of depo medrol was used for bilateral medial branch blocks of C5-6, C6-7 bilaterally. Patient tolerated the procedure without difficulty. There were no complications. Plan and Disposition:: Patient was discharged without incident.
[2023-08-06 13:27] VITALS: BP 141/68; PULSE 59; RESP 18; O2SAT 98
== END 2023-08-06 13:28 | disposition home or self-care (01) ==
PROVIDERS: PCP Family Medicine; Visit Provider Nurse Anesthetist, Certified Registered
DX: M47.812 Spondylosis without myelopathy or radiculopathy, cervical region (principal)
CPT/HCPCS: 64490; 64491; J1010

== ENCOUNTER 2023-08-13 13:42 | Outpatient (POV) | payer MEDICARE, OTHER, SELFPAY | END 2023-08-13 23:59 | disposition home or self-care (01) | LOC: SC 13:43 | PROVIDERS: PCP Family Medicine; Visit Provider Dermatology | DX: Z00.00 Encounter for general adult medical examination without abnormal findings (principal) ==

== ENCOUNTER 2023-08-26 12:49 | Outpatient (CLI) | payer MEDICARE, OTHER, SELFPAY ==
--- NOTE | 2023-08-26 12:54 | CA_ITS ---
FINAL REPORT TECHNIQUE: Ibanez scale, color and spectral doppler images of the bilateral carotid arteries were obtained. CLINICAL HISTORY: DIZZINESS,HTN,MURMUR COMPARISON: None FINDINGS: Peak systolic velocity in the right internal carotid artery is 88 cm/sec. The internal carotid to common carotid artery ratio is 1.17. There is no significant carotid artery stenosis and mild plaque at the right carotid bulb. The right vertebral artery is normal in direction. Peak systolic velocity in the left internal carotid artery is 103 cm/sec. The internal carotid to common carotid artery ratio is 1.09. There is no significant carotid artery stenosis and no significant plaque formation. The left vertebral artery is normal in direction. IMPRESSION: Less than 50% bilateral carotid artery stenosis. Normal peak systolic velocities and normal internal to common carotid artery ratios bilaterally. Reviewed, Interpreted and Dictated by Katy Bustillo MD Transcribed by Julia Bruno Authenticated and [facility]
--- NOTE | 2023-08-26 12:54 | CA_ITS ---
APPROVED REPORT EXAM: Comprehensive 2D, Doppler, and color-flow Echocardiogram Operating Room Surgical Technician: Deandra aWrd RVT Ht: 5 ft 9 in Wt: 181lbs BSA: 1.98 BP: 132/75 mmHg Indications: MURMUR,HTN 2D Dimensions IVSd 1.30 cm M: 0.6-1.2 LVEF (Visual) 87.40 % PWd 0.97 cm M: 0.6 - 1.2 LA Volume 36.30 mL LVDd 4.33 cm M: 4.2 - 5.9 LA Volume Index 18.33 mL/m2 (M/F) 16-34 LVDs 1.86 cm M: 2.5 - 4.0 M-Mode Dimensions LA Diam 4.20 cm (1.9-4.0) TAPSE 2.50 (<1.7) LV Diastology E Decel Time 277 (160-240 msec) E/A Ratio 0.8 Aortic Valve KELLIE Index 0.92 cm2/m2 AoV Peak Piotr. 277.0 (50-130 cm/s) AI PHT 676.00 ms AO Peak GR. 30.80 mmHg AO Mean GR. 17.80 (<5 mmHg) AO VTI 51.1 (18-25 cm) KELLIE (VTI) 1.87 (2.5-4.5 cm2) Mitral Valve MV E Max Piotr. 65.0 (40-130 cm/s) MV A Velocity 80.0 (40-130 cm/s) E/A Ratio 0.82 MV PHT 81.0 ms Pulmonary Valve PV Peak Velocity 94.0 (50-150 cm/s) Tricuspid Valve TR P. Velocity 266.00 cm/s RAP Estimate 10.00 mmHg RVSP 38.20 mmHg Left Ventricle The left ventricle is normal size. The left ventricular systolic function is normal. The left ventricular ejection fraction is within the normal range. There is increase in LV wall thickness. There is normal LV segmental wall motion. Transmitral Doppler flow pattern suggests impaired LV relaxation. LVEF is 60%. Right Ventricle Right ventricle is mildly dilated. The right ventricular systolic function is normal. Atria The left atrium size is normal. The right atrium size is normal. There is no Doppler evidence of interatrial shunt. Aortic Valve The aortic valve is mildly thickened. Mild aortic stenosis. Peak velocity 2.7 m/s. Mean AV gradient 17 mmHg. Max AV gradient 28 mmHg. KELLIE by continuity equation is 2.0 cm2. Mild aortic regurgitation. Mitral Valve The mitral valve is normal in structure. No evidence of mitral valve stenosis. Trace mitral regurgitation. Tricuspid Valve The tricuspid valve leaflets are thin and pliable. Moderate tricuspid regurgitation. RVSP is 25 mmHg + RA pressure. Pulmonic Valve The pulmonary valve is normal in structure. Trace pulmonic regurgitation. Great Vessels The aortic root is normal in size. The ascending aorta is normal in size. The IVC is not well-visualized. Pericardium There is no pericardial effusion. Conclusion Normal biventricular systolic function. Mild RV dilation. Mild (peak velocity 2.7 m/s. Mean AV gradient 17 mmHg. Max AV gradient 28 mmHg. KELLIE by continuity equation is 2.0 cm2) Mild AI. Moderate TR. Electronically signed by : Vonnie De Leon MD 08/30/2023 23:41:52
== END 2023-08-26 23:59 | disposition home or self-care (01) ==
LOC: RT 12:50
PROVIDERS: PCP Family Medicine; Visit Provider Nurse Practitioner Family
DX: R01.1 Cardiac murmur, unspecified (principal); R42 Dizziness and giddiness
CPT/HCPCS: 93306; 93880

== ENCOUNTER 2023-08-27 12:58 | Day surgery (SDC) | payer MEDICARE, OTHER, SELFPAY ==
[2023-08-27 13:11] VITALS: BP 122/66; PULSE 70; RESP 16; O2SAT 97; BMI 24.3
--- NOTE | 2023-08-27 13:37 | EXP.PAIN.PRO ---
Procedure Date: 08/27/23 Time: 13:30 Anesthesiologist:: Celio Sweeney CRNA Complications:: None Pre-procedure Diagnosis:: Degenerative disc lumbar spine multilevels. Lumbar radiculopathy. Lumbar postlaminectomy syndrome. Degenerative disc cervical spine. Cervical radiculopathy. Cervical postlaminectomy syndrome. Cervical arthropathy. Cervical spondylosis. Post-procedure Diagnosis:: Same. Indications for Procedure:: Patient is a very pleasant 82-year-old male comes our clinic today for intrathecal pain pump interrogation refill. Patient is currently being managed with fentanyl 1000 mcg/mL at 350.0 mcg/day. Also, bupivacaine 5 mg/mL at a rate of 1.7500 mg/day. He is doing very well with his current settings. He is not requesting any changes. He does not report any side effects or complications. Procedure Details:: Details of the procedure explained to the patient. The patient taken the procedure room placed in the sitting position. The area over the pump was cleansed using chlorhexidine's cleansing solution. The pump was interrogated. The pump was accessed with ease using a 22-gauge inch and half needle. 5 mL of solution was withdrawn discarded appropriate. The pump was then filled with 20 cc solution containing fentanyl 1000 mcg/mL and bupivacaine 5 mg/mL. Rate will remain the same. Patient tolerated procedure without difficulty. There are no complications. Plan and Disposition:: Patient was discharged without incident.
[2023-08-27 13:38] VITALS: BP 124/67; PULSE 65; RESP 18; O2SAT 97
== END 2023-08-27 13:40 | disposition home or self-care (01) ==
PROVIDERS: PCP Family Medicine; Visit Provider Nurse Anesthetist, Certified Registered
DX: G89.29 Other chronic pain (principal); M54.16 Radiculopathy, lumbar region
CPT/HCPCS: 95991

== ENCOUNTER 2023-08-28 14:48 | Outpatient (CLI) | payer MEDICARE, OTHER, SELFPAY ==
--- NOTE | 2023-08-28 15:04 | ECG_ITS ---
APPROVED REPORT Exam: Resting ECG HR:62 bpm ECG Measurements Heart Rate [address] 188 P 28 QRSd 120 QRS -47 QT 381 T 31 QTc 386 Conclusion SINUS RHYTHM LEFT AXIS DEVIATION [QRS AXIS < -30] MODERATE INTRAVENTRICULAR CONDUCTION DELAY [110+ ms QRS DURATION] ABNORMAL ECG UNCONFIRMED REPORT Electronically signed by : Leon Sebastian MD 08/31/2023 10:55:20
== END 2023-08-28 23:59 | disposition home or self-care (01) ==
LOC: RT 14:51
PROVIDERS: PCP Family Medicine; Visit Provider Nurse Practitioner Family
DX: R42 Dizziness and giddiness (principal)
CPT/HCPCS: 93005; 93270

== ENCOUNTER 2023-09-19 15:01 | Outpatient (CLI) | payer MEDICARE, OTHER, SELFPAY ==
--- NOTE | 2023-09-19 15:05 | CT_ITS ---
FINAL REPORT CLINICAL HISTORY: ENCEPHALOPATHY COMPARISON: None FINDINGS: Axial images of the head were obtained without contrast. Coronal reformatted images were also obtained. This study was performed with techniques to keep radiation doses as low as reasonably achievable (ALARA). Individualized dose reduction techniques using automated exposure control or adjustment of mA and/or kV according to the patient''s size were employed. There is generalized age-appropriate atrophy. Periventricular low-attenuation areas are seen consistent with mild chronic ischemic changes. There is no evidence of intracranial hemorrhage or mass. There is no evidence of acute infarct. There is no evidence of shift of the midline structures. No skull abnormality is seen on the bone window images. IMPRESSION: Atrophy and mild periventricular chronic ischemic changes. No acute intracranial abnormality identified. Reviewed, Interpreted and Dictated by Julio Morales III, MD Transcribed by Julia Bruno Authenticated and [facility]
[2023-09-19 17:58] LABS: Folate > 20.00 ng/mL; Vitamin B12 > 1000 pg/mL (239-931)
[2023-09-27 14:16] LABS: Vitamin B1 217.3 nmol/L (66.5-200.0)
== END 2023-09-19 23:59 | disposition home or self-care (01) ==
PROVIDERS: PCP Family Medicine; Visit Provider Specialist
DX: G93.40 Encephalopathy, unspecified (principal); Z68.25 Body mass index [BMI] 25.0-25.9, adult
CPT/HCPCS: 36415; 70450; 82607; 82746; 84425

== ENCOUNTER 2023-10-01 13:16 | Day surgery (SDC) | payer MEDICARE, OTHER, SELFPAY ==
[2023-10-01 13:43] VITALS: BP 133/71; PULSE 62; RESP 16; O2SAT 98; BMI 25.2
[2023-10-01 14:00] VITALS: BP 138/69; PULSE 60; RESP 16; O2SAT 98
--- NOTE | 2023-10-01 14:39 | EXP.PAIN.PRO ---
Procedure Date: 10/01/23 Time: 14:15 Anesthesiologist:: Celio Sweeney CRNA Complications:: None Pre-procedure Diagnosis:: Degenerative disc lumbar spine multilevels. Lumbar radiculopathy. Lumbar postlaminectomy syndrome. Degenerative disc cervical spine. Cervical radiculopathy. Cervical postlaminectomy syndrome. Cervical arthropathy. Cervical spondylosis. Post-procedure Diagnosis:: Same. Indications for Procedure:: Patient is a very pleasant 83-year-old male comes our clinic today for intrathecal pain pump interrogation and refill. Patient currently being managed with fentanyl 1000 mcg/mL at 3 and 50 mcg/day. And, bupivacaine 5 mg/mL at 1.75 mg/day. He is doing very well with his current settings. He is not requesting any changes. He is not reporting side effects or complications. Procedure Details:: Details of the procedure explained to the patient. The patient taken procedure room placed in sitting position. The area over the pump was cleaned using chlorhexidine as a cleansing solution. The pump was interrogated. The pump was accessed with ease using a 22-gauge inch and half needle. 7 mL of solution was withdrawn discarded appropriate. The pump was then filled with 20 cc of solution containing fentanyl 1000 mcg/mL and bupivacaine 5 mg/mL. Patient tolerated procedure without difficulty. No complications. Plan and Disposition:: Patient was discharged without incident.
== END 2023-10-01 14:00 | disposition home or self-care (01) ==
LOC: SC.PAINP 13:16
PROVIDERS: PCP Family Medicine; Visit Provider Nurse Anesthetist, Certified Registered
DX: M96.1 Postlaminectomy syndrome, not elsewhere classified; M51.36 Other intervertebral disc degeneration, lumbar region; M50.30 Other cervical disc degeneration, unspecified cervical region; M47.812 Spondylosis without myelopathy or radiculopathy, cervical region
CPT/HCPCS: 95991

== ENCOUNTER 2023-10-21 08:44 | Outpatient (POV) | payer MEDICARE, OTHER, SELFPAY ==
--- NOTE | 2023-10-21 09:31 | P.PCN_ITS ---
Procedure Date: 10/21/23 Time: 09:34 Anesthesiologist:: Cassidy Altman APRN Complications:: None Pre-procedure Diagnosis:: Degenerative disc disease of cervical and lumbar spine with cervical and lumbar facet arthropathy, radiculopathy, cervical spondylosis, right knee pain Post-procedure Diagnosis:: Same Indications for Procedure:: Patient is a pleasant 83-year-old male who presents today for worsening pain. He rates his pain today a 7 out of 10. He denies any new trauma or injury. He does state that he is having more pain all around his neck and denies any radiating symptoms into his upper extremities as well as right knee pain and occasional right hip pain. Patient does state that the knee pain has been going on for years and that partially is related to 2 prior knee replacements as well as an additional procedure to go in and clean out scar tissue. He describes this pain as a constant aching that does occasionally flareup. Patient states that he has had a couple episodes playing with his grandkids where his knee got hit and caused significant flareup. He does state that he has 1 long screw that goes up into his upper thigh and that they had told him before that he would need to have routine x-rays. Patient does feel like it has probably been closer to 2 years since last having this done. Patient does also state his pain in his neck is a constant aching, throbbing sensation that does interfere with his ability perform activities of daily living such as cooking and cleaning. Patient does state that the last cervical injections he had back in July did provide 80% relief lasting at least 3 weeks. He does state that he had improved function and was able to move around easier. He would like to repeat this injection. Patient is currently prescribed Flexeril 5 mg however he states that he does not use this on a regular basis and does not need refills. He is also managed with fentanyl 1000 mcg/mL with a daily dose of 350 mcg/day and bupivacaine 5 mg/mL with a daily dose of 1.75 mg/day he denies any side effects from this medication. His Abram has been reviewed and is appropriate. Physical Exam: General: Alert and oriented x3, no acute distress, pleasant and cooperative Lungs: Respirations even and unlabored, symmetrical chest expansion Eyes: PERRL Musculoskeletal: Flexion and extension of cervical [spine] somewhat guarded secondary to pain, [antalgic gait noted] positive Kemps test Neurological: Speech clear, no gross sensory deficit Procedure Details:: Informed consent was obtained and the risk and benefits of the procedure were explained to the patient. Patient was taken to the procedure room where noninvasive monitoring was placed including noninvasive blood pressure cuff and pulse oximeter. Patient's pump was interrogated and was reprogrammed to fentanyl 385 mcg/day and bupivacaine 1.925 mcg/day. The patient tolerated the procedure well with no complications. Plan and Disposition:: Patient tolerated his intrathecal increase with no complications and was discharged neurologically intact. I will order the patient x-ray of his right knee to confirm any hardware movement. Patient was also counseled that he may benefit from his second cervical medial branch block. Risk and benefits were discussed with the patient and he would like to proceed forward with this plan of care. Patient did previously have 80% relief lasting at least 3 weeks with his last cervical medial branch block on August 05. Patient was counseled that if he gets significant relief with this injection we will plan on doing the RFA at a later date. I will also send in a prescription of prednisone 20 mg twice daily with a 5-day dose. I did also discussed with patient in future he may benefit from infrapatellar nerve block. We will follow-up with this at a later date. Patient will be scheduled for a cervical medial branch block bilaterally C5-C6 and C6 or C7 under fluoroscopy. We will see the patient back in the clinic at the next intrathecal refill. Patient has been instructed to contact the clinic with any concerns before the next appointment. Dr. Kinney has reviewed this note and agrees with this plan of care. This note was dictated using voice recognition software and make contain errors or omissions. -- It Is medically necessary for this patient to continue to have their intrathecal pump refilled at regular intervals. This patient had an intrathecal pain pump implanted after meeting criteria of chronic intractable pain for greater than 3 months and failing conservative treatments. Patient has committed and been compl iant to the treatment plan and all planned follow up care. Since implantation of the intrathecal pain pump, the patient has had decreased pain and been more functional. Oral medications have been reduced including intake of oral opioids. Patient continues to do well with intrathecal therapy with decrease in pain symptoms and increase in functional status. Stopping intrathecal medications can lead to life threatening withdrawal, seizures, cardiac arrest, severe pain, and possible . Pumps that are not refilled at regular intervals can be damages and cause and need for replacement. We continually titrate dose and concentration to optimize pain relief and function. We are limited in concentration for certain drugs to safely deliver medications through the pump and stay within the recommendations from the Polyanalgesic Consensus Committee Guidelines. Depending on dose and concentration these pumps may need to be refilled sooner than 3 months as we titrate.
[2023-10-21 09:43] VITALS: BP 147/86; PULSE 64; RESP 18; O2SAT 97; BMI 25.1
== END 2023-10-21 23:59 | disposition home or self-care (01) ==
PROVIDERS: PCP Family Medicine; Visit Provider Nurse Practitioner Family
DX: M47.812 Spondylosis without myelopathy or radiculopathy, cervical region (principal); M47.816 Spondylosis without myelopathy or radiculopathy, lumbar region; M50.30 Other cervical disc degeneration, unspecified cervical region; M51.36 Other intervertebral disc degeneration, lumbar region; M25.561 Pain in right knee; Z96.82 Presence of neurostimulator; Z97.8 Presence of other specified devices; Z73.89 Other problems related to life management difficulty
CPT/HCPCS: 62368; 99213; G0463

== ENCOUNTER 2023-10-29 08:39 | Outpatient (CLI) | payer MEDICARE, OTHER, SELFPAY ==
--- NOTE | 2023-10-29 08:47 | XR_ITS ---
FINAL REPORT CLINICAL HISTORY: PAIN. COMPARISON: None FINDINGS: RIGHT KNEE 3 views of the right knee were obtained. A long segment total knee prosthesis is present. There is no evidence of loosening. There is no acute fracture or dislocation. Visualized joint spaces are normally aligned. Small posterior patellar osteophytes are present. Soft tissues are unremarkable. IMPRESSION: Long segment total knee prosthesis is present, with no acute bony abnormality. Reviewed, Interpreted and Dictated by Yony Chatman MD Transcribed by Belinda Perez Authenticated and [facility]
== END 2023-10-29 23:59 | disposition home or self-care (01) ==
LOC: RAD 08:42
PROVIDERS: PCP Family Medicine; Visit Provider Nurse Practitioner Family
DX: M25.561 Pain in right knee (principal)
CPT/HCPCS: 73562

== ENCOUNTER 2023-11-04 15:16 | Outpatient (POV) | payer MEDICARE, OTHER, SELFPAY ==
[2023-11-04 15:46] VITALS: BP 121/74; PULSE 75; RESP 18; O2SAT 97; BMI 25.1
--- NOTE | 2023-11-04 16:34 | A.OFFVIS_ITS ---
[facility] Disclaimer: The information contained in this section may have been updated after the patient was seen, as this information can be updated by other users. 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 History of spinal fusion Family History Other Alzheimer disease Social History Smoking Status: Never smoker second hand exposure: No alcohol intake: never counseling provided: none substance use type: denies use current occupational status: retired Travel in the last 8 weeks: None household members: spouse housing: house current occupational exposures/hazards: No caffeine: Yes PM Subjective & Objective Subjective Subjective:: Patient is a pleasant 83-year-old male who presents today for insurance denial of his second cervical medial branch block bilaterally C5-C6 and C6-C7. Today he rates his pain a 5 out of 10. Patient denies any new trauma or injury. He does also present today for follow-up of his right knee x-ray. Patient states that he continues to have the chronic pain throughout his neck that is worse with certain movements such as bending, twisting. He does state the pain is a constant aching, throbbing sensation that interferes with his ability perform activities of daily living. Patient did just recently get injection therapy in July with his cervical medial branch block that did provide 80% relief and lasted 3 weeks. Patient does state he still would like to proceed forward with this plan of care due to the fact that it did provide significant improvement in his overall neck symptoms and function. Patient has had imaging from 2021 that did show cervical spondylosis multilevel. Patient does state that he is frustrated because this is something that we have treated on again off again over the years and that it is not just gone away. Patient is also managed with Flexeril 5 mg as needed and does have a intrathecal pump of fentanyl 1000 mcg/mL with a daily dose of 385 mcg/day and bupivacaine 5 mg/mL with a daily dose of 1.925 mg/day. He denies any side effects from this medication. He is scheduled for his pump refill tomorrow. Patient does state that he has been using a brace on his knee and also using Ibanez salve and that this is seeming to provide improvement of this joint pain. Patient has had a knee replacement in the past with hardware placed. His Abram has been reviewed and is appropriate. Review of Systems: General: No recent weight changes, no fever, no sleep disturbances Respiratory: No cough, no shortness of air, no recurring pulmonary infections Cardiovascular/peripheral vascular: No chest pain, no palpitations, no edema, no shortness of breath Gastrointestinal: No new onset incontinence, normal bowel movements reported Genitourinary: No new onset incontinence Musculoskeletal: Neck pain Psychiatric: [Normal mood/affect] Neurological: [Denies weakness in extremities], [denies balance issues] Pain at rest (0-10 scale): 5 Objective Objective:: Physical Exam: General: Alert and oriented x3, no acute distress, pleasant and cooperative Lungs: Respirations even and unlabored, symmetrical chest expansion Eyes: PERRL Musculoskeletal: Flexion and extension of cervical [spine] somewhat guarded secondary to pain, [antalgic gait noted] positive Kemps test Neurological: Speech clear, no gross sensory deficit FINDINGS: Multiplanar MR imaging of the cervical spine was performed without contrast. On the sagittal T2-weighted images, disc degeneration is seen throughout. There is no evidence of fracture. The vertebral alignment is normal. The cervical spinal cord has an unremarkable appearance without evidence of mass, edema or syrinx. No significant canal stenosis is identified. The cervicomedullary junction is normal. C2-3: There is no significant canal stenosis or neural foraminal narrowing. C3-4: There are uncovertebral osteophytes. There is mild right and moderate left neural foraminal narrowing. C4-5: There is an annular bulge with mild right neural foraminal narrowing. C5-6: There is an annular bulge with mild right neural foraminal narrowing. C6-7: There is a disc osteophyte complex with mild bilateral neural foraminal narrowing. C7-T1: An annular bulge is present. There is no significant canal stenosis or neural foraminal narrowing. IMPRESSION: Multilevel degenerative disc disease with areas of neural foraminal narrowing as described. Reviewed, Interpreted and Dictated by Julio Morales III, MD Transcribed by Edu Romero Authenticated by Julio Morales III, MD on 06/20/2021 12:02:20 PM [facility] Has patient had previous pain injection?: No Conservative treatment options previously tried: Home exercise plan Length of treatment: Longer than 12 weeks and Prescription medications Length of treatment: Longer than 12 weeks Meds Home Medications and Allergies Home Medications ?Medication ?Instructions ?Recorded ?Confirmed ?Type polyethylene glycol 3350 17 119 g PO DAILY CONSTIPATION 05/17/17 11/04/23 History gram/dose oral powder ferrous sulfate 325 mg (65 mg 0.5 tab PO DAILY anemia 09/19/18 11/04/23 History iron) tablet losartan 100 mg tablet 50 mg PO DAILY High blood pressure 02/23/19 11/04/23 History bupivacaine (PF) 0.5 % (5 mg/mL) 3.69 mg intrathecal CONT chronic 02/08/21 11/04/23 History injection solution pain lidocaine 5 % topical patch 1 patch topical DAILY . #30 ea 07/18/22 11/04/23 Rx fentanyl citrate (PF) 50 mcg/mL 5 mcg epidural CONT Pain 09/12/22 11/04/23 History intravenous solution cyclobenzaprine 5 mg tablet 5 mg PO BID #60 tabs 06/26/23 11/04/23 Rx amlodipine 5 mg tablet 5 mg PO DAILY 09/04/23 11/04/23 History naproxen 500 mg tablet 500 mg PO DAILY 09/04/23 11/04/23 History omeprazole 20 mg capsule,delayed 20 mg PO DAILY PRN GERD 09/04/23 11/04/23 History release rosuvastatin 5 mg tablet 5 mg PO DAILY 09/04/23 11/04/23 History meclizine 12.5 mg tablet 12.5 mg PO DAILY PRN Dizziness 10/08/23 11/04/23 History memantine 5 mg tablet 5 mg PO BID Memory loss #60 tabs 10/08/23 11/04/23 Rx prednisone 20 mg tablet 20 mg PO BID #10 tabs 10/21/23 11/04/23 Rx New Prescriptions to Start Prescriptions: Allergies Allergy/AdvReac Type Severity Reaction Status Date / Time amoxicillin Allergy Unknown Verified 10/08/23 08:17 lisinopril Allergy Unknown Verified 10/08/23 08:17 Assessment and Plan *Assessment and plan (1) Cervical spondylosis: Status: Acute Category: Medical Code(s): M47.812 - Spondylosis without myelopathy or radiculopathy, cervical region Plan Patient is experiencing chronic pain throughout his neck with limited range of motion and cervical spondylosis on prior imaging multilevel. I did again review over the risk and benefits of repeat cervical medial branch block and he would like to proceed forward with this plan of care. Patient did have limited range of motion and a positive Kemps test. Patient did just recently have his first cervical medial branch block that did provide 80% relief in July lasting 3 weeks and did provide significant improvement in function. Patient was counseled the risk and benefits of a repeat cervical medial branch block and he would like to proceed forward with this plan of care. Patient has tried and failed conservative therapy including oral medication, heat and ice, topicals, intrathecal medication and continued at home stretching exercise for longer than 12 weeks. We will resubmit for cervical medial branch block #2 bilaterally C5- C6 and C6-C7 under fluoroscopy. We will contact the patient once we have insurance approval for these injections. Patient agrees with this plan of care. I did also review over the patient's right knee x-ray imaging with no acute findings other than bone spurs along the patellar surface. We will follow-up with this at future visits. Patient has been instructed to contact the clinic with any concerns before the next appointment. Dr. Kinney has reviewed this note and agrees with this plan of care. This note was dictated using voice recognition software and make contain errors or omissions. All injections are used with Lidocaine or Bupivacaine and Depo Medrol.
== END 2023-11-04 23:59 | disposition home or self-care (01) ==
LOC: SC.PAIN 15:18
PROVIDERS: PCP Family Medicine; Visit Provider Nurse Practitioner Family
DX: M47.812 Spondylosis without myelopathy or radiculopathy, cervical region (principal); Z96.82 Presence of neurostimulator; Z96.653 Presence of artificial knee joint, bilateral; Z73.89 Other problems related to life management difficulty; Z97.8 Presence of other specified devices
CPT/HCPCS: 99212; G0463

== ENCOUNTER 2023-11-05 11:22 | Day surgery (SDC) | payer MEDICARE, OTHER, SELFPAY ==
[2023-11-05 11:58] VITALS: BP 120/56; PULSE 87; RESP 16; TEMP 36.6; O2SAT 98; BMI 25.1
[2023-11-05 12:00] VITALS: BP 116/70; PULSE 79; RESP 18; O2SAT 97
[2023-11-05 12:01] VITALS: BP 116/70; PULSE 77; RESP 18; O2SAT 97
[2023-11-05 12:10] VITALS: BP 133/74; PULSE 80; RESP 18; O2SAT 97
--- NOTE | 2023-11-05 13:17 | P.PCN_ITS ---
Procedure Date: 11/05/23 Time: 13:00 Anesthesiologist:: Celio Sweeney CRNA Complications:: None Pre-procedure Diagnosis:: Degenerative disc lumbar spine multilevels. Lumbar radiculopathy. Lumbar postlaminectomy syndrome. Degenerative disc cervical spine multiple levels. Cervical radiculopathy. Cervical postlaminectomy syndrome. Cervical spondylosis. Post-procedure Diagnosis:: Same. Indications for Procedure:: Patient is a pleasant 83-year-old male who comes our clinic today for in trathecal pain pump interrogation and refill. Patient currently being managed with fentanyl 1000 mcg/mL at 385 mcg/day. Also, bupivacaine 5 mg/mL at 1.9250 mg/day. Patient doing very well with his current settings. He is not reporting side effects or complications. He is not requesting any changes. He rates his pain 2/10. Procedure Details:: Details of the procedure explained to the patient. The patient taken procedure room placed in the sitting position. The area of the pump was cleansed using chlorhexidine as a cleansing solution. The pump was interrogated. The pump was accessed with ease using a 22-gauge inch and half needle. 6 mL of solution was withdrawn discarded appropriately. The pump was then filled with 20 cc of solution containing fentanyl 1000 mcg/mL and bupivacaine 5 mg/mg. There will be no change in intrathecal pain pump rate. Patient tolerated procedure without difficulty. There are no complications. Plan and Disposition:: Patient was discharged without incident.
== END 2023-11-05 12:10 | disposition home or self-care (01) ==
LOC: SC.PAINP 11:23
PROVIDERS: PCP Family Medicine; Visit Provider Nurse Anesthetist, Certified Registered
DX: M51.16 Intervertebral disc disorders with radiculopathy, lumbar region (principal); M50.10 Cervical disc disorder with radiculopathy, unspecified cervical region; M96.1 Postlaminectomy syndrome, not elsewhere classified; M47.22 Other spondylosis with radiculopathy, cervical region
CPT/HCPCS: 95991

== ENCOUNTER 2023-11-25 13:24 | Outpatient (POV) | payer MEDICARE, OTHER, SELFPAY ==
[2023-11-25 13:51] VITALS: BP 140/73; PULSE 64; RESP 16; O2SAT 98; BMI 25.8
--- NOTE | 2023-11-25 17:04 | EXP.PAIN.SOA ---
[facility] Disclaimer: The information contained in this section may have been updated after the patient was seen, as this information can be updated by other users. 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 History of spinal fusion Family History Other Alzheimer disease Social History Smoking Status: Never smoker second hand exposure: No alcohol intake: never counseling provided: none substance use type: denies use current occupational status: retired Travel in the last 8 weeks: None household members: spouse housing: house current occupational exposures/hazards: No caffeine: Yes PM Subjective & Objective Subjective Subjective:: Patient is a pleasant 83-year-old male who presents today for his second insurance denial of his second cervical medial branch block bilaterally C5-C6 and C6-C7. Today he rates his pain a 5 out of 10. Patient denies any new changes from her last visit. He continues to have the chronic pain throughout his neck that is worse with certain movements such as bending, twisting. He does state the pain is a constant aching, throbbing sensation that interferes with his ability perform activities of daily living. Patient did just recently get injection therapy in July with his cervical medial branch block that did provide 80% relief and lasted 3 weeks. Patient still would like to proceed forward with this plan of care due to the fact that it did provide significant improvement in his overall neck symptoms and function. Patient has had imaging from 2021 that did show cervical spondylosis multilevel. Patient is also managed with Flexeril 5 mg as needed and does have a intrathecal pump of fentanyl 1000 mcg/mL with a daily dose of 385 mcg/day and bupivacaine 5 mg/mL with a daily dose of 1.925 mg/day. He denies any side effects from this medication. His Abram has been reviewed and is appropriate. 08/06/2023 patient rated his pain a 7 out of 10 prior to his first cervical medial branch block 08/27/2023 patient had no complaints of pain whatsoever at this visit Review of Systems: General: No recent weight changes, no fever, no sleep disturbances Respiratory: No cough, no shortness of air, no recurring pulmonary infections Cardiovascular/peripheral vascular: No chest pain, no palpitations, no edema, no shortness of breath Gastrointestinal: No new onset incontinence, normal bowel movements reported Genitourinary: No new onset incontinence Musculoskeletal: Neck pain Psychiatric: [Normal mood/affect] Neurological: [Denies weakness in extremities], [denies balance issues] Pain at rest (0-10 scale): 5 Objective Objective:: Physical Exam: General: Alert and oriented x3, no acute distress, pleasant and cooperative Lungs: Respirations even and unlabored, symmetrical chest expansion Eyes: PERRL Musculoskeletal: Flexion and extension of cervical [spine] somewhat guarded secondary to pain, [antalgic gait noted] positive Kemps test Neurological: Speech clear, no gross sensory deficit Has patient had previous pain injection?: No Conservative treatment options previously tried: Home exercise plan Length of treatment: Longer than 12 weeks Meds Home Medications and Allergies Home Medications ?Medication ?Instructions ?Recorded ?Confirmed ?Type polyethylene glycol 3350 17 119 g PO DAILY CONSTIPATION 05/17/17 11/25/23 History gram/dose oral powder ferrous sulfate 325 mg (65 mg 0.5 tab PO DAILY anemia 09/19/18 11/25/23 History iron) tablet losartan 100 mg tablet 50 mg PO DAILY High blood pressure 02/23/19 11/25/23 History bupivacaine (PF) 0.5 % (5 mg/mL) 3.69 mg intrathecal CONT chronic 02/08/21 11/25/23 History injection solution pain lidocaine 5 % topical patch 1 patch topical DAILY . #30 ea 07/18/22 11/25/23 Rx fentanyl citrate (PF) 50 mcg/mL 5 mcg epidural CONT Pain 09/12/22 11/25/23 History intravenous solution amlodipine 5 mg tablet 5 mg PO DAILY 09/04/23 11/25/23 History naproxen 500 mg tablet 500 mg PO DAILY 09/04/23 11/25/23 History omeprazole 20 mg capsule,delayed 20 mg PO DAILY PRN GERD 09/04/23 11/25/23 History release rosuvastatin 5 mg tablet 5 mg PO DAILY 09/04/23 11/25/23 History meclizine 12.5 mg tablet 12.5 mg PO DAILY PRN Dizziness 10/08/23 11/25/23 History memantine 5 mg tablet 5 mg PO BID Memory loss #60 tabs 10/08/23 11/25/23 Rx cyclobenzaprine 5 mg tablet 5 mg PO BID #60 tabs 11/11/23 11/25/23 Rx New Prescriptions to Start Prescriptions: Allergies Allergy/AdvReac Type Severity Reaction Status Date / Time amoxicillin Allergy Unknown Verified 10/08/23 08:17 lisinopril Allergy Unknown Verified 10/08/23 08:17 Assessment and Plan *Assessment and plan (1) Cervical spondylosis: Status: Acute Category: Medical Code(s): M47.812 - Spondylosis without myelopathy or radiculopathy, cervical region Plan Patient has continued to have chronic pain throughout his neck with limited range of motion and a positive Kemps test. Patient did have a successful first cervical medial branch block that was done on August 05 providing 80% relief for more. Patient's prior notes did write his initial pain as a 7 out of 10 for the date of this procedure and he is following visit on August 26 had 0 out of 10 pain. Patient had more than sufficient pain relief providing 80% or better and would still like to proceed forward with his second cervical medial branch block. I did review over all the risk and benefits and he would like to proceed forward with this plan of care. Patient has tried and failed conservative therapy including continued at home stretching and exercise for longer than 12 weeks. Patient had significant improved function lasting 3 weeks with his first initial cervical block. He will be scheduled for repeat cervical medial branch block bilaterally C5-C6 and C6-C7 under fluoroscopy. If he does get significant relief we will plan on proceeding forward with the cervical RFA at a later date. Patient has been instructed to contact the clinic with any concerns before the next appointment. Dr. Kinney has reviewed this note and agrees with this plan of care. This note was dictated using voice recognition software and make contain errors or omissions. All injections are used with Lidocaine or Bupivacaine and Depo Medrol.
== END 2023-11-25 23:59 | disposition home or self-care (01) ==
LOC: SC.PAIN 13:26
PROVIDERS: PCP Family Medicine; Visit Provider Nurse Practitioner Family
DX: M47.812 Spondylosis without myelopathy or radiculopathy, cervical region (principal); Z96.653 Presence of artificial knee joint, bilateral; Z73.89 Other problems related to life management difficulty
CPT/HCPCS: 99212; G0463

== ENCOUNTER 2023-12-03 13:28 | Day surgery (SDC) | payer MEDICARE, OTHER, SELFPAY ==
[2023-12-03 13:53] VITALS: BP 130/63; PULSE 69; RESP 16; O2SAT 97; BMI 25.4
[2023-12-03 13:58] VITALS: BP 162/79; PULSE 68; RESP 18; O2SAT 97
[2023-12-03 13:59] VITALS: BP 162/79; PULSE 68; RESP 18; O2SAT 97
--- NOTE | 2023-12-03 14:16 | EXP.PAIN.PRO ---
Procedure Date: 12/03/23 Time: 14:10 Anesthesiologist:: Celio Sweeney CRNA Complications:: None Pre-procedure Diagnosis:: Degenerative disc lumbar spine multilevels. Lumbar radiculopathy. Lumbar postlaminectomy syndrome. Degenerative disc cervical spine multilevels. Cervical radiculopathy. Cervical spinal stenosis. Multilevel cervical facet arthropathy. Post-procedure Diagnosis:: Same. Indications for Procedure:: Patient is a very pleasant 83-year-old male who comes our clinic today for intrathecal pain pump interrogation refill. Patient is currently being managed with fentanyl 1000 mcg/mL at 385 mcg/day. Also, bupivacaine 5 mg/mL at 1.9250 mg/day. Patient is doing very well with his current settings. He is not reporting any side effects or complications. He is not requesting any changes. He rates his pain 3/10. Patient is awake alert [place] x 3. In no acute distress. Flexion-extension lumbar spine somewhat guarded secondary to pain. Deep tendon reflexes upper lower extremities normal. Motor strength upper and lower extremities normal. There is no gross sensory deficit. Gait is not evaluated. Patient in a wheelchair. Procedure Details:: Details of the procedure explained to the patient. The patient taken procedure room placed in the sitting position. They over the pumps cleansed using chlorhexidine as a cleansing solution. The pump was interrogated. The pump was accessed with ease using a 22-gauge inch and half needle. 8 mL of solution was withdrawn and discarded appropriately. The pump was then filled with 20 cc of solution containing fentanyl 1000 mcg/mL and bupivacaine 5 mg/mL. Patient tolerated procedure without difficulty. There are no complications. Plan and Disposition:: Patient was discharged without incident.
[2023-12-03 14:20] VITALS: BP 161/72; PULSE 66; RESP 16; O2SAT 92
--- NOTE | 2023-12-03 14:44 | EXP.PAIN.PRO ---
Procedure Date: 12/03/23 Time: 14:40 Anesthesiologist:: Celio Sweeney CRNA Complications:: None Pre-procedure Diagnosis:: Degenerative disc lumbar spine multilevels. Lumbar radiculopathy. Lumbar postlaminectomy syndrome. Post-procedure Diagnosis:: Same. Indications for Procedure:: Patient is a pleasant
== END 2023-12-03 14:20 | disposition home or self-care (01) ==
PROVIDERS: PCP Family Medicine; Visit Provider Nurse Anesthetist, Certified Registered
DX: M51.16 Intervertebral disc disorders with radiculopathy, lumbar region (principal); M96.1 Postlaminectomy syndrome, not elsewhere classified; M50.10 Cervical disc disorder with radiculopathy, unspecified cervical region; M47.22 Other spondylosis with radiculopathy, cervical region; M48.02 Spinal stenosis, cervical region
CPT/HCPCS: 95991

== ENCOUNTER 2023-12-13 10:04 | Day surgery (SDC) | payer MEDICARE, OTHER, SELFPAY ==
[2023-12-13 10:18] VITALS: BP 144/62; PULSE 64; RESP 16; TEMP 36.6; O2SAT 97; BMI 25.1
[2023-12-13] MEDS: BUPIVACAINE 0.25% 10ML INJ 25 MG IJ (10:43)
[2023-12-13] MEDS: methylPREDNISolone ACETATE 80MG/ML VIAL 80 MG (10:43)
[2023-12-13 10:44] VITALS: BP 168/70; PULSE 67; RESP 18; O2SAT 97
[2023-12-13] MEDS: LIDOCAINE 1% 5ML PF VIAL 5 ML (10:44)
[2023-12-13 10:45] VITALS: BP 168/70; PULSE 67; RESP 18; O2SAT 98
[2023-12-13] MEDS: IOPAMIDOL-200 (41%);10ML VIAL 10 ML IV (10:49)
[2023-12-13 10:58] VITALS: BP 165/80; PULSE 59; RESP 16; O2SAT 96
--- NOTE | 2023-12-13 12:07 | P.PCN_ITS ---
Procedure Date: 12/13/23 Time: 11:00 Anesthesiologist:: Celio Sweeney CRNA Complications:: None Pre-procedure Diagnosis:: Degenerative disc cervical spine multilevels. Cervical radiculopathy. Cervical spondylosis. Multilevel cervical facet arthropathy. Post-procedure Diagnosis:: Same. Indications for Procedure:: Patient is a very pleasant 83-year-old male comes our clinic today for bilateral cervical C5-6, C6-7 facet blocks/medial branch block. Patient describes posterior cervical neck pain as constant, dull, aching. Patient reports having difficulty with cervical flexion, extension, left and right rotation. He rates his pain 7/10. Procedure Details:: Informed consent was obtained and the risk and benefits of the procedure was explained to the patient. Patient was taken to the procedure room where noninvasive monitors were placed, including noninvasive blood pressure cuff as well as pulse oximeter. The area over the posterior cervical spine was cleansed using chlorhexidine as a cleansing solution. I anesthetized the skin and subcutaneous tissues with 1% Lidocaine. I placed 25 -gauge spinal needles into the facet joint/ medial branches of C5-6, C6-7 bilaterally. Needle placement was confirmed with fluoroscopy. After confirmation of needle placement, each site was injected with 1 mL of 1% lidocaine and 0.25 % Marcaine and 10 mg of Depo- Medrol. A total of 20 mg of depo medrol was used for bilateral medial branch blo cks of C5-6, C6-7 bilaterally. Patient tolerated the procedure without difficulty. There were no complications. Plan and Disposition:: Patient was discharged without incident.
== END 2023-12-13 10:58 | disposition home or self-care (01) ==
PROVIDERS: PCP Family Medicine; Visit Provider Nurse Anesthetist, Certified Registered
DX: M47.812 Spondylosis without myelopathy or radiculopathy, cervical region (principal); M51.369 Other intervertebral disc degeneration, lumbar region without mention of lumbar back pain or lower extremity pain
CPT/HCPCS: 64490; 64491; J1010; Q9966

== ENCOUNTER 2023-12-31 14:02 | Day surgery (SDC) | payer MEDICARE, OTHER, SELFPAY ==
[2023-12-31 14:29] VITALS: BP 143/84; PULSE 65; RESP 16; O2SAT 99; BMI 25.2
[2023-12-31 14:30] VITALS: BP 153/75; PULSE 66; RESP 18; O2SAT 97
[2023-12-31 14:33] VITALS: BP 153/75; PULSE 66; RESP 18; O2SAT 97
[2023-12-31 14:46] VITALS: BP 163/80; PULSE 67; RESP 16; O2SAT 99
--- NOTE | 2023-12-31 14:46 | EXP.PAIN.PRO ---
Procedure Date: 12/31/23 Time: 14:15 Anesthesiologist:: Celio Sweeney CRNA Complications:: None Pre-procedure Diagnosis:: Degenerative disc lumbar spine multilevels. Lumbar radiculopathy. Lumbar postlaminectomy syndrome. DJD cervical spine multilevels. Cervical radiculopathy. Multilevel cervical facet arthropathy. Cervical spondylosis. Post-procedure Diagnosis:: Same. Indications for Procedure:: Patient is a very pleasant 83-year-old male who comes our clinic today for intrathecal pain pump interrogation and refill. Patient currently being managed with fentanyl 1000 mcg/mL at 385 mcg/day. Also, bupivacaine 5 mg/mL at 1.9250 mg/day. He is doing very well with his current settings. He is not reporting any side effects or complications. He is not requesting any changes. Patient is awake alert [place] x 3. No acute distress. Flexion tension lumbar spine somewhat guarded secondary to pain. Deep tendon reflexes upper lower extremities normal. Motor strength upper and lower extremities normal. There is no gross sensory deficit. Gait is not evaluated. Patient arrives in wheelchair. Procedure Details:: Details of procedure explained to the patient. The patient taken procedure room placed in sitting position. They over the pump was cleaned using chlorhexidine as a cleansing solution. The pump was interrogated. The pump was accessed with ease using a 22-gauge inch and half needle. 8 mL of solution was withdrawn discarded appropriate. The pump was then filled with 20 cc of solution containing fentanyl 1000 mcg/mL and bupivacaine 5 mg/mL. Patient tolerated procedure without difficulty. There are no complications. Plan and Disposition:: Patient was discharged without incident.
== END 2023-12-31 14:46 | disposition home or self-care (01) ==
PROVIDERS: PCP Family Medicine; Visit Provider Nurse Anesthetist, Certified Registered
DX: M51.16 Intervertebral disc disorders with radiculopathy, lumbar region (principal); M96.1 Postlaminectomy syndrome, not elsewhere classified; M47.22 Other spondylosis with radiculopathy, cervical region
CPT/HCPCS: 95991

== ENCOUNTER 2024-01-06 10:43 | Outpatient (POV) | payer MEDICARE, OTHER, SELFPAY ==
[2024-01-06 10:56] VITALS: BP 153/78; PULSE 66; RESP 18; O2SAT 98; BMI 25.1
--- NOTE | 2024-01-06 11:15 | EXP.PAIN.SOA ---
[facility] Disclaimer: The information contained in this section may have been updated after the patient was seen, as this information can be updated by other users. 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 History of spinal fusion Family History Other Alzheimer disease Social History Smoking Status: Never smoker second hand exposure: No alcohol intake: never counseling provided: none substance use type: denies use current occupational status: retired Travel in the last 8 weeks: None household members: spouse housing: house current occupational exposures/hazards: No caffeine: Yes PM Subjective & Objective Subjective Subjective:: Patient is a pleasant 83-year-old male who presents today for follow-up of his second cervical medial branch block bilaterally C5-C6 and C6-C7 on 12/13/2023. Today he rates his pain a 5 out of 10. He does state that the second block did provide him 100% relief however only lasted about 3 hours. He does state that after that his pain did slowly return and today he states he is back to his baseline. Patient states that those 3 hours were absolutely wonderful and he was able to move around more with decreased pain and felt much more functional. Patient did previously have his first cervical medial branch block back in July that did provide 80% relief with it. Patient states this has been the first option that he is given relief in and around his shoulder blade pain. Patient does continue oral medications along with heat and ice and topicals with minimal improvement. Patient is prescribed Flexeril 5 mg as needed from our office and denies any side effects or that he needs refills at this time. Patient states he has an outside provider that has prescribed naproxen however he really feels like this does not seem to be doing anything. Patient denies any heart or kidney issues. He states that he has been told he has a leaky valve but does not see a internal medicine veterinary technician on a regular basis or have any scheduled follow-ups. He also has been to physical therapy in the past and does do still physical therapy guided exercises at home including the use of elastic bands to help with stretching with minimal relief. He is pump is managed with bupivacaine 5 mg/mL and fentanyl 1000 mcg/mL at a daily dose of 385 mcg/day and bupivacaine 1.925 mg/day. He denies any side effects from this medication however does state that he still has issues with constipation and that he takes MiraLAX to help with those. His Abram has been reviewed and is appropriate. Review of Systems: General: No recent weight changes, no fever, no sleep disturbances Respiratory: No cough, no shortness of air, no recurring pulmonary infections Cardiovascular/peripheral vascular: No chest pain, no palpitations, no edema, no shortness of breath Gastrointestinal: No new onset incontinence, normal bowel movements reported Genitourinary: No new onset incontinence Musculoskeletal: Neck pain, pain between the shoulder blades Psychiatric: [Normal mood/affect] Neurological: [Denies weakness in extremities], [denies balance issues] Pain at rest (0-10 scale): 5 Objective Objective:: Physical Exam: General: Alert and oriented x3, no acute distress, pleasant and cooperative Lungs: Respirations even and unlabored, symmetrical chest expansion Eyes: PERRL Musculoskeletal: Flexion and extension of cervical [spine] somewhat guarded secondary to pain, [antalgic gait noted] positive Kemps test Neurological: Speech clear, no gross sensory deficit Has patient had previous pain injection?: Yes Percent improvement in pain since last injection: 100% Conservative treatment options previously tried: Home exercise plan Length of treatment: Longer than 12 weeks Meds Home Medications and Allergies Home Medications ?Medication ?Instructions ?Recorded ?Confirmed ?Type polyethylene glycol 3350 17 119 g PO DAILY CONSTIPATION 05/17/17 01/06/24 History gram/dose oral powder ferrous sulfate 325 mg (65 mg 0.5 tab PO DAILY anemia 09/19/18 01/06/24 History iron) tablet losartan 100 mg tablet 50 mg PO DAILY High blood pressure 02/23/19 01/06/24 History bupivacaine (PF) 0.5 % (5 mg/mL) 3.69 mg intrathecal CONT chronic 02/08/21 01/06/24 History injection solution pain lidocaine 5 % topical patch 1 patch topical DAILY . #30 ea 07/18/22 01/06/24 Rx fentanyl citrate (PF) 50 mcg/mL 5 mcg epidural CONT Pain 09/12/22 01/06/24 History intravenous solution amlodipine 5 mg tablet 5 mg PO DAILY 09/04/23 01/06/24 History naproxen 500 mg tablet 500 mg PO DAILY 09/04/23 01/06/24 History omeprazole 20 mg capsule,delayed 20 mg PO DAILY PRN GERD 09/04/23 01/06/24 History release rosuvastatin 5 mg tablet 5 mg PO DAILY 09/04/23 01/06/24 History meclizine 12.5 mg tablet 12.5 mg PO DAILY PRN Dizziness 10/08/23 01/06/24 History memantine 5 mg tablet 5 mg PO BID Memory loss #60 tabs 10/08/23 01/06/24 Rx cyclobenzaprine 5 mg tablet 5 mg PO BID #60 tabs 11/11/23 01/06/24 Rx meloxicam 7.5 mg tablet 7.5 mg PO DAILY #30 tabs 01/06/24 Rx New Prescriptions to Start Prescriptions: rosangelaoxicam Cassidy Altman Allergies Allergy/AdvReac Type Severity Reaction Status Date / Time amoxicillin Allergy Unknown Verified 10/08/23 08:17 lisinopril Allergy Unknown Verified 10/08/23 08:17 Assessment and Plan *Assessment and plan (1) Cervical spondylosis: Status: Acute Category: Medical Code(s): M47.812 - Spondylosis without myelopathy or radiculopathy, cervical region (2) Chronic pain syndrome: Problem Comment: Intrathecal fentanyl pump, chronic therapy with diazepam, hydrocodone, cyclobenzaprine, baclofen Status: Chronic Category: Medical Code(s): G89.4 - Chronic pain syndrome (3) Neck pain: Status: Acute Category: Medical Code(s): M54.2 - Cervicalgia (4) Degenerative disc disease, cervical: Status: Acute Category: Medical Code(s): M50.30 - Other cervical disc degeneration, unspecified cervical region Plan Patient has had 2 successful cervical medial branch blocks with his first block providing 80% relief that was done in July however only lasted temporary and this last block that was done on December 12 that did provide 100% relief lasting 3 hours. I did discuss with patient due to the continued neck pain with worsening pain with certain movements such as bending or twisting that I do believe he would still benefit from the cervical RFA. Risk and benefits were discussed with patient and he would like to proceed forward with this plan of care. Patient did have limited range of motion of his cervical spine with a positive Kemps test. Patient is not on any blood thinners. Patient has tried and failed conservative therapy including continued at home stretching exercise for longer than 12 weeks. Patient will be scheduled for his cervical radiofrequency ablation C5-C6 and C6-C7 bilaterally under fluoroscopy. Patient agrees with this plan of care. I will also send in a medication of meloxicam 7.5 mg daily and send in a 1 month supply of this medication. Patient was counseled to discontinue all other NSAIDs while taking this medication and to take it with food to minimize GI upset. Patient acknowledges understanding agrees with plan of care. Patient has been instructed to contact the clinic with any concerns before the next appointment. Dr. Kinney has reviewed this note and agrees with this plan of care. This note was dictated using voice recognition software and make contain errors or omissions. All injections are used with Lidocaine or Bupivacaine and Depo Medrol.
== END 2024-01-06 23:59 | disposition home or self-care (01) ==
PROVIDERS: PCP Family Medicine; Visit Provider Nurse Practitioner Family
DX: M47.812 Spondylosis without myelopathy or radiculopathy, cervical region (principal); G89.4 Chronic pain syndrome; M50.30 Other cervical disc degeneration, unspecified cervical region; Z96.653 Presence of artificial knee joint, bilateral
CPT/HCPCS: 99212; G0463

== ENCOUNTER 2024-02-11 08:35 | Day surgery (SDC) | payer MEDICARE, OTHER, SELFPAY ==
[2024-02-11 08:59] VITALS: BP 152/84; PULSE 65; RESP 16; TEMP 36.4; O2SAT 94; BMI 25.4
--- NOTE | 2024-02-11 09:18 | P.PCN_ITS ---
Procedure Anesthesiologist:: Celio Sweeney CRNA Complications:: None
--- NOTE | 2024-02-11 09:18 | EXP.PAIN.PRO ---
Procedure Anesthesiologist:: Celio Sweeney CRNA Complications:: None
[2024-02-11] MEDS: LIDOCAINE 1% 5ML PF VIAL 5 ML (09:19)
[2024-02-11] MEDS: BUPIVACAINE 0.25% 10ML INJ 25 MG IJ (09:19)
[2024-02-11] MEDS: methylPREDNISolone ACETATE 80MG/ML VIAL 80 MG (09:19)
[2024-02-11 09:20] VITALS: BP 166/84; PULSE 62; RESP 18; O2SAT 97
[2024-02-11 09:21] VITALS: BP 166/84; PULSE 62; RESP 18; O2SAT 97
--- NOTE | 2024-02-11 09:33 | EXP.PAIN.PRO ---
Procedure Date: 02/11/24 Time: 09:10 Anesthesiologist:: Celio Sweeney CRNA Complications:: None Pre-procedure Diagnosis:: Degenerative disc lumbar spine multilevels. Lumbar radiculopathy. Lumbar + syndrome. Degenerative disc cervical spine multilevels. Cervical radiculopathy. Cervical spondylosis. Multilevel cervical facet arthropathy. Post-procedure Diagnosis:: Same. Indications for Procedure:: Patient very pleasant 83-year-old male who comes our clinic today for right side C5-6, C6-7 radiofrequency ablation cervical spine. Patient describes cervical neck pain as bilateral. He reports cervical neck pain is constant, dull, aching. He reports having difficulty with flexion, extension, left and right rotation of the cervical spine. He rates his pain 7/10. Procedure Details:: Procedure Details: Cervical RFA Informed consent was obtained and the risk and benefits of the procedure was explained to the patient. Patient was placed prone on the procedure table. The patient was prepped and draped in sterile fashion. C-arm fluoroscopy was used to view the lumbar spine. The skin and subcutaneous tissues were anesthetized using lidocaine. I placed 20-gauge RF needles into the facet joints of C5- C6 and C6-C7 levels on the right side. We underwent sensory stimulation. There is good sensory stimulation at 0.8 V. We underwent motor stimulation. There is no motor stimulation at 2.5 V. We then anesthetized these levels with lidocaine and Depo-Medrol. I used a total of 40 mg Depo-Medrol for both levels. I then burned both levels of C5-C6 and C6-C7 facet joint/medial branches on the right side for 4 minutes at 80 ?C. Patient tolerated the procedure well with no complication. Plan and Disposition:: Patient was discharged without incident.
[2024-02-11 09:37] VITALS: BP 164/80; PULSE 61; RESP 16; O2SAT 94
--- NOTE | 2024-02-11 09:51 | EXP.PAIN.PRO ---
Procedure Date: 02/11/24 Time: 09:10 Anesthesiologist:: Celio Sweeney CRNA Complications:: None Pre-procedure Diagnosis:: Degenerative disc cervical spine multilevels. Cervical radiculopathy. Cervical spondylosis. Multilevel cervical facet arthropathy. Degenerative disc lumbar spine multilevels. Lumbar radiculopathy. Lumbar spondylosis. Post-procedure Diagnosis:: Same. Indications for Procedure:: Patient is a very pleasant 83-year-old male who comes our clinic today for intrathecal pain pump interrogation and adjustment. He is currently being managed with fentanyl 1000 mcg/mL at 385.0 mcg/day. Also bupivacaine 5 mg/mL at 1.9250 mg/day. He is requesting increase. Having some increased pain in the cervical spine as well as lumbar spine. I will increase him by 10%. Procedure Details:: Details of the procedure explained to the patient. The patient taken procedure room placed in the sitting position. The pump was interrogated. The pump rate was changed by 10%. The new rate will be fentanyl 423.5 mcg/day. Bupivacaine 2.1175 mg/day. Patient tolerated procedure without difficulty. No complications. Plan and Disposition:: Patient was discharged without incident.
== END 2024-02-11 09:37 | disposition home or self-care (01) ==
PROVIDERS: PCP Family Medicine; Visit Provider Nurse Anesthetist, Certified Registered
DX: M47.812 Spondylosis without myelopathy or radiculopathy, cervical region (principal); M50.10 Cervical disc disorder with radiculopathy, unspecified cervical region; M51.16 Intervertebral disc disorders with radiculopathy, lumbar region; G89.4 Chronic pain syndrome
CPT/HCPCS: 62368; 64633; 64634; J1010

== ENCOUNTER 2024-02-14 12:59 | Day surgery (SDC) | payer MEDICARE, OTHER, SELFPAY ==
--- NOTE | 2024-02-14 13:14 | EXP.PAIN.PRO ---
Procedure Date: 02/14/24 Time: 14:43 Anesthesiologist:: Cassidy Altman APRN Complications:: None Pre-procedure Diagnosis:: Degenerative disc disease of cervical and lumbar spine with cervical and lumbar radiculopathy symptoms Post-procedure Diagnosis:: Same Indications for Procedure:: Patient is a pleasant 83-year-old male who presents today for intrathecal refill and reprogram. Today he rates his pain at a 6 out of 10. He denies any new trauma or injury. He does state that he did get significant relief with his cervical radiofrequency ablation. He states he can do a lot more movement. He does still have some aches and pains in this location. Patient does still use his compounded cream to help additionally.Patient is currently managed with fentanyl 1000 mcg/mL with a daily dose of 423.5 mcg/day and bupivacaine 5 mg/mL with a daily dose of 2.1175 mg/day. He denies any side effects from this medication. His Abram has been reviewed and is appropriate. Physical Exam: General: Alert and oriented x3, no acute distress, pleasant and cooperative Lungs: Respirations even and unlabored, symmetrical chest expansion Eyes: PERRL Musculoskeletal: Flexion and extension of lumbar [spine] somewhat guarded secondary to pain, [antalgic gait noted] Neurological: Speech clear, no gross sensory deficit Procedure Details:: Informed consent was obtained and the risk and benefits of the procedure were explained to the patient. The patient had noninvasive monitoring placed including noninvasive blood pressure cuff and pulse oximeter. Patient's pump was interrogated. The area over the pump was cleansed with chlorhexidine as a cleansing solution. In sterile fashion the pump was accessed with a 22-gauge needle. Approximately 2.8 mls of the pump solution was removed and discarded appropriately. The pump was then refilled with 20 mL's of fentanyl 1000 mcg/mL and bupivacaine 5 mg/mL. The needle was withdrawn and a bandage was placed over the puncture site. The infusion rate was reprogrammed and continued at fentanyl 423.5 mcg/day and bupivacaine 2.1175 mg/day. The patient tolerated well with no complication. Plan and Disposition:: Patient tolerated his procedure well with no complications and was discharged neurologically and intact. Patient will return to clinic on or before his next intrathecal refill date. We will see the patient back in the clinic at the next intrathecal refill. Patient has been instructed to contact the clinic with any concerns before the next appointment. Dr. Kinney has reviewed this note and agrees with this plan of care. This note was dictated using voice recognition software and make contain errors or omissions. -- It Is medically necessary for this patient to continue to have their intrathecal pump refilled at regular intervals. This patient had an intrathecal pain pump implanted after meeting criteria of chronic intractable pain for greater than 3 months and failing conservative treatments. Patient has committed and been compliant to the treatment plan and all planned follow up care. Since implantation of the intrathecal pain pump, the patient has had decreased pain and been more functional. Oral medications have been reduced including intake of oral opioids. Patient continues to do well with intrathecal therapy with decrease in pain symptoms and increase in functional status. Stopping intrathecal medications can lead to life threatening withdrawal, seizures, cardiac arrest, severe pain, and possible . Pumps that are not refilled at regular intervals can be damages and cause and need for replacement. We continually titrate dose and concentration to optimize pain relief and function. We are limited in concentration for certain drugs to safely deliver medications through the pump and stay within the recommendations from the Polyanalges[employer] Consensus Committee Guidelines. Depending on dose and concentration these pumps may need to be refilled sooner than 3 months as we titrate. A UDS is needed to verify patient's compliance with our office pain contract. This is ordered based off specific treatments related to chronic pain with the potential to abuse certain medications.
[2024-02-14 13:52] VITALS: BP 123/69; PULSE 75; RESP 16; TEMP 36.4; O2SAT 94; BMI 25.4
[2024-02-14 14:29] VITALS: BP 156/76; PULSE 66; RESP 18; O2SAT 97
[2024-02-14 14:31] VITALS: BP 156/76; PULSE 66; RESP 18; O2SAT 98
[2024-02-14 14:51] VITALS: BP 148/76; PULSE 66; RESP 16; O2SAT 95
== END 2024-02-14 14:51 | disposition home or self-care (01) ==
PROVIDERS: PCP Family Medicine; Visit Provider Nurse Practitioner Family
DX: M51.16 Intervertebral disc disorders with radiculopathy, lumbar region (principal); M50.10 Cervical disc disorder with radiculopathy, unspecified cervical region
CPT/HCPCS: 62370

== ENCOUNTER 2024-03-05 17:00 | Outpatient (RCR) | payer MEDICARE, OTHER, SELFPAY ==
--- NOTE | 2024-02-19 18:51 | HMH.PTOPEV ---
PT Outpatient Evaluation Rehab PT Outpatient Evaluation Start: 02/19/24 18:19 Freq: Status: Active Protocol: Document 02/19/24 18:20 TACHO (Rec: 02/19/24 18:49 TACHO [id number]) E-signed By Atul Briones, PT Outpatient Therapy Subjective History Subjective History Patient is an 83 year old male presenting to outpatient PT with reports of chronic cervical, thoracic and lumbar spine pain. Symptoms R>L. Symptoms have progressively gotten worse over the past 6 months. Multiple previous episodes of PT with significant improvements noted . Symptoms of insidious onset . No reports of radicular symptoms. New diagnosis of cancer in past 12 No months? Chief Complaint Pain,Stiff Symptom Type Ache Symptoms Relieved By Rest/Positioning,Heat,OTC Meds Prior Functional Limitations Reaching,Lifting,Housework, Standing,Walking,Bending/ Stooping Current Functional Limitations Reaching,Lifting,Housework, Standing,Walking,Bending/ Stooping Symptom Description Constant but Variable Level of pain today (0-10) 4 Pain scale - at its best (0-10) 7 Pain scale - at its worst (0-10) 2 Cervical Eval Palpation Cervical Muscles R Upper Trapezius,L Upper Trapezius Cervical/Thoracic Palpation Findings Tenderness Posture Head/C-Spine Posture Sitting Position C-Spine Flattened Head/C-Spine Posture Standing Position C-Spine Flattened Flexibility Deficits Upper Trapezius Muscle Length (R) Moderate Tightness,(L) Moderate Tightness Pectoralis Minor Muscle Length (R) Moderate Tightness,(L) Moderate Tightness Passive Joint Mobility Cervical PIVM Dec: R OA L OA R AA L AA R C2/3 L C2/3 R C3/4 L C3/4 R C4/5 L C4/5 R C5/6 L C5/6 R C6/7 L C6/7 R C7/T1 L C7/T1 AROM Cervical Spine Extension Active Range of 48 Motion (degrees) Cervical Spine Flexion Active Range of 42 Motion (degrees) Cervical Spine Right Lateral Flexion 24 Active Range of Motion (degrees) Cervical Spine Left Lateral Flexion 22 Active Range of Motion (degrees) Cervical Spine Right Rotation Active 38 Range of Motion (degrees) Cervical Spine Left Rotation Active 40 Range of Motion (degrees) MMT Bilateral Deltoid (C5) 4 Good Biceps Brachii Strength Grade 4 Good Wrist Extension Strength Grade 4 Good Triceps Brachii Strength Grade 4 Good Wrist Flexion Strength Grade 4 Good Extensor Pollicis Longus Strength Grade 4 Good Finger Abduction Strength Grade 4 Good Special Test C-Spine Foraminal Distraction Test Positive Lumbopelvic Eval Posture Thoracic Spine Posture Standing Position Increased Kyphosis Lumbar Spine Posture Standing Position Decreased Lordosis Palapation tenderness bilateral lumbar spinal tenderness Yes: L4-S1 3/4 Accessory Movement L4 bilateral L5 bilateral S1 bilateral Range of Motion Lumbar Spine ROM Reason Not Measured Within Functional Limits Manual Muscle Test Bilateral Knee Extension Strength Grade 5 Normal Knee Flexion Strength Grade 5 Normal Hip Flexion Strength Grade 5 Normal Hip Abduction Strength Grade 5 Normal Extensor Hallucis Longus Strength Grade 5 Normal Ankle Dorsiflexion Strength Grade 5 Normal Gastronemius/Soleus Strength Grade 5 Normal Special Tests Hip Celio (BRITNEY) Test Positive Left,Positive Right Hip Donnell Test Positive Left,Positive Right Hip Piriformis Test Positive Left,Positive Right Baism Test Positive Sacroiliac Joint Compression Test Negative Left,Negative Right Sacroiliac Joint Distraction Test Negative Left,Negative Right Neck Disability Index Neck Disability Index Section 1: Pain Intensity The pain is moderate at the moment Section 2: Personal Care (washing, I can look after myself dressing, etc.) normally without causing extra pain Section 3: Lifting Pain prevents me lifting heavy weights off the floor, but I can manage Section 4: Reading I can read as much as I want with moderate pain in my neck Section 5: Headaches I have moderate headaches, which come frequently Section 6: Concentration I can concentrate fully when I want to with slight difficulty Section 7: Work I can hardly do any work at all Section 8: Driving I can drive my car as long as I want with slight pain in my neck Section 9: Sleeping My sleep is midly disturbed (1 -2 hrs sleepless) Section 10: Recreation I am able to engage in all my recreation activities with some pain in NDI Score 18 Outpatient Therapy Assessment Impairments Problems/Impairmments Palpation Tenderness,Impaired Range of Motion,Impaired Strength,Impaired Walking, Impaired Standing,Impaired Lifting,Impaired Household Care,Impaired Squatting, Impaired Bending,Impaired Recreational Activities, Subjective C/O Pain Prognosis Rehab Potential Fair Clinical Impression Consistent with Diagnosis Yes Short Term Goals Number of Weeks 2 Decrease Subjective C/O Pain Yes: /10 at worst Patient to be Ind w/ HEP Yes Intermediate Goals Number of Weeks 4-6 Decreased Palpation Tenderness Yes: 1 Increase Range of Motion Yes: 75% WNL CS/LS Increase Ability to Walk Yes: 30 min Increase Ability to Stand Yes: Improve Ability For Household Care Yes Improve Oswestry Score Yes: Mod disability Decrease Subjective C/O Pain Yes: 2/10 at worst Outpatient Therapy Plan of Care Treatment Plan May Include Therapeutic Exercise Including Home Yes Exercise Program Manual Therapy Techniques Yes Neuromuscular Re-education Yes Therapeutic Activities to Return to Yes Previous Functional/Work Level Gait Training Yes ADL/Self Care Education Yes Mechanical Traction Yes Dry Needling Yes Thermal Modalities Yes Electrical Stimulation Yes Ultrasound/Phonophoresis Yes Iontophoresis Yes Orthotics/Bracing/Splinting Yes Massage Yes Eval/Re-Eval Yes Frequency Times per week 2-3 Duration Number of Weeks 4-6 Addendums This patient is a candidate for social No or vocational rehab? Patient/Guardian verbally acknowledges Yes understanding of treatment program and consents to further treatment? Patient/Guardian verbally acknowledges Yes understanding of diagnosis, prognosis and goals for treatment? Eval Complexity PT Charges 51116 - Moderate Complexity Shoulder/Elbow Eval Shoulder Objective Measurements Elbow Objective Measurements PHYSICIAN CERTIFICATION: I certify the specified therapy services for Davin Dodson are required, authorized, and reviewed every 30 days.
== END 2024-03-12 23:59 | disposition home or self-care (01) ==
LOC: PT 17:00
PROVIDERS: Visit Provider Specialist
DX: M54.2 Cervicalgia (principal); M54.9 Dorsalgia, unspecified
CPT/HCPCS: 97110; 97163; 97530

== ENCOUNTER 2024-03-10 09:41 | Day surgery (SDC) | payer MEDICARE, OTHER, SELFPAY ==
[2024-03-10 10:29] VITALS: BP 130/73; PULSE 81; RESP 16; TEMP 36.5; O2SAT 94; BMI 25.4
[2024-03-10 10:42] VITALS: BP 156/78; PULSE 72; RESP 18; TEMP 36.5; O2SAT 95
--- NOTE | 2024-03-10 10:45 | P.PCN_ITS ---
Procedure Date: 03/10/24 Time: 10:30 Anesthesiologist:: Celio Sweeney CRNA Complications:: None Pre-procedure Diagnosis:: Degenerative disc cervical spine multilevels. Cervical radiculopathy. Cervical spondylosis. Multilevel cervical facet arthropathy. Post-procedure Diagnosis:: Same. Indications for Procedure:: Patient is a pleasant 83-year-old male who comes our clinic today for a left C5- 6, C6-7 radiofrequency ablation. He responded very well to the ablation on the right side. He describes cervical neck pain left greater than right. Procedure Details:: Informed consent was obtained and the risk and benefits of the procedure was explained to the patient. Patient was placed prone on the procedure table. The patient was prepped and draped in sterile fashion. C-arm fluoroscopy was used to view the lumbar spine. The skin and subcutaneous tissues were anesthetized using lidocaine. I placed 20-gauge RF needles into the facet joints of C5- C6 and C6-C7 levels on the left side. We underwent sensory stimulation. There is good sensory stimulation at 0.8 V. We underwent motor stimulation. There is no motor stimulation at 2.5 V. We then anesthetized these levels with lidocaine and Depo-Medrol. I used a total of 40 mg Depo-Medrol for both levels. I then burned both levels of C5-C6 and C6-C7 facet joint/medial branches on the left side for 4 minutes at 80 ?C. Patient tolerated the procedure well with no complication. Plan and Disposition:: Patient was discharged without incident.
[2024-03-10] MEDS: BUPIVACAINE 0.25% 10ML INJ 25 MG IJ (13:08)
[2024-03-10] MEDS: LIDOCAINE 1% 5ML PF VIAL 5 ML (13:08)
[2024-03-10] MEDS: methylPREDNISolone ACETATE 80MG/ML VIAL 80 MG (13:08)
[2024-03-10 13:09] VITALS: BP 158/86; PULSE 75; RESP 18; O2SAT 96
[2024-03-10 13:15] VITALS: BP 158/86; PULSE 75; RESP 18; O2SAT 96
== END 2024-03-10 10:42 | disposition home or self-care (01) ==
LOC: SC.PAINP 09:42
PROVIDERS: PCP Family Medicine; Visit Provider Nurse Anesthetist, Certified Registered
DX: M47.812 Spondylosis without myelopathy or radiculopathy, cervical region (principal); M50.10 Cervical disc disorder with radiculopathy, unspecified cervical region
CPT/HCPCS: 64633; 64634; J1010

== ENCOUNTER 2024-03-20 10:57 | Day surgery (SDC) | payer MEDICARE, OTHER, SELFPAY ==
--- NOTE | 2024-03-20 11:26 | EXP.PAIN.PRO ---
Procedure Date: 03/20/24 Time: 11:45 Anesthesiologist:: Cassidy Altman APRN Complications:: None Pre-procedure Diagnosis:: Degenerative disc disease of lumbar spine with lumbar radiculopathy symptoms Post-procedure Diagnosis:: Same Indications for Procedure:: Patient is a pleasant 83-year-old male who presents today for intrathecal refill and reprogram. Today he rates his pain a 4 out of 10. He denies any new trauma or injury. Patient did just complete the RFA on the left side of his neck C5-C6 and C6-C7. He states that it has helped however it did not work as well as the right side. Patient does notice still pain on that side but definitely states overall it has made a big difference with these procedures. Patient is currently managed with fentanyl 1000 mcg/mL with a daily dose of 423.5 mcg/day and bupivacaine 5 mg/mL with a daily dose of 2.1175 mg/day. He denies any side effects from this medication. Patient is also managed with compounded cream, lidocaine 5% patches. He denies any side effects from this medication. Patient does state that the lidocaine patches the last time we tried these were on backorder. He states that they did really make a big difference. His Abram has been reviewed and is appropriate. Physical Exam: General: Alert and oriented x3, no acute distress, pleasant and cooperative Lungs: Respirations even and unlabored, symmetrical chest expansion Eyes: PERRL Musculoskeletal: Flexion and extension of lung [spine] somewhat guarded secondary to pain, [antalgic gait noted] Neurological: Speech clear, no gross sensory deficit Procedure Details:: Informed consent was obtained and the risk and benefits of the procedure were explained to the patient. The patient had noninvasive monitoring placed including noninvasive blood pressure cuff and pulse oximeter. Patient's pump was interrogated. The area over the pump was cleansed with chlorhexidine as a cleansing solution. In sterile fashion the pump was accessed with a 22-gauge needle. Approximately 6 mls of the pump solution was removed and discarded appropriately. The pump was then refilled with 20 mL's of fentanyl 1000 mcg/mL and bupivacaine 5 mg/mL. The needle was withdrawn and a bandage was placed over the puncture site. The infusion rate was reprogrammed and continued at current dosage. The patient tolerated well with no complication. Plan and Disposition:: Patient tolerated the procedure well with no complications and was discharged neurologically intact. I well send in refills of the patient's lidocaine 5% patches. He was counseled that if the pharmacy still states these are on backorder he can call our office and we can send to a different pharmacy. Patient will return to clinic on or before their next intrathecal refill date. We will see the patient back in the clinic at the next intrathecal refill. Patient has been instructed to contact the clinic with any concerns before the next appointment. Dr. Kinney has reviewed this note and agrees with this plan of care. This note was dictated using voice recognition software and make contain errors or omissions. -- It Is medically necessary for this patient to continue to have their intrathecal pump refilled at regular intervals. This patient had an intrathecal pain pump implanted after meeting criteria of chronic intractable pain for greater than 3 months and failing conservative treatments. Patient has committed and been compliant to the treatment plan and all planned follow up care. Since implantation of the intrathecal pain pump, the patient has had decreased pain and been more functional. Oral medications have been reduced including intake of oral opioids. Patient continues to do well with intrathecal therapy with decrease in pain symptoms and increase in functional status. Stopping intrathecal medications can lead to life threatening withdrawal, seizures, cardiac arrest, severe pain, and possible . Pumps that are not refilled at regular intervals can be damages and cause and need for replacement. We continually titrate dose and concentration to optimize pain relief and function. We are limited in concentration for certain drugs to safely deliver medications through the pump and stay within the recommendations from the [employer] Consensus [employer] Guidelines. Depending on dose and concentration these pumps may need to be refilled sooner than 3 months as we titrate. A UDS is needed to verify patient's compliance with our office pain contract. This is ordered based off specific treatments related to chronic pain with the potential to abuse certain medications.
[2024-03-20 11:31] VITALS: BP 126/74; PULSE 80; RESP 16; O2SAT 97; BMI 25.1
[2024-03-20 11:43] VITALS: BP 147/99; PULSE 78; RESP 18; O2SAT 97
[2024-03-20 11:44] VITALS: BP 147/99; PULSE 78; RESP 18; O2SAT 97
[2024-03-20 11:57] VITALS: BP 142/78; PULSE 73; RESP 16; O2SAT 96
== END 2024-03-20 11:57 | disposition home or self-care (01) ==
PROVIDERS: PCP Family Medicine; Visit Provider Nurse Practitioner Family
DX: M51.16 Intervertebral disc disorders with radiculopathy, lumbar region (principal)
CPT/HCPCS: 62370

== ENCOUNTER 2024-04-09 17:00 | Outpatient (RCR) | payer MEDICARE, OTHER, SELFPAY | END 2024-04-09 23:59 | disposition home or self-care (01) | LOC: PT 17:00 | PROVIDERS: Visit Provider Specialist | DX: M54.2 Cervicalgia (principal); M54.9 Dorsalgia, unspecified | CPT/HCPCS: 97110; 97112; 97530 ==

== ENCOUNTER 2024-04-17 11:02 | Day surgery (SDC) | payer MEDICARE, OTHER, SELFPAY ==
[2024-04-17 11:15] VITALS: BP 123/80; PULSE 80; RESP 16; TEMP 36.6; O2SAT 95; BMI 25.8
--- NOTE | 2024-04-17 11:16 | P.PCN_ITS ---
Procedure Date: 04/17/24 Time: 11:45 Anesthesiologist:: Cassidy Altman APRN Complications:: None Pre-procedure Diagnosis:: Degenerative disc disease of lumbar spine with lumbar radiculopathy symptoms, chronic pain syndrome, degenerative disc disease of cervical spine with cervical spondylosis Post-procedure Diagnosis:: Same Indications for Procedure:: Patient is a pleasant 83-year-old male who presents today for intrathecal refill and reprogram. Today he rates his pain an 4-5 out of 10. He denies any new trauma or injury. He does state that he has had significant improvement following his cervical RFA but he does feel like he has been having worsening pain in and around his shoulder blades. He does state that this pain is very tender to touch and that it is interfering with his ability perform activities of daily living such as cooking and cleaning. Patient is currently managed with fentanyl 1000 mcg/mL with a daily dose of 423.5 mcg/day and bupivacaine 5 mg/mL with a daily dose of 2.1175 mg/day intrathecal. He denies any side effects from this medication and states it is working well. He is also prescribed compounded cream from our office. His Abram has been reviewed and is appropriate. Physical Exam: General: Alert and oriented x3, no acute distress, pleasant and cooperative Lungs: Respirations even and unlabored, symmetrical chest expansion Eyes: PERRL Musculoskeletal: Flexion and extension of thoracic [spine] somewhat guarded secondary to pain, [antalgic gait noted] point tenderness along bilateral rhomboid muscles Neurological: Speech clear, no gross sensory deficit Procedure Details:: Informed consent was obtained and the risk and benefits of the procedure were explained to the patient. The patient had noninvasive monitoring placed including noninvasive blood pressure cuff and pulse oximeter. Patient's pump was interrogated. The area over the pump was cleansed with chlorhexidine as a cleansing solution. In sterile fashion the pump was accessed with a 22-gauge needle. Approximately 8 mls of the pump solution was removed and discarded appropriately. The pump was then refilled with 20 mL's of fentanyl 1000 mcg/mL and bupivacaine 5 mg/mL. The needle was withdrawn and a bandage was placed over the puncture site. The infusion rate was reprogrammed and continued at its current dosage. The patient tolerated well with no complication. Plan and Disposition:: Patient tolerated the procedure well with no complications and was discharged neurologically intact. I did discuss with patient due to his increased pain in and around his bilateral rhomboid muscles with point tenderness that I would recommend as trying trigger point injections at this location. Risk and benefits were discussed with patient and he would like to proceed forward with this plan of care. Patient will be scheduled for trigger point injections of his bilateral rhomboid muscles. These will be done without fluoroscopic or ultrasound guidance. Patient will return to clinic on or before their next intrathecal refill date. We will see the patient back in the clinic at the next intrathecal refill. Patient has been instructed to contact the clinic with any concerns before the next appointment. Dr. Kinney has reviewed this note and agrees with this plan of care. This note was dictated using voice recognition software and make contain errors or omissions. -- It Is medically necessary for this patient to continue to have their intrathecal pump refilled at regular intervals. This patient had an intrathecal pain pump implanted after meeting criteria of chronic intractable pain for greater than 3 months and failing conservative treatments. Patient has committed and been compliant to the treatment plan and all planned follow up care. Since implantati on of the intrathecal pain pump, the patient has had decreased pain and been more functional. Oral medications have been reduced including intake of oral opioids. Patient continues to do well with intrathecal therapy with decrease in pain symptoms and increase in functional status. Stopping intrathecal medications can lead to life threatening withdrawal, seizures, cardiac arrest, severe pain, and possible . Pumps that are not refilled at regular intervals can be damages and cause and need for replacement. We continually titrate dose and concentration to optimize pain relief and function. We are limited in concentration for certain drugs to safely deliver medications through the pump and stay within the recommendations from the [employer]yanal[employer] Consensus [employer] Guidelines. Depending on dose and concentration these pumps may need to be refilled sooner than 3 months as we titrate. A UDS is needed to verify patient's compliance with our office pain contract. This is ordered based off specific treatments related to chronic pain with the potential to abuse certain medications.
[2024-04-17 11:36] VITALS: BP 162/90; PULSE 69; RESP 18; O2SAT 97
[2024-04-17 11:42] VITALS: BP 162/90; PULSE 69; RESP 18; O2SAT 97
[2024-04-17 11:53] VITALS: BP 148/89; PULSE 75; RESP 16; O2SAT 93
== END 2024-04-17 11:53 | disposition home or self-care (01) ==
PROVIDERS: PCP Family Medicine; Visit Provider Nurse Practitioner Family
DX: M51.16 Intervertebral disc disorders with radiculopathy, lumbar region (principal); G89.4 Chronic pain syndrome; M50.30 Other cervical disc degeneration, unspecified cervical region; M47.812 Spondylosis without myelopathy or radiculopathy, cervical region
CPT/HCPCS: 62370; 99212; G0463

== ENCOUNTER 2024-04-24 13:09 | Day surgery (SDC) | payer MEDICARE, OTHER, SELFPAY ==
[2024-04-24 13:15] VITALS: BP 130/73; PULSE 71; RESP 16; TEMP 36.6; O2SAT 97; BMI 25.8
[2024-04-24] MEDS: BUPIVACAINE 0.25% 10ML INJ 25 MG IJ (13:25)
[2024-04-24] MEDS: methylPREDNISolone ACETATE 80MG/ML VIAL 80 MG (13:25)
[2024-04-24] MEDS: LIDOCAINE 1% 5ML PF VIAL 5 ML (13:25)
--- NOTE | 2024-04-24 13:44 | P.PCN_ITS ---
Procedure Date: 04/24/24 Time: 14:10 Anesthesiologist:: Cassidy Altman APRN Complications:: None Pre-procedure Diagnosis:: Myofascial pain, degenerative disc disease of cervical spine, chronic pain syndrome Post-procedure Diagnosis:: Same Indications for Procedure:: Patient is a pleasant 83-year-old male who presents today for trigger point injections of his bilateral rhomboid muscles. Today he rates his pain an 4 5 out of 10. He denies any new trauma or injury. He does state that he still having the tenderness from when he saw us in the office last. Patient does state that he still feels like the cervical RFA he had along with physical therapy has also helped. Patient denies any side effects of his intrathecal pump which does have fentanyl 1000 mcg/mL with a daily dose of 423.5 mcg/day and bupivacaine 5 mg/mL with a daily dose of 2.1175 mg/day. He denies any side effects. His Abram has been reviewed and is appropriate. Physical Exam: General: Alert and oriented x3, no acute distress, pleasant and cooperative Lungs: Respirations even and unlabored, symmetrical chest expansion Eyes: PERRL Musculoskeletal: Flexion and extension of cervical [spine] somewhat guarded secondary to pain, [antalgic gait noted] Neurological: Speech clear, no gross sensory deficit Procedure Details:: Patient did have noninvasive blood pressure cuff applied and pulse oximeter. Patient was placed in a sitting position and palpated along his bilateral rhomboid muscles. Areas of point tenderness were marked and using a sterile 25- gauge needle approximately 10 mL of 0.25% bupivacaine, 1% lidocaine and 80 mg Depo-Medrol were incrementally injected into his bilateral rhomboid muscles. Needle was removed and sterile bandages applied. Patient tolerated the procedure well with no complications and was discharged neurologically intact. Plan and Disposition:: Patient tolerated the procedure well with no complications and was discharged neurologically intact. Patient will return to clinic on or before his next intrathecal refill date. We will plan on following up with him on the trigger points at that visit as well to minimize extra appointments. Patient agrees with this plan of care. Patient has been instructed to contact the clinic with any concerns before the next appointment. Dr. Kinney has reviewed this note and agrees with this plan of care. This note was dictated using voice recognition software and make contain errors or omissions. All injections are used with Lidocaine, Bupivacaine and Depo Medrol. Occasionally urine drug screen is needed to verify patient's compliance with our office pain contract. This is ordered based off specific treatments related to chronic pain with the potential to abuse certain medications.
[2024-04-24 14:30] VITALS: BP 128/70; PULSE 68; RESP 16; O2SAT 96
== END 2024-04-24 14:30 | disposition home or self-care (01) ==
PROVIDERS: PCP Family Medicine; Visit Provider Nurse Practitioner Family
DX: M79.18 Myalgia, other site (principal); G89.4 Chronic pain syndrome; M50.30 Other cervical disc degeneration, unspecified cervical region
CPT/HCPCS: 20553; J1010

== ENCOUNTER 2024-05-06 17:00 | Outpatient (RCR) | payer MEDICARE, OTHER, SELFPAY ==
--- NOTE | 2024-04-21 17:56 | HMH.RHREAS ---
Rehab Reassessment Rehab OP Re-assessment Start: 04/21/24 17:13 Freq: Status: Active Protocol: Document 04/21/24 17:47 DARIANDILIP (Rec: 04/21/24 17:56 PHORDILIP [id number]) E-signed By Calos Segura, PT Neck Disability Index Neck Disability Index Section 1: Pain Intensity The pain is moderate at the moment Section 2: Personal Care (washing, I can look after myself dressing, etc.) normally without causing extra pain Section 3: Lifting Pain prevents me from lifting heavy weights, but I can manage light to Section 4: Reading I can't read as much as I want because of moderate pain in my neck Section 5: Headaches I have moderate headaches, which come frequently Section 6: Concentration I can concentrate fully when I want to with slight difficulty Section 7: Work I can hardly do any work at all Section 8: Driving I can drive my car as long as I want with moderate pain in my neck Section 9: Sleeping My sleep is midly disturbed (1 -2 hrs sleepless) Section 10: Recreation I am able to engage in a few of my usual recreation activities because NDI Score 23 Rehab Re-assessment Subjective Subjective Pt reports 4/10 pain this date , down between my shoulder blades. I think that's what causes me to have headaches too. He reports nerve block performed by pain management has helped diminish his symptoms. He also reports he worked on his truck yesterday which may have exacerbated his symptoms. Objective Objective Notes AROM Cervical Spine: flx 55; ext 35; SB R 27; SB L 28; R rot 45; L rot 45 MMT: BUE 5/5 Pain: 4/10 today Neuro: WNL no reports of radicular symptoms Assessment Progress Assessment Progressing as Expected Assessment Notes Pt has shown improvements in B UE strength and cervical spine AROM. However, he continues to have frequent headaches and increased pain in his neck. Skilled therapy is indicated to reduce pain and improve muscle tightness in order to return pt to PLOF. Patient goals met ST/2 LT/7 Plan Plan Continue per initial POC. Frequency of Therapy 1-2 x/wk Duration of therapy 4 wks Time and Billing Re-Eval Time 13 Re-Eval Billing Units 0 Charge for PT reassessment? No PHYSICIAN CERTIFICATION: I certify the specified therapy services for Davin Crews Ivory are required, authorized, and reviewed every 30 days.
== END 2024-05-06 23:59 | disposition home or self-care (01) ==
LOC: PT 17:00
PROVIDERS: Visit Provider Specialist
DX: M54.2 Cervicalgia (principal); M54.50 Low back pain, unspecified
CPT/HCPCS: 97110

== ENCOUNTER 2024-05-21 17:00 | Outpatient (RCR) | payer MEDICARE, OTHER, SELFPAY | END 2024-05-21 23:59 | disposition home or self-care (01) | LOC: PT 17:00 | PROVIDERS: Visit Provider Specialist | DX: M54.2 Cervicalgia (principal); M54.9 Dorsalgia, unspecified | CPT/HCPCS: 97110; 97140 ==

== ENCOUNTER 2024-05-22 11:40 | Day surgery (SDC) | payer MEDICARE, OTHER, SELFPAY ==
--- NOTE | 2024-05-22 11:56 | EXP.PAIN.PRO ---
Procedure Date: 05/22/24 Time: 12:02 Anesthesiologist:: Cassidy Altman APRN Complications:: None Pre-procedure Diagnosis:: Degenerative disc disease of cervical and lumbar spine with cervical and lumbar radiculopathy symptoms Post-procedure Diagnosis:: Same Indications for Procedure:: Patient is a pleasant 83-year-old male who presents today for intrathecal refill and reprogram. Today he rates his pain an 4 out of 10. He denies any new trauma or injury. He does state that the trigger point injections of his bilateral rhomboid muscles on 04/24/2024 did provide significant improvement and lasted at least a week if not longer. He does state that he is still having more pain up around his neck and shoulder area primarily on the right side.Patient is currently managed with fentanyl 1000 mcg/mL with a daily dose of 423.5 mcg/day and bupivacaine 5 mg/mL with a daily dose of 2.1175 mg/day. He denies any side effects from this medication. His Abram has been reviewed and is appropriate. Physical Exam: General: Alert and oriented x3, no acute distress, pleasant and cooperative Lungs: Respirations even and unlabored, symmetrical chest expansion Eyes: PERRL Musculoskeletal: Flexion and extension of lumbar [spine] somewhat guarded secondary to pain, [antalgic gait noted] Neurological: Speech clear, no gross sensory deficit Procedure Details:: Informed consent was obtained and the risk and benefits of the procedure were explained to the patient. The patient had noninvasive monitoring placed including noninvasive blood pressure cuff and pulse oximeter. Patient's pump was interrogated. The area over the pump was cleansed with chlorhexidine as a cleansing solution. In sterile fashion the pump was accessed with a 22-gauge needle. Approximately 5.1 mls of the pump solution was removed and discarded appropriately. The pump was then refilled with 20 mL's of fentanyl 1000 mcg/mL and bupivacaine 5 mg/mL. The needle was withdrawn and a bandage was placed over the puncture site. The infusion rate was reprogrammed and increased 10% but also changed to flex dosing with a total of fentanyl 465.6 mcg/day. The patient tolerated well with no complication. Plan and Disposition:: Patient tolerated the procedure well with no complications and was discharged neurologically intact. Patient was counseled that by changing his continuous dosing to flex dosing he may get better coverage in and around his neck and mid back. Patient is agreeable to this option. We did increase his pump setting by 10% and kept that overall based dose at that now 423.5 mcg with 12 flex doses providing a total of 465.6 mcg/day and bupivacaine 2.3 to 8 mg/day. Patient will be given a tentative follow-up on Saturday for possible additional adjustments or reprogramming. He was counseled that if he does not end up liking the flex dosing we can go back to continuous flow however if it does provide significant improvements and he does not need the follow-up appointment on Saturday he can cancel this appointment or still coming and if he feels like it still could use additional adjustment. Patient will also be given his pump refill date as well. Patient agrees with this plan of care. Patient will return to clinic on or before their next intrathecal refill date. We will see the patient back in the clinic at the next intrathecal refill. Patient has been instructed to contact the clinic with any concerns before the next appointment. Dr. Kinney has reviewed this note and agrees with this plan of care. This note was dictated using voice recognition software and make contain errors or omissions. -- It Is medically necessary for this patient to continue to have their intrathecal pump refilled at regular intervals. This patient had an intrathecal pain pump implanted after meeting criteria of chronic intractable pain for greater than 3 months and failing conservative treatments. Patient has committed and been compliant to the treatment plan and all planned follow up care. Since implantation of the intrathecal pain pump, the patient has had decreased pain and been more functional. Oral medications have been reduced including intake of oral opioids. Patient continues to do well with intrathecal therapy with decrease in pain symptoms and increase in functional status. Stopping intrathecal medications can lead to life threatening withdrawal, seizures, cardiac arrest, severe pain, and possible . Pumps that are not refilled at regular intervals can be damages and cause and need for replacement. We continually titrate dose and concentration to optimize pain relief and function. We are limited in concentration for certain drugs to safely deliver medications through the pump and stay within the recommendations from the Polyanalges[employer] Consensus Committee Guidelines. Depending on dose and concentration these pumps may need to be refilled sooner than 3 months as we titrate. A UDS is needed to verify patient's compliance with our office pain contract. This is ordered based off specific treatments related to chronic pain with the potential to abuse certain medications.
[2024-05-22 11:57] VITALS: BP 132/73; PULSE 58; RESP 16; O2SAT 98; BMI 25.8
[2024-05-22 11:58] VITALS: BP 137/79; PULSE 56; RESP 18; O2SAT 96
[2024-05-22 12:00] VITALS: BP 137/79; PULSE 56; RESP 18; O2SAT 96
[2024-05-22 12:14] VITALS: BP 148/73; PULSE 60; RESP 16; O2SAT 98
== END 2024-05-22 12:14 | disposition home or self-care (01) ==
PROVIDERS: PCP Family Medicine; Visit Provider Nurse Practitioner Family
DX: M50.10 Cervical disc disorder with radiculopathy, unspecified cervical region (principal); M51.16 Intervertebral disc disorders with radiculopathy, lumbar region
CPT/HCPCS: 62370

== ENCOUNTER 2024-05-27 11:26 | Outpatient (POV) | payer MEDICARE, OTHER, SELFPAY ==
--- OUTSIDE RECORDS SUMMARY | 2024-05-27 11:29 | XMS_ITS | Clinical Summary ---
Author Organization [facility] Address [address] [place] [address] Phone Care Team Providers Care Software Development Specialist Name Role Phone Nickie KOROMA, Delvin Unavailable [phone] BERNIE KOROMA, JOSE ALFREDO Unavailable [phone] Reason for Referral Date Encounter Description Provider Reason for Referral 09/14/21 Follow Up MICHAEL WETZEL PA-C Referral To Physician Reason for Visit and Chief Complaint The Chief Complaint is: lumbar pain Problems Includes: Problems addressed during this encounter and other active Problems Current Visit Onset Date Resolved Date Provider Lexi n Status Lower Back Pain 09/14/2021 MICHAEL WETZEL PA-C Active Last Documented On 2 1:35PM ; [facility] Past Visits Onset Date Resolved Date Provider Condition Status Joint Pain in Both Knees 08/18/2021 Kelechi Vazquez MD Active Last Documented On 2 8:40AM ; [facility] Plan of Treatment Fall Risk Assessment: This patient has been identified as a fall risk. Balance/gait along with postural blood pressure, vision and home fall hazards have been assessed. Medications have been reviewed, and recommendations made with regard to contributing factors for future falls. Plan of care: Consideration of vitamin D supplementation along with balance and strength training with consideration for formal physical therapy has been discussed with the patient. - Last Documented On 09/14/2021 2:27PM ; [facility] 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 Will set him up for facet blocks at the L3-4 and 4 5 levels to see if this will improve his symptoms. Follow-up thereafter for reassessment - Last Documented On 09/14/2021 2:27PM ; [facility] Instructions to patient No intervention and counselson catalan on cessation of tobacco use Last Documented On 2 1:49PM ; [facility] Lose weight Last Documented On 2 1:36PM ; [facility] Assessments Includes: Assessments from this encounter Findings Patient has a complex problem. 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 When he may be autofused at this level. 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 But did not seem to get much benefit out of the SI joint injections. No current improvement with his caudal epidural injection done just yesterday. - Last Documented On 09/14/2021 2:27PM ; [facility] Instructions Includes: Instructions from this encounter Instructions to patient No intervention and counseli hossein on cessation of tobacco use Last Documented On 2 1:49PM ; [facility] Lose weight Last Documented On 2 1:36PM ; [facility] Medical Equipment - Implanted Devices Includes: Current Devices No Medical Equipment Recorded Medications Includes: Medications discussed during this encounter and other current Medications Current Medications (continue as prescribed) Lidocaine 5% External Patch 07/12/2021 Provider: Diagnosis: Last Documented On 2 4:10PM By Dr. Fu ; [facility] HYDROcodone-Acetaminophen 7.5-325 MG Oral Tablet 06/26 Provider: RADHA KINNEY MD Diagnosis: Last Documented On 2 4:10PM By Dr. Fu ; [facility] DULoxetine HCl 30 MG Oral Ca psule Delayed Release Particles 06/19/2021 Provider: JOSE ALFREDO GIBBS MD Diagnosis: Last Documented On 2 4:10PM By Dr. Fu ; [facility] PARoxetine HCl 10 MG Oral Tablet 03/20/2021 Provider : Irene Rizo APRN Diagnosis: Last Documented On 2 4:10PM By Dr. Fu ; [facility] Past Medications on file Losartan Potassium 50 MG Ora l Tablet 07/24/2021 - 10/22/2021 Provider: JOSE ALFREDO Bravo Diagnosis: Last Documented On 2 11:01AM By Mckenzie Brady ; [facility] Indomethacin 25 MG Oral Capsule 07/24/2021 - Provider: JOSE ALFREDO GIBBS MD Diagnosis: Last Documented On 2 11:01AM By Mckenzie Brady ; [facility] [place] 7.5-325 MG OR TABS 09/29/2013 - 10/09/2013 Provi suzan: Kelechi Vazquez MD Diagnosis: Last Documented On 4 3:20PM By Misha 1 User ; [facility] [place] 7.5-325 MG OR TABS 08/27/2013 - 09/26/2013 Provi suzan: Delvin Fu MD Diagnosis: Last Documented On 4 10:42AM By Misha 6 User ; [facility] [place] 7.5-325 MG OR TABS 07/01/2013 - 07/21/2013 Provi suzan: Delvin Fu MD Diagnosis: Last Documented On 4 11:53AM By Misha 6 User ; [facility] Lortab 10 10-325 mg OR TABS 06/29/2011 - 07/09/2011 Pr ovider: Kelechi Vazquez MD Diagnosis: for surgery on 07/02/11/jvt Last Documented On 2 3:53PM By Niya roca ; [facility] Medrol (Dominic) 4 MG OR TABS 03/19/2011 - 03/24/2011 Prov ider: Reva Candelario MD Diagnosis: Last Documented On 2 2:44PM By Misha 3 User ; [facility] Lortab 5-500 MG OR TABS 01/17/2011 - 02/16/2011 Provid er: Ilia Sahu MD Diagnosis: ac Last Documented On 1 1:33PM By Claritza Barillas ; [facility] Lortab 5-500 MG OR TABS 12/05/2009 - 01/04/2010 Provid er: Ilia Sahu MD Diagnosis: cv Last Documented On 0 10:40AM By Cabral 6 User ; [facility] Lortab 5-500 MG OR TABS 09/12/2006 - 10/12/2006 Provid er: Delvin Fu MD Diagnosis: Last Documented On 7 11:01AM By Cabral 3 User ; [facility] CeleBREX 200 MG OR CAPS 09/12/2006 - 10/12/2006 Provid er: Delvin Fu MD Diagnosis: Last Documented On 7 11:00AM By Misha 3 User ; [facility] Flexeril 5 MG OR TABS 08/23/2006 - 09/22/2006 Provider : Ilia Sahu MD Diagnosis: ravi bravo [phone] plr Last Documented On 7 1:11PM By Carolyn Luke ; [facility] CeleBREX 200 MG OR CAPS 08/07/2006 - 11/15/2006 Provid er: Delvin Fu MD Diagnosis: ravi husain [phone] df Last Documented On 7 11:38AM By Carolyn Luke ; [facility] CeleBREX 200 MG OR CAPS 04/03/2006 - 07/12/2006 Provid er: Ilia Sahu MD Diagnosis: ravi husain [phone] jsb Last Documented On 7 11:38AM By Hernandez Edmonds ; [facility] Flexeril 5 MG OR TABS 04/01/2006 - 05/01/2006 Provider : Ilia Sahu MD Diagnosis: ravi bravo [phone] df/jsb Last Documented On 7 11:33AM By Carolyn Luke ; [facility] Lortab 5-500 MG OR TABS 09/10/2005 - 10/10/2005 Provid er: Delvin Fu MD Diagnosis: Last Documented On 6 3:39PM By Misha 6 User ; [facility] Flexeril 5 MG OR TABS 08/27/2005 - 12/25/2005 Provider : Delvin Fu MD Diagnosis: ravi husain [phone] df Last Documented On 6 9:56AM By Carolyn Luke ; [facility] CeleBREX 200 MG OR CAPS 04/30/2005 - 08/08/2005 Provid er: Delvin Fu MD Diagnosis: Last Documented On 6 10:10AM By Misha Gabriel User ; [facility] Medications Administered Includes: Administered Medications from this encounter No Administered Medications Recorded Vital Signs Includes: Vital Signs from this encounter Vital Name 09/14/2021 01:49P Blood Pressure Sitting (mmHg) 162/80 Pulse Rate-Sitting (bpm) 75 Height (in) 69 Weight (lb) 170.4 Body Mass Index (kg/m2) 25.2 Body Surface Area (m2) 1.9 Note: rd Last Documented: On 09/14/2021 1:49PM ; [facility] Results Includes: Results discussed during this encounter No Results Recorded For Specified Dates History of Present Illness Includes: History of Present Illness from this encounter MORE Dodson is a 80 year old male. - Allergy list reviewed - Problem list reviewed - Medication list reviewed - Medication list reviewed - Yes, previous treatment. Dr. Kinney and [facility] - History of Physical Therapy - History of Injections 08/04/2021 Bilat SI Joint Inj 08/29/2021-IDA SI joint inj 09/13/2021-CONCHIS L4-5 ? History of Injections Previous Treatment Medications used for this condition: Hydrocodone and pain pump Patient returns following recent SI joint injection. Really did not reports a great deal of improvement with that last injection. He has also had a caudal epidural injection done just yesterday. And still having a lot of pain and discomfort through the back. Patient only has a pain pump in. He does continue to deal with her chronic lower back with pain across her low back and into the hip some. And even some pain and numbness and weakness in the legs. Patient's biggest complaint is when he stands up. He has difficulty standing up fully. When he stands or walks he tends to want to stay in a forward flexed position because it feels better. Patient has returned to see us for further assessment for the treatment options. Social History Description Last Updated Not a current smoker. 10/10/2021 Last Documented On 2 1:35PM ; [facility] Exercising regularly 09/14/2021 Last Documented On 2 2:27PM ; [facility] Not exercising regularly 09/14/2021 Last Documented On 2 1:35PM ; [facility] No recent change in diet 08/28/2021 Last Documented On 2 1:35PM ; [facility] Not a current smoker. 08/28/2021 Last Documented On 2 1:35PM ; [facility] Not a smoker 08/28/2021 Last Documented On 2 1:35PM ; [facility] Not using alcohol 08/28/2021 Last Documented On 2 1:35PM ; [facility] Not using drugs 08/28/2021 Last Documented On 2 1:35PM ; [facility] No recent change in diet 07/24/2021 Last Documented On 2 1:35PM ; [facility] Caffeine use 12/09/2019 Last Documented On 2 1:35PM ; [facility] Non-smoker 12/09/2019 Last Documented On 2 1:35PM ; [facility] Not a current smoker 03/27/2017 Last Documented On 2 1:35PM ; [facility] No tobacco use 09/29/2013 Last Documented On 2 1:35PM ; [facility] Smoking status : Former smoker 4 Last Documented On 2 1:35PM ; [facility] Procedures and Surgical History Includes: Procedures from this encounter Procedures Code Diagnosis Performing Provider Service L ocation Service Date no intervention and counseling on cessation of tobacco use 4000F Last Documented On 2 1:49PM ; [facility] use of tobacco assessment performed 1000F Last Documented On 2 1:36PM ; [facility] patient screened for future fall risk 3288F Last Documented On 2 1:36PM ; [facility] follow-up visit in one month with PCP fo r elevated BP Last Documented On 2 1:36PM ; [facility] referral to physician Last Documented On 2 1:36PM ; [facility] weight control goals: not including weig ht gain Last Documented On 2 1:36PM ; [facility] an X-ray was performed 07/10 LSpine @ [facility] ~07/10/2018 Pelvis @ [facility] ~07/24/2021 T-LSpine @ [facility] ~07/24/2021 Neck @ [facility] [id number] Last Documented On 2 1:36PM ; [facility] a CT scan was performed 08/04/2021 LSpine @ [facility] [id number] Last Documented On 2 1:36PM ; [facility] an MRI was performed 012 LSpine @ [facility] ~06/20/2021 CSpine @ [facility] ~06/20/2021 TSpine @ [facility] ~06/20/2021 LSpine @ [facility] [id number] Last Documented On 2 1:36PM ; [facility] Surgical History Last Updated History of hernia repair 08/17/2021 Last Documented On 2 1:35PM ; [facility] History of total knee arthroplasty x2 Last Documented On 2 1:35PM ; [facility] History of back surgery 03/27/2017 Last Documented On 2 1:35PM ; [facility] Medical History Includes: Medical History addressed during this encounter Description Last Updated Recent immunization for flu 2020 022 Last Documented On 2 2:27PM ; [facility] Recent immunization for pneumococcal pne umonia 03/14/2021 09/14/2021 Last Documented On 2 2:27PM ; [facility] History of History of Blood Clots 2021 Last Documented On 2 1:35PM ; [facility] History of Hypertension 08/17/2021 Last Documented On 2 1:35PM ; [facility] History of History of Blood Transfusion 07/24/2021 Last Documented On 2 1:35PM ; [facility] Arthritis 12/09/2019 Last Documented On 2 1:35PM ; [facility] Blood Transfusion 03/27/2017 Last Documented On 2 1:35PM ; [facility] Family History Includes: Family History addressed during this encounter Description Last Updated Family history of cancer 08/17/2021 Last Documented On 2 1:35PM ; [facility] Family history of heart disease 03/27/19 18 Last Documented On 2 1:35PM ; [facility] Family history of hypertension 8 Last Documented On 2 1:35PM ; [facility] Sororal history of family history of can cer 03/27/2017 Last Documented On 2 1:35PM ; [facility] Review of Systems Includes: Review of Systems from this encounter Systemic: Not feeling tired, no recent weight loss, and no recent weight gain. No edema. Head: No headache. Sinus pain. Eyes: No vision problems and no glaucomatous visual field defect. No Cataracts, no Glasses/Contacts, and no Glaucoma. Otolaryngeal: No hearing loss and no tinnitus. No nasal symptoms. Cardiovascular: No chest pain or discomfort and no palpitations. Hypertension. No High Cholesterol. Pulmonary: No daytime asthma symptoms, no cough, and no chronic cough. No wheezing. Gastrointestinal: No heartburn and no abdominal pain. No Indigestion, no Acid Reflux, no Peptic Ulcer, no GI Stomach Bleed, and no Ulcers. Endocrine: No hot flashes, no muscle weakness, no Diabetes, no Hypothyroid, and no Hyperthyroid. Hematologic: No easy bleeding, no tendency for easy bruising, and no Anemia. Musculoskeletal: No Arthritis. Lower back pain. No soft tissue swelling and no localized joint pain. Neurological: No dizziness, no convulsions, and no numbness. Psychological: No anxiety, no emotional lability, no depression, and no insomnia. Not crying for no reason. Skin: No dry skin. No Ulcers, no Scars, no rash, and no ulcers. Allergic and Immunologic: No complaint of seasonal allergic reaction. reviewed 09/14/2021 Mental Status Includes: Mental Status from this encounter Description No anxiety Functional Status Includes: Functional Status from this encounter No Functional Status Recorded Physical Exam Includes: Physical Exam from this encounter Immunizations Includes: Immunizations addressed during this encounter Vaccine Dose # Date Site Reaction(s) Status Source Influenza 1 02/11/2019 Complete (Reported) Patient Last Documented On 2 1:39PM ; [facility] PCV (Pneumovax 23) 1 03/14/2021 Complete ( Reported) Patient Last Documented On 2 1:39PM ; [facility] Allergies Includes: Active Allergies Substance Type Reaction Onset Date Resolved Date Statu s Lisinopril Allergy 08/27/2013 Active Last Documented On 2 3:01PM ; [facility] Note: cough Augmentin Allergy 10/23/2021 Active Last Documented On 2 3:01PM ; [facility] Amoxicillin Allergy 05/31/2015 Active Last Documented On 2 3:01PM ; [facility] Encounters Encounter Provider Location Date Check-In Time Check- Out Time Diagnosis Follow Up MICHAEL WETZEL PA-C [facility] 2 1:28PM 2:25PM Insurance Includes: Active Insurance Policies Plan Name Member ID Group # Subscriber Relationship Effect papito Dates 1 - Medicare Part B [facility] [id number] Michael Dodson Self 09/12/2007 - Unknown 2 - [employer] [id number] Michael Dodson Self [id number] - Unknown Clinical Notes Includes: Clinical Notes from this encounter No Clinical Notes Recorded
--- OUTSIDE RECORDS SUMMARY | 2024-05-27 11:29 | XMS_ITS ---
Care Plan - [facility] Created on: May 27, 2024 Davin Dodson .0 : 1940 Sex: Male Author Organization [facility] Address [address] [place] [address] Phone Care Team Providers Care Automobile Inspector Name Role Phone Nickie KOROMA, Delvin Unavailable Unavailable BERNIE KOROMA, JOSE ALFREDO Unavailable [phone]
--- OUTSIDE RECORDS SUMMARY | 2024-05-27 11:29 | XMS_ITS | Clinical Summary ---
Author Organization [facility] , [facility] Address [address] [place] [address] Phone Care Team Providers Care Computed Tomography Scanner Operator Name Role Phone Nickie KOROMA, Delvin Unavailable [phone] BERNIE KOROMA, JOSE ALFREDO Unavailable [phone] Reason for Visit and Chief Complaint Epidural Steroid Injection Problems Includes: Problems addressed during this encounter and other active Problems All Visits Onset Date Resolved Date Provider Condition S tatus Lower Back Pain 09/14/2021 MICHAEL WETZEL PA-C Active Last Documented On 2 1:35PM ; [facility] Joint Pain in Both Knees 08/18/2021 Kelechi Vazquez MD Active Last Documented On 2 8:40AM ; [facility] Plan of Treatment Pending Tests Order Diagnosis Results Due Ordering P rovider Radiology - CT Scan Lumbar 08/07/21 Delvin Fu MD Last Documented On 2 4:12PM ; [facility] Assessments Includes: Assessments from this encounter No Assessments Recorded Medical Equipment - Implanted Devices Includes: Current Devices No Medical Equipment Recorded Medications Includes: Medications discussed during this encounter and other current Medications Current Medications (continue as prescribed) Lidocaine 5% External Patch 07/12/2021 Provider: Diagnosis: Last Documented On 2 4:10PM By Dr. Fu ; [facility] HYDROcodone-Acetaminophen 7.5-325 MG Oral Tablet 06/26 Provider: RADHA CHRISTINA MD Diagnosis: Last Documented On 2 4:10PM By Dr. Fu ; [facility] DULoxetine HCl 30 MG Oral Ca psule Delayed Release Particles 06/19/2021 Provider: JOSE ALFREDO GIBBS MD Diagnosis: Last Documented On 2 4:10PM By Dr. Fu ; [facility] PARoxetine HCl 10 MG Oral Tablet 03/20/2021 Provider : Irene Rizo APRN Diagnosis: Last Documented On 2 4:10PM By Dr. Fu ; [facility] Medications Administered Includes: Administered Medications from this encounter No Administered Medications Recorded Results Includes: Results discussed during this encounter No Results Recorded For Specified Dates History of Present Illness Includes: History of Present Illness from this encounter No History of Present Illness Recorded Social History No Social History Recorded - Smoking Status Unknown Medical History Includes: Medical History addressed during this encounter No Medical History Recorded Family History Includes: Family History addressed during this encounter No Family History Recorded Review of Systems Includes: Review of Systems from this encounter No Review of Systems Recorded Mental Status Includes: Mental Status from this encounter No Mental Status Recorded Functional Status Includes: Functional Status from this encounter No Functional Status Recorded Physical Exam Includes: Physical Exam from this encounter No Physical Exam Recorded Allergies Includes: Active Allergies Substance Type Reaction Onset Date Resolved Date Statu s Lisinopril Allergy 08/27/2013 Active Last Documented On 2 3:01PM ; [facility] Note: cough Augmentin Allergy 10/23/2021 Active Last Documented On 2 3:01PM ; [facility] Amoxicillin Allergy 05/31/2015 Active Last Documented On 2 3:01PM ; [facility] Encounters Encounter Provider Location Date Check-In Time Check-Out Time Diagnosis Epidural Steroid Injection Delvin Fu MD [facility] 10/12/19 22 10:46AM 11:17AM Insurance Includes: Active Insurance Policies Plan Name Member ID Group # Subscriber Relationship Effect papito Dates 1 - Medicare Part B [facility] [id number] Michael Dodson Self 09/12/2007 - Unknown 2 - [employer] [id number] Michael Dodson Self 013 - Unknown Clinical Notes Includes: Clinical Notes from this encounter No Clinical Notes Recorded
--- OUTSIDE RECORDS SUMMARY | 2024-05-27 11:29 | XMS_ITS | Clinical Summary ---
Author Organization [facility] , [facility] Address [address] [place] [address] Phone Care Team Providers Care Lacing String Cutter Name Role Phone Nickie KOROMA, Delvin Unavailable [...] Active Last Documented On 2 1:35PM ; [facility] Joint Pain in Both Knees 08/18/2021 Kelechi Vazquez MD Active Last Documented On 2 8:40AM ; [facility] Plan of Treatment Pending Tests Order Diagnosis Results Due Ordering P rovider Radiology - CT Scan Lumbar 08/07/21 Delvin Fu MD Last Documented On 2 4:12PM ; [facility] Assessments Includes: Assessments from this encounter No Assessments Recorded Medical Equipment - Implanted Devices Includes: Current Devices No Medical Equipment Recorded Medications Includes: Medications discussed during this encounter and other current Medications Current Medications (continue as prescribed) Lidocaine 5% External Patch 07/12/2021 Provider: Diagnosis: Last Documented On 2 4:10PM By Dr. Fu ; [facility] HYDROcodone-Acetaminophen 7.5-325 MG Oral Tablet 06/26 Provider: RADHA CHRISTINA MD Diagnosis: Last Documented On 2 4:10PM By Dr. Fu ; [facility] DULoxetine HCl 30 MG Oral Ca psule Delayed Release Particles 06/19/2021 Provider: JOSE ALFREDO GIBBS MD Diagnosis: Last Documented On 2 4:10PM By Dr. Fu ; [facility] PARoxetine HCl 10 MG Oral Tablet 03/20/2021 Provider : Irene Rizo APRN Diagnosis: Last Documented On 2 4:10PM By Dr. Fu ; [facility] Medications Administered Includes: Administered Medications from this [...] Active Last Documented On 2 3:01PM ; [facility] Note: cough Augmentin Allergy 10/23/2021 Active Last Documented On 2 3:01PM ; [facility] Amoxicillin Allergy 05/31/2015 Active Last Documented On 2 3:01PM ; [facility] Encounters Encounter Provider Location Date Check-In Time Check-Out Time Diagnosis Epidural Steroid Injection Delvin Fu MD 2 3:07PM 11:59PM Insurance Includes: Active Insurance Policies Plan Name Member ID Group # Subscriber Relationship Effect papito Dates 1 - Medicare Part B [facility] [id number] Michael Dodson Self 09/12/2007 - Unknown 2 - [employer] [id number] Michael Dodson Self 013 - Unknown Clinical Notes Includes: Clinical Notes from this encounter No Clinical Notes Recorded
--- OUTSIDE RECORDS SUMMARY | 2024-05-27 11:29 | XMS_ITS ---
Author Organization [facility] Address [address] [place] [address] Phone Care Team Providers Care Volunteer Services Assistant Name Role Phone Nickie KOROMA, Delvin Unavailable [phone] BERNIE KOROMA, JOSE ALFREDO Unavailable [phone] Reason for Referral Date Encounter Description Provider Reason for Referral 10/10/21 IN HOUSE REFERRAL Boubacar Pisano MD Referral To Physician 09/14/21 Follow Up MICHAEL WETZEL PA-C Referral To Physician 08/28/21 Follow Up Kelechi Vazquez MD Refer ral To Physician - to see pcp for bp ; Referral To Physician 08/18/21 Physician Specified Kelechi Bravo Referral To Physician - to see pcp for bp ; Referral To Physician 08/17/21 Follow Up Delvin Fu MD Referral To Physician 07/24/21 Physician Specified Delvin Fu MD Re ferral To Physician 12/09/19 Follow Up Kelechi Vazquez MD Refer ral To Physician - to see pcp for bp Problems Includes: Active, inactive, and resolved Problems All Visits Onset Date Resolved Date Provider Condition S tatus Lower Back Pain 09/14/2021 MICHAEL WETZEL PA-C Active Last Documented On 2 1:35PM ; [facility] Joint Pain in Both Knees 08/18/2021 Kelechi Vazquez MD Active Last Documented On 2 8:40AM ; [facility] Lumbago 09/03/2018 08/28/2021 Kelechi Vazquez MD Re solved Last Documented On 2 1:28PM ; [facility] Joint Pain in Both Knees 05/01/2013 07/24/2021 Delvin lee MD Resolved Last Documented On 2 8:51AM ; [facility] Plan of Treatment Pending Tests Order Diagnosis Results Due Ordering P rovider Radiology - CT Scan Lumbar 08/07/21 Delvin Fu MD Last Documented On 2 4:12PM ; [facility] Instructions to patient No intervention and counseli ng on cessation of tobacco use Last Documented On 2 1:49PM ; [facility] Lose weight Last Documented On 2 1:36PM ; [facility] Intervention and counseling on cessation of tobacco use Last Documented On 2 1:18PM ; [facility] Not instructed to lose weigh t Last Documented On 2 1:18PM ; [facility] Intervention and counseling on cessation of tobacco use Last Documented On 2 9:01AM ; [facility] Not instructed to lose weigh t Last Documented On 2 9:02AM ; [facility] Lose weight Last Documented On 2 9:45AM ; [facility] Lose weight Last Documented On 2 9:00AM ; [facility] Instructions for patient see pcp for bp Last Documented On 9 10:30AM ; [facility] No intervention and counseli ng on cessation of tobacco use Last Documented On 9 10:30AM ; [facility] Instructions for patient see pcp for bp Last Documented On 9 1:41PM ; [facility] Instructions for patient see pcp for bp Last Documented On 9 1:24PM ; [facility] Instructions for patient see pcp for bp Last Documented On 9 8:29AM ; [facility] Instructions for patient see pcp for bp Last Documented On 8 3:01PM ; [facility] Instructions for patient See PCP for elevated blood pressure Last Documented On 8 2:18PM ; [facility] Instructions for patient See PCP for elevated blood pressure Last Documented On 8 1:16PM ; [facility] Instructions for patient See PCP for elevated blood pressure Last Documented On 6 10:58AM ; [facility] No intervention and counseli ng on cessation of tobacco use Last Documented On 4 2:01PM ; [facility] Education and Decision Aids were provided during visit for: No health seminar on smoking cessation Last Documented On 9 10:30AM ; [facility] Assessments Includes: Assessments for all patient encounters Findings Encounter Date No diagnosis of underweight Follow Up with Cullen Vazquez MD 08/28/2021 Last Documented On 2 2:03PM ; [facility] No diagnosis of underweight Physician Sp ecified with Kelechi Vazquez MD 08/18/2021 Last Documented On 2 9:36AM ; [facility] No diagnosis of underweight Follow Up with Delvin Fu MD 08/17/2021 Last Documented On 2 12:12PM ; [facility] Instructions Includes: Instructions for all patient encounters Instructions to patient No intervention and counseli ng on cessation of tobacco use Last Documented On 2 1:49PM ; [facility] Lose weight Last Documented On 2 1:36PM ; [facility] Intervention and counseling on cessation of tobacco use Last Documented On 2 1:18PM ; [facility] Not instructed to lose weigh t Last Documented On 2 1:18PM ; [facility] Intervention and counseling on cessation of tobacco use Last Documented On 2 9:01AM ; [facility] Not instructed to lose weigh t Last Documented On 2 9:02AM ; [facility] Lose weight Last Documented On 2 9:45AM ; [facility] Lose weight Last Documented On 2 9:00AM ; [facility] Instructions for patient see pcp for bp Last Documented On 9 10:30AM ; [facility] No intervention and counseli ng on cessation of tobacco use Last Documented On 9 10:30AM ; [facility] Instructions for patient see pcp for bp Last Documented On 9 1:41PM ; [facility] Instructions for patient see pcp for bp Last Documented On 9 1:24PM ; [facility] Instructions for patient see pcp for bp Last Documented On 9 8:29AM ; [facility] Instructions for patient see pcp for bp Last Documented On 8 3:01PM ; [facility] Instructions for patient See PCP for elevated blood pressure Last Documented On 8 2:18PM ; [facility] Instructions for patient See PCP for elevated blood pressure Last Documented On 8 1:16PM ; [facility] Instructions for patient See PCP for elevated blood pressure Last Documented On 6 10:58AM ; [facility] No intervention and counseli ng on cessation of tobacco use Last Documented On 4 2:01PM ; [facility] Education and Decision Aids were provided during visit for: No health seminar on smoking cessation Last Documented On 9 10:30AM ; [facility] Medical Equipment - Implanted Devices Includes: Current and historical Devices No Medical Equipment Recorded Medications Includes: Current and historical Medications Current Medications (continue as prescribed) Lidocaine 5% External Patch 07/12/2021 Provider: Diagnosis: Last Documented On 2 4:10PM By Dr. Fu ; [facility] HYDROcodone-Acetaminophen 7.5-325 MG Oral Tablet 06/26 Provider: RADHA CHRISTINA MD Diagnosis: Last Documented On 2 4:10PM By Dr. Fu ; [facility] DULoxetine HCl 30 MG Oral Ca psule Delayed Release Particles 06/19/2021 Provider: JOSE ALFREDO GIBBS MD Diagnosis: Last Documented On 2 4:10PM By Dr. Fu ; [facility] PARoxetine HCl 10 MG Oral Tablet 03/20/2021 Provider : Irene Rizo APRN Diagnosis: Last Documented On 2 4:10PM By Dr. Fu ; [facility] Past Medications on file Losartan Potassium 50 MG Ora l Tablet 07/24/2021 - 10/22/2021 Provider: JOSE ALFREDO Bravo Diagnosis: Last Documented On 2 11:01AM By Mckenzie Brady ; [facility] Indomethacin 25 MG Oral Capsule 07/24/2021 - Provider: JOSE ALFREDO GIBBS MD Diagnosis: Last Documented On 2 11:01AM By Mckenzie Brady ; [facility] hydrOXYzine Pamoate 50 MG Oral Capsule 06/19/2021 - Provider: RADHA CHRISTINA MD Diagnosis: Last Documented On 2 12:08PM By Dr. Fu ; [facility] Cefuroxime Axetil 250MG Oral Tablet 06/17/2018 - 06/27/2018 Provider: JOSE ALFREDO Bravo Diagnosis: Last Documented On 2 4:09PM By Dr. Fu ; [facility] [place] 10-325MG Oral Tablet 03/18/2018 - 04/15/2018 Pro vider: Kelechi Vazquez MD Diagnosis: 1 every 4 - 6 hours as needed Last Documented On 2 4:09PM By Dr. Fu ; [facility] [place] 10-325MG Oral Tablet 01/14/2018 - 02/14/2018 Pro vider: Kelechi Vazquez MD Diagnosis: 1 every 4 - 6 hours as needed for pain Last Documented On 2 4:09PM By Dr. Fu ; [facility] Indomethacin 25MG Oral Capsule 03/20/2017 - 07/24/2021 Provider: JOSE ALFREDO GIBBS MD Diagnosis: Last Documented On 2 11:01AM By Mckenzie Brady ; [facility] Losartan Potassium 50MG Oral Tablet 03/15/2017 - 07/24/2021 Provider: JOSE ALFREDO Bravo Diagnosis: Last Documented On 2 11:01AM By Mckenzie Brady ; [facility] Omeprazole 40MG Oral Capsule Delayed Release 03/15/2017 - 12/20/2017 Provider: JOSE ALFREDO Bravo Diagnosis: Last Documented On 8 12:30PM By Amita Dodge ; [facility] Sulfamethoxazole-Trimethopri m 200-40MG/5ML Oral Suspension 02/21/2017 - 12/09/2019 Provider: JOSE ALFREDO GIBBS MD Diagnosis: Last Documented On 0 3:52PM By Leobardo Ventura ; [facility] Tamsulosin HCl 0.4MG Oral Capsule 01/28/2017 - 018 Provider: JOSE ALFREDO GIBBS MD Diagnosis: Last Documented On 2 4:09PM By Dr. Fu ; [facility] Baclofen 10MG Oral Tablet 01/14/2017 - 12/09/2019 Prov ider: RADHA CHRISTINA MD Diagnosis: Last Documented On 0 3:52PM By Leobardo Ventura ; [facility] [place] 7.5-325 MG OR TABS 09/29/2013 - 10/09/2013 Provi suzan: Kelechi Vazquez MD Diagnosis: Last Documented On 4 3:20PM By Misha 1 User ; [facility] [place] 7.5-325 MG OR TABS 08/27/2013 - 09/26/2013 Provi suzan: Delvin Fu MD Diagnosis: Last Documented On 4 10:42AM By Misha 6 User ; [facility] [place] 7.5-325 MG OR TABS 07/01/2013 - 07/21/2013 Provi suzan: Delvin Fu MD Diagnosis: Last Documented On 4 11:53AM By Misha 6 User ; [facility] Lortab 10 10-325 mg OR TABS 06/29/2011 - 07/09/2011 Pr ovider: Kelechi Vazquez MD Diagnosis: for surgery on 07/02/11/jvt Last Documented On 2 3:53PM By Niya roca ; [facility] Medrol (Dominic) 4 MG OR TABS 03/19/2011 - 03/24/2011 Prov ider: Reva Candelario MD Diagnosis: Last Documented On 2 2:44PM By Cabral 3 User ; [facility] Lortab [...] Diagnosis: Last Documented On 7 11:00AM By Cabral 3 User ; [facility] Flexeril 5 MG OR TABS 08/23/2006 - 09/22/2006 Provider : Ilia Sahu MD Diagnosis: ravi bravo [phone] plr Last Documented On 7 1:11PM By Carolyn Luke ; [facility] CeleBREX 200 MG OR CAPS 08/07/2006 - 11/15/2006 Provid er: Delvin Fu MD Diagnosis: ravi husain [phone] df Last Documented On 7 11:38AM By Carolyn Luke ; [facility] CeleBREX 200 MG OR CAPS 04/03/2006 - 07/12/2006 Provid er: Ilia Sahu MD Diagnosis: ravi husain [phone] jsb Last Documented On 7 11:38AM By Hernandez Edmonds ; [facility] Flexeril 5 MG OR TABS 04/01/2006 - 05/01/2006 Provider : Ilia Sahu MD Diagnosis: ravi bravo [phone] df/jsb Last Documented On 7 11:33AM By Carolyn Luke ; [facility] Lortab 5-500 MG OR TABS 09/10/2005 - 10/10/2005 Provid er: Delvin Fu MD Diagnosis: Last Documented On 6 3:39PM By Misha Gabriel User ; [facility] Flexeril 5 MG OR TABS 08/27/2005 - 12/25/2005 Provider : Delvin Fu MD Diagnosis: ravi husain [phone] Last Documented On 6 9:56AM By Carolyn Luke ; [facility] CeleBREX 200 MG OR CAPS 04/30/2005 - 08/08/2005 Provid er: Delvin Fu MD Diagnosis: Last Documented On 6 10:10AM By Misha Gabriel User ; [facility] Medications Administered Includes: Administered Medications in patient's chart No Administered Medications Recorded Results Includes: Results from 05/28/2023 through 05/27/2024 No Results Recorded For Specified Dates History of Present Illness History of Present Illness not supported for this document type No History of Present Illness Recorded Social History Description Last Updated Not a current smoker. 10/10/2021 Last Documented On 2 3:03PM ; [facility] Exercising regularly 09/14/2021 Last Documented On 2 2:27PM ; [facility] No recent change in diet 08/28/2021 Last Documented On 2 2:03PM ; [facility] Not a current smoker. 08/28/2021 Last Documented On 2 2:03PM ; [facility] Not a smoker 08/28/2021 Last Documented On 2 2:03PM ; [facility] Not using alcohol 08/28/2021 Last Documented On 2 2:03PM ; [facility] Not using drugs 08/28/2021 Last Documented On 2 2:03PM ; [facility] No recent change in diet 07/24/2021 Last Documented On 2 4:14PM ; [facility] Caffeine use 12/09/2019 Last Documented On 0 10:23AM ; [facility] Non-smoker 12/09/2019 Last Documented On 0 10:23AM ; [facility] Not a current smoker 03/27/2017 Last Documented On 8 12:07PM ; [facility] No tobacco use 09/29/2013 Last Documented On 4 8:21AM ; [facility] Smoking status : Former smoker 4 Last Documented On 4 8:21AM ; [facility] Procedures and Surgical History Surgical History Last Updated History of hernia repair 08/17/2021 Last Documented On 2 12:12PM ; [facility] History of total knee arthroplasty x2 Last Documented On 2 12:12PM ; [facility] History of back surgery 03/27/2017 Last Documented On 8 12:07PM ; [facility] Medical History Includes: Medical History in patient's chart Description Last Updated Recent immunization for flu 2020 022 Last Documented On 2 2:27PM ; [facility] Recent immunization for pneumococcal pne [facility] 03/14/2021 09/14/2021 Last Documented On 2 2:27PM ; [facility] History of History of Blood Clots 2021 Last Documented On 2 12:12PM ; [facility] History of Hypertension 08/17/2021 Last Documented On 2 12:12PM ; [facility] History of History of Blood Transfusion 07/24/2021 Last Documented On 2 4:14PM ; [facility] Arthritis 12/09/2019 Last Documented On 0 10:23AM ; [facility] Back surgery 12/09/2019 Last Documented On 0 10:23AM ; [facility] Hernia repair 12/09/2019 Last Documented On 0 10:23AM ; [facility] History of Blood Clots 12/09/2019 Last Documented On 0 10:23AM ; [facility] Hypertension 12/09/2019 Last Documented On 0 10:23AM ; [facility] Total knee arthroplasty x2 12/09/2019 Last Documented On 0 10:23AM ; [facility] Blood Transfusion 03/27/2017 Last Documented On 8 12:07PM ; [facility] Family History Includes: Family History in patient's chart Description Last Updated Family history of cancer 08/17/2021 Last Documented On 2 12:12PM ; [facility] Family history of heart disease 03/27/19 18 Last Documented On 8 12:07PM ; [facility] Family history of hypertension 8 Last Documented On 8 12:07PM ; [facility] Sororal history of family history of can cer 03/27/2017 Last Documented On 8 12:07PM ; [facility] Review of Systems Review of Systems not supported for this document type No Review of Systems Recorded Mental Status No Mental Status Recorded Functional Status No Functional Status Recorded Physical Exam Physical Exam not supported for this document type No Physical Exam Recorded Immunizations Includes: Immunizations in patient's chart Vaccine Dose # Date Site Reaction(s) Status Source Influenza 1 02/11/2019 Complete (Reported) Patient Last Documented On 2 1:39PM ; [facility] PCV (Pneumovax 23) 1 03/14/2021 Complete ( Reported) Patient Last Documented On 2 1:39PM ; [facility] Allergies Includes: Active, inactive, and resolved Allergies Substance Type Reaction Onset Date Resolved Date Statu s Lisinopril Allergy 08/27/2013 Active Last Documented On 2 3:01PM ; [facility] Note: cough Augmentin Allergy 10/23/2021 Active Last Documented On 2 3:01PM ; [facility] Amoxicillin Allergy 05/31/2015 Active Last Documented On 2 3:01PM ; [facility] Insurance Includes: Active Insurance Policies Plan Name Member ID Group # Subscriber Relationship Effect papito Dates 1 - Medicare Part B [facility] [id number] Michael Dodson Self 09/12/2007 - Unknown 2 - [employer] [id number] Michael Dodson Self [id number] - Unknown Clinical Notes Includes: Signed Clinical Notes starting from 01/25/2022 No Clinical Notes Recorded
--- OUTSIDE RECORDS SUMMARY | 2024-05-27 11:29 | XMS_ITS | Clinical Summary ---
Author Organization [facility] Address [address] [place] [address] Phone Care Team Providers Care Optical Fabrication Technician Name Role Phone Nickie KOROMA, Delvin Unavailable [...] Active Last Documented On 2 1:35PM ; [facility] Joint Pain in Both Knees 08/18/2021 Kelechi Vazquez MD Active Last Documented On 2 8:40AM ; [facility] Plan of Treatment Pending Tests Order Diagnosis Results Due Ordering P rovider Radiology - CT Scan Lumbar 08/07/21 Delvin Fu MD Last Documented On 2 4:12PM ; [facility] Assessments Includes: Assessments from this encounter No Assessments Recorded Medical Equipment - Implanted Devices Includes: Current Devices No Medical Equipment Recorded Medications Includes: Medications discussed during this encounter and other current Medications Current Medications (continue as prescribed) Lidocaine 5% External Patch 07/12/2021 Provider: Diagnosis: Last Documented On 2 4:10PM By Dr. Fu ; [facility] HYDROcodone-Acetaminophen 7.5-325 MG Oral Tablet 06/26 Provider: RADHA CHRISTINA MD Diagnosis: Last Documented On 2 4:10PM By Dr. Fu ; [facility] DULoxetine HCl 30 MG Oral Ca psule Delayed Release Particles 06/19/2021 Provider: JOSE ALFREDO GIBBS MD Diagnosis: Last Documented On 2 4:10PM By Dr. Fu ; [facility] PARoxetine HCl 10 MG Oral Tablet 03/20/2021 Provider : Irene Rizo APRN Diagnosis: Last Documented On 2 4:10PM By Dr. Fu ; [facility] Medications Administered Includes: Administered Medications from [...] Active Last Documented On 2 3:01PM ; [facility] Note: cough Augmentin Allergy 10/23/2021 Active Last Documented On 2 3:01PM ; [facility] Amoxicillin Allergy 05/31/2015 Active Last Documented On 2 3:01PM ; [facility] Encounters Encounter Provider Location Date Check-In Time Check-Out Time Diagnosis Epidural Steroid Injection Delvin Fu MD [facility] 09/28/19 22 11:13AM 11:47AM Insurance Includes: Active Insurance Policies Plan Name Member ID Group # Subscriber Relationship Effect papito Dates 1 - Medicare Part B Psychiatric [id number] Michael Dodson Self 09/12/2007 - Unknown 2 - [employer] [id number] Michael Dodson Self [id number] - Unknown Clinical Notes Includes: Clinical Notes from this encounter No Clinical Notes Recorded
--- OUTSIDE RECORDS SUMMARY | 2024-05-27 11:29 | XMS_ITS | Clinical Summary ---
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 Name Role Phone Nickie KOROMA, Delvin Unavailable [phone] BERNIE KOROMA, JOSE ALFREDO Unavailable [phone] Reason for Referral Date Encounter Description Provider Reason for Referral 10/10/21 IN HOUSE REFERRAL Boubacar Pisano MD Referral To Physician Reason for Visit and Chief Complaint The Chief Complaint is: R knee pain Problems Includes: Problems addressed during this encounter and other active Problems Current Visit Onset Date Resolved Date Provider Lexi giron Status Lower Back Pain 09/14/2021 MICHAEL WETZEL PA-C Active Last Documented On 2 1:35PM ; [facility] Past Visits Onset Date Resolved Date Provider Condition Status Joint Pain in Both Knees 08/18/2021 Kelechi Vazquez MD Active Last Documented On 2 8:40AM ; [facility] Plan of Treatment Fall Risk Assessment: [...] with the patient. - Last Documented On 10/23/2021 3:03PM ; [facility] Assessments Includes: Assessments from this encounter Findings 81 year old male with pain right total knee arthroplasty. I reviewed the xrays from August of this year with the patient. The implants are in good alignment, well fixed. The incision is well healed with no signs of infection. He states he gets injections in his back that have helped his knee pain. He ambulates with a cane because of his back. He does have a pain stimulator in his back. I explained the culprit of his pain could be coming from his back, however he does not agree. I would not recommend any further surgery on his knee at this time. He states his knee symptoms feels similar to how it felt prior to having his debridement surgeries. He states he had a recent MRI of his back. I would like to refer him to Dr. Reyna for further evaluation of his back. All questions have been answered at this time. - Last Documented On 10/23/2021 3:03PM ; [facility], [facility] Medical Equipment - Implanted Devices Includes: Current Devices No Medical Equipment Recorded Medications Includes: Medications discussed during this encounter and other current Medications Current Medications (continue as prescribed) Lidocaine 5% External Patch 07/12/2021 Provider: Diagnosis: Last Documented On 2 4:10PM By Dr. Fu ; [facility] HYDROcodone-Acetaminophen 7.5-325 MG Oral Tablet 06/26 Provider: RADHA CHRISTINA MD Diagnosis: Last Documented On 2 4:10PM By Dr. Fu ; [facility] DULoxetine HCl 30 MG Oral Ca psule Delayed Release Particles 06/19/2021 Provider: JOSE ALFREDO GIBBS MD Diagnosis: Last Documented On 2 4:10PM By Dr. Fu ; [facility] PARoxetine HCl 10 MG Oral Tablet 03/20/2021 Provider : Irene Rizo APRN Diagnosis: Last Documented On 2 4:10PM By Dr. Fu ; [facility], [facility] Past Medications on file Losartan Potassium 50 MG Ora l Tablet 07/24/2021 - 10/22/2021 Provider: JOSE ALFREDO Bravo Diagnosis: Last Documented On 2 11:01AM By Mckenzie [facility] Indomethacin 25 MG Oral Capsule 07/24/2021 - Provider: JOSE ALFREDO GIBBS MD Diagnosis: Last Documented On 2 11:01AM By Mckenzie Brady ; [facility] [place] 7.5-325 MG OR TABS 09/29/2013 - 10/09/2013 Provi suzan: Kelechi Vazquez MD Diagnosis: Last Documented On 4 3:20PM By Cabral 1 User ; [facility] [place] 7.5-325 MG OR TABS 08/27/2013 - 09/26/2013 Provi suzan: Delvin Fu MD Diagnosis: Last Documented On 4 10:42AM By Cabral 6 User ; [facility] [place] 7.5-325 MG OR TABS 07/01/2013 - 07/21/2013 Provi suzan: Delvin Fu MD Diagnosis: Last Documented On 4 11:53AM By Cabral 6 User ; [facility] Lortab 10 10-325 mg OR TABS 06/29/2011 - 07/09/2011 Pr ovider: Kelechi Vazquez MD Diagnosis: for surgery on 07/02/11/vt Last Documented On 2 3:53PM By Niya roca ; [facility] Medrol (Dominic) 4 MG OR [...] : Ilia Sahu MD Diagnosis: ravi bravo [phone] plr Last Documented On 7 1:11PM By Carolyn Luke ; [facility] CeleBREX 200 MG OR CAPS 08/07/2006 - 11/15/2006 Provid er: Delvin Fu MD Diagnosis: adileneolivia husain [phone] Last Documented On 7 11:38AM By Carolyn Luke ; [facility] CeleBREX 200 MG OR CAPS 04/03/2006 - 07/12/2006 Provid er: Ilia Sahu MD Diagnosis: adileneolivia husain [phone] jsb Last Documented On 7 11:38AM By Hernandez Edmonds ; [facility] Flexeril 5 MG OR TABS 04/01/2006 - 05/01/2006 Provider : Ilia Sahu MD Diagnosis: adileneolivia bravo [phone] df/jsb Last Documented On 7 11:33AM By Carolyn Luke ; [facility] Lortab 5-500 MG OR TABS 09/10/2005 - 10/10/2005 Provid er: Delvin Fu MD Diagnosis: Last Documented On 6 3:39PM By Misha 6 User ; [facility] Flexeril 5 MG OR TABS 08/27/2005 - 12/25/2005 Provider : Delvin Fu MD Diagnosis: ravi husain [phone] df Last Documented On 6 9:56AM By Carolyn Luke ; [facility] CeleBREX 200 MG OR CAPS 04/30/2005 - 08/08/2005 Provid er: Delvin Fu MD Diagnosis: Last Documented On 6 10:10AM By Misha 6 User ; [facility] Medications Administered Includes: Administered Medications from this encounter No Administered Medications Recorded Vital Signs Includes: Vital Signs from this encounter Vital Name 10/10/2021 09:09A Blood Pressure Sitting (mmHg) 169/80 Pulse Rate-Sitting (bpm) 80 Height (in) 69 Weight (lb) 168 Body Mass Index (kg/m2) 24.8 Body Surface Area (m2) 1.9 Note: Last Documented: On 10/10/2021 9:09AM ; [facility] Results Includes: Results discussed during this encounter No Results Recorded For Specified Dates History of Present Illness Includes: History of Present Illness from this encounter MORE Dodson is a 81 year old male. - Symptoms worsen with standing and walking. - Allergy list reviewed - Problem list reviewed - Medication list reviewed 10/10/21 - Previous history of new onset pain Injury is not work related or an automotive accident - Pain is dull, aching 81 year old male presents with chronic right knee pain. This is an in house referral from Dr. Vazquez. He had a previous total knee arthroplasty performed by Dr. Sahu in 2004. He has since had two more arthroscopic debridement procedures on the right knee performed by Dr. Vazquez that helped his pain for a while. He started having pain again three months ago with no trauma. He ambulates with a cane because of his back. He has lateral sided pain, pain with weight bearing for prolonged periods of time. He has pain when getting in and out of a vehicle, pain when going up and down stairs. He states his pain intermittently radiates up and down the leg. He denies any numbness or tingling in the knee. He has utilized oral over the counter NSAID's and narcotics for pain management. Social History Description Last Updated Not a current smoker. 10/10/2021 Last Documented On 2 3:03PM ; [facility] Exercising regularly 09/14/2021 Last Documented On 2 9:08AM ; [facility] No recent change in diet 08/28/2021 Last Documented On 2 9:08AM ; [facility] Not using alcohol 08/28/2021 Last Documented On 2 9:08AM ; [facility] Not using drugs 08/28/2021 Last Documented On 2 9:08AM ; [facility] No recent change in diet 07/24/2021 Last Documented On 2 9:08AM ; [facility] Caffeine use 12/09/2019 Last Documented On 2 9:08AM ; [facility] Smoking Status Unknown Procedures and Surgical History Includes: Procedures from this encounter Procedures Code Diagnosis Performing Provider Service L ocation Service Date use of tobacco assessment performed 1000F Last Documented On 2 9:09AM ; [facility] patient screened for future fall risk: documentation of any fall with injury in past year 1100F Last Documented On 2 9:09AM ; [facility] follow-up visit in one month Last Documented On 2 9:09AM ; [facility] referral to physician Last Documented On 2 9:09AM ; [facility] Surgical History Last Updated History of hernia repair 08/17/2021 Last Documented On 2 9:08AM ; [facility] Medical History Includes: Medical History addressed during this encounter Description Last Updated Recent immunization for flu 2020 022 Last Documented On 2 9:08AM ; [facility] Recent immunization for pneumococcal pne umonia 03/14/2021 09/14/2021 Last Documented On 2 9:08AM ; [facility] History of Hypertension 08/17/2021 Last Documented On 2 9:08AM ; [facility] History of History of Blood Transfusion 07/24/2021 Last Documented On 2 9:08AM ; [facility] Arthritis 12/09/2019 Last Documented On 2 9:08AM ; [facility] Back surgery 12/09/2019 Last Documented On 2 9:08AM ; [facility] History of Blood Clots 12/09/2019 Last Documented On 2 9:08AM ; [facility] Total knee arthroplasty x2 12/09/2019 Last Documented On 2 9:08AM ; [facility] Blood Transfusion 03/27/2017 Last Documented On 2 9:08AM ; [facility] Family History Includes: Family History addressed during this encounter Description Last Updated Family history of cancer 08/17/2021 Last Documented On 2 9:08AM ; [facility] Family history of heart disease 03/27/19 18 Last Documented On 2 9:08AM ; [facility] Family history of hypertension 8 Last Documented On 2 9:08AM ; [facility] Sororal history of family history of can cer 03/27/2017 Last Documented On 2 9:08AM ; [facility] Review of Systems Includes: Review of [...] Immunologic: No complaint of seasonal allergic reaction. Mental Status Includes: Mental Status from this encounter Description No anxiety Functional Status Includes: Functional Status from this encounter No Functional Status Recorded Physical Exam Includes: Physical Exam from this encounter Allergies Includes: Active Allergies Substance Type Reaction Onset Date Resolved Date Statu s Lisinopril Allergy 08/27/2013 Active Last Documented On 2 3:01PM ; [facility] Note: cough Augmentin Allergy 10/23/2021 Active Last Documented On 2 3:01PM ; [facility] Amoxicillin Allergy 05/31/2015 Active Last Documented On 2 3:01PM ; [facility] Encounters Encounter Provider Location Date Check-In Time Check-Out Time Diagnosis IN HOUSE REFERRAL Boubacar Pisano MD [facility] 10/11/19 22 8:46AM 9:54AM Insurance Includes: Active Insurance Policies Plan Name Member ID Group # Subscriber Relationship Effect papito Dates 1 - Medicare Part B [facility] [id number] Michael Dodson Self 09/12/2007 - Unknown 2 - [employer] [id number] Michael Dodson Self [id number] - Unknown Clinical Notes Includes: Clinical Notes from this encounter No Clinical Notes Recorded
--- NOTE | 2024-05-27 12:01 | EXP.PAIN.PRO ---
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 Today he rates his pain a 5 out of 10. He denies any new trauma or injury. He does state that he did not notice any negative impacts with the flex dosing however he cannot say that he really noticed any additional change to his upper mid back pain. Patient does state that he still is having a fairly constant pain they are at his mid back more prominent along the right side. Patient did previously have trigger point injections in this area and did get significant relief however it did really only provide more about a week of relief. Patient does make mention today that about 2 weeks ago he ended up hitting his ribs hard along the left side and that it was super sore to touch or cough or anything else. He does question whether or not if he did break a rib. He is currently managed with flex dosing of fentanyl 1000 mcg/mL with a daily base dose of 465.6 mcg/day and flex dosing of 38.8 mcg every 2 hours. Patient does also have bupivacaine 5 mg/mL with a daily dose of 2.328 mg/day. He denies any side effects. His Abram has been reviewed and is appropriate. Physical Exam: General: Alert and oriented x3, no acute distress, pleasant and cooperative Lungs: Respirations even and unlabored, symmetrical chest expansion Eyes: PERRL Musculoskeletal: Flexion and extension of lumbar [spine] somewhat guarded secondary to pain, [antalgic gait noted] Neurological: Speech clear, no gross sensory deficit Procedure Details:: Informed consent was obtained and the risk and benefits of the procedure were explained to the patient. Patient did have noninvasive monitoring was placed including noninvasive blood pressure cuff and pulse oximeter. Patient's pump was interrogated and was reprogrammed to continue his base rate 465.6 mcg/day and changed the 2-hour bolus to 44 mcg/day. The patient tolerated the procedure well with no complications. Plan and Disposition:: Due to the patient's continued pain around his shoulder blade on the right side I did discuss with the patient that I do believe it may be radiating from his thoracic spine. I did discuss with the patient that I will order the patient a x-ray of his thoracic with a MRI without contrast to follow. Patient agrees with this plan of care. I did also discuss with the patient that the imaging should product picker on any possible rib fractures in the process. Patient tolerated his intrathecal adjustment to the flex dosing with no complications. Patient was made sure that his next refill is still within range of the adjustment. We will contact the patient once we have approval for the advanced imaging. Patient tolerated the procedure well with no complications and was discharged neurologically intact. Patient will return to clinic on or before their next intrathecal refill date. We will see the patient back in the clinic at the next intrathecal refill. Patient has been instructed to contact the clinic with any concerns before the next appointment. Dr. Kinney has reviewed this note and agrees with this plan of care. This note was dictated using voice recognition software and make contain errors or omissions. -- It Is medically necessary for this patient to continue to have their intrathecal pump refilled at regular intervals. This patient had an intrathecal pain pump implanted after meeting criteria of chronic intractable pain for greater than 3 months and failing conservative treatments. Patient has committed and been compliant to the treatment plan and all planned follow up care. Since implantation of the intrathecal pain pump, the patient has had decreased pain and been more functional. Oral medications have been reduced including intake of oral opioids. Patient continues to do well with intrathecal therapy with decrease in pain symptoms and increase in functional status. Stopping intrathecal medications can lead to life threatening withdrawal, seizures, cardiac arrest, severe pain, and possible . Pumps that are not refilled at regular intervals can be damages and cause and need for replacement. We continually titrate dose and concentration to optimize pain relief and function. We are limited in concentration for certain drugs to safely deliver medications through the pump and stay within the recommendations from the Polyanalges[employer] Consensus Committee Guidelines. Depending on dose and concentration these pumps may need to be refilled sooner than 3 months as we titrate. A UDS is needed to verify patient's compliance with our office pain contract. This is ordered based off specific treatments related to chronic pain with the potential to abuse certain medications.
--- NOTE | 2024-05-27 12:12 | XR_ITS ---
FINAL REPORT CLINICAL HISTORY: Mid back pain, injury to ribs COMPARISON: 09/30/2020 FINDINGS: 3 views of the thoracic spine were obtained. There is 10 degrees of thoracic scoliosis convex to the right. There is no acute fracture. There is no malalignment. The thoracic vertebrae are normal in height. There is mild anterior osteophyte formation in the mid thoracic spine. There may be mild compression of L2. IMPRESSION: No acute process of the thoracic spine. Possible mild compression of L2. Recommend regular lumbar spine series to fully evaluate. Reviewed, Interpreted and Dictated by Yony Chatman MD Transcribed by Rosangela Mijares Authenticated and [facility]
[2024-05-27 12:31] VITALS: BP 185/88; PULSE 51; RESP 18; O2SAT 99; BMI 25.8
== END 2024-05-27 23:59 | disposition home or self-care (01) ==
PROVIDERS: PCP Family Medicine; Visit Provider Nurse Practitioner Family
DX: G89.4 Chronic pain syndrome (principal); M50.30 Other cervical disc degeneration, unspecified cervical region; M51.369 Other intervertebral disc degeneration, lumbar region without mention of lumbar back pain or lower extremity pain; M47.812 Spondylosis without myelopathy or radiculopathy, cervical region; R07.81 Pleurodynia; M54.9 Dorsalgia, unspecified; M89.8X1 Other specified disorders of bone, shoulder; M79.18 Myalgia, other site
CPT/HCPCS: 62368; 72072; 99212; 99213; G0463

== ENCOUNTER 2024-06-12 09:33 | Day surgery (SDC) | payer MEDICARE, OTHER, SELFPAY ==
--- NOTE | 2024-06-12 09:42 | EXP.HP ---
History of Present Illness *Admission Date: 06/12/24 *Reason for visit:: Intrathecal refill, DDD *History of present illness: Degenerative disc disease [facility] Disclaimer: The information contained in this section may have been updated after the patient was seen, as this information can be updated by other users. 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 History of spinal fusion Family History Other Alzheimer disease Social History Smoking Status: Never smoker second hand exposure: No alcohol intake: never counseling provided: none substance use type: denies use current occupational status: retired Travel in the last 8 weeks?: None household members: spouse housing: house current occupational exposures/hazards: No caffeine: Yes Have you lived/traveled outside [place] in past 30 days?: No Contact w/someone who lives/traveled outside US past 30 days?: No Exposure to someone with infectious disease in past 14 days?: No Do you have a fever (greater than 100.4 F or 38 C)?: No Have you tested positive for COVID-19?: No Exposed to someone with COVID-19 in past 14 days?: No Do you have a sore throat?: No Do you have a cough?: No Do you have any weakness?: No Do you have any diarrhea?: No Are you experiencing any unusual bleeding?: No Do you have any muscle aches/pain?: No Do you have any abdominal pain?: No Are you experiencing loss of taste or smell?: No Other Medical History Have you received the Flu Vaccine for this season: No Have you received the Pneumonia Vaccine: Yes Review of Systems Review of Systems Review of systems:: pertinent systems reviewed and negative unless documented below Review of systems (narrative): Review of Systems: General: No recent weight changes, no fever, no sleep disturbances Respiratory: No cough, no shortness of air, no recurring pulmonary infections Cardiovascular/peripheral vascular: No chest pain, no palpitations, no edema, no shortness of breath Gastrointestinal: No new onset incontinence, normal bowel movements reported Genitourinary: No new onset incontinence Musculoskeletal: Chronic back pain Psychiatric: [Normal mood/affect] Neurological: [Denies weakness in extremities], [denies balance issues] Meds Home Medications and Allergies Home Medications ?Medication ?Instructions ?Recorded ?Confirmed ?Type polyethylene glycol 3350 17 119 g PO DAILY CONSTIPATION 05/17/17 05/27/24 History gram/dose oral powder ferrous sulfate 325 mg (65 mg 0.5 tab PO DAILY anemia 09/19/18 05/27/24 History iron) tablet losartan 100 mg tablet 50 mg PO DAILY High blood pressure 02/23/19 05/27/24 History bupivacaine (PF) 0.5 % (5 mg/mL) 3.69 mg intrathecal CONT chronic 02/08/21 05/27/24 History injection solution pain lidocaine 5 % topical patch 1 patch topical DAILY . #30 ea 07/18/22 05/27/24 Rx fentanyl citrate (PF) 50 mcg/mL 5 mcg epidural CONT Pain 09/12/22 05/27/24 History intravenous solution omeprazole 20 mg capsule,delayed 20 mg PO DAILY PRN GERD 09/04/23 05/27/24 History release meclizine 12.5 mg tablet 12.5 mg PO DAILY PRN Dizziness 10/08/23 05/27/24 History cyclobenzaprine 5 mg tablet 5 mg PO BID #60 tabs 11/11/23 05/27/24 Rx 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 mg tablet 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 01/21/24 05/27/24 Rx #60 tabs meloxicam 7.5 mg tablet 7.5 mg PO DAILY #30 tabs 02/11/24 05/27/24 Rx lidocaine 5 % topical patch 1 patch topical DAILY #30 ea 03/20/24 05/27/24 Rx New Prescriptions to Start Prescriptions: Allergies Allergy/AdvReac Type Severity Reaction Status Date / Time amoxicillin Allergy Unknown unkn Verified 03/20/24 11:31 lisinopril Allergy Unknown unkn Verified 03/20/24 11:31 Exam Constitutional Constitutional: no acute distress *Routine HEENT Exam Head: Present normocephalic and atraumatic Eye: Present PERRL ENT: Present mucous membranes moist *Routine Neck Exam Neck: Present supple *Routine Respiratory Exam Respiratory: Present CTA bilaterally *Routine Cardiovascular Exam Cardiovascular: Present RRR *Routine Abdominal Exam Abdominal: Present soft *Routine Rectal Exam Rectal:: deferred *Routine Genitalia Exam Genitalia:: normal male Routine Back/Spine/Pelvis Exam Back/Spine: Present pain with flexion *Routine Skin Exam Skin: Present intact and warm *Routine Neurological Exam Neurological: Present alert and oriented X3 Routine Psychiatric Exam Psychiatric: Present normal affect Assessment and Plan *Assessment and plan (1) Degenerative disc disease, cervical: Status: Chronic Category: Medical Code(s): M50.30 - Other cervical disc degeneration, unspecified cervical region (2) Cervical spondylosis: Status: Acute Category: Medical Code(s): M47.812 - Spondylosis without myelopathy or radiculopathy, cervical region Plan Patient has been instructed to contact the clinic with any concerns before the next appointment. Dr. Kinney has reviewed this note and agrees with this plan of care. This note was dictated using voice recognition software and make contain errors or omissions. All injections are used with Lidocaine, Bupivacaine and dexamethasone. Occasionally urine drug screen is needed to verify patient's compliance with our office pain contract. This is ordered based off specific treatments related to chronic pain with the potential to abuse certain medications.
--- NOTE | 2024-06-12 09:44 | P.PCN_ITS ---
Procedure Date: 06/12/24 Time: 09:56 Anesthesiologist:: Cassidy Altman APRN Complications:: None Pre-procedure Diagnosis:: Degenerative disc disease of cervical spine ROM, cervical spondylosis, chronic pain syndrome Post-procedure Diagnosis:: Same Indications for Procedure:: Patient is a pleasant 83-year-old male who presents today for intrathecal refill and reprogram. Today he rates his pain at a 3 out of 10. He denies any new falls or injuries from our last appointment. He does state that the changes we made on his pump have really made all the difference. He states his mid to upper back are feeling so much better. Patient does also make mention that since his neck and mid back are feeling so much better he does notice a little bit more pain in his low back however it is very manageable. Patient was recently changed to flex dosing and then had an additional adjustments.Patient is managed with intrathecal fentanyl at 1000 mcg/mL with a daily dose 465.6 mcg/day and bupivacaine 5 mg/mL with a daily dose of 2.64 mg/day with 2-hour flex dosing of 44 mcg/day. Patient did also recently have some updated imaging that did show a L2 compression fracture however he states since he is feeling much better he does not want to proceed forward with the advanced imaging that we had scheduled previously. Patient is requesting refills on his Flexeril 5 mg twice daily and meloxicam 7.5 mg daily.He is also prescribed compounded cream. His Abram has been reviewed and is appropriate. Physical Exam: General: Alert and oriented x3, no acute distress, pleasant and cooperative Lungs: Respirations even and unlabored, symmetrical chest expansion Eyes: PERRL Musculoskeletal: Flexion and extension of cervical [spine] somewhat guarded secondary to pain, [antalgic gait noted] Neurological: Speech clear, no gross sensory deficit Procedure Details:: Informed consent was obtained and the risk and benefits of the procedure were explained to the patient. The patient had noninvasive monitoring placed including noninvasive blood pressure cuff and pulse oximeter. Patient's pump was interrogated. The area over the pump was cleansed with chlorhexidine as a cleansing solution. In sterile fashion the pump was accessed with a 22-gauge needle. Approximately 9.1 mls of the pump solution was removed and discarded appropriately. The pump was then refilled with 20 mL's of fentanyl 1000 mcg/mL and bupivacaine 5 mg/mL. The needle was withdrawn and a bandage was placed over the puncture site. The infusion rate was reprogrammed and continued at its current dosage. The patient tolerated well with no complication. Plan and Disposition:: Patient tolerated the procedure well with no complications and was discharged neurologically intact. I will refill the patient's Flexeril and meloxicam and provide a 3-month supply of this medication. Patient will return to clinic on or before their next intrathecal refill date. We will see the patient back in the clinic at the next intrathecal refill. Patient has been instructed to contact the clinic with any concerns before the next appointment. Dr. Kinney has reviewed this note and agrees with this plan of care. This note was dictated using voice recognition software and make contain errors or omissions. -- It Is medically necessary for this patient to continue to have their intrathecal pump refilled at regular intervals. This patient had an intrathecal pain pump implanted after meeting criteria of chronic intractable pain for greater than 3 months and failing conservative treatments. Patient has committed and been compliant to the treatment plan and all planned follow up care. Since implantation of the intrathecal pain pump, the patient has had decreased pain and been more functional. Oral medications have been reduced including intake of oral opioids. Patient continues to do well with intrathecal therapy with decrease in pain symptoms and increase in functional status. Stopping intrathecal medications can lead to life threatening withdrawal, seizures, cardiac arrest, severe pain, and possible . Pumps that are not refilled at regular intervals can be damages and cause and need for replacement. We continu ally titrate dose and concentration to optimize pain relief and function. We are limited in concentration for certain drugs to safely deliver medications through the pump and stay within the recommendations from the Polyanalgesic Consensus Committee Guidelines. Depending on dose and concentration these pumps may need to be refilled sooner than 3 months as we titrate. A UDS is needed to verify patient's compliance with our office pain contract. This is ordered based off specific treatments related to chronic pain with the potential to abuse certain medications.
[2024-06-12 09:46] VITALS: BP 129/67; PULSE 60; RESP 16; O2SAT 94; BMI 25.8
[2024-06-12 09:49] VITALS: BP 165/92; PULSE 61; RESP 18; O2SAT 96
[2024-06-12 10:03] VITALS: BP 143/78; PULSE 57; RESP 16; O2SAT 96
== END 2024-06-12 10:03 | disposition home or self-care (01) ==
PROVIDERS: PCP Family Medicine; Visit Provider Nurse Practitioner Family
DX: M50.30 Other cervical disc degeneration, unspecified cervical region (principal); M47.812 Spondylosis without myelopathy or radiculopathy, cervical region; G89.4 Chronic pain syndrome
CPT/HCPCS: 62370; 99221

== ENCOUNTER 2024-07-31 10:35 | Day surgery (SDC) | payer MEDICARE, OTHER, SELFPAY ==
--- NOTE | 2024-07-31 10:47 | P.HP_ITS ---
History of Present Illness *Admission Date: 07/31/24 *Reason for visit:: Intrathecal refill; DDD *History of present illness: Same [facility] Disclaimer: The information contained in this section may have been updated after the patient was seen, as this information can be updated by other users. 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 History of spinal fusion Family History Other Alzheimer disease Social History Smoking Status: Never smoker second hand exposure: No alcohol intake: never counseling provided: none substance use type: denies use current occupational status: retired Travel in the last 8 weeks?: None household members: spouse housing: house current occupational exposures/hazards: No caffeine: Yes Have you lived/traveled outside [place] in past 30 days?: No Contact w/someone who lives/traveled outside US past 30 days?: No Exposure to someone with infectious disease in past 14 days?: No Do you have a fever (greater than 100.4 F or 38 C)?: No Have you tested positive for COVID-19?: No Exposed to someone with COVID-19 in past 14 days?: No Do you have a sore throat?: No Do you have a cough?: No Do you have any weakness?: No Do you have any diarrhea?: No Are you experiencing any unusual bleeding?: No Do you have any muscle aches/pain?: No Do you have any abdominal pain?: No Are you experiencing loss of taste or smell?: No Other Medical History Have you received the Flu Vaccine for this season: No Have you received the Pneumonia Vaccine: No Review of Systems Review of Systems Review of systems:: pertinent systems reviewed and negative unless documented below Review of systems (narrative): Review of Systems: General: No recent weight changes, no fever, no sleep disturbances Respiratory: No cough, no shortness of air, no recurring pulmonary infections Cardiovascular/peripheral vascular: No chest pain, no palpitations, no edema, no shortness of breath Gastrointestinal: No new onset incontinence, normal bowel movements reported Genitourinary: No new onset incontinence Musculoskeletal: Chronic back pain Psychiatric: [Normal mood/affect] Neurological: [Denies weakness in extremities], [denies balance issues] Meds Home Medications and Allergies Home Medications ?Medication ?Instructions ?Recorded ?Confirmed ?Type losartan 100 mg tablet 50 mg PO DAILY High blood pr essure 02/23/19 07/21/24 History bupivacaine (PF) 0.5 % (5 mg/mL) 3.69 mg intrathecal C ONT chronic 02/08/21 07/21/24 History injection solution pain fentanyl citrate (PF) 50 mcg/mL 5 mcg epidural CONT Pa in 09/12/22 07/21/24 History intravenous solution omeprazole 20 mg capsule,delayed 20 mg PO DAILY PRN GE RD 09/04/23 07/21/24 History release meclizine 12.5 mg tablet 12.5 mg PO DAILY PRN Dizzine ss 10/08/23 07/21/24 History lidocaine 5 % topical patch 1 patch topical DAILY #30 ea 03/20/24 07/21/24 Rx cyclobenzaprine 5 mg tablet 5 mg PO BID #60 tabs 06/1207/21/24 Rx meloxicam 7.5 mg tablet 7.5 mg PO DAILY #30 tabs 04/0707/21/24 Rx donepezil 5 mg tablet (Aricept) 5 mg PO HS Memory loss #90 tabs 07/21/24 07/21/24 Rx 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 mg tablet 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 07/21/24 07/21/24 Rx #180 tabs New Prescriptions to Start Prescriptions: Allergies Allergy/AdvReac Type Severity Reaction Status Date / Time amoxicillin Allergy Unknown unkn Verified 07/21/24 13:35 lisinopril Allergy Unknown unkn Verified 07/21/24 13:35 Exam *Routine HEENT Exam Head: Present normocephalic and atraumatic Eye: Present PERRL ENT: Present mucous membranes moist *Routine Neck Exam Neck: Present supple *Routine Respiratory Exam Respiratory: Present CTA bilaterally *Routine Cardiovascular Exam Cardiovascular: Present RRR *Routine Abdominal Exam Abdominal: Present soft *Routine Rectal Exam Rectal:: deferred *Routine Genitalia Exam Genitalia:: deferred Routine Back/Spine/Pelvis Exam Back/Spine: Present pain with flexion *Routine Skin Exam Skin: Present intact, dry and warm *Routine Neurological Exam Neurological: Present alert and oriented X3 Routine Psychiatric Exam Psychiatric: Present normal affect and normal thought process Assessment and Plan *Assessment and plan (1) Chronic scapular pain: Status: Acute Category: Medical Code(s): M89.8X1 - Other specified disorders of bone, shoulder; G89.29 - Other chronic pain (2) Degenerative disc disease, cervical: Status: Chronic Category: Medical Code(s): M50.30 - Other cervical disc degeneration, unspecified cervical region (3) Mid back pain: Status: Acute Category: Medical Code(s): M54.9 - Dorsalgia, unspecified Plan Patient has been instructed to contact the clinic with any concerns before the next appointment. Dr. Kinney has reviewed this note and agrees with this plan of care. This note was dictated using voice recognition software and make contain errors or omissions. All injections are used with Lidocaine, Bupivacaine and dexamethasone. Occasionally urine drug screen is needed to verify patient's compliance with our office pain contract. This is ordered based off specific treatments related to chronic pain with the potential to abuse certain medications.
--- NOTE | 2024-07-31 10:49 | P.PCN_ITS ---
Procedure Date: 07/31/24 Time: 11:23 Anesthesiologist:: Cassidy Altman APRN Complications:: None Pre-procedure Diagnosis:: Degenerative disc disease of cervical spine, mid back pain, chronic back pain Post-procedure Diagnosis:: Same Indications for Procedure:: Patient is a pleasant 83-year-old male who presents today for intrathecal refill and reprogram. Today he rates his pain a 2 out of 10. He denies any with his current medication. Patient is currently managed with fentanyl 1000 mcg/mL a daily dose 465.6 mcg/day and bupivacaine 5 mg/mL with a daily dose of 2.64 mg/day with 2-hour flex dosing of 44 mcg/day. . He denies any side effects. His Abram has been reviewed and is appropriate. Physical Exam: General: Alert and oriented x3, no acute distress, pleasant and cooperative Lungs: Respirations even and unlabored, symmetrical chest expansion Eyes: PERRL Musculoskeletal: Flexion and extension of lumbar [spine] somewhat guarded secondary to pain, [antalgic gait noted] Neurological: Speech clear, no gross sensory deficit Procedure Details:: Informed consent was obtained and the risk and benefits of the procedure were explained to the patient. The patient had noninvasive monitoring placed including noninvasive blood pressure cuff and pulse oximeter. Patient's pump was interrogated. The area over the pump was cleansed with chlorhexidine as a cleansing solution. In sterile fashion the pump was accessed with a 22-gauge needle. Approximately 8.5 mls of the pump solution was removed and discarded appropriately. The pump was then refilled with 20 mL's of fentanyl 1000 mcg/mL and bupivacaine 5 mg/mL. The needle was withdrawn and a bandage was placed over the puncture site. The infusion rate was reprogrammed and continued at its current dosage. The patient tolerated well with no complication. Plan and Disposition:: Patient tolerated the procedure well with no complications and was discharged neurologically intact. Patient will return to clinic on or before their next intrathecal refill date. We will see the patient back in the clinic at the next intrathecal refill. Patient has been instructed to contact the clinic with any concerns before the next appointment. Dr. Kinney has reviewed this note and agrees with this plan of care. This note was dictated using voice recognition software and make contain errors or omissions. -- It Is medically necessary for this patient to continue to have their intrathecal pump refilled at regular intervals. This patient had an intrathecal pain pump implanted after meeting criteria of chronic intractable pain for greater than 3 months and failing conservative treatments. Patient has committed and been compliant to the treatment plan and all planned follow up care. Since implantation of the intrathecal pain pump, the patient has had decreased pain and been more functional. Oral medications have been reduced including intake of oral opioids. Patient continues to do well with intrathecal therapy with dec rease in pain symptoms and increase in functional status. Stopping intrathecal medications can lead to life threatening withdrawal, seizures, cardiac arrest, severe pain, and possible . Pumps that are not refilled at regular intervals can be damages and cause and need for replacement. We continually titrate dose and concentration to optimize pain relief and function. We are limited in concentration for certain drugs to safely deliver medications through the pump and stay within the recommendations from the Polyanalgesic Consensus Committee Guidelines. Depending on dose and concentration these pumps may need to be refilled sooner than 3 months as we titrate. A UDS is needed to verify patient's compliance with our office pain contract. This is ordered based off specific treatments related to chronic pain with the potential to abuse certain medications.
[2024-07-31 10:54] VITALS: BP 126/69; PULSE 65; RESP 18; TEMP 36.8; O2SAT 95; BMI 25.8
[2024-07-31 11:15] VITALS: BP 154/71; PULSE 62; RESP 18; O2SAT 96
[2024-07-31 11:26] VITALS: BP 153/75; PULSE 63; RESP 16; O2SAT 97
== END 2024-07-31 11:26 | disposition home or self-care (01) ==
PROVIDERS: PCP Family Medicine; Visit Provider Nurse Practitioner Family
DX: Z45.1 Encounter for adjustment and management of infusion pump (principal); M50.30 Other cervical disc degeneration, unspecified cervical region; G89.4 Chronic pain syndrome; M54.6 Pain in thoracic spine; M89.8X1 Other specified disorders of bone, shoulder; I10 Essential (primary) hypertension; E78.5 Hyperlipidemia, unspecified; M19.90 Unspecified osteoarthritis, unspecified site; Z98.1 Arthrodesis status; Z79.899 Other long term (current) drug therapy; Z88.0 Allergy status to penicillin; Z88.8 Allergy status to other drugs, medicaments and biological substances
CPT/HCPCS: 62370

== ENCOUNTER 2024-08-27 09:18 | Day surgery (SDC) | payer MEDICARE, OTHER, SELFPAY ==
[2024-08-27 09:27] VITALS: BP 125/71; PULSE 68; RESP 18; O2SAT 96; BMI 25.1
--- NOTE | 2024-08-27 09:31 | EXP.PM.HP ---
History of Present Illness *Admission Date: 08/27/24 *Reason for visit:: Intrathecal refill; DDD *History of present illness: Same [facility] Disclaimer: The information contained in this section may have been updated after the patient was seen, as this information can be updated by other users. 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 History of spinal fusion Family History Other Alzheimer disease Social History Smoking Status: Never smoker second hand exposure: No alcohol intake: never counseling provided: none substance use type: denies use current occupational status: retired Travel in the last 8 weeks?: None household members: spouse housing: house current occupational exposures/hazards: No caffeine: Yes Have you lived/traveled outside US in past 30 days?: No Contact w/someone who lives/traveled outside US past 30 days?: No Exposure to someone with infectious disease in past 14 days?: No Do you have a fever (greater than 100.4 F or 38 C)?: No Have you tested positive for COVID-19?: No Exposed to someone with COVID-19 in past 14 days?: No Do you have a sore throat?: No Do you have a cough?: No Do you have any weakness?: No Do you have any diarrhea?: No Are you experiencing any unusual bleeding?: No Do you have any muscle aches/pain?: No Do you have any abdominal pain?: No Are you experiencing loss of taste or smell?: No Other Medical History Have you received the Flu Vaccine for this season: No Have you received the Pneumonia Vaccine: No Review of Systems Review of Systems Review of systems:: pertinent systems reviewed and negative unless documented below Review of systems (narrative): Review of Systems: General: No recent weight changes, no fever, no sleep disturbances Respiratory: No cough, no shortness of air, no recurring pulmonary infections Cardiovascular/peripheral vascular: No chest pain, no palpitations, no edema, no shortness of breath Gastrointestinal: No new onset incontinence, normal bowel movements reported Genitourinary: No new onset incontinence Musculoskeletal: Chronic back pain Psychiatric: [Normal mood/affect] Neurological: [Denies weakness in extremities], [denies balance issues] Meds Home Medications and Allergies Home Medications ?Medication ?Instructions ?Recorded ?Confirmed ?Type losartan 100 mg tablet 50 mg PO DAILY High blood pressure 02/23/19 07/31/24 History bupivacaine (PF) 0.5 % (5 mg/mL) 3.69 mg intrathecal CONT chronic 02/08/21 07/31/24 History injection solution pain fentanyl citrate (PF) 50 mcg/mL 5 mcg epidural CONT Pain 09/12/22 07/31/24 History intravenous solution omeprazole 20 mg capsule,delayed 20 mg PO DAILY PRN GERD 09/04/23 07/31/24 History release meclizine 12.5 mg tablet 12.5 mg PO DAILY PRN Dizziness 10/08/23 07/31/24 History lidocaine 5 % topical patch 1 patch topical DAILY #30 ea 03/20/24 07/31/24 Rx cyclobenzaprine 5 mg tablet 5 mg PO BID #60 tabs 06/12/24 07/31/24 Rx meloxicam 7.5 mg tablet 7.5 mg PO DAILY #30 tabs 06/12/24 07/31/24 Rx donepezil 5 mg tablet (Aricept) 5 mg PO HS Memory loss #90 tabs 07/21/24 07/31/24 Rx 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 mg tablet 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 07/21/24 07/31/24 Rx #180 tabs New Prescriptions to Start Prescriptions: Allergies Allergy/AdvReac Type Severity Reaction Status Date / Time amoxicillin Allergy Unknown unkn Verified 07/21/24 13:35 lisinopril Allergy Unknown unkn Verified 07/21/24 13:35 Exam Data for Last 24 hours Vital signs and Labs for Last 24 Hours: Pulse Resp BP Pulse Ox O2 Del Method 68 18 125/71 96 Room Air 08/27/24 09:27 08/27/24 09:27 08/27/24 09:27 08/27/24 09:27 08/27/24 09:27 I & O for Last 24 hours: Intake & Output 08/24/24 08/25/24 08/26/24 08/27/24 23:59 23:59 23:59 23:59 Weight 170 lb Constitutional Constitutional: no acute distress *Routine HEENT Exam Head: Present normocephalic and atraumatic Eye: Present PERRL ENT: Present mucous membranes moist *Routine Neck Exam Neck: Present supple *Routine Respiratory Exam Respiratory: Present CTA bilaterally *Routine Cardiovascular Exam Cardiovascular: Present RRR *Routine Abdominal Exam Abdominal: Present soft *Routine Rectal Exam Rectal:: deferred *Routine Genitalia Exam Genitalia:: deferred Routine Back/Spine/Pelvis Exam Back/Spine: Present pain with flexion *Routine Skin Exam Skin: Present intact, dry and warm *Routine Neurological Exam Neurological: Present alert and oriented X3 Routine Psychiatric Exam Psychiatric: Present normal affect and normal thought process Assessment and Plan *Assessment and plan (1) Degenerative disc disease, cervical: Status: Chronic Category: Medical Code(s): M50.30 - Other cervical disc degeneration, unspecified cervical region (2) Cervical spondylosis: Status: Acute Category: Medical Code(s): M47.812 - Spondylosis without myelopathy or radiculopathy, cervical region Plan Patient has been instructed to contact the clinic with any concerns before the next appointment. Dr. Kinney has reviewed this note and agrees with this plan of care. This note was dictated using voice recognition software and make contain errors or omissions. All injections are used with Lidocaine, Bupivacaine and dexamethasone. Occasionally urine drug screen is needed to verify patient's compliance with our office pain contract. This is ordered based off specific treatments related to chronic pain with the potential to abuse certain medications.
--- NOTE | 2024-08-27 09:32 | EXP.PAIN.PRO ---
Procedure Date: 08/27/24 Time: 09:47 Anesthesiologist:: Cassidy Altman APRN Complications:: None Pre-procedure Diagnosis:: Degenerative disc disease of cervical and thoracic spine with chronic pain syndrome Post-procedure Diagnosis:: Same Indications for Procedure:: Patient is a pleasant 83-year-old male who presents today for intrathecal refill and reprogram. Today he rates his pain a 2 out of 10. He denies any new falls or injuries. 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 Patient is asking if we could do a small increase.Patient is currently managed with fentanyl 1000 mcg/mL with a daily dose of 528 mcg/day along with bupivacaine 5 mg/mL with a daily dose of 2.64 mg/day. He denies any side effects from this medication. His Abram has been reviewed and is appropriate. Physical Exam: General: Alert and oriented x3, no acute distress, pleasant and cooperative Lungs: Respirations even and unlabored, symmetrical chest expansion Eyes: PERRL Musculoskeletal: Flexion and extension of lumbar [spine] somewhat guarded secondary to pain, [antalgic gait noted] Neurological: Speech clear, no gross sensory deficit Procedure Details:: Informed consent was obtained and the risk and benefits of the procedure were explained to the patient. The patient had noninvasive monitoring placed including noninvasive blood pressure cuff and pulse oximeter. Patient's pump was interrogated. The area over the pump was cleansed with chlorhexidine as a cleansing solution. In sterile fashion the pump was accessed with a 22-gauge needle. Approximately 6.2 mls of the pump solution was removed and discarded appropriately. The pump was then refilled with 20 mL's of fentanyl 1000 mcg/mL and bupivacaine 5 mg/mL. The needle was withdrawn and a bandage was placed over the puncture site. The infusion rate was reprogrammed and increased to fentanyl 555 mcg/day and bupivacaine 2.775 mg/day. The patient tolerated well with no complication. Plan and Disposition:: Patient tolerated the procedure well with no complications and was discharged neurologically intact. Patient will return to clinic on or before their next intrathecal refill date. We will see the patient back in the clinic at the next intrathecal refill. Patient has been instructed to contact the clinic with any concerns before the next appointment. Dr. Kinney has reviewed this note and agrees with this plan of care. This note was dictated using voice recognition software and make contain errors or omissions. -- It Is medically necessary for this patient to continue to have their intrathecal pump refilled at regular intervals. This patient had an intrathecal pain pump implanted after meeting criteria of chronic intractable pain for greater than 3 months and failing conservative treatments. Patient has committed and been compliant to the treatment plan and all planned follow up care. Since implantation of the intrathecal pain pump, the patient has had decreased pain and been more functional. Oral medications have been reduced including intake of oral opioids. Patient continues to do well with intrathecal therapy with decrease in pain symptoms and increase in functional status. Stopping intrathecal medications can lead to life threatening withdrawal, seizures, cardiac arrest, severe pain, and possible . Pumps that are not refilled at regular intervals can be damages and cause and need for replacement. We continually titrate dose and concentration to optimize pain relief and function. We are limited in concentration for certain drugs to safely deliver medications through the pump and stay within the recommendations from the Polyanalgesic Consensus Committee Guidelines. Depending on dose and concentration these pumps may need to be refilled sooner than 3 months as we titrate. A UDS is needed to verify patient's compliance with our office pain contract. This is ordered based off specific treatments related to chronic pain with the potential to abuse certain medications.
[2024-08-27 09:47] VITALS: BP 149/79; PULSE 63; RESP 18; O2SAT 97
[2024-08-27 09:56] VITALS: BP 136/69; PULSE 62; RESP 18; O2SAT 96
== END 2024-08-27 09:56 | disposition home or self-care (01) ==
PROVIDERS: PCP Family Medicine; Visit Provider Nurse Practitioner Family
DX: M50.30 Other cervical disc degeneration, unspecified cervical region (principal); M47.812 Spondylosis without myelopathy or radiculopathy, cervical region; M51.34 Other intervertebral disc degeneration, thoracic region; G89.4 Chronic pain syndrome; E78.5 Hyperlipidemia, unspecified; I10 Essential (primary) hypertension; M19.90 Unspecified osteoarthritis, unspecified site; Z88.1 Allergy status to other antibiotic agents; Z88.8 Allergy status to other drugs, medicaments and biological substances; Z79.899 Other long term (current) drug therapy
CPT/HCPCS: 62370

== ENCOUNTER 2024-09-18 10:52 | Day surgery (SDC) | payer MEDICARE, OTHER, SELFPAY ==
[2024-09-18 11:03] VITALS: BP 101/71; PULSE 73; RESP 18; O2SAT 97; BMI 25.1
--- NOTE | 2024-09-18 11:09 | EXP.PAIN.PRO ---
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 He rates his pain today a 2 out of 10. He denies any new falls or injuries. He does state that he did notice improvement with the last increase. He is currently managed with fentanyl 1000 mcg/mL with a daily dose of 555 mcg/day and bupivacaine 5 mg/mL with a daily dose of 2.775 mg/day. He denies any side effects. His Abram has been reviewed and is appropriate. Physical Exam: General: Alert and oriented x3, no acute distress, pleasant and cooperative Lungs: Respirations even and unlabored, symmetrical chest expansion Eyes: PERRL Musculoskeletal: Flexion and extension of cervical [spine] somewhat guarded secondary to pain, [antalgic gait noted] Neurological: Speech clear, no gross sensory deficit Procedure Details:: Informed consent was obtained and the risk and benefits of the procedure were explained to the patient. The patient had noninvasive monitoring placed including noninvasive blood pressure cuff and pulse oximeter. Patient's pump was interrogated. The area over the pump was cleansed with chlorhexidine as a cleansing solution. In sterile fashion the pump was accessed with a 22-gauge needle. Approximately 7.5 mls of the pump solution was removed and discarded appropriately. The pump was then refilled with 20 mL's of fentanyl 1000 mcg/mL and bupivacaine 5 mg/mL. The needle was withdrawn and a bandage was placed over the puncture site. The infusion rate was reprogrammed and continued at his current dosage. The patient tolerated well with no complication. Plan and Disposition:: Patient tolerated the procedure well with no complications and was discharged neurologically intact. Patient will return to clinic on or before their next intrathecal refill date. We will see the patient back in the clinic at the next intrathecal refill. Patient has been instructed to contact the clinic with any concerns before the next appointment. Dr. Kinney has reviewed this note and agrees with this plan of care. This note was dictated using voice recognition software and make contain errors or omissions. -- It Is medically necessary for this patient to continue to have their intrathecal pump refilled at regular intervals. This patient had an intrathecal pain pump implanted after meeting criteria of chronic intractable pain for greater than 3 months and failing conservative treatments. Patient has committed and been compliant to the treatment plan and all planned follow up care. Since implantation of the intrathecal pain pump, the patient has had decreased pain and been more functional. Oral medications have been reduced including intake of oral opioids. Patient continues to do well with intrathecal therapy with decrease in pain symptoms and increase in functional status. Stopping intrathecal medications can lead to life threatening withdrawal, seizures, cardiac arrest, severe pain, and possible . Pumps that are not refilled at regular intervals can be damages and cause and need for replacement. We continually titrate dose and concentration to optimize pain relief and function. We are limited in concentration for certain drugs to safely deliver medications through the pump and stay within the recommendations from the Polyanalges[employer] Consensus Committee Guidelines. Depending on dose and concentration these pumps may need to be refilled sooner than 3 months as we titrate. A UDS is needed to verify patient's compliance with our office pain contract. This is ordered based off specific treatments related to chronic pain with the potential to abuse certain medications.
[2024-09-18 11:11] VITALS: BP 130/75; PULSE 63; RESP 16; O2SAT 95
[2024-09-18 11:28] VITALS: BP 123/67; PULSE 62; RESP 16; O2SAT 99
== END 2024-09-18 11:28 | disposition home or self-care (01) ==
PROVIDERS: PCP Family Medicine; Visit Provider Nurse Practitioner Family
DX: Z45.1 Encounter for adjustment and management of infusion pump (principal); M50.10 Cervical disc disorder with radiculopathy, unspecified cervical region; G89.4 Chronic pain syndrome; E78.5 Hyperlipidemia, unspecified; I10 Essential (primary) hypertension; M19.90 Unspecified osteoarthritis, unspecified site; Z88.1 Allergy status to other antibiotic agents; Z88.8 Allergy status to other drugs, medicaments and biological substances; Z79.899 Other long term (current) drug therapy
CPT/HCPCS: 62370

== ENCOUNTER → 2024-10-16 11:13 | Day surgery (SDC) | payer MEDICARE, OTHER, SELFPAY ==
[2024-10-16 11:33] LABS: Hematocrit 41.9 % (42.0-52.0); Hemoglobin 14.2 g/dL (14.1-18.0); Immature Granulocytes % 0.3 %; Mean Corpuscular HGB Conc 33.9 g/dL (31.8-35.4); Mean Corpuscular Hemoglobin 30.0 pg (27.0-31.2); Mean Corpuscular Volume 88.4 fl (80-94); Nucleated Red Blood Cells % 0 %; Platelet Count 248 K/mm3 (142-424); Red Blood Count 4.74 M/mm3 (4.60-6.20); Red Cell Distribution Width-SD 42.4 fL; White Blood Count 6.3 K/mm3 (4.8-10.8)
[2024-10-16 11:52] LABS: Chloride 109 mmol/L (98-107)
[2024-10-16 11:53] LABS: Albumin Level 4.3 g/dl (3.5-5.0); Potassium 4.0 mmoL/L (3.5-5.1); Sodium 143 mmol/L (136-145)
[2024-10-16 11:55] LABS: Alanine Aminotransferase 14 U/L (12-78); Aspartate Amino Transferase 23 U/L (17-59); Blood Urea Nitrogen 28 mg/dl (9-20); Creatinine,Serum 1.00 mg/dl (0.66-1.25); Estimated Glomerular Filt Rate 72 ml/min (>60); GFR (African American) 87 ML/MIN (>60)
[2024-10-16 11:56] LABS: Albumin/Globulin Ratio 1.7 (1.1-1.8); Alkaline Phosphatase 79 U/L (38-126); Anion Gap 10.0 mEq/L (5-15); Bilirubin,Total 0.7 mg/dl (0.2-1.3); Calcium 10.0 mg/dl (8.4-10.2); Carbon Dioxide 28 mmol/L (22.0-30.0); Cholesterol 209 mg/dl (140-200); Globulin 2.5 g/dL (1.3-3.2); Glucose 106 mg/dl (74-100); HDL Cholesterol 36 mg/dl (40-60); Iron 80 ug/dL (49-181); Total Protein,Serum 6.8 g/dl (6.3-8.2); Triglycerides 131 mg/dl (30-150)
[2024-10-16 12:09] LABS: Hemoglobin A1C 5.0 % (4.0-6.0)
== END ==
LOC: SC.PAIN 11:14
PROVIDERS: PCP Family Medicine; Visit Provider Family Medicine
DX: Z45.1 Encounter for adjustment and management of infusion pump (principal); G89.29 Other chronic pain; M50.30 Other cervical disc degeneration, unspecified cervical region; I10 Essential (primary) hypertension; Z96.653 Presence of artificial knee joint, bilateral; Z79.891 Long term (current) use of opiate analgesic
CPT/HCPCS: 62370; 36415; 80053; 80061; 83036; 83540; 85025; G0103

== ENCOUNTER 2024-11-16 13:43 | Outpatient (CLI) | payer MEDICARE, OTHER, SELFPAY ==
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
--- OUTSIDE RECORDS SUMMARY | 2023-11-12 12:45 | XMS_ITS ---
Author Organization [facility] Address [address] [place] [id number] Care Team Providers Care Lobbyist Name Role Phone Camryn Simons Primary Care Provider Allergies Allergen (clinical drug ingredient) Drug/Non Drug Allergy documented on EMR Reaction Allergy Type Onset Date Status amoxicillin Amoxicillin stomach upset Drug Allergy Active gabapentin Gabapentin dizziness Drug Allergy Activ e lisinopril Lisinopril cough Drug Allergy Activ e Results Component Value Reference Range Notes CBC Venipuncture (in house) Reviewed date:11/14/2023 04:56:31 PM Interpretation:rbc 2.97, hgb 9.5, hct 27.3 Performing Lab: Notes/Report: rbc 2.97, hgb 9.5, hct 27.3 wbc 7.0 3.5 - 10 lymph 17.1 15 - 50 mid 4.2 2 - 15 gran 78.7 35 - 80 rbc 2.97 3.5 - 5.5 hgb 9.5 11.5 - 16.5 hct 27.3 35 - 55 mcv 91.7 75 - 100 mch 32.0 25 - 35 mchc 34.8 31 - 38 platlet 342 100 - 400 P-Vitamin B12 Reviewed date:11/14/2023 04:56:31 PM Interpretation:>1999 Performing Lab: Notes/Report: CLIA: [id number] Campbell Miner MD, Manager Care Management [address] [place] [address] , [address], [place] [address] Test performed by [facility], [facility] Vitamin B12 >2000 232-1245 pg/mL P-Comprehensive Metabolic Pa yoandy (CMP) Reviewed date:11/14/2023 04:56:31 PM Interpretation:gluc 136, bun 25 Performing Lab: Notes/Report: CLIA: [id number] Campbell Miner MD, Manager Care Management [address] [place] [address] , [place] [address] Test performed by [facility] Sodium 141 135-145 mmol/L Potassium 5.1 3.5-5.3 mmol/L Chloride 107 97-108 mmol/L CO2 26 22-32 mmol/L Glucose 136 65-99 mg/dL BUN 25 8-23 mg/dL Creatinine 1.02 0.70-1.30 mg/dL Calcium 9.4 8.6-10.4 mg/dL eGFR by Creatinine 74 >59 mL/min/1.73m2 Protein 6.3 6.0-8.3 g/dL Albumin 4.2 3.5-5.3 g/dL Alkaline Phosphatase 79 40-129 IU/L ALT (SGPT) 16 <5-55 IU/L AST (SGOT) 17 <5-46 IU/L Bilirubin, Total 0.2 <0.2-1.2 mg/dL A/G Ratio 2.0 1.1-2.5 P-CPK Reviewed date:11/14/2023 04:56:31 PM Interpretation:Normal Performing Lab: Notes/Report: Test performed by [facility] [address] [place] [address] , [place] [address] Campbell Miner MD, Manager Care Management CLIA: [id number] Creatine Kinase 31 20-200 U/L P-Folate Reviewed date:11/14/2023 04:56:31 PM Interpretation:Normal Performing Lab: Notes/Report: Test performed by [facility] [address] [place] [address] , [address], [place] [address] Campbell Miner MD, Manager Care Management CLIA: [id number] Folate >20 >4.59 ng/mL P-Iron Binding Cap Reviewed date:11/14/2023 04:56:31 PM Interpretation:Normal Performing Lab: Notes/Report: Test performed by [facility] [address] [place] [address] Milena Paula, [place] [address] Campbell Miner MD, Manager Care Management CLIA: [id number] Iron Binding Cap 297 250-450 ug/dL P-Iron Reviewed date:11/14/2023 04:56:31 PM Interpretation:34 Performing Lab: Notes/Report: Test performed by [facility] [address] [place] [address] [address], [place] [address] Campbell Miner MD, Manager Care Management CLIA: [id number] Iron 34 59-158 ug/dL P-Lipid Panel Reviewed date:11/14/2023 04:56:31 PM Interpretation:chol 221, trigs 256, chol/hdl 5.39, non-hdl 180 Performing Lab: Notes/Report: CLIA: [id number] Campbell Miner MD, Manager Care Management [address] [place] [address] [address], [place] [address] Test performed by [facility] Cholesterol 221 <200 mg/dL Triglycerides 256 <150 mg/dL HDL Cholesterol 41 >39 mg/dL Cholesterol / HDL Ratio 5.39 0.00-4.99 Ratio Non-HDL Cholesterol 180 <130 mg/dL LDL Cholesterol (Calculation) 129 <130 mg/dL LDL Cholesterol Levels* Less than 100 mg/dL Optimal 100 to 129 mg/dL Near Optimal/ Above Optimal 130 to 159 mg/dL Borderline High 160 to 189 mg/dL High 190 mg/dL and above Very High * Categories as recommended by the 2004 ATPIII guidelines LDL/HDL Ratio 3.1 <3.3 Ratio LDL Cholesterol Patient History Test Date: 11/12/2023 LDL Results: 129 Units: mg/dL % Change: - Percent Saturation Reviewed date:11/14/2023 04:56:31 PM Interpretation:11 Performing Lab: Notes/Report: Test performed by [facility] , [place] [address] Campbell Miner MD, Manager Care Management CLIA: [id number] Percent Saturation 11 20-50 % P-Transferrin Reviewed date:11/14/2023 04:56:31 PM Interpretation:Normal Performing Lab: Notes/Report: Test performed by [facility] , [facility], [place] [address] Campbell Miner MD, Manager Care Management CLIA: [id number] Transferrin 234 200-360 mg/dL P-TSH Reviewed date:11/14/2023 04:56:31 PM Interpretation:Normal Performing Lab: Notes/Report: [facility] , [address], [place] [address] Campbell Miner MD, Manager Care Management CLIA: [id number] TSH 0.78 0.43-5.25 mU/L REASON FOR VISIT legs get weak Medications Medication SIG (Take, Route, Frequency, Duration) Notes Start Date End Date Status Aspirin 81 81 MG 1 tablet Orally Once a day 08/13/2023 Active Omeprazole 20 MG 1 capsule 30 minutes before morning meal Orally Once a day; Duration: 30 day(s) 07/22/2023 Active Cyclobenzaprine HCl 5 MG 1 tab(s) Orally Three times a day 06/02/2023 Active Meclizine HCl 12.5 MG 1 tablet Orally ev avinash 12 hrs prn; Duration: 20 days 08/13/2023 Active Crestor 5 MG 1 tablet Orally Once a day; Duration: 30 day(s) 08/13/2023 Active Memantine HCl 5 MG 1 tablet Orally Two times a day Active Lactulose 10 GM/15ML 30 ml Orally Once a day; Duration: 30 day(s) 11/12/2023 Active fentaNYL Lbn-PLZvzjcueew-DyKg 0.2-0.2-0.9 MG/100ML as directed Epidural pain pump Active Losartan Potassium 100 MG 1/2 tab(s) ora lly once a day (morning) Active amLODIPine Besylate 5 MG 1 tablet Orally At Bed Time 11/27/2022 Active Problems Problem Type SNOMED Code ICD Code Onset Dates Problem Status W/U Status Risk Notes Problem Constipation (68167900) Constipation (K59.00) Active confirmed Problem Dyslipidemia (218517074) Dyslipidemia (E78.5) Active confirmed Problem Anemia (266556029) Anemia (D64.9) Active confirmed Vital Signs Weight 172.4 lbs 11/12/2023 Blood pressure systolic 120 mm Hg 11/12/19 24 Blood pressure diastolic 70 mm Hg 024 Heart Rate 75 /min 11/12/2023 Height 68.50 in 11/12/2023 BMI 25.83 kg/m2 11/12/2023 Encounters Encounter Location Date Provider [facility] [address] [place] [phone] 11/12/2023 Camryn Cristo Garciafleet Near syncope R55 ; Constipation K59.00 ; Dyslipidemia E78.5 ; Primary generalized (osteo)arthritis M15.0 ; Chronic pain syndrome G89.4 and Anemia D64.9 Assessments Encounter Date Diagnosis (ICD Code) Assessment Notes Treatment Notes Treatment Clinical Notes Section Notes 11/12/2023 Near syncope (ICD-10 - R55) 11/12/2023 Constipation (ICD-10 - K59.00) 11/12/2023 Dyslipidemia (ICD-10 - E78.5) 11/12/2023 Primary generalized (osteo)arthritis (ICD-10 - M15.0) 11/12/2023 Chronic pain syndrome (ICD-10 - G89.4) 11/12/2023 Anemia (ICD-10 - D64.9) Plan Of Treatment Medication Medication Name Sig Start Date Stop Date Notes Lactulose 10 GM/15ML 30 ml Orally Once a day; Duration: 30 day(s) 11/12/2023 Next Appt Details Follow Up: after tests, Reas on: Progress Notes * JP PATIÑO:1940 (84 yo M)Acc No.[id number]:11/12/2023 Progress Notes Patient: MICHAEL FREDERICK Provider: Camryn Simons M.D. :1940 A ge:83 Y S ex:Male Date:11/12/2023 Address:[address] [place] [address] [address], [place], [id number] Subjective: * Chief Complaints: * 1 . Legs get weak. * HPI: H PI: Aleksandr had a spell 2 nights ago when he began feeling lightheaded and sweaty and then his legs became weak. He had to be helped to a chair. He had no loss of consciousness. He was slightly dizzy but no headache, visual disturbance, chest pain, or palpitations. Soon thereafter, he went to the bathroom and had a large bowel movement. He then was able to ambulate better on his own. This occurred about 7 PM at night and he had not eaten for 4 hours. Yesterday he had a similar episode that was less severe and short-lived. He was outside standing by his truck and his legs felt weak. He had to lean against the truck momentarily until he could sit down inside and then the symptoms resolved. He was recently started on rosuvastatin and was concerned this could be causing some symptoms. Note that he also had recent cardiac workup a couple of months ago with essentially normal event monitor, echocardiogram, and carotid Doppler. G astroenterology: Constipation P t sts that he is having issues with OIC again since having the medication in his pain pump increased. He has used lactulose in the past with good results.. N eurology: He follows with Dr. Flowers and has been started on Namenda. * ROS: D ERMATOLOGY: no R mikey. [...] right ear ( Melanoma) , Lumbar Laminctomy 1967,1968, Eye surgery 11/28, pain pump placement Dr Kinney 07/2015, C-scope/ Allran/ pandiverticulosis, internal hemorrhoids 08/2017, Scope right knee for scar tissue/ De'Miguelito 01/2018, MILD (minimally invasive lumbar decompression) procedure/ Dr Kinney 01/2019. * Hospitalization/Major Diagno stic Procedure: l umbar disc 1995, R shoulder surgery 1997, bilateral TKA 2001, Nasal poylps removed 1969, [facility] 02/12/2014, [facility] and hurt right leg 01/2020. * [...] ouside US: no. * Medications: T aking Memantine HCl 5 MG Tablet 1 tablet Orally Two times a day , Taking amLODIPine Besylate 5 MG Tablet 1 tablet Orally At Bed Time , Taking Losartan Potassium 100 MG Tablet 1/2 tab(s) orally once a day (morning) , Taking fentaNYL Xsn-IOFldhjapya-NaJc 0.2-0.2-0.9 MG/100ML Solution as directed Epidural , Notes to Pharmacist: pain pump, Taking Cyclobenzaprine HCl 5 MG Tablet 1 tab(s) Orally Three times a day , Taking Omeprazole 20 MG Capsule Delayed Release 1 capsule 30 minutes before morning meal Orally Once a day , Taking Crestor 5 MG Tablet 1 [...] - Side Effects. Objective: * Vitals: W t:172.4, Temp:98.5, BP:120/70, HR:75, Nurse:CLAUDIA, Ht: 68.50, BMI:25.83. * Examination: G eneral Examination: General Appearance: N AD. H eart: R SR. L ungs:?clear to auscultation. E xtremities: n o leg edema. Assessment: * Assessment: 1. N ear syncope - R55 (Primary) 2 . C onstipation - K59.00 ?3. D yslipidemia - E78.5 4 . P rimary generalized (osteo)arthritis - M15.0? 5. C hronic pain syndrome - G89.4 6 . A nemia - D64.9 Plan: * Treatment: Value Reference Range T SH 0.78 0.43-5.25 - mU/L * Camryn Simons 11/14/2023 4 :56:06 PM >See phone encounter ?LAB: CBC Venipuncture (in house) (Collection Date & Time - 11/12/2023)?rbc 2.97, hgb 9.5, hct 27.3* Value Reference Range w bc 7.0 3.5 - 10 * l ymph 17.1 15 - 50 * m id 4.2 2 - 15 * g ran 78.7 35 - 80 * r bc 2.97 3.5 - 5.5 * h gb 9.5 11.5 - 16.5 * h ct 27.3 35 - 55 * m cv 91.7 75 - 100 * m ch 32.0 25 - 35 * m chc 34.8 31 - 38 * p latlet 342 100 - 400 * Cee Billy 11/12/2023 5:37 :32 PM > Camryn Simons 11/14/2023 4:56:06 PM >See phone encounter 2.?Constipation? Start Lactulose Solution, 10 GM/15ML, 30 ml, Orally, Once a day, 30 day(s), 900 ml, Refills 2.?LAB: P-TSH (Collection Date & Time - 11/12/2023 04:00 PM)?Normal* Value Reference Range T SH 0.78 0.43-5.25 - mU/L * Camryn Siomns 11/14/2023 4 :56:06 PM >See phone encounter 3.?Dyslipidemia?LAB: P-Comprehensive Metabolic Panel (CMP) (Collection Date & Time - 11/12/2023 04:00 PM)?gluc 136, bun 25* Value Reference Range A /G Ratio 2.0 1.1-2.5 - * A lbumin 4.2 3.5-5.3 - g/dL * A lkaline Phosphatase 79 40-129 - IU/L * A LT (SGPT) 16 <5-55 - IU/L * A ST (SGOT) 17 <5-46 - IU/L * B ilirubin, Total 0.2 <0.2-1.2 - mg/dL * B UN 25 H 8-23 - mg/dL * C alcium 9.4 8.6-10.4 - mg/dL * C hloride 107 97-108 - mmol/L * C O2 26 22-32 - mmol/L * C reatinine 1.02 0.70-1.30 - mg/dL * G lucose 136 H 65-99 - mg/dL * P otassium 5.1 3.5-5.3 - mmol/L * S odium 141 135-145 - mmol/L * P rotein 6.3 6.0-8.3 - g/dL * e GFR by Creatinine 74 >59 - mL/min/1.73m2 * Camryn Simons 11/14/2023 4 :56:06 PM >See phone encounter ?LAB: P-CPK (Collection Date & Time - 11/12/2023 04:00 PM)?Normal* Value Reference Range C reatine Kinase 31 20-200 - U/L * Camryn Simons 11/14/2023 4 :56:06 PM >See phone encounter ?LAB: P-Lipid Panel (Collection Date & Time - 11/12/2023 04:00 PM)?chol 221, trigs 256, chol/hdl 5.39, non-hdl 180* Value Reference Range C holesterol / HDL Ratio 5.39 H 0.00-4.99 - Ratio * C holesterol 221 H <200 - mg/dL * H DL Cholesterol 41 >39 - mg/dL * L DL Cholesterol (Calculation) 129 <130 - mg/d L * L DL/HDL Ratio 3.1 <3.3 - Ratio * N on-HDL Cholesterol 180 H <130 - mg/dL * T riglycerides 256 H <150 - mg/dL * Camryn Simons 11/14/2023 4 :56:06 PM >See phone encounter 4.?Anemia?LAB: P-Vitamin B12 (Collection Date & Time - 11/12/2023 04:00 PM)?>2000* Value Reference Range V itamin B12 >2000 H 232-1245 - pg/mL * Camryn Simons 11/14/2023 4 :56:06 PM >See phone encounter ?LAB: P-Folate (Collection Date & Time - 11/12/2023 04:00 PM)?Normal* Value Reference Range F olate >20 >4.59 - ng/mL * Camryn Simons 11/14/2023 4 :56:06 PM >See phone encounter ?LAB: P-Iron Binding Cap (Collection Date & Time - 11/12/2023 04:00 PM)? Normal* Value Reference Range I da Binding Cap 297 250-450 - ug/dL * Camryn Simons 11/14/2023 4 :56:06 PM >See phone encounter ?LAB: P-Iron (Collection Date & Time - 11/12/2023 04:00 PM)?34* Value Reference Range I da 34 L 59-158 - ug/dL * Camryn Simons 11/14/2023 4 :56:06 PM >See phone encounter ?LAB: P-Transferrin (Collection Date & Time - 11/12/2023 04:00 PM)?Normal* Value Reference Range T ransferrin 234 200-360 - mg/dL * Camryn Simons 11/14/2023 4 :56:06 PM >See phone encounter * Labs: * L ab: Percent Saturation (Collection Date & Time - 11/12/2023 04:00 PM) 1 1 Value Reference Range P ercent Saturation 11 L 20-50 - % * [facility], IT support 11/14/2023 10:50:06 : This order was created by the Interface. Camryn Simons 11/14/2023 4:56:06 PM >See phone encounter * Procedure Codes: 8 5025 CBC WITH AUTO DIFF, 47510 VENIPUNCT, ROUTINE* * Follow Up: a fter tests * Images: Billing Information: * Visit Code: 74234 Office Visit, Est Pt., Level 4. * Procedure Codes: 92494 CBC WITH AUTO DIFF. 18533 VENIPUNCT, ROUTINE*. * Electronic signature of Camryn Simons MD on 11/16/2024 at 01:46 PM EDT Sign off status: Pending * Provider: Camryn Simons M.D. Date: Generated for Rosalina catalan/Ly/eTransmitting on: 01:46 PM EDT History and Physical Notes * HPI (History of Present Illness) Category Sub-Category Detail Notes Category Not es Gastroenterology Constipation Pt sts that he is having issues with OIC again since having the medication in his pain pump increased. He has used lactulose in the past with good results. HPI He was recently started on rosuvastatin and was concerned this could be causing some symptoms. Note that he also had recent cardiac workup a couple of months ago with essentially normal event monitor, echocardiogram, and carotid Doppler. Examination Category Sub-Category Detail Notes Category Not es General Examination Heart: RSR Lungs: clear to auscultatio n Extremities: no leg edema General Appearance: NAD
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
--- NOTE | 2024-11-16 | CA_ITS ---
APPROVED REPORT EXAM: Comprehensive 2D, Doppler, and color-flow Echocardiogram Leasing Assistant: Donya Adam CRT Ht: 5 ft 9 in Wt: 170lbs BSA: 1.93 BP: 134/70 mmHg Indications: Hyperlipidemia, Hypertension/HDD, mild 2D Dimensions LA Volume 43.00 mL LA Volume Index 21.80 mL/m2 (M/F) 16-34 M-Mode Dimensions RVDd 3.27 cm (0.9-2.6) LA Diam 3.35 cm (1.9-4.0) LVDd 3.87 cm (3.5-5.7) LVDs 2.77 cm (3.5-5.7) IVSd 1.80 cm (0.6-1.1) PWd 0.90 cm (0.6-1.1) EF (Teich) 55.50% FS 28.40% EDV (Teich) 64.70 mL TAPSE 2.91 (<1.7) ESV (Teich) 28.80 mL LV Diastology E Decel Time 263 (160-240 msec) E/A Ratio 0.74 MED A' 12.70 cm/s LAT A' 13.90 cm/s Aortic Valve KELLIE Index 0.60 cm2/m2 AoV Peak Piotr. 252.0 (50-130 cm/s) AI PHT 550.00 ms AO Peak GR. 25.60 mmHg AO Mean GR. 16.40 (<5 mmHg) AO VTI 52.3 (18-25 cm) KELLIE (VTI) 1.19 (2.5-4.5 cm2) Mitral Valve MV A Velocity 81.0 (40-130 cm/s) E/A Ratio 0.74 Pulmonary Valve PV Peak Velocity 163.0 (50-150 cm/s) Tricuspid Valve TR P. Velocity 261.00 cm/s RAP Estimate 10.00 mmHg RVSP 37.20 mmHg Left Ventricle The left ventricle is normal size. Left ventricular systolic function is normal. The left ventricular ejection fraction is within the normal range. There is increased left ventricular wall thickness. There is normal LV segmental wall motion. Transmitral Doppler flow pattern suggests impaired LV relaxation. LVEF is 55%. Right Ventricle The right ventricle is normal size. The right ventricular systolic function is normal. Atria The left atrium is mildly dilated. The right atrium size is normal. There is no color Doppler evidence of interatrial shunt. Aortic Valve The aortic valve is mildly thickened. Mild aortic stenosis is present. KELLIE by continuity equation is 1.7 cm2. Peak velocity 2.9 m/s. Mean AV gradient 17 mmHg. Max AV gradient 33 mmHg. Mild aortic regurgitation is present. Mitral Valve The mitral valve is is mildly thickened. No evidence of mitral valve stenosis. Trace mitral regurgitation is present. Tricuspid Valve The tricuspid valve leaflets are thin and pliable. Trace tricuspid regurgitation. There is insufficient TR jet to estimate RVSP. Pulmonic Valve The pulmonary valve is grossly normal in structure. Trace pulmonic valve regurgitation is present. Great Vessels The aortic root is normal in size. IVC is normal in size and collapses >50% with inspiration. Pericardium There is no pericardial effusion. Other Information Study Quality: Fair Conclusion Normal biventricular systolic function. Mild LA dilation. Mild AI. Mild (KELLIE by continuity equation is 1.7 cm2. Peak velocity 2.9 m/s. Mean AV gradient 17 mmHg. Max AV gradient 33 mmHg). Electronically signed by : Vonnie De Leon MD 11/16/2024 22:49:27
--- OUTSIDE RECORDS SUMMARY | 2024-11-16 13:45 | XMS_ITS | Referral Summary ---
Author Organization [employer] ([place], [place], [place], [place]) Address [address] [place] [address] Care Team Providers Care Repairing Calibrator Name Role Phone Unavailable Primary Care Provider Unavailabl e Social History Tobacco Use Types Packs/Day Years Used Date Smoking Tobacco: Never Assessed Sex and Gender Information Value Date Recorded Sex Assigned at Not on file Legal Sex Male 12:44 PM CDT Gender Identity Not on file Sexual Orientation Not on file Plan of Treatment Not on file
--- OUTSIDE RECORDS SUMMARY | 2024-11-16 13:45 | XMS_ITS | Clinical Summary ---
Author Organization [facility] , [facility] Address [address] [place] [address] Phone Care Team Providers Care Coil Connector Name Role Phone Nickie KOROMA, Delvin Unavailable [...] Active Last Documented On 2 1:35PM ; [facility] Joint Pain in Both Knees 08/18/2021 Kelechi Vazquez MD Active Last Documented On 2 8:40AM ; [facility] Plan of Treatment Pending Tests Order Diagnosis Results Due Ordering P rovider Radiology - CT Scan Lumbar 08/07/21 Delvin Fu MD Last Documented On 2 4:12PM ; [facility] Assessments Includes: Assessments from this encounter No Assessments Recorded Medical Equipment - Implanted Devices Includes: Current Devices No Medical Equipment Recorded Medications Includes: Medications discussed during this encounter and other current Medications Current Medications (continue as prescribed) Lidocaine 5% External Patch 07/12/2021 Provider: Diagnosis: Last Documented On 2 4:10PM By Dr. Fu ; [facility] HYDROcodone-Acetaminophen 7.5-325 MG Oral Tablet 06/26 Provider: RADHA CHRISTINA MD Diagnosis: Last Documented On 2 4:10PM By Dr. Fu ; [facility] DULoxetine HCl 30 MG Oral Ca psule Delayed Release Particles 06/19/2021 Provider: JOSE ALFREDO GIBBS MD Diagnosis: Last Documented On 2 4:10PM By Dr. Fu ; [facility] PARoxetine HCl 10 MG Oral Tablet 03/20/2021 Provider : Irene Rizo APRN Diagnosis: Last Documented On 2 4:10PM By Dr. Fu ; [facility] Medications Administered Includes: Administered Medications [...] Active Last Documented On 2 3:01PM ; [facility] Note: cough Augmentin Allergy 10/23/2021 Active Last Documented On 2 3:01PM ; [facility] Amoxicillin Allergy 05/31/2015 Active Last Documented On 2 3:01PM ; [facility] Encounters Encounter Provider Location Date Check-In Time Check-Out Time Diagnosis Epidural Steroid Injection Delvin Fu MD [facility] 10/12/19 22 10:46AM 11:17AM Insurance Includes: Active Insurance Policies Plan Name Member ID Group # Subscriber Relationship Effect papito Dates 1 - Medicare Part B [facility] [id number] Michael Dodson Self 09/12/2007 - Unknown 2 - [employer] [id number] Michael Dodson Self 013 - Unknown Clinical Notes Includes: Clinical Notes from this encounter No Clinical Notes Recorded
--- OUTSIDE RECORDS SUMMARY | 2024-11-16 13:45 | XMS_ITS | Clinical Summary ---
Author Organization [facility] , [facility] Address [address] [place] [address] Phone Care Team Providers Care Electrification Adviser Name Role Phone Nickie KOROMA, Delvin Unavailable [...] Active Last Documented On 2 1:35PM ; [facility] Past Visits Onset Date Resolved Date Provider Condition Status Joint Pain in Both Knees 08/18/2021 Kelechi Vazquez MD Active Last Documented On 2 8:40AM ; [facility] Plan of Treatment Fall Risk Assessment: [...] - Last Documented On 10/23/2021 3:03PM ; [facility] Assessments Includes: Assessments from this encounter [...] - Last Documented On 10/23/2021 3:03PM ; [facility] Medical Equipment - Implanted Devices Includes: Current Devices No Medical Equipment Recorded Medications Includes: Medications discussed during this encounter and other current Medications Current Medications (continue as prescribed) Lidocaine 5% External Patch 07/12/2021 Provider: Diagnosis: Last Documented On 2 4:10PM By Dr. Fu ; [facility] HYDROcodone-Acetaminophen 7.5-325 MG Oral Tablet 06/26 Provider: RADHA CHRISTINA MD Diagnosis: Last Documented On 2 4:10PM By Dr. Fu ; [facility], [facility] DULoxetine HCl 30 MG Oral Ca psule Delayed Release Particles 06/19/2021 Provider: JOSE ALFREDO GIBBS MD Diagnosis: Last Documented On 2 4:10PM By Dr. Fu ; [facility] PARoxetine HCl 10 MG Oral Tablet 03/20/2021 Provider : Irene Rizo APRN Diagnosis: Last Documented On 2 4:10PM By Dr. Fu ; [facility] Past Medications on file Losartan Potassium 50 MG Ora l Tablet 07/24/2021 - 10/22/2021 Provider: JOSE ALFREDO Bravo Diagnosis: Last Documented On 2 11:01AM [facility] Indomethacin 25 MG Oral Capsule 07/24/2021 - Provider: JOSE ALFREDO GIBBS MD Diagnosis: Last Documented On 2 11:01AM By Mckenzie Brady ; [facility] [place] 7.5-325 MG OR TABS 09/29/2013 - 10/09/2013 Provi suzan: Kelechi Vazquez MD Diagnosis: Last Documented On 4 3:20PM By Cabral 1 User ; [facility] [place] 7.5-325 MG OR TABS 08/27/2013 - 09/26/2013 Provi suzan: Delvin Fu MD Diagnosis: Last Documented On 4 10:42AM By Cabral 6 User ; [facility] [place] 7.5-325 MG OR TABS 07/01/2013 - 07/21/2013 [...] : Ilia Sahu MD Diagnosis: ravi bravo [phone] plr Last Documented On 7 1:11PM By Carolyn Luke ; [facility] CeleBREX 200 MG OR CAPS 08/07/2006 - 11/15/2006 Provid er: Delvin Fu MD Diagnosis: adileneolivia husain [phone] df Last Documented On 7 11:38AM By Carolyn Luke ; [facility] CeleBREX 200 MG OR CAPS 04/03/2006 - 07/12/2006 Provid er: Ilia Sahu MD Diagnosis: adileneolivia husain [phone] jsb Last Documented On 7 11:38AM By Hernandez Edmonds ; [facility] Flexeril 5 MG OR TABS 04/01/2006 - 05/01/2006 Provider : Ilia Sahu MD Diagnosis: adileneolivia bravo [phone] df/jsb Last Documented On 7 11:33AM By Carolyn Luke ; [facility] Lortab 5-500 MG OR TABS 09/10/2005 - 10/10/2005 Provid er: Delvin Fu MD Diagnosis: Last Documented On 6 3:39PM By Misha 6 User ; [facility] Flexeril 5 MG OR TABS 08/27/2005 - 12/25/2005 Provider : Delvin Fu MD Diagnosis: ravi husain [phone] df Last Documented On 6 9:56AM By Carolyn Luke ; [facility] CeleBREX 200 MG OR CAPS 04/30/2005 - 08/08/2005 Provid er: Devlin Fu MD Diagnosis: Last Documented On 6 [...] Documented: On 10/10/2021 9:09AM ; [facility] Results Includes: Results discussed during this [...] Last Documented On 2 3:03PM ; [facility] Exercising regularly 09/14/2021 Last Documented On 2 9:08AM ; [facility] No recent change in diet 08/28/2021 Last Documented On 2 9:08AM ; [facility] Not using alcohol 08/28/2021 Last Documented On 2 9:08AM ; [facility] Not using drugs 08/28/2021 Last Documented On 2 9:08AM ; [facility] No recent change in diet 07/24/2021 Last Documented On 2 9:08AM ; [facility] Caffeine use 12/09/2019 Last Documented On 2 9:08AM ; [facility] Smoking Status Unknown Procedures and Surgical History Includes: Procedures from this encounter Procedures Code Diagnosis Performing Provider Service L ocation Service Date use of tobacco assessment performed 1000F Last Documented On 2 9:09AM ; [facility] patient screened for future fall risk: documentation of any fall with injury in past year 1100F Last Documented On 2 9:09AM ; [facility] follow-up visit in one month Last Documented On 2 9:09AM ; [facility] referral to physician Last Documented On 2 9:09AM ; [facility] Surgical History Last Updated History of hernia repair 08/17/2021 Last Documented On 2 9:08AM ; [facility] Medical History Includes: Medical History addressed during this encounter Description Last Updated Recent immunization for flu 2020 022 Last Documented On 2 9:08AM ; [facility] Recent immunization for pneumococcal pne umonia 03/14/2021 09/14/2021 Last Documented On 2 9:08AM ; [facility] History of Hypertension 08/17/2021 Last Documented On 2 9:08AM ; [facility] History of History of Blood Transfusion 07/24/2021 Last Documented On 2 9:08AM ; [facility] Arthritis 12/09/2019 Last Documented On 2 9:08AM ; [facility] Back surgery 12/09/2019 Last Documented On 2 9:08AM ; [facility] History of Blood Clots 12/09/2019 Last Documented On 2 9:08AM ; [facility] Total knee arthroplasty x2 12/09/2019 Last Documented On 2 9:08AM ; [facility] Blood Transfusion 03/27/2017 Last Documented On 2 9:08AM ; [facility] Family History Includes: Family History addressed during this encounter Description Last Updated Family history of cancer 08/17/2021 Last Documented On 2 9:08AM ; [facility] Family history of heart disease 03/27/19 18 Last Documented On 2 9:08AM ; [facility] Family history of hypertension 8 Last Documented On 2 9:08AM ; [facility] Sororal history of family history of can cer 03/27/2017 Last Documented On 2 9:08AM ; [facility] Review of Systems Includes: Review of [...] Active Last Documented On 2 3:01PM ; [facility] Note: cough Augmentin Allergy 10/23/2021 Active Last Documented On 2 3:01PM ; [facility] Amoxicillin Allergy 05/31/2015 Active Last Documented On 2 3:01PM ; [facility] Encounters Encounter Provider Location Date Check-In Time Check-Out Time Diagnosis IN HOUSE REFERRAL Boubacar Pisano [facility] 10/11/19 22 8:46AM 9:54AM Insurance Includes: Active Insurance Policies Plan Name Member ID Group # Subscriber Relationship Effect papito Dates 1 - Medicare Part B [facility] [id number] Michael Dodson Self 09/12/2007 - Unknown 2 - [employer] [id number] Michael Dodson Self [id number] - Unknown Clinical Notes Includes: Clinical Notes from this encounter No Clinical Notes Recorded
--- OUTSIDE RECORDS SUMMARY | 2024-11-16 13:45 | XMS_ITS | Clinical Summary ---
Author Organization [facility] , [facility] Address [address] [place] [address] Phone Care Team Providers Care Glassworker Name Role Phone Nickie KOROMA, Delvin Unavailable [...] Active Last Documented On 2 1:35PM ; [facility] Joint Pain in Both Knees 08/18/2021 Kelechi Vazquez MD Active Last Documented On 2 8:40AM ; [facility] Plan of Treatment Pending Tests Order Diagnosis Results Due Ordering P rovider Radiology - CT Scan Lumbar 08/07/21 Delvin Fu MD Last Documented On 2 4:12PM ; [facility] Assessments Includes: Assessments from this encounter No Assessments Recorded Medical Equipment - Implanted Devices Includes: Current Devices No Medical Equipment Recorded Medications Includes: Medications discussed during this encounter and other current Medications Current Medications (continue as prescribed) Lidocaine 5% External Patch 07/12/2021 Provider: Diagnosis: Last Documented On 2 4:10PM By Dr. Fu ; [facility] HYDROcodone-Acetaminophen 7.5-325 MG Oral Tablet 06/26 Provider: RADHA CHRISTINA MD Diagnosis: Last Documented On 2 4:10PM By Dr. Fu ; [facility] DULoxetine HCl 30 MG Oral Ca psule Delayed Release Particles 06/19/2021 Provider: JOSE ALFREDO GIBBS MD Diagnosis: Last Documented On 2 4:10PM By Dr. Fu ; [facility] PARoxetine HCl 10 MG Oral Tablet 03/20/2021 Provider : Irene Rizo APRN Diagnosis: Last Documented On 2 4:10PM By Dr. Fu ; [facility] Medications Administered Includes: Administered Medications from [...] 2 3:01PM ; [facility] Note: cough Augmentin Allergy 10/23/2021 Active Last Documented On 2 3:01PM ; [facility] Amoxicillin Allergy 05/31/2015 Active Last Documented On 2 3:01PM ; [facility] Encounters Encounter Provider Location Date Check-In Time Check-Out Time Diagnosis Epidural Steroid Injection Delvin Fu MD 2 3:07PM 11:59PM Insurance Includes: Active Insurance Policies Plan Name Member ID Group # Subscriber Relationship Effect papito Dates 1 - Medicare Part B [facility] [id number] Michael Dodson Self 09/12/2007 - Unknown 2 - [employer] [id number] Michael Dodson Self [id number] - Unknown Clinical Notes Includes: Clinical Notes from this encounter No Clinical Notes Recorded
--- OUTSIDE RECORDS SUMMARY | 2024-11-16 13:45 | XMS_ITS | Clinical Summary ---
Author Organization [facility] Address [address] [place] [address] Phone Care Team Providers Care Senior Account Representative Name Role Phone Nickie KOROMA, Delvin Unavailable [...] Active Last Documented On 2 1:35PM ; [facility] Past Visits Onset Date Resolved Date Provider Condition Status Joint Pain in Both Knees 08/18/2021 Kelechi Vazquez MD Active Last Documented On 2 8:40AM ; [facility] Plan of Treatment Fall Risk Assessment: [...] - Last Documented On 09/14/2021 2:27PM ; [facility], [facility] 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 Will set him up for facet blocks at the L3-4 and 4 5 levels to see if this will improve his symptoms. Follow-up thereafter for reassessment - Last Documented On 09/14/2021 2:27PM ; [facility], [facility] Instructions to patient No intervention and counselson catalan on cessation of tobacco use Last Documented On 2 1:49PM ; [facility], [facility] Lose weight Last Documented On 2 1:36PM ; [facility], [facility] Assessments Includes: Assessments from this encounter [...] - Last Documented On 09/14/2021 2:27PM ; [facility], [facility] Instructions Includes: Instructions from this encounter Instructions to patient No intervention and counseli hossein on cessation of tobacco use Last Documented On 2 1:49PM ; [facility], [facility] Lose weight Last Documented On 2 1:36PM ; [facility], [facility] Medical Equipment - Implanted Devices Includes: Current Devices No Medical Equipment Recorded Medications Includes: Medications discussed during this encounter and other current Medications Current Medications (continue as prescribed) Lidocaine 5% External Patch 07/12/2021 Provider: Diagnosis: Last Documented On 2 4:10PM By Dr. Fu ; [facility], [facility] HYDROcodone-Acetaminophen 7.5-325 MG Oral Tablet 06/26 Provider: RADHA KINNEY MD Diagnosis: Last Documented On 2 4:10PM By Dr. Fu ; [facility], [facility] DULoxetine HCl 30 MG Oral Ca psule Delayed Release Particles 06/19/2021 Provider: JOSE ALFREDO GIBBS MD Diagnosis: Last Documented On 2 4:10PM By Dr. uF ; [facility], [facility] PARoxetine HCl 10 MG Oral Tablet [...] On 2 11:01AM By Mckenzie Brady ; [email or web address] [place] 7.5-325 MG OR TABS 09/29/2013 - 10/09/2013 Provi suzan: Kelechi Vazquez MD Diagnosis: Last Documented On 4 3:20PM By Misha 1 User ; [facility] [place] 7.5-325 MG OR TABS 08/27/2013 - 09/26/2013 Provi suzan: Delvin Fu MD Diagnosis: Last Documented On 4 10:42AM By Misha 6 User ; [email or web address] [place] 7.5-325 MG OR TABS 07/01/2013 - 07/21/2013 Provi suzan: Delvin Fu MD Diagnosis: Last Documented On 4 11:53AM By Misha 6 User ; [email or web address] Lortab 10 10-325 mg OR TABS 06/29/2011 - 07/09/2011 Pr ovider: Kelechi Vazquez MD Diagnosis: for surgery on 07/02/11/jvt Last Documented On 2 3:53PM By Niya roca ; [email or web address] Medrol (Dominic) 4 MG OR [...] : Ilia Sahu MD Diagnosis: ravi bravo [phone] plr Last Documented On 7 1:11PM By Carolyn Luke ; [facility] CeleBREX 200 MG OR CAPS 08/07/2006 - 11/15/2006 Provid er: Delvin Fu MD Diagnosis: ravi husain [phone] df Last Documented On 7 11:38AM By Carolyn Luke ; [facility] CeleBREX 200 MG OR CAPS 04/03/2006 - 07/12/2006 Provid er: Ilia Sahu MD Diagnosis: ravi husain [phone] jsb Last Documented On 7 11:38AM By Hernandez Edmonds ; [facility] Flexeril 5 MG OR TABS 04/01/2006 - 05/01/2006 Provider : Ilia Sahu MD Diagnosis: ravi bravo [phone] df/jsb Last Documented On 7 11:33AM By Carolyn Luke ; [facility] Lortab 5-500 MG OR TABS 09/10/2005 - 10/10/2005 Provid er: Delvin Fu MD Diagnosis: Last Documented On 6 3:39PM By Misha 6 User ; [facility] Flexeril 5 MG OR TABS 08/27/2005 - 12/25/2005 Provider : Delvin Fu MD Diagnosis: ravi husain [phone] df Last Documented On 6 9:56AM By Carolyn Luke ; [facility] CeleBREX 200 MG OR CAPS 04/30/2005 - 08/08/2005 Provid er: Delvin Fu MD Diagnosis: Last Documented On 6 10:10AM By Misha Gabriel User ; [facility] Medications Administered Includes: Administered Medications from this encounter No Administered Medications Recorded Vital Signs Includes: Vital Signs from this encounter Vital Name 09/14/2021 01:49P Blood Pressure Sitting (mmHg) 162/80 Pulse Rate-Sitting (bpm) 75 Height (in) 69 Weight (lb) 170.4 Body Mass Index (kg/m2) 25.2 Body Surface Area (m2) 1.9 Note: rd Last Documented: On 09/14/2021 1:49PM ; [facility] Results Includes: Results discussed during this encounter No Results Recorded For Specified Dates History of Present Illness Includes: History of Present Illness from this encounter MORE Dodson is a 80 year old male. - Allergy list reviewed - Problem list reviewed - Medication list reviewed - Medication list reviewed - Yes, previous treatment. Dr. Kinney and [facility] - History of Physical Therapy - History [...] 10/10/2021 Last Documented On 2 1:35PM ; [email or web address] Exercising regularly 09/14/2021 Last Documented On 2 2:27PM ; [facility] Not exercising regularly 09/14/2021 Last Documented On 2 1:35PM ; [facility] No recent change in diet 08/28/2021 Last Documented On 2 1:35PM ; [email or web address] Not a current smoker. 08/28/2021 Last Documented On 2 1:35PM ; [facility] Not a smoker 08/28/2021 Last Documented On 2 1:35PM ; [facility] Not using alcohol 08/28/2021 Last Documented On 2 1:35PM ; [facility] Not using drugs 08/28/2021 Last Documented On 2 1:35PM ; [email or web address] No recent change in diet 07/24/2021 Last Documented On 2 1:35PM ; [email or web address] Caffeine use 12/09/2019 Last Documented On 2 1:35PM ; [email or web address] Non-smoker 12/09/2019 Last Documented On 2 1:35PM ; [email or web address] Not a current smoker 03/27/2017 Last Documented On 2 1:35PM ; [facility] No tobacco use 09/29/2013 Last Documented On 2 1:35PM ; [facility] Smoking status : Former smoker 4 Last Documented On 2 1:35PM ; [email or web address], [facility] Procedures and Surgical History Includes: Procedures from this encounter Procedures Code Diagnosis Performing Provider Service L ocation Service Date no intervention and counseling on cessation of tobacco use 4000F Last Documented On 2 1:49PM ; [email or web address] use of tobacco assessment performed 1000F Last Documented On 2 1:36PM ; [facility] patient screened for future fall risk 3288F Last Documented On 2 1:36PM ; [facility] follow-up visit in one month with PCP fo r elevated BP Last Documented On 2 1:36PM ; [facility], [facility] referral to physician Last Documented On 2 1:36PM ; [facility], [facility] weight control goals: not including weig ht gain Last Documented On 2 1:36PM ; [facility], [facility] an X-ray was performed 07/10 LSpine @ [facility] ~07/10/2018 Pelvis @ [facility] ~07/24/2021 T-LSpine @ [facility] ~07/24/2021 Neck @ [facility] [address] Last Documented On 2 1:36PM ; [facility], [facility] a CT scan was performed 08/04/2021 LSpine @ [facility] [id number] Last Documented On 2 1:36PM ; [facility], [facility] an MRI was performed 012 LSpine @ [facility] ~06/20/2021 CSpine @ [facility] ~06/20/2021 TSpine @ [facility] ~06/20/2021 LSpine @ [facility] [id number] Last Documented On 2 1:36PM ; [facility], [facility] Surgical History Last Updated History of hernia repair 08/17/2021 Last Documented On 2 1:35PM ; [facility], [facility] History of total knee arthroplasty x2 Last Documented On 2 1:35PM ; [facility] History of back surgery 03/27/2017 Last Documented On 2 1:35PM ; [facility], [facility] Medical History Includes: Medical History addressed during this encounter Description Last Updated Recent immunization for flu 2020 022 Last Documented On 2 2:27PM ; [facility], [facility] Recent immunization for pneumococcal pne umonia 03/14/2021 09/14/2021 Last Documented On 2 2:27PM ; [facility], [facility] History of History of Blood Clots 2021 Last Documented On 2 1:35PM ; [facility], [facility] History of Hypertension 08/17/2021 Last Documented On 2 1:35PM ; [facility] History of History of Blood Transfusion 07/24/2021 Last Documented On 2 1:35PM ; [facility] Arthritis 12/09/2019 Last Documented On 2 1:35PM ; [facility], [facility] Blood Transfusion 03/27/2017 Last Documented On 2 1:35PM ; [facility], [facility] Family History Includes: Family History addressed during this encounter Description Last Updated Family history of cancer 08/17/2021 Last Documented On 2 1:35PM ; [facility] Family history of heart disease 03/27/19 18 Last Documented On 2 1:35PM ; [facility] Family history of hypertension 8 Last Documented On 2 1:35PM ; [facility] Sororal history of family history of can cer 03/27/2017 Last Documented On 2 1:35PM ; [facility] Review of Systems Includes: Review of [...] Patient Last Documented On 2 1:39PM ; [facility], [facility] PCV (Pneumovax 23) 1 03/14/2021 Complete ( Reported) Patient Last Documented On 2 1:39PM ; [facility] Allergies Includes: Active Allergies Substance Type Reaction Onset Date Resolved Date Statu s Lisinopril Allergy 08/27/2013 Active Last Documented On 2 3:01PM ; [facility] Note: cough Augmentin Allergy 10/23/2021 Active Last Documented On 2 3:01PM ; [facility], [facility] Amoxicillin Allergy 05/31/2015 Active Last Documented On 2 3:01PM ; [facility], [facility] Encounters Encounter Provider Location Date Check-In Time Check- Out Time Diagnosis Follow Up MICHAEL WETZEL PA-C [facility] 2 1:28PM 2:25PM Insurance Includes: Active Insurance Policies Plan Name Member ID Group # Subscriber Relationship Effect papito Dates 1 - Medicare Part B [facility] [id number] Michael Dodson Self 09/12/2007 - Unknown 2 - [employer] [id number] Michael Dodson Self [id number] - Unknown Clinical Notes Includes: Clinical Notes from this encounter No Clinical Notes Recorded
--- OUTSIDE RECORDS SUMMARY | 2024-11-16 13:45 | XMS_ITS | Clinical Summary ---
Author Organization [facility] Address [address] [address] Phone Care Team Providers Care Handle Attacher Name Role Phone Nickie KOROMA, Delvin Unavailable [...] Active Last Documented On 2 1:35PM ; [facility] Joint Pain in Both Knees 08/18/2021 Kelechi Vazquez MD Active Last Documented On 2 8:40AM ; [facility] Plan of Treatment Pending Tests Order Diagnosis Results Due Ordering P rovider Radiology - CT Scan Lumbar 08/07/21 Delvin Fu MD Last Documented On 2 4:12PM ; [facility] Assessments Includes: Assessments from this encounter No Assessments Recorded Medical Equipment - Implanted Devices Includes: Current Devices No Medical Equipment Recorded Medications Includes: Medications discussed during this encounter and other current Medications Current Medications (continue as prescribed) Lidocaine 5% External Patch 07/12/2021 Provider: Diagnosis: Last Documented On 2 4:10PM By Dr. Fu ; [facility] HYDROcodone-Acetaminophen 7.5-325 MG Oral Tablet 06/26 Provider: RADHA CHRISTINA MD Diagnosis: Last Documented On 2 4:10PM By Dr. Fu ; [facility] DULoxetine HCl 30 MG Oral Ca psule Delayed Release Particles 06/19/2021 Provider: JOSE ALFREDO GIBBS MD Diagnosis: Last Documented On 2 4:10PM By Dr. Fu ; [facility] PARoxetine HCl 10 MG Oral Tablet 03/20/2021 Provider : Irene Rizo APRN Diagnosis: Last Documented On 2 4:10PM By Dr. Fu ; [facility] Medications Administered Includes: Administered Medications [...] Active Last Documented On 2 3:01PM ; [facility] Note: cough Augmentin Allergy 10/23/2021 Active Last Documented On 2 3:01PM ; [facility] Amoxicillin Allergy 05/31/2015 Active Last Documented On 2 3:01PM ; [facility] Encounters Encounter Provider Location Date Check-In Time Check-Out Time Diagnosis Epidural Steroid Injection Delvin Fu MD [facility] 09/28/19 22 11:13AM 11:47AM Insurance Includes: Active Insurance Policies Plan Name Member ID Group # Subscriber Relationship Effect papito Dates 1 - Medicare Part B [facility] [id number] Michael Dodson Self 09/12/2007 - Unknown 2 - [employer] [id number] Michael Dodson Self [id number] - Unknown Clinical Notes Includes: Clinical Notes from this encounter No Clinical Notes Recorded
--- OUTSIDE RECORDS SUMMARY | 2024-11-16 13:46 | XMS_ITS | Clinical Summary ---
Author Organization [facility] Address [address] [place] [address] Care Team Providers Care Crystalizer Name Role Phone Scooter Haynes Primary Care Provider Mitzy campoverde Allergies Active Allergy Reactions Criticality Noted Date Comments Amoxicillin-Pot Clavulanate Vomiting 12/04/19 Medications amLODIPine (Norvasc) 5 MG tablet 11/27/2022 Active losartan (Cozaar) 100 MG tablet 09/19/2022 Activ e Active Problems No known active problems Social History Tobacco Use Types Packs/Day Years Used Date Smoking Tobacco: Never Smokeless Tobacco: Never Alcohol Use Standard Drinks/Week Comments Never 0 (1 standard drink = 0.6 oz pur e alcohol) PHQ-2 Answer Date Recorded Patient Health Questionnaire-2 Score 0 01/01/2023 PHQ-2A Answer Date Recorded Patient Health Questionnaire-2 Score 0 01/01/2023 Sex and Gender Information Value Date Recorded Sex Assigned at Not on file Legal Sex Male 7:47 PM EDT Gender Identity Not on file Sexual Orientation Not on file Last Filed Vital Signs Vital Sign Reading Time Taken Comments Blood Pressure 169/81 01/01/2023 12:35 PM EST Pulse 71 01/01/2023 12:35 PM EST Temperature - - Respiratory Rate 18 12/03/2022 10:38 AM EDT Oxygen Saturation 93% 12/03/2022 10:38 AM EDT Inhaled Oxygen Concentration - - Weight 78.5 kg (173 lb) 01/01/2023 12:35 PM EST Height 175.3 cm (5' 9 ) 01/01/2023 12:35 PM EST Body Mass Index 25.55 01/01/2023 12:35 PM EST Plan of Treatment Health Maintenance Due Date Last Done Comments [facility]-Medicare Annual Wellness (AWV) 1942 [facility]-/Child/Adol SDOH Screenings 1942 [facility]- SDOH Screenings 1960 [facility]-Adult SDOH Screenings 1960 [facility]-DTaP,Tdap,and Td Vaccine s (1 - Tdap) 1961 [facility]-Zoster Vaccines (1 of 2) 1992 [facility]-RSV Vaccine: 60+ Years o r (1 - 1-dose 75+ series) 2017 [facility]-Pneumococcal Vaccine: 50 + Years (2 of 2 - PCV) 04/13/2022 04/13/2021 [facility]-Depression Screening 01/02/2024 01/01/2023 [facility]-TDPGT-10 Vaccine (3 - 2024- season) 2024 03/22/2020, 02/23/2020 [facility]-Influenza Vaccine (#1) 2024 12/12/2021 [facility]-Obesity Intervention Completed 023, 12/03/2022 HPV Vaccines Aged Out No longer eligi ble based on patient's age to complete this topic [facility]-HIB Vaccines Aged Out No longer e ligible based on patient's age to complete this topic [facility]-Hepatitis A Vaccines Aged Out No longer eligible based on patient's age to complete this topic [facility]-IPV Vaccines Aged Out No longer e ligible based on patient's age to complete this topic [facility]-Rotavirus Vaccines Aged Out No lo nger eligible based on patient's age to complete this topic Insurance [address] [place] [address] [place] [address] [employer] Care Teams Crystalizer Relationship Specialty Start Date End Date Scooter Haynes PCP - General 12/03/22
--- OUTSIDE RECORDS SUMMARY | 2024-11-16 13:46 | XMS_ITS | Clinical Summary ---
Author Organization [employer] ([place], [place], [place], [place]) Address [address] [place] [address] Care Team Providers Care Quebracho Tanner Name Role Phone Unavailable Primary Care Provider [...]
--- OUTSIDE RECORDS SUMMARY | 2024-11-16 13:46 | XMS_ITS ---
Author Organization [facility] Address [address] [place] [address] Phone Care Team Providers Care Senior Ruby Developer Name Role Phone Nickie KOROMA, Delvin Unavailable [phone] BERNIE KOROMA, JOSE ALFREDO Unavailable [phone] Reason for Referral Date [...] Active Last Documented On 2 1:35PM ; [facility] Joint Pain in Both Knees 08/18/2021 Kelechi Vazquez MD Active Last Documented On 2 8:40AM ; [facility] Lumbago 09/03/2018 08/28/2021 Kelechi Vazquez MD Re [...] pressure Last Documented On 8 2:18PM ; [facility] Instructions for patient See PCP for elevated blood pressure Last Documented On 8 1:16PM ; [facility] Instructions for patient See PCP for elevated blood pressure Last Documented On 6 10:58AM ; [facility] No intervention and counseli ng on cessation of tobacco use Last Documented On 4 2:01PM ; [facility] Education and Decision Aids were provided during visit for: No health seminar on smoking cessation Last Documented On 9 10:30AM ; [facility] Assessments Includes: Assessments for all patient encounters Findings Encounter Date No diagnosis of underweight Follow Up with Cullen Vazquez MD 08/28/2021 Last Documented On 2 2:03PM ; [facility] No diagnosis of underweight Physician Sp ecified with Kelechi Vazquez MD 08/18/2021 Last Documented On 2 9:36AM ; [facility] No diagnosis of underweight Follow Up with Delvin Fu MD 08/17/2021 Last Documented On 2 12:12PM ; [facility] Instructions Includes: Instructions for all patient encounters Instructions to patient No intervention and counseli ng on cessation of tobacco use Last Documented On 2 1:49PM ; [facility] Lose weight Last Documented On 2 1:36PM ; [facility] Intervention and counseling on cessation of tobacco use Last Documented On 2 1:18PM ; [facility] Not instructed to lose weigh t Last Documented On 2 1:18PM ; [facility] Intervention and counseling on cessation of tobacco use Last Documented On 2 9:01AM ; [facility] Not instructed to lose weigh t Last Documented On 2 9:02AM ; [facility] Lose weight Last Documented On 2 9:45AM ; [facility] Lose weight Last Documented On 2 9:00AM ; [facility] Instructions for patient see [...] pressure Last Documented On 6 10:58AM ; [facility] No intervention and counseli ng on cessation of tobacco use Last Documented On 4 2:01PM ; [facility] Education and Decision Aids were provided during visit for: No health seminar on smoking cessation Last Documented On 9 10:30AM ; [facility] Medical Equipment - Implanted Devices Includes: Current and historical Devices No Medical Equipment Recorded Medications Includes: Current and historical Medications Current Medications (continue as prescribed) Lidocaine 5% External Patch 07/12/2021 Provider: Diagnosis: Last Documented On 2 4:10PM By Dr. Fu ; [facility] HYDROcodone-Acetaminophen 7.5-325 MG Oral Tablet 06/26 Provider: RADHA CHRISTINA MD Diagnosis: Last Documented On 2 4:10PM By Dr. Fu ; [facility] DULoxetine HCl 30 MG Oral Ca psule Delayed Release Particles 06/19/2021 Provider: JOSE ALFREDO GIBBS MD Diagnosis: Last Documented On 2 4:10PM By Dr. Fu ; [facility] PARoxetine HCl 10 MG Oral Tablet 03/20/2021 Provider : Irene Rizo APRN Diagnosis: Last Documented On 2 4:10PM By Dr. Fu ; [facility] Past Medications on file Losartan Potassium 50 MG Ora l Tablet 07/24/2021 - 10/22/2021 Provider: JOSE ALFREDO Bravo Diagnosis: Last Documented On 2 11:01AM By Mckenzie Brady ; [facility] Indomethacin 25 MG Oral Capsule 07/24/2021 - Provider: JOSE ALFREDO GIBBS MD Diagnosis: Last Documented On 2 11:01AM By Mckenzie Brady ; [facility] hydrOXYzine Pamoate 50 MG Oral Capsule 06/19/2021 - Provider: RADHA CHRISTINA MD Diagnosis: Last Documented On 2 12:08PM By Dr. Fu ; [facility] Cefuroxime Axetil 250MG Oral Tablet 06/17/2018 - 06/27/2018 Provider: JOSE ALFREDO Bravo Diagnosis: Last Documented On 2 4:09PM By Dr. Fu ; [facility] Proctor 10-325MG Oral Tablet 03/18/2018 - 04/15/2018 Pro vider: Kelechi Vazquez MD Diagnosis: 1 every 4 - 6 hours as needed Last Documented On 2 4:09PM By Dr. Fu ; [facility] Proctor 10-325MG Oral Tablet 01/14/2018 - 02/14/2018 Pro vider: Kelechi Vazquez MD Diagnosis: 1 every 4 - 6 hours as needed for pain Last Documented On 2 4:09PM By Dr. Fu ; [facility] Indomethacin 25MG Oral Capsule 03/20/2017 - 07/24/2021 Provider: JOSE ALFREDO GIBBS MD Diagnosis: Last Documented On 2 11:01AM By Mckenzie Brady ; [facility] Losartan Potassium 50MG Oral Tablet 03/15/2017 - 07/24/2021 Provider: JOSE ALFREDO Bravo Diagnosis: Last Documented On 2 11:01AM By Mckenzie Brady ; [facility] Omeprazole 40MG Oral Capsule Delayed Release 03/15/2017 - 12/20/2017 Provider: JOSE ALFREDO Bravo Diagnosis: Last Documented On 8 12:30PM By Amita Dodge ; [facility] Sulfamethoxazole-Trimethopri m 200-40MG/5ML Oral Suspension 02/21/2017 - 12/09/2019 Provider: JOSE ALFREDO GIBBS MD Diagnosis: Last Documented On 0 3:52PM By Leobardo Ventura ; [facility] Tamsulosin HCl 0.4MG Oral Capsule 01/28/2017 - 018 Provider: JOSE ALFREDO GIBBS MD Diagnosis: Last Documented On 2 4:09PM By Dr. Fu ; [facility] Baclofen 10MG Oral Tablet 01/14/2017 - 12/09/2019 Prov ider: RADHA CHRISTINA MD Diagnosis: Last Documented On 0 3:52PM By Leobardo Ventura ; [facility] Proctor 7.5-325 MG OR TABS 09/29/2013 - 10/09/2013 Provi suzan: Kelechi Vazquez MD Diagnosis: Last Documented On 4 3:20PM By Misha 1 User ; [facility] Proctor 7.5-325 MG OR TABS 08/27/2013 - 09/26/2013 Provi suzan: Delvin Fu MD Diagnosis: Last Documented On 4 10:42AM By Misha 6 User ; [facility] Proctor 7.5-325 MG OR TABS 07/01/2013 - 07/21/2013 Provi suzan: Delvin Fu MD Diagnosis: Last Documented On 4 11:53AM By Misha 6 User ; [facility] Lortab 10 10-325 mg OR TABS 06/29/2011 - 07/09/2011 Pr ovider: Kelechi Vazquez MD Diagnosis: for surgery on 07/02/11/jvt Last Documented On 2 3:53PM By Niya roca ; [facility] Medrol (Dominic) 4 MG [...] : Ilia Sahu MD Diagnosis: ravi bravo [phone] plr Last Documented On 7 1:11PM By Carolyn Luke ; [facility] CeleBREX 200 MG OR CAPS 08/07/2006 - 11/15/2006 Provid er: Delvin Fu MD Diagnosis: ravi husain [phone] df Last Documented On 7 11:38AM By Carolyn Luke ; [facility] CeleBREX 200 MG OR CAPS 04/03/2006 - 07/12/2006 Provid er: Ilia Sahu MD Diagnosis: ravi husain [phone] jsb Last Documented On 7 11:38AM By Hernandez Edmonds ; [facility] Flexeril 5 MG OR TABS 04/01/2006 - 05/01/2006 Provider : Ilia Sahu MD Diagnosis: ravi bravo [phone] df/jsb Last Documented On 7 11:33AM By Carolyn Luke ; [facility] Lortab 5-500 MG OR TABS 09/10/2005 - 10/10/2005 Provid er: Delvin Fu MD Diagnosis: Last Documented On 6 3:39PM By Misha Gabriel User ; [facility] Flexeril 5 MG OR TABS 08/27/2005 - 12/25/2005 Provider : Delvin Fu MD Diagnosis: ravi husain [phone] df Last Documented On 6 9:56AM By Carolyn Luke ; [facility] CeleBREX 200 MG OR CAPS 04/30/2005 - 08/08/2005 Provid er: Delvin Fu MD Diagnosis: Last Documented On 6 10:10AM By Misha 6 User ; [facility] Medications Administered Includes: Administered Medications in patient's chart No Administered Medications Recorded Results Includes: Results from 11/17/2023 through 11/16/2024 No Results Recorded For Specified Dates History [...] 07/24/2021 Last Documented On 2 4:14PM ; [facility] Caffeine use 12/09/2019 Last Documented On 0 10:23AM ; [facility] Non-smoker 12/09/2019 Last Documented On 0 10:23AM ; [facility] Not a current smoker 03/27/2017 Last Documented On 8 12:07PM ; [facility] No tobacco use 09/29/2013 Last Documented On 4 8:21AM ; [facility] Smoking status : Former smoker 4 Last Documented On 4 8:21AM ; [facility] Procedures and Surgical History Surgical History Last Updated History of hernia repair 08/17/2021 Last Documented On 2 12:12PM ; [facility] History of total knee arthroplasty x2 Last Documented On 2 12:12PM ; [facility] History of back surgery 03/27/2017 Last Documented On 8 12:07PM ; [facility] Medical History Includes: Medical History in patient's chart Description Last Updated Recent immunization for flu 2020 022 Last Documented On 2 2:27PM ; [facility] Recent immunization for pneumococcal pne [facility] 03/14/2021 09/14/2021 Last Documented On 2 2:27PM ; [facility] History of History of Blood Clots 2021 Last Documented On 2 12:12PM ; [facility] History of Hypertension 08/17/2021 Last Documented On 2 12:12PM ; [facility] History of History of Blood Transfusion 07/24/2021 Last Documented On 2 4:14PM ; [facility] Arthritis 12/09/2019 Last Documented On 0 10:23AM ; [facility] Back surgery 12/09/2019 Last Documented On 0 10:23AM ; [facility] Hernia repair 12/09/2019 Last Documented On 0 10:23AM ; [facility] History of Blood Clots 12/09/2019 Last Documented On 0 10:23AM ; [facility] Hypertension 12/09/2019 Last Documented On 0 10:23AM ; [facility] Total knee arthroplasty x2 12/09/2019 Last Documented On 0 10:23AM ; [facility] Blood Transfusion 03/27/2017 Last Documented On 8 12:07PM ; [facility] Family History Includes: Family History in patient's chart Description Last Updated Family history of cancer 08/17/2021 Last Documented On 2 12:12PM ; [facility] Family history of heart disease 03/27/19 18 Last Documented On 8 12:07PM ; [facility] Family history of hypertension 8 Last Documented On 8 12:07PM ; [facility] Sororal history of family history of can cer 03/27/2017 Last Documented On 8 12:07PM ; [facility] Review of Systems Review of Systems not [...] Patient Last Documented On 2 1:39PM ; [facility] PCV (Pneumovax 23) 1 03/14/2021 Complete ( Reported) Patient Last Documented On 2 1:39PM ; [facility] Allergies Includes: Active, inactive, and resolved Allergies Substance Type Reaction Onset Date Resolved Date Statu s Lisinopril Allergy 08/27/2013 Active Last Documented On 2 3:01PM ; [facility] Note: cough Augmentin Allergy 10/23/2021 Active Last Documented On 2 3:01PM ; [facility] Amoxicillin Allergy 05/31/2015 Active Last Documented On 2 3:01PM ; [facility] Insurance Includes: Active Insurance Policies Plan Name Member ID Group # Subscriber Relationship Effect papito Dates 1 - Medicare Part B [facility] [id number] Michael Dodson Self 09/12/2007 - Unknown 2 - [employer] [id number] Michael Dodson Self [id number] - Unknown Clinical Notes Includes: Signed Clinical Notes starting from 01/25/2022 No Clinical Notes Recorded
--- OUTSIDE RECORDS SUMMARY | 2024-11-16 13:47 | XMS_ITS | Patient Health Record ---
Author Organization [facility] Address [address] [place] [id number] Care Team Providers Care Cleaner Furniture Name Role Phone Camryn Simons Primary Care [...] Performing Lab: Notes/Report: FE 80 49-181 ug/dL Medications Medication SIG (Take, Route, Frequency, Duration) Notes Start Date End Date Status Crestor 5 MG 1 tablet Orally Once a day; Duration: 30 day(s) 08/13/2023 Not-Taking Losartan Potassium 100 MG 1/2 tab(s) ora lly once a day (morning) Active Memantine HCl 5 MG 1 tablet Orally Two times a day Not-Taking Lactulose 10 GM/15ML 30 ml Orally Once a day; Duration: 30 day(s) 11/12/2023 Not-Taking Omeprazole 20 MG 1 capsule 30 minutes before morning meal Orally Once a day; Duration: 30 day(s) 07/22/2023 Not-Taking Meclizine HCl 12.5 MG 1 tablet Orally every 12 hrs prn; Duration: 20 days 08/13/2023 Active Aspirin 81 81 MG 1 tablet Orally Once a day 08/13/2023 Active Ferrous Sulfate 325 (65 Fe) MG 1 tablet Orally once daily; Duration: 30 day(s) 11/14/2023 Active amLODIPine Besylate 5 MG 1 tablet Orally At Bed Time 11/27/2022 Not-Taking fentaNYL Ldp-QAVcifkyakg-WwSd 0.2-0.2-0.9 MG/100ML as directed Epidural pain pump Active Cyclobenzaprine HCl 5 MG 1 tab(s) Orally Three times a day 06/02/2023 Active Immunizations Vaccine Route Administration Date Status Comme nts COVID 19 Moderna Unknown 02/23/2020 Administered COVID 19 Moderna Unknown 03/22/2020 Administered Fluzone High Dose (65yr and older) IM Intramuscular 11/15/2014 Administered Fluzone High Dose (65yr and older) IM Intramuscular 02/21/2017 Administered Fluzone High Dose (65yr and older) IM Intramuscular 12/26/2017 Administered Fluzone High Dose (65yr and older) IM Intramuscular 12/30/2018 Administered Fluzone High Dose (65yr and older) IM Intramuscular 12/23/2019 Administered Fluzone High Dose (65yr and older) IM Intramuscular 12/12/2021 Administered Fluzone High Dose (65yr and older) IM Intramuscular 11/27/2022 Administered PNEUMOVAX 23 VACCINE IM Intramuscular 04/13/2021 Administe red Prevnar (PCV13) IM Intramuscular 11/15/2014 Administered xFlu shot-36 months and older IM Intramuscular 01/09/2005 Administered xFlu shot-36 months and older IM Intramuscular 01/08/2006 Administered xFlu shot-36 months and older IM Intramuscular 01/17/2007 Administered xFlu shot-36 months and older IM Intramuscular 12/21/2008 Administered xFlu shot-36 months and older IM Intramuscular 12/12/2009 Administered xFluzone (6mos and older)-trivalent IM Intramuscular 12/25/2012 Administered vPziwqty-jzqszybdy-zprcygb e pts. IM Intramuscular 01/18/2011 Administered xNrmuunx-jgytqlgms-ukprpbf e pts. IM Intramuscular 11/20/2011 Administered gFlntrsx-lmumrurnt-kubhtxx e pts. IM Intramuscular 02/18/2014 Administered Problems Problem Type SNOMED Code ICD Code Onset Dates Problem Status W/U Status Risk Notes Problem Sinusitis (12116929) Sinusitis (J32.9) Active confirmed Problem Overactive bladder (927812669) Overactive bladder (N32.81) Active confirmed Problem Anemia (148177749) Anemia (D64.9) Active confir med Problem Essential hypertension (91032576) Essential hypertension (I10) Active confirmed Problem Constipation (83956037) Constipation (K59.00) Active confirmed Problem Anxiety (12179937) Anxiety (F41.9) Active confi rmed Problem Iron deficiency anemia (03113760) Iron deficiency anemia (D50.9) Active confirmed Problem Valvular heart disease (874462) Valvular heart disease (I38) Active confirmed Problem Primary generalised osteoarthritis (087588634) Primary generalized (osteo)arthritis (M15.0) Active confirmed Problem Chronic pain syndrome (461777956) Chronic pain syndrome (G89.4) Active confirmed Problem Cholelithiasis without obstruction (51498075) Calculus of gallbladder without cholecystitis without obstruction (K80.20) Active confirmed Problem Gastroesophageal reflux disease without esophagitis (696085273) Gastroesophageal reflux disease without esophagitis (K21.9) Active confirmed Problem Hypersomnia (24425994) 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) Active confirmed Problem Lower urinary tract symptoms due to benign prostatic hypertrophy (38306717234706) Benign nodular prostatic hyperplasia with lower urinary tract symptoms (N40.3) Active confirmed Problem Dyslipidemia (696867182) Dyslipidemia (E78.5) Active confirmed Problem Memory deficit (225630268) Memory deficit (R41.3) Active confirmed Vital Signs Heart Rate 70 /min 10/15/2024 Blood pressure diastolic 78 mm Hg 10/15/2024 Height 68.50 in 10/15/2024 Blood pressure systolic 130 mm Hg 10/15/2024 Weight 171.2 lbs 10/15/2024 BMI 25.65 kg/m2 10/15/2024 Encounters Encounter Location Date [facility] [address] [place] [id number] 10/15/2024 Camryn Simons Essential hypertensi on I10 ; Hyperglycemia R73.9 ; Dyslipidemia E78.5 ; Iron deficiency anemia D50.9 ; Primary generalized (osteo)arthritis M15.0 ; Chronic pain syndrome G89.4 ; Prostate cancer screening Z12.5 ; Valvular heart disease I38 ; Anemia D64.9 and BMI 25.0-25.9,adult Z68.25 [facility] [address] [place] [phone] 03/20/[address] [facility] [address] [place] [id number] 10/17/2024 Camryn Simons Assessments Encounter Date Diagnosis (ICD Code) Assessment Notes Treatment Notes Treatment Clinical Notes Section Notes 10/15/2024 Hyperglycemia (ICD-10 - R73.9) 10/15/2024 Essential hypertension (ICD-10 - I10) 10/15/2024 Dyslipidemia (ICD-10 - E78.5) 10/15/2024 Iron deficiency anemia (ICD-10 - D50.9) 10/15/2024 Primary generalized (osteo)arthritis (ICD-10 - M15.0) 10/15/2024 Chronic pain syndrome (ICD-10 - G89.4) 10/15/2024 Prostate cancer screening (ICD-10 - Z12.5) 10/15/2024 Valvular heart disease (ICD-10 - I38) 10/15/2024 Anemia (ICD-10 - D64.9) 10/15/2024 BMI 25.0-25.9,adult (ICD-10 - Z68.25) Plan Of Treatment Pending Test Test Name Order Date Echocardiogram 10/15/2024 Insurance Providers Payer Name Payer Address Payer Phone Subscriber Number Group Number Insured Name Patient Relationship to Insured Coverage Start Date Coverage End Date MEDICARE PART B [address] [address] [place] [id number] MICHAEL PATIÑO Self - patient is the insured [employer] [address] [place] [address] [id number] MICHAEL PATIÑO Self - patient is the insured Medications Administered Medication Instructions Date of Administration Dosage Notes celestone 11/28/2010 Depo- Medrol 40 mg/ml 12/25/2012 Depo- Medrol 40 mg/ml 02/21/2013 1.5 mL Depo- Medrol 40 mg/ml 10/08/2016 1.5 mL Dexamethasone 12/31/2008 1 mL Dexamethasone 06/02/2016 1 mL Dexamethasone 07/24/2016 1 mL phenergan 25 mg/ml 08/02/2017 25 mg Medical (General) History Medical History History ICD Code Chronic back pain DVT bilateral TKA Nasal polyps hypertension Hypertriglyceridemia BPH OA Valvular heart disease - mild , mod TR by echo 08/2023 Surgical History Surgery Date(Month/Year) sinus surgery and polyps when in his 20s right knee replacement x 2, 2001 & 2004 right shoulder surgery left knee replacement, 2001 mole removed from right ear ( Melanoma) Lumbar Laminctomy 1967,1968 Eye surgery 11/[address] Kinney 07/2015 C-scope/ Allran/ pandiverticulosis, inte rnal hemorrhoids 08/2017 Scope right knee for scar tissue/ De[facility]Ang julian 01/2018 MILD (minimally invasive lumbar decompre ssion) procedure/ Dr Kinney 01/2019 Hospitalization History Reason Date(Month/Year) UTC-fell and hurt right leg 01/2020 [facility]-M[facility] 02/12/2014 Nasal poylps removed 1970 bilateral TKA 2001 R shoulder surgery 1998 lumbar disc 1996
--- OUTSIDE RECORDS SUMMARY | 2024-11-16 13:47 | XMS_ITS ---
Care Plan - [facility] Created on: November 16, 2024 Davin Dodson .0 : 1940 Sex: Male Author Organization [facility] Address [address] [place] [address] Phone Care Team Providers Care Boilermaker Helper Name Role Phone Nickie KOROMA, Delvin Unavailable Unavailable BERNIE KOROMA, JOSE ALFREDO Unavailable [phone]
== END 2024-11-16 23:59 | disposition home or self-care (01) ==
LOC: RT 13:44
PROVIDERS: PCP Family Medicine; Visit Provider Family Medicine
DX: I35.2 Nonrheumatic aortic (valve) stenosis with insufficiency (principal); I51.7 Cardiomegaly; I25.10 Atherosclerotic heart disease of native coronary artery without angina pectoris
CPT/HCPCS: 93306